=== PATIENT | male | born 1950 | race Caucasian/White ===

== ENCOUNTER 2017-04-17 19:37 | Emergency (ER) | payer MEDICARE ==
[2017-04-17 19:53] VITALS: RESP 18
[2017-04-17] MEDS ORDERED: HYDROmorphone 1 MG/ML 1 ML SYRINGE IVP STA (19:56)
[2017-04-17] MEDS ORDERED: IBUPROFEN 600 MG STARTER PACK 4 TAB BTL PO STA (19:56)
--- NOTE | 2017-04-17 19:56 | ED ---
Fever HPI - General Stated Complaint: Fall Time Seen by Provider: 04/17/17 19:41 - History of Present Illness Initial Comments: Chief complaint and history of present illness this is a 67-year-old male brought emergency room by embolus. The patient was at home he was on a ladder he fell approximately 6 feet onto his left side area. Complains discomfort to the left lower lateral rib cage and his left hip pelvic region. Denies any loss of consciousness. Patient had his cervical collar removed because it was irritating him palpation in the neck was negative for pain patient demonstrated there was able to flex and extend without discomfort. The patient also was found to have a temperature of 100 with a productive cough. - Related Data Home Medications Medication Instructions Recorded Confirmed Unknown Gout Medication 1 tab PO DAILY PRN 04/17/17 04/17/17 Previous Rx's Medication Instructions Recorded Hydrocodone/Acetaminophen [[place] 1 each PO Q6HR PRN #10 tab 04/17/17 5-325] Allergies Allergy/AdvReac Type Severity Reaction Status Date / Time No Known Allergies Allergy Verified 04/17/17 19:50 Review of Systems ROS Statement: Those systems with pertinent positive or pertinent negative responses have been documented in the HPI. Review of systems no visual acuity changes no headache or neck pain. Denies collarbone pain or shoulder pain. He has discomfort to his left lower lateral rib cage. Also productive cough. Temperature today is 100. No abdominal pain. He has discomfort to the left groin area. He keeps his left leg flexed at the hip. No neuro deficits. All systems are reviewed. Past medical problems denies any. 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 Family history mother had cancer of unknown type. Patient does smoke does drink denies any ALLERGIES. ROS Other: All systems not noted in ROS Statement are negative. Past Medical History Past Medical History: Skin Disorder Additional Past Medical History / Comment(s): Gout, cellulitis left leg-on rx and clearing up, anemia, History of Any Multi-Drug Resistant Organisms: None Reported Past Surgical History: No Surgical Hx Reported Additional Past Surgical History / Comment(s): surgery on rt leg and foot after injury age 3 Past Anesthesia/Blood Transfusion Reactions: No Reported Reaction Past Psychological History: No Psychological Hx Reported Smoking Status: Current every day smoker Past Alcohol Use History: Daily Additional Past Alcohol Use History / Comment(s): has smoked for approx 50 yrs- 2 PPD about per Past Drug Use History: None Reported - Past Family History Mother Family Medical History: Cancer Brother(s) Family Medical History: Cancer General Exam - General Exam Comments Initial Comments: General: The patient is awake and alert, arrived via EMS after falling approximately 6 feet. No loss of consciousness. He is not on blood thinners. The patient complains of pain to his left lower lateral rib cage and left hip area. Temp warm 1.2 pulse 75 respiratory rate 18 pulse ox 95% room air blood pressure 136/ 64. Eye: Pupils are equal, round and reactive to light, extra-ocular movements are intact ; there is normal conjunctiva bilaterally. No signs of icterus. Ears, nose, mouth and throat: There are moist mucous membranes and no oral lesions. Poor dentition Neck: The neck is supple, there is no tenderness. Cardiovascular: There is a regular rate and rhythm. No murmur, rub or gallop is appreciated. Respiratory: Patient has a fever productive cough starting today. Patient's heavy smoker. Rales appreciated.. Left lateral lower chest wall pain with movement palpation and breathing. Gastrointestinal: Soft, non-distended, non-tender abdomen without masses or organomegaly noted. There is no rebound or guarding present. No CVA tenderness. Bowel sounds are unremarkable. Back: There is no tenderness to palpation in the midline. There is no obvious deformity. No rashes noted. Musculoskeletal: Normal ROM, no tenderness, There is no pedal edema. There is no calf tenderness or swelling. Sensation intact. Pulses equal bilaterally 2+. Partial dictation right foot Neurological: CN II-XII intact, There are no obvious motor or sensory deficits. Coordination appears grossly intact. Speech is normal. No focal or lateralizing findings Skin: Skin is warm and dry and no rashes or lesions are noted. Course Vital Signs 04/17/17 04/17/17 04/17/17 19:39 20:53 21:17 Temperature 101.2 F H 99.2 F Pulse Rate 75 62 58 L Respiratory 18 18 18 Rate Blood Pressure 136/64 128/60 148/72 O2 Sat by Pulse 95 97 93 L Oximetry 04/17/17 22:56 Temperature 97.9 F Pulse Rate 52 L Respiratory 18 Rate Blood Pressure 105/67 O2 Sat by Pulse 99 Oximetry Medical Decision Making - Medical Decision Making Medical decision making; X-rays of cervical spine were done and reviewed radiologist his findings are negative for fracture or malalignment. Prominent multilevel cervical spondylosis changes appreciated. Impression; no acute process. As read by Dr. Master Irvin X-ray of the left hip was done and reviewed by radiologist his findings are bones and joints and soft tissues are unremarkable. Impression no acute process. As read by Dr. Master Irvin X-ray of the pelvis was done and reviewed by radiologist his impression is bones and joints and soft tissues appear negative for acute injury. Impression no acute process. As read by Dr. Master Irvin X-ray of the chest and left rib series were done and reviewed by radiologist his findings are the study is negative for fracture or pneumothorax or pleural effusion. No incidental findings. Impression no acute process. As read by Dr. Master Irvin CT the brain was done and reviewed by radiologist his findings are there is no acute intracranial hemorrhage, mass effect, or midline shift identified. The ventricles and sulci are within normal limits in size. The globes are intact and the visualized sinuses are clear. Impression no acute process. As read by Dr. Master Irvin Patient became mildly diaphoretic after IV Dilaudid. He states she's had a before he had no reaction to the morphine initially. He was given Zofran. Patient states he is feeling better. He is able to rotate his hip but with discomfort. The patient received 1 L of fluid so far, he'll receive another half liter. The patient's labs show white count 7.2 hemoglobin 7.5 hematocrit 23 and platelets 255. Potassium 4.3. BUN 14 creatinine 0.8 GFR greater than 60. Glucose 103. The patient was surprised to hear his hemoglobin was low denies any source of bleeding. Hemoccult will be sent. I discussed with the patient has hemoglobin of 7.5. Family reports they've been to an oncologist for some problems with hemochromatosis. He'll follow-up. I did a rectal exam prostate felt normal. There was no stool in the vault to check for stool guaiac. Patient denies seeing any dark or black or red stool per rectum. - Lab Data Result diagrams: 04/17/17 22:14 04/17/17 22:14 Lab Results 04/17/17 04/17/17 Range/Units 22:14 22:14 WBC 7.2 (3.8-10.6) k/uL RBC 1.91 L (4.30-5.90) m/uL Hgb 7.5 L (13.0-17.5) gm/dL Hct 23.0 L (39.0-53.0) % MCV 120.1 H (80.0-100.0) fL MCH 39.0 H (25.0-35.0) pg MCHC 32.5 (31.0-37.0) g/dL RDW 20.8 H (11.5-15.5) % Plt Count 255 (150-450) k/uL Neutrophils % 77 % Lymphocytes % 15 % Monocytes % 4 % Eosinophils % 2 % Basophils % 0 % Neutrophils # 5.6 (1.3-7.7) k/uL Lymphocytes # 1.1 (1.0-4.8) k/uL Monocytes # 0.3 (0-1.0) k/uL Eosinophils # 0.1 (0-0.7) k/uL Basophils # 0.0 (0-0.2) k/uL Manual Slide Review Performed Hypochromasia Slight Anisocytosis Moderate Macrocytosis Marked Target Cells Present Tear Drop Cells Present Ovalocytes Present Fragmented RBCs Present Sodium 137 (137-145) mmol/L Potassium 4.3 (3.5-5.1) mmol/L Chloride 105 (98-107) mmol/L Carbon Dioxide 23 (22-30) mmol/L Anion Gap 9 mmol/L BUN 14 (9-20) mg/dL Creatinine 0.80 (0.66-1.25) mg/dL Est GFR (MDRD) Af Amer >60 (>60 ml/min/1.73 sqM) Est GFR (MDRD) Non-Af >60 (>60 ml/min/1.73 sqM) Glucose 103 H (74-99) mg/dL Calcium 7.9 L (8.4-10.2) mg/dL Total Bilirubin 1.1 (0.2-1.3) mg/dL AST 26 (17-59) U/L ALT 33 (21-72) U/L Alkaline Phosphatase 54 (38-126) U/L Total Protein 6.2 L (6.3-8.2) g/dL Albumin 3.3 L (3.5-5.0) g/dL Disposition Clinical Impression: Fall Disposition: HOME SELF-CARE Condition: Stable Instructions: Fall Prevention for Older Adults (ED), Rib Contusion (ED), Contusion in Adults (ED), Hip Contusion (ED) Additional Instructions: Take Tylenol and/or [place] for pain. May need repeat x-rays if pain persists for a week to 10 days. Follow-up with your oncologist near family doctor concerning here blood picture. Prescriptions: Hydrocodone/Acetaminophen [[place] 5-325] 1 each PO Q6HR PRN #10 tab PRN Reason: Pain Referrals: George Bustillos DO [Primary Care Provider] - 1-2 days Time of Disposition: 23:23
[2017-04-17] MEDS ORDERED: ONDANSETRON 4 MG/2 ML VIAL IVP STA (21:12)
--- NOTE | 2017-04-17 21:15 | XR ---
EXAMINATION TYPE: XR pelvis AP view DATE OF EXAM: 04/17/2017 COMPARISON: NONE HISTORY: Pain after injury TECHNIQUE: One view FINDINGS: Bones and joints and soft tissues appear negative for acute injury. IMPRESSION: No acute process.
--- NOTE | 2017-04-17 21:17 | XR ---
EXAMINATION TYPE: XR Hip Complete LT DATE OF EXAM: 04/17/2017 COMPARISON: NONE HISTORY: Pain after injury TECHNIQUE: 2 views FINDINGS: Bones and joints and soft tissues are unremarkable. IMPRESSION: No acute process.
--- NOTE | 2017-04-17 21:19 | XR ---
EXAMINATION TYPE: XR ribs LT w pa chest xray DATE OF EXAM: 04/17/2017 COMPARISON: NONE HISTORY: Pain after injury TECHNIQUE: 6 views FINDINGS: The study is negative for fracture or pneumothorax or pleural effusion. No incidental findi ngs. IMPRESSION: No acute process.
--- NOTE | 2017-04-17 21:20 | XR ---
EXAMINATION TYPE: XR cervical spine comp DATE OF EXAM: 04/17/2017 COMPARISON: NONE HISTORY: Pain after injury TECHNIQUE: 5 views FINDINGS: Negative for fracture or malalignment. Prominent multilevel cervical spondylosis changes ap preciated IMPRESSION: No acute process.
--- NOTE | 2017-04-17 21:45 | CT ---
EXAMINATION TYPE: CT brain wo con DATE OF EXAM: 04/17/2017 COMPARISON: NONE HISTORY: Fall injury today. CT DLP: 1010.6 mGycm Automated exposure control for dose reduction was used. FINDINGS: There is no acute intracranial hemorrhage, mass effect, or midline shift identified. The ventricles and sulci are within normal limits in size. The globes are intact and the visualized sinuses are sven ar. IMPRESSION: NO ACUTE PROCESS.
[2017-04-17] MEDS ORDERED: SODIUM CHLORIDE 0.9% 500 ML IV ONE (21:55)
[2017-04-17 22:30] LABS: Anisocytosis Moderate; Basophils % (A) 0 %; CH 38.3; CHCM 32.1; Eosinophils # (A) 0.1 k/uL (0-0.7); Eosinophils % (A) 2 %; HDW 2.93; HGB 7.5 gm/dL (13.0-17.5); Hypochromasia Slight; Luc % (Auto) 1; Lymphocytes # (A) 1.1 k/uL (1.0-4.8); Lymphocytes % (A) 15 %; MCHC 32.5 g/dL (31.0-37.0); MCV 120.1 fL (80.0-100.0); Macrocytosis Marked; Mean Platelet Volume 8.6; Monocytes # (A) 0.3 k/uL (0-1.0); Monocytes % (A) 4 %; Neutrophils # (A) 5.6 k/uL (1.3-7.7); Neutrophils % (A) 77 %; RBC 1.91 m/uL (4.30-5.90); RDW 20.8 % (11.5-15.5); WBC 7.2 k/uL (3.8-10.6)
[2017-04-17 22:35] LABS: ALT 33 U/L (21-72); AST 26 U/L (17-59); Alkaline Phosphatase 54 U/L (38-126); Anion Gap 9 mmol/L; Blood Urea Nitrogen 14 mg/dL (9-20); Calcium 7.9 mg/dL (8.4-10.2); Carbon Dioxide 23 mmol/L (22-30); Chloride 105 mmol/L (98-107); Glucose 103 mg/dL (74-99); Non-African American GFR(MDRD) >60 (>60 ml/min/1.73 sqM); Potassium 4.3 mmol/L (3.5-5.1); Sodium 137 mmol/L (137-145); Total Bilirubin 1.1 mg/dL (0.2-1.3); Total Protein 6.2 g/dL (6.3-8.2)
[2017-04-17 22:58] LABS: Manual Review Performed
[2017-04-17 22:59] LABS: Ovalocytes Present; Target Cells Present; Tear Drop Cells Present
[2017-04-17 23:01] VITALS: BP 105/67; PULSE 52; TEMP 97.9
[2017-04-17 23:16] LABS: Appearance,Urine Clear (Clear); Bilirubin,Urine Negative (Negative); Glucose,Urine (UA) Negative (Negative); Ketones,Urine 1+ (Negative); Leukocyte Esterase,Urine Negative (Negative); Nitrite,Urine Negative (Negative); Protein,Urine Negative (Negative); UA Billing (MACRO vs. MICRO) CHEM; Urobilinogen,Urine <2.0 mg/dL (<2.0)
== END 2017-04-17 23:46 | disposition home or self-care (01) ==
LOC: EC 19:37
DX: M25.552 Pain in left hip (principal); M47.812 Spondylosis without myelopathy or radiculopathy, cervical region; R09.89 Other specified symptoms and signs involving the circulatory and respiratory systems; R07.81 Pleurodynia; R50.9 Fever, unspecified; R05 Cough; R61 Generalized hyperhidrosis; F17.200 Nicotine dependence, unspecified, uncomplicated; W11.XXXA Fall on and from ladder, initial encounter; Y92.009 Unspecified place in unspecified non-institutional (private) residence as the place of occurrence of the external cause
CPT/HCPCS: 96361 ×3; 96374 ×2; 96375 ×2; 99285 ×2; 36415; 80053; 85025; 81003; 87086; 71101; 72050; 72170; 73502; 70450; J2405; J1170; 96372; 99284

== ENCOUNTER → 2019-12-11 | Outpatient (CLI) | payer MEDICARE, BC ==
--- NOTE | 2019-12-11 09:21 | CT ---
EXAMINATION TYPE: CT brain wo/w con DATE OF EXAM: 12/11/2019 COMPARISON: CT brain dated 04/17/2017 HISTORY: Dizziness and pounding in eyes. Vertigo. CT DLP: 2128.6 mGycm Automated Exposure Control for Dose Reduction was Utilized. TECHNIQUE: CT scan of the head is performed with IV contrast.,CT scan of the head is performed withou t and with without and with IV Contrast, patient injected with 100 mL of Isovue 300. FINDINGS: Noncontrast images show no acute intracranial hemorrhage or midline shift. The ventricles and sulci are symmetrically prominent compatible with age-related volume loss. Incidentally noted pa rtially empty sella turcica. The globes are symmetric. Extraocular muscles are also symmetric. No eng orgement of the superior ophthalmic veins. Lenses are in place. Postcontrast images show no suspiciou s enhancing intraparenchymal mass. Scant mucosal thickening of the right maxillary sinus is seen. Rem aining paranasal sinuses and mastoid air cells are well aerated. Osseous demineralization seen. IMPRESSION: 1. No abnormal intracranial enhancement seen. Age-related cerebral atrophy is present. No evidence of severe sinusitis or mastoiditis in this patient with vertigo. Scant mucosal thickening of the right maxillary sinus is seen. 2. Partially empty sella turcica, but is commonly seen with age. However MRI could evaluate for other evidence of increased intracranial pressure. Correlate with ophthalmologic exam. MRI could also pro vide increased sensitivity for underlying white matter change.
== END | disposition home or self-care (01) ==
LOC: RADCTMAIN 07:18
PROVIDERS: ATTEND Family Medicine
DX: G31.1 Senile degeneration of brain, not elsewhere classified (principal); G93.2 Benign intracranial hypertension; R90.89 Other abnormal findings on diagnostic imaging of central nervous system; R42 Dizziness and giddiness
CPT/HCPCS: 82565; 84520; 70470; 36415; Q9967

== ENCOUNTER 2020-03-12 19:17 | Inpatient (IN) | payer MEDICARE, BC ==
[2020-03-12] MEDS ORDERED: ACETAMINOPHEN TAB 500 MG TAB PO STA (19:34)
--- NOTE | 2020-03-12 19:55 | ED ---
General Adult HPI - General Chief complaint: Weakness Stated complaint: weakness Time Seen by Provider: 03/12/20 19:22 Source: patient, EMS, RN notes reviewed, old records reviewed Mode of arrival: EMS Limitations: no limitations - History of Present Illness Initial comments: 70-year-old male presenting for evaluation of fever, generalized weakness. Rizwan garcia received a transfusion this morning at approximately 9 AM. He was noted to have a fever this afternoon. Brought to the emergency department for evaluation. Patient is currently receiving chemotherapy for cancer, uncertain what type of cancer this patient has periods most recent chemo was approximately 2 weeks ago. He denies pain complaints. Denies vomiting or diarrhea. Denies rash. He states he is short of breath this is been ongoing for some time. Denies significant cough. He is a current smoker. - Related Data Home Medications Medication Instructions Recorded Confirmed No Known Home Medications 12/11/19 03/12/20 Allergies Allergy/AdvReac Type Severity Reaction Status Date / Time No Known Allergies Allergy Verified 03/12/20 20:51 Review of Systems ROS Statement: Those systems with pertinent positive or pertinent negative responses have been documented in the HPI. ROS Other: All systems not noted in ROS Statement are negative. Past Medical History Past Medical History: Cancer, Skin Disorder Additional Past Medical History / Comment(s): Gout, cellulitis left leg-on rx and clearing up, anemia, History of Any Multi-Drug Resistant Organisms: None Reported Past Surgical History: No Surgical Hx Reported Additional Past Surgical History / Comment(s): surgery on rt leg and foot after injury age 3 Past Anesthesia/Blood Transfusion Reactions: No Reported Reaction Past Psychological History: No Psychological Hx Reported Smoking Status: Current every day smoker Past Alcohol Use History: Daily Past Drug Use History: None Reported - Past Family History Mother Family Medical History: Cancer Brother(s) Family Medical History: Cancer Father Additional Family Medical History / Comment(s): Father at age 93 from old age. General Exam Limitations: no limitations General appearance: alert, cachectic Head exam: Present: atraumatic, normocephalic Eye exam: Present: normal appearance, PERRL ENT exam: Present: mucous membranes dry Neck exam: Present: normal inspection. Absent: tenderness, meningismus Respiratory exam: Present: respiratory distress, decreased breath sounds Cardiovascular Exam: Present: regular rate, normal rhythm GI/Abdominal exam: Present: soft. Absent: distended, tenderness Extremities exam: Present: normal inspection, normal capillary refill. Absent: pedal edema Neurological exam: Present: alert, oriented X3, CN II-XII intact. Absent: motor sensory deficit Psychiatric exam: Present: normal affect, normal mood Skin exam: Present: warm, dry, intact. Absent: cyanosis, diaphoretic Course Vital Signs 03/12/20 03/12/20 19:18 19:45 Temperature 102.6 F H Pulse Rate 65 Respiratory 18 20 Rate Blood Pressure 135/68 O2 Sat by Pulse 100 Oximetry EKG Findings - EKG Comments: EKG Findings:: EKG: Normal sinus rhythm, rate of 66, FL interval 204 over QRS duration 92, QTC 419, no ST segment elevation Medical Decision Making - Medical Decision Making 70-year-old male presenting for evaluation of fever, cough, generalized weakness. Workup reveals pancytopenia and profound neutropenia. Total white blood cell count is 900, hemoglobin 7.3, platelets are 16. He has a normal lactic acid. Urinalysis showing 10 RBCs, chest x-ray concerning for infiltrate given the cough and dyspnea he will be treated for both neutropenic fever as well as pneumonia. He is given cefepime, vancomycin, and azithromycin in the emergency department. He will be admitted with both oncology and infectious di [facility] [place] consult. Case is discussed with Dr. Calloway who will admit. - Lab Data Result diagrams: 03/12/20 19:40 03/12/20 19:40 Lab Results 03/12/20 03/12/20 03/12/20 Range/Units 19:40 19:40 19:40 WBC 0.9 L* (3.8-10.6) k/uL RBC 2.05 L (4.30-5.90) m/uL Hgb 7.3 L (13.0-17.5) gm/dL Hct 21.0 L (39.0-53.0) % MCV 102.4 H (80.0-100.0) fL MCH 35.5 H (25.0-35.0) pg MCHC 34.7 (31.0-37.0) g/dL RDW 25.5 H (11.5-15.5) % Plt Count 16 L* (150-450) k/uL Neutrophils # ENGRAVER SIGNATURE Differential Comment P Manual Slide Review Performed Hypochromasia (manual) Present Anisocytosis Marked Macrocytosis Marked A Target Cells Present Stomatocytes Present Sodium 132 L (137-145) mmol/L Potassium 4.1 (3.5-5.1) mmol/L Chloride 99 (98-107) mmol/L Carbon Dioxide 26 (22-30) mmol/L Anion Gap 7 mmol/L BUN 18 (9-20) mg/dL Creatinine 0.83 (0.66-1.25) mg/dL Est GFR (CKD-EPI)AfAm >90 (>60 ml/min/1.73 sqM) Est GFR (CKD-EPI)NonAf 88 (>60 ml/min/1.73 sqM) Glucose 100 H (74-99) mg/dL Plasma Lactic Acid Jan 1.1 (0.7-2.0) mmol/L Calcium 8.0 L (8.4-10.2) mg/dL Total Bilirubin 1.1 (0.2-1.3) mg/dL AST 52 (17-59) U/L ALT 46 (4-49) U/L Alkaline Phosphatase 76 (38-126) U/L Total Protein 7.5 (6.3-8.2) g/dL Albumin 3.3 L (3.5-5.0) g/dL Urine Color Urine Appearance (Clear) Urine pH (5.0-8.0) Ur Specific [place] (1.001-1.035) Urine Protein (Negative) Urine Glucose (UA) (Negative) Urine Ketones (Negative) Urine Blood (Negative) Urine Nitrite (Negative) Urine Bilirubin (Negative) Urine Urobilinogen (<2.0) mg/dL Ur Leukocyte Esterase (Negative) Urine RBC (0-5) /hpf Urine WBC (0-5) /hpf Urine Mucus (None) /hpf 03/12/20 Range/Units 20:10 WBC (3.8-10.6) k/uL RBC (4.30-5.90) m/uL Hgb (13.0-17.5) gm/dL Hct (39.0-53.0) % MCV (80.0-100.0) fL MCH (25.0-35.0) pg MCHC (31.0-37.0) g/dL RDW (11.5-15.5) % Plt Count (150-450) k/uL Neutrophils # Differential Comment Manual Slide Review Hypochromasia (manual) Anisocytosis Macrocytosis Target Cells Stomatocytes Sodium (137-145) mmol/L Potassium (3.5-5.1) mmol/L Chloride (98-107) mmol/L Carbon Dioxide (22-30) mmol/L Anion Gap mmol/L BUN (9-20) mg/dL Creatinine (0.66-1.25) mg/dL Est GFR (CKD-EPI)AfAm (>60 ml/min/1.73 sqM) Est GFR (CKD-EPI)NonAf (>60 ml/min/1.73 sqM) Glucose (74-99) mg/dL Plasma Lactic Acid Jan (0.7-2.0) mmol/L Calcium (8.4-10.2) mg/dL Total Bilirubin (0.2-1.3) mg/dL AST (17-59) U/L ALT (4-49) U/L Alkaline Phosphatase (38-126) U/L Total Protein (6.3-8.2) g/dL Albumin (3.5-5.0) g/dL Urine Color Yellow Urine Appearance Clear (Clear) Urine pH 5.5 (5.0-8.0) Ur Specific [place] 1.017 (1.001-1.035) Urine Protein Trace H (Negative) Urine Glucose (UA) Negative (Negative) Urine Ketones Negative (Negative) Urine Blood Moderate H (Negative) Urine Nitrite Negative (Negative) Urine Bilirubin Negative (Negative) Urine Urobilinogen 2.0 (<2.0) mg/dL Ur Leukocyte Esterase Negative (Negative) Urine RBC 10 H (0-5) /hpf Urine WBC 1 (0-5) /hpf Urine Mucus Rare H (None) /hpf Critical Care Time Critical Care Time: Yes Total Critical Care Time: 35 Disposition Clinical Impression: Pneumonia, Neutropenic fever Disposition: ADMITTED IP TO THIS [facility] Condition: Stable Is patient prescribed a controlled substance at d/c from ED?: No Referrals: None,Stated [REFERRING] - 1-2 days Decision to Admit Reason: Admit from EC Decision Date: 03/12/20 Decision Time: 21:11
[2020-03-12 20:04] LABS: Anisocytosis Marked; HGB 7.3 gm/dL (13.0-17.5); MCH 35.5 pg (25.0-35.0); MCHC 34.7 g/dL (31.0-37.0); MCV 102.4 fL (80.0-100.0); Macrocytosis Marked; Mean Platelet Volume 8.9; RBC 2.05 m/uL (4.30-5.90)
[2020-03-12 20:07] LABS: ALT 46 U/L (4-49); AST 52 U/L (17-59); African American GFR (CKD) >90 (>60 ml/min/1.73 sqM); Albumin 3.3 g/dL (3.5-5.0); Alkaline Phosphatase 76 U/L (38-126); Anion Gap 7 mmol/L; Blood Urea Nitrogen 18 mg/dL (9-20); Carbon Dioxide 26 mmol/L (22-30); Chloride 99 mmol/L (98-107); Glucose 100 mg/dL (74-99); Non-African American GFR(CKD) 88 (>60 ml/min/1.73 sqM); Potassium 4.1 mmol/L (3.5-5.1); Sodium 132 mmol/L (137-145); Total Bilirubin 1.1 mg/dL (0.2-1.3); Total Protein 7.5 g/dL (6.3-8.2)
[2020-03-12 20:14] LABS: RDW 25.5 % (11.5-15.5)
--- NOTE | 2020-03-12 20:18 | XR ---
EXAMINATION TYPE: XR chest 2V DATE OF EXAM: 03/12/2020 COMPARISON: 04/17/2017 HISTORY: 70-year-old male with fever, shortness of breath, weakness TECHNIQUE: PA and lateral views FINDINGS: Heart upper limits of normal in size. Some pleural-based calcifications are suggested particularly ov erlying the hemidiaphragms. Vague patches of hazy densities may relate to additional pleural calcific ations. Hyperinflation with flattening of the hemidiaphragms. No definite consolidation or pleural ef fusion. IMPRESSION: COPD. Pleural calcifications suggesting prior asbestosis exposure. Vague patches of hazy density coul d represent subtle groundglass infiltrate such as relating to interstitial pneumonitis or atypical pn eumonias. Clinically correlate.
[2020-03-12 20:23] LABS: Appearance,Urine Clear (Clear); Bilirubin,Urine Negative (Negative); Blood,Urine Moderate (Negative); Color,Urine Yellow; Glucose,Urine (UA) Negative (Negative); Ketones,Urine Negative (Negative); Leukocyte Esterase,Urine Negative (Negative); Mucus,Urine Rare /hpf; Nitrite,Urine Negative (Negative); PH, Urine 5.5 (5.0-8.0); Protein,Urine Trace (Negative); RBC,Urine 10 /hpf (0-5); Specific Gravity,Urine 1.017 (1.001-1.035); WBC,Urine 1 /hpf (0-5)
[2020-03-12 20:41] LABS: WBC 0.9 k/uL (3.8-10.6)
[2020-03-12] MEDS ORDERED: VANCOMYCIN IV PER PHARMACY 1 EACH MISC MISCELLANE PRN (20:44)
[2020-03-12] MEDS ORDERED: CEFEPIME 2 GM in SODIUM CHLORIDE 0.9% 100 ML IVPB STA (20:44)
[2020-03-12] MEDS ORDERED: AZITHROMYCIN 500 MG in SODIUM CHLORIDE 0.9% 250 ML IVPB STA (20:45)
[2020-03-12 20:48] LABS: Hypochromasia (M) Present; Platelet Count 16 k/uL (150-450); Stomatocytes Present; Target Cells Present
[2020-03-12] MEDS ORDERED: VANCOMYCIN 1,250 MG in SODIUM CHLORIDE 0.9% 250 ML IVPB STA (20:48)
[2020-03-12] MEDS ORDERED: NALOXONE 0.4 MG/ML 1 ML VIAL IV PRN (21:08)
[2020-03-12] MEDS: SODIUM CHLORIDE 0.9% 1,000 ML IV SCH (21:37)
[2020-03-13] MEDS: CEFEPIME 2 GM in SODIUM CHLORIDE 0.9% 100 ML IVPB SCH ×3 (04:25→20:48)
[2020-03-13] MEDS: ACETAMINOPHEN TAB 325 MG TAB PO PRN ×2 (09:21→18:04)
[2020-03-13] MEDS: VANCOMYCIN 1,000 MG in SODIUM CHLORIDE 0.9% 250 ML IVPB SCH ×2 (09:22→21:38)
[2020-03-13] MEDS: SODIUM CHLORIDE 0.9% 1,000 ML IV SCH ×2 (11:51→21:39)
--- NOTE | 2020-03-13 11:53 | P.HPIM ---
History of Present Illness H&P Date: 03/13/20 Chief Complaint: Fever This is a 70-year-old patient of Dr. Bustillos with a past medical history of anemia, gout, tobacco use and dependence, daily alcohol use. And cancer. Patient is unsure of the type of cancer that he has. He has been receiving chemotherapy and blood transfusions. He is under care with Dr. Flores. Patient presented yesterday for evaluation of fever and generalized weakness. Patient a transfusion yesterday morning at approximately 9 AM. He was noted to have a fever during the afternoon. Patient states that his most recent chemotherapy was approximately 2 weeks ago. He denies any pain or at this time. Denies any vomiting or diarrhea. Patient states that he has been short of breath recently with any activity. Denies any cough. Patient is a current smoker. At this time patient is resting in bed without any acute distress. He is still unsure of the type of cancer that he has stating that his white blood cells are destroyed his red blood cells. Patient underwent a blood transfusion yesterday and was feeling fine and developed a fever during the afternoon. Blood pressure 116/52 tabs are 99.9, respirations 18, pulse 62, pulse ox a 99% on 2 L via nasal cannula. RBC 2.05, hemoglobin 7.3, platelets 16, potassium 4.1, BUN 18, creat inine 0.83 Review of Systems Review Of Systems: Constitutional: No fever, no chills, no night sweats. No weight change. No weakness, fatigue or lethargy. No daytime sleepiness. EENT: No headache. No blurred vision or double vision, no loss of vision. No loss of Hearing, no ringing in the ears, no dizziness. No nasal drainage or congestion. No epistaxis. No sore throat. Lungs: reports shortness of breath with activity, cough, no sputum production. No wheezing. Cardiovascular: No chest pain, no lower extremity edema. No palpitations. No paroxysmal nocturnal dyspnea. No orthopnea. No lightheadedness or dizziness. No syncopal episodes. Abdominal: no abdominal discomfort. No nausea, vomiting. no diarrhea. No constipation. No bloody or tarry stools. no loss of appetite. Genitourinary: No dysuria, increased frequency, urgency. No urinary retention. Musculoskeletal: No myalgias. No muscle weakness, no gait dysfunction, no frequent falls. No back pain. No neck pain. Integumentary: No wounds, no lesions. No rash or pruritus. No unusual bruis ing. No change in hair or nails. Neurologic: No aphasia. No facial droop. No change in mentation. No head injury. No headache. No paralysis. No paresthesia. Psychiatric: No depression. No anxiety. No mood swings. Endocrine: No abnormal blood sugars. No weight change. No excessive sweating or thirst. Past Medical History Past Medical History: Cancer, Skin Disorder Additional Past Medical History / Comment(s): Gout, cellulitis to left leg? (patient states he is itchy, some scabs and scarring noted), chronic anemia, bone marrow cancer History of Any Multi-Drug Resistant Organisms: None Reported Past Surgical History: No Surgical Hx Reported Additional Past Surgical History / Comment(s): surgery on rt leg and foot after injury age 3 Past Anesthesia/Blood Transfusion Reactions: No Reported Reaction Past Psychological History: No Psychological Hx Reported Smoking Status: Current every day smoker Past Alcohol Use History: Daily Additional Past Alcohol Use History / Comment(s): Patient is a smoker 2 packs per day for 50 years. Patient drinks 4-6 beers per day for many years and cut down to 2 beers per day for the past 2 months. Patient lives at home with his . Past Drug Use History: None Reported - Past Family History Mother Family Medical History: Cancer Brother(s) Family Medical History: Cancer Father Additional Family Medical History / Comment(s): Father at age 93 from old age. Medications and Allergies Home Medications Medication Instructions Recorded Confirmed Type No Known Home Medications 12/11/19 03/12/20 History Allergies Allergy/AdvReac Type Severity Reaction Status Date / Time No Known Allergies Allergy Verified 03/12/20 20:51 Physical Exam Vitals: Vital Signs Temp Pulse Pulse Resp BP BP BP 03/13/20 07:00 99.9 F H 62 18 116/52 03/13/20 01:00 98.2 F 50 L 20 104/41 03/12/20 23:05 98.4 F 50 L 20 97/40 03/12/20 21:30 100.1 F H 53 L 16 97/52 03/12/20 19:45 20 03/12/20 19:18 102.6 F H 65 18 135/68 Pulse Ox 03/13/20 07:00 99 03/13/20 01:00 100 03/12/20 23:05 100 03/12/20 21:30 100 03/12/20 19:45 03/12/20 19:18 100 Intake and Output 03/12/20 03/13/20 03/13/20 22:59 06:59 14:59 Intake Total 600 Balance 600 Intake: Intake, IV Titration 600 Amount Sodium Chloride 0.9% 1, 600 000 ml @ 75 mls/hr IV . [id number] [facility] Rx#:[id number] Other: Voiding Method Toilet Urinal # Voids 1 # Bowel Movements 1 Weight 60.328 kg General Appearance: 70-year-old male Alert, cooperative, no distress, appears stated age. Neck HEENT: Supple, no lymphadenopathy, no thyroid enlargement, no carotid bruits. Lungs: Clear to auscultation without crackles or wheezes no rhonchi, no deformity. Chest Wall: Chest wall normal expansion with deep inspiration no tenderness and no deformity was found on exam, no costochondral pain or discomfort. Heart: Regular rate and rhythm, S1, S2 normal, no murmur, rub or gallop. Back: Symmetric, no curvature, ROM normal, no CVA tenderness. Abdomen: Soft, non-tender, no rebound or rigidity, no hepatosplenomegaly. Extremities: Extremities normal, atraumatic, no cyanosis or edema. Pulses: 2+ and symmetric. Skin: Warm to touch Skin color, texture, tugor normal, no rashes or lesions. Neurologic: Alert oriented x3 cranial nerves II through XII intact, no motor deficit, no abnormal balance or gait Results CBC & Chem 7: 03/12/20 19:40 03/12/20 19:40 Labs: Abnormal Lab Results - Last 24 Hours (Table) 03/12/20 03/12/20 03/12/20 Range/Units 19:40 19:40 20:10 WBC 0.9 L* (3.8-10.6) k/uL RBC 2.05 L (4.30-5.90) m/uL Hgb 7.3 L (13.0-17.5) gm/dL Hct 21.0 L (39.0-53.0) % MCV 102.4 H (80.0-100.0) fL MCH 35.5 H (25.0-35.0) pg RDW 25.5 H (11.5-15.5) % Plt Count 16 L* (150-450) k/uL Macrocytosis Marked A Sodium 132 L (137-145) mmol/L Glucose 100 H (74-99) mg/dL Calcium 8.0 L (8.4-10.2) mg/dL Albumin 3.3 L (3.5-5.0) g/dL Urine Protein Trace H (Negative) Urine Blood Moderate H (Negative) Urine RBC 10 H (0-5) /hpf Urine Mucus Rare H (None) /hpf Thrombosis Risk Factor Assmnt - Choose All That Apply Any of the Below Risk Factors Present?: No Each Risk Factor Represents 2 Points: Age 61-74 years Other congenital or acquired thrombophilia - If yes, enter type in comment: No Thrombosis Risk Factor Assessment Total Risk Factor Score: 2 Thrombosis Risk Factor Assessment Level: Low Risk Assessment and Plan Plan: 1. Neutropenic fever. Vancomycin 1 g every 12 hours, cefepime 2 g every 8 hours Tylenol as needed for fever control, consult oncology, may Neupogen, awaiting recommendations from oncology, consult infectious disease, awaiting blood cultures, awaiting covid 19 testing 2. Pancytopenia. See above 3. Chronic anemia. See above 4. Tobacco use and dependence 5. Alcohol abuse, stable 6. GI prophylaxis. Pantoprazole 40 mg IV daily 7. DVT prophylaxis. Ambulation 8. Covid test pending Admit for a minimal of 2 nights day Impression and plan of care have been directed as dictated by the signing physician. Kaylah Calhoun nurse practitioner acting as scribe for signing physician.
--- NOTE | 2020-03-13 15:38 | P.CONS ---
History of Present Illness - Reason for Consult Consult date: 03/13/20 pancytopenia Requesting physician: Juanjose Calloway - Chief Complaint fever - History of Present Illness Mr. Walls is a very pleasant 70 yo male with multiple comorbidities including MDS with ringed sideroblasts, following more recently with Dr. Flores and recently started on chemotherapy with dacogen, who is here for neutropenic fever. Work up suggestive of pneumonia. He is on antibiotics and with severe neutropenia, pancytopenia due to chemotherapy. Patient's cancer history is as follows. He was initially seen for progressive anemia, and persistently high MCV. Labs from 03/06 revealed a Hgb of 13.3, with MCV 111.4. CRP was mildly elevated at 1.37.On 05/31/16, Hgb was 8.6, with MCV 116.5. Ferritin was 1053, but saturation was normal at 27%. TIBC was low at 246. CRP was higher at 3.02. Total globulin was elevated at 4.1. Other aspects of his CBC and CMP were normal. He denied any prior h/o blood problems, or transfusions, or any ongoing chronic inflammatory condition. Additional labs were ordered, which were negative, other than a mild elevation of light chains, with normal ratio. Repeat iron studies again showed no evidence of hemochromatosis. He had a bone marrow on 08/30/16. Prelim report, per my discussion with Pathology indicated erythroid hyperplasia, with some megaloblastoid changes, and increased ring sideroblasts. Flow indicated an aberrant population of blasts ( 1%). This is most indicative of MDS. He denied any f/c/n/v/LAD/joint swelling/obvious inflammation. His ROS is otherwise as per HPI and negative out of 10. 01/20/20: the patient was referred back here as a new consult. At the time of his initial evaluation, on discussion of the pathology, he had indicated that he did not want any treatment especially chemotherapy. As hemoglobin was still in a safe range, it was recommended that the patient be followed with observation at the time. However he canceled his scheduled appointment in 10/10 did not follow- up in the office subsequently. According to physician notes available the patient remained quite noncompliant and erratic in follow-up with his PCP. He had presented in 12/11 with complains of progressive fatigue, shortness of breath on exertion, and dizziness over the past several weeks. He was found to have a hemoglobin of 6.7 with MCV 99, platelets 193 and WBC 4.5 with ANC 1.2 and ALC 2.1.GFR was essentially normal, along with other liver enzymes. Uric acid was elevated at 8.2. C-reactive protein was 9.5. His iron saturation was 50% with ferritin 930. the patient was admitted to [facility] on 12/11/19 and received blood transfusion. Hemoglobin improvement to the 8 range any was s ubsequently discharged. He also had a flow cytometry done by his PCP around this time which was negative other than some neutropenia. the patient had a bone marrow aspiration biopsy repeated on 01/26/20. This revealed similar changes with erythroid hyperplasia, and ring sideroblasts indicative of MDS. There was no evidence of transformation to acute leukemia. telemedicine 02/04/20: The patient had repeat bone marrow aspiration biopsy with results as noted above. He denied any fevers/chills/nausea/vomiting. He continues to complain of easy fatigability, and shortness of breath on exertion which is stable since his visit he denies any obvious bleeding. No history of any lymph node enla rgement, or new bone pain. Appetite is normal. Review of systems otherwise as per HPI and negative out of 10. 02/11/20-patient and his are here today for Dacogen education. Pt is extremely anxious about doing treatment. He has no acute physical complaints. 02/22-02/10: C1 of Dacogen Review of Systems All systems: negative Constitutional: Reports as per HPI Past Medical History Past Medical History: Cancer, Skin Disorder Additional Past Medical History / Comment(s): Gout, cellulitis to left leg? (patient states he is itchy, some scabs and scarring noted), chronic anemia, bone marrow cancer History of Any Multi-Drug Resistant Organisms: None Reported Past Surgical History: No Surgical Hx Reported Additional Past Surgical History / Comment(s): surgery on rt leg and foot after injury age 3 Past Anesthesia/Blood Transfusion Reactions: No Reported Reaction Past Psychological History: No Psychological Hx Reported Smoking Status: Current every day smoker Past Alcohol Use History: Daily Additional Past Alcohol Use History / Comment(s): Patient is a smoker 2 packs per day for 50 years. Patient drinks 4-6 beers per day for many years and cut down to 2 beers per day for the past 2 months. Patient lives at home with his . Past Drug Use History: None Reported - Past Family History Mother Family Medical History: Cancer Brother(s) Family Medical History: Cancer Father Additional Family Medical History / Comment(s): Father at age 93 from old age. Medications and Allergies Home Medications Medication Instructions Recorded Confirmed Type No Known Home Medications 12/11/19 03/12/20 History Allergies Allergy/AdvReac Type Severity Reaction Status Date / Time No Known Allergies Allergy Verified 03/12/20 20:51 Physical Exam Vitals: Vital Signs Temp Pulse Pulse Resp BP BP BP 03/13/20 11:54 98.3 F 03/13/20 07:00 99.9 F H 62 18 116/52 03/13/20 01:00 98.2 F 50 L 20 104/41 03/12/20 23:05 98.4 F 50 L 20 97/40 03/12/20 21:30 100.1 F H 53 L 16 97/52 03/12/20 19:45 20 03/12/20 19:18 102.6 F H 65 18 135/68 Pulse Ox 03/13/20 11:54 03/13/20 07:00 99 03/13/20 01:00 100 03/12/20 23:05 100 03/12/20 21:30 100 03/12/20 19:45 03/12/20 19:18 100 Intake and Output 03/12/20 03/13/20 03/13/20 22:59 06:59 14:59 Intake Total 600 Balance 600 Intake: Intake, IV Titration 600 Amount Sodium Chloride 0.9% 1, 600 000 ml @ 75 mls/hr IV . [id number] [facility] Rx#:[id number] Other: Voiding Method Toilet Urinal # Voids 1 # Bowel Movements 1 Weight 60.328 kg 60.328 kg Constitutional: No acute distress. HEENT: Conjunctival pallor. Mucosa moist. Neck: Neck supple. Lungs:No respiratory distress. Heart: Normal rate. Abdomen: Soft, nontender, nondistended. MSK: 4/4 strength in all 4 extremities. Neuro: Alert and oriented x 3. Skin: No jaundice. Psych: Appropriate affect. Results CBC & Chem 7: 03/12/20 19:40 03/12/20 19:40 Labs: Abnormal Lab Results - Last 24 Hours (Table) 03/12/20 03/12/20 03/12/20 Range/Units 19:40 19:40 20:10 WBC 0.9 L* (3.8-10.6) k/uL RBC 2.05 L (4.30-5.90) m/uL Hgb 7.3 L (13.0-17.5) gm/dL Hct 21.0 L (39.0-53.0) % MCV 102.4 H (80.0-100.0) fL MCH 35.5 H (25.0-35.0) pg RDW 25.5 H (11.5-15.5) % Plt Count 16 L* (150-450) k/uL Macrocytosis Marked A Sodium 132 L (137-145) mmol/L Glucose 100 H (74-99) mg/dL Calcium 8.0 L (8.4-10.2) mg/dL Albumin 3.3 L (3.5-5.0) g/dL Urine Protein Trace H (Negative) Urine Blood Moderate H (Negative) Urine RBC 10 H (0-5) /hpf Urine Mucus Rare H (None) /hpf Chest x-ray: report reviewed Assessment and Plan Assessment: 1. Pancytopenia due to chemotherapy and underlying MDS 2. Febrile neutropenia 3. Pneumonia 4. MDS with ringed sideroblasts Plan: Mr. Walls is a very pleasant 70 yo male with multiple comorbidities as listed in PMH including MDS with ringed sideroblasts, who was recently started on hypomethylating agent by Dr. Flores with dacogen, here for febrile neutropenia. Work up suggestive of pneumonia based on hazy infiltrates on CXR. 1- Antibiotics as per primary team 2- G-CSF for neutropenia 3- Supportive transfusion for Hgb <7 and plt <15 4- Hold Dacogen until pt follows up in clinic upon discharge. Discussed with pt and he is agreeable to the plan. All of his questions were answered.
[2020-03-13] MEDS: FILGRASTIM-SNDZ 300 MCG/0.5 ML SYRINGE SQ SCH (17:55)
--- NOTE | 2020-03-14 01:28 | P.CONS ---
History of Present Illness - Reason for Consult Consult date: 03/13/20 Neutropenic fever Requesting physician: Juanjose Calloawy - Chief Complaint Fever 1 day - History of Present Illness Patient is a 70-year-old male with a past medical history significant for myelodysplastic syndrome for the patient is currently undergoing chemotherapy in the hospital has been about 2 weeks ago patient did receive blood transfusion the day of presentation hospital in the afternoon patient noticed to have a fever with some chills the patient has been complaining of feeling weak and no energy but denies having any headache or URI symptoms no chest pain or shortness did have mild cough not bringing up any sputum no nausea no vomiting no bone pain no diarrhea no urinary symptoms. The symptoms the patient has been evaluated by the ER physician on arrival. The patient did have a fever of 102F patient was noticed to be neutropenic with a white count of 0.9, the patient did have a negative UA chest x-ray was some hazy infiltrate, covid 19 Negative testing has been negative she has been started on cefepime and vancomycin admitted to the hospital infectious disease was consulted for further management of antibiotic therapy Review of Systems Positive point has been mentioned in the HPI rest of the systems are negative Past Medical History Past Medical History: Cancer, Skin Disorder Additional Past Medical History / Comment(s): Gout, cellulitis to left leg? (patient states he is itchy, some scabs and scarring noted), chronic anemia, bone marrow cancer History of Any Multi-Drug Resistant Organisms: None Reported Past Surgical History: No Surgical Hx Reported Additional Past Surgical History / Comment(s): surgery on rt leg and foot after injury age 3 Past Anesthesia/Blood Transfusion Reactions: No Reported Reaction Past Psychological History: No Psychological Hx Reported Smoking Status: Current every day smoker Past Alcohol Use History: Daily Additional Past Alcohol Use History / Comment(s): Patient is a smoker 2 packs per day for 50 years. Patient drinks 4-6 beers per day for many years and cut down to 2 beers per day for the past 2 months. Patient lives at home with his . Past Drug Use History: None Reported - Past Family History Mother Family Medical History: Cancer Brother(s) Family Medical History: Cancer Father Additional Family Medical History / Comment(s): Father at age 93 from old age. Medications and Allergies Home Medications Medication Instructions Recorded Confirmed Type No Known Home Medications 12/11/19 03/12/20 History Allergies Allergy/AdvReac Type Severity Reaction Status Date / Time No Known Allergies Allergy Verified 03/12/20 20:51 Physical Exam Vitals: Vital Signs Temp Pulse Pulse Resp BP BP BP 03/13/20 11:54 98.3 F 03/13/20 07:00 99.9 F H 62 18 116/52 03/13/20 01:00 98.2 F 50 L 20 104/41 03/12/20 23:05 98.4 F 50 L 20 97/40 03/12/20 21:30 100.1 F H 53 L 16 97/52 03/12/20 19:45 20 03/12/20 19:18 102.6 F H 65 18 135/68 Pulse Ox 03/13/20 11:54 03/13/20 07:00 99 03/13/20 01:00 100 03/12/20 23:05 100 03/12/20 21:30 100 03/12/20 19:45 03/12/20 19:18 100 Intake and Output 03/12/20 03/13/20 03/13/20 22:59 06:59 14:59 Intake Total 600 Balance 600 Intake: Intake, IV Titration 600 Amount Sodium Chloride 0.9% 1, 600 000 ml @ 75 mls/hr IV . [id number] [facility] Rx#:[id number] Other: Voiding Method Toilet Urinal # Voids 1 # Bowel Movements 1 Weight 60.328 kg 60.328 kg GENERAL DESCRIPTION: An elderly male lying in bed, no distress. No tachypnea or accessory muscle of respiration use. HEENT: Shows Pallor , no scleral icterus. Oral mucous membrane is dry. No pharyngeal erythema or thrush NECK: Trachea central, no thyromegaly. LUNGS: Unlabored breathing. Decreased this on the base. No wheeze or crackle. HEART: S1, S2, regular rate and rhythm. No loud murmur ABDOMEN: Soft, no tenderness , guarding or rigidity, no organomegaly EXTREMITIES: No edema of feet. SKIN: No rash, no masses palpable. NEUROLOGICAL: The patient is awake, alert, oriented x3, mood and affect normal. Results CBC & Chem 7: 03/12/20 19:40 03/12/20 19:40 Labs: Abnormal Lab Results - Last 24 Hours (Table) 03/12/20 03/12/20 03/12/20 Range/Units 19:40 19:40 20:10 WBC 0.9 L* (3.8-10.6) k/uL RBC 2.05 L (4.30-5.90) m/uL Hgb 7.3 L (13.0-17.5) gm/dL Hct 21.0 L (39.0-53.0) % MCV 102.4 H (80.0-100.0) fL MCH 35.5 H (25.0-35.0) pg RDW 25.5 H (11.5-15.5) % Plt Count 16 L* (150-450) k/uL Macrocytosis Marked A Sodium 132 L (137-145) mmol/L Glucose 100 H (74-99) mg/dL Calcium 8.0 L (8.4-10.2) mg/dL Albumin 3.3 L (3.5-5.0) g/dL Urine Protein Trace H (Negative) Urine Blood Moderate H (Negative) Urine RBC 10 H (0-5) /hpf Urine Mucus Rare H (None) /hpf Assessment and Plan Assessment: 1-patient with febrile neutropenia in this patient who has received chemotherapy for underlying myelodysplastic syndrome presented to hospital with fever and weakness minimal cough in this patient who did have a some hazy infiltrate on his chest x-ray with concern for possible pneumonia with a likely source of this infection is currently no other obvious focus of infection urine has been negative abdominal soft on clinical Examination and no evidence of any cellulitis (1) Neutropenic fever Current Visit: Yes Status: Acute Code(s): D70.9 - NEUTROPENIA, UNSPECIFIED; R50.81 - FEVER PRESENTING WITH CONDITIONS CLASSIFIED ELSEWHERE SNOMED Code(s): 698192798 (2) Pneumonia Current Visit: Yes Status: Acute Code(s): J18.9 - PNEUMONIA, UNSPECIFIED ORGANISM SNOMED Code(s): 794846259 Plan: 1-we will try to obtain sputum for Gram stain and culture 2-check CRP and pro-calcitonin level 3-cefepime 2 g every 8 hours We will follow on clinical condition and cultures to further adjust medication if needed Thank you for this consultation will follow this patient with you
[2020-03-14] MEDS: CEFEPIME 2 GM in SODIUM CHLORIDE 0.9% 100 ML IVPB SCH ×3 (04:50→20:12)
[2020-03-14] MEDS: ACETAMINOPHEN TAB 325 MG TAB PO PRN ×2 (05:13→15:41)
[2020-03-14 07:42] LABS: Anisocytosis Marked; Hypochromasia Moderate; MCH 33.7 pg (25.0-35.0); MCHC 31.9 g/dL (31.0-37.0); MCV 105.6 fL (80.0-100.0); Macrocytosis Marked; Mean Platelet Volume 9.2; RBC 1.89 m/uL (4.30-5.90)
[2020-03-14 07:48] LABS: HGB 6.4 gm/dL (13.0-17.5)
[2020-03-14 07:49] LABS: RDW 25.4 % (11.5-15.5)
[2020-03-14 07:51] LABS: Platelet Count 14 k/uL (150-450); WBC 0.8 k/uL (3.8-10.6)
[2020-03-14 08:08] LABS: ALT 41 U/L (4-49); AST 45 U/L (17-59); African American GFR (CKD) >90 (>60 ml/min/1.73 sqM); Albumin 2.8 g/dL (3.5-5.0); Alkaline Phosphatase 61 U/L (38-126); Anion Gap 5 mmol/L; Blood Urea Nitrogen 14 mg/dL (9-20); C Reactive Protein 83.8 mg/L (<10.0); Calcium 7.6 mg/dL (8.4-10.2); Carbon Dioxide 23 mmol/L (22-30); Chloride 106 mmol/L (98-107); Glucose 102 mg/dL (74-99); Non-African American GFR(CKD) >90 (>60 ml/min/1.73 sqM); Sodium 134 mmol/L (137-145); Total Protein 6.8 g/dL (6.3-8.2)
[2020-03-14] MEDS: PANTOPRAZOLE 40 MG/10 ML VIAL IVP SCH (09:30)
[2020-03-14] MEDS: VANCOMYCIN 1,000 MG in SODIUM CHLORIDE 0.9% 250 ML IVPB SCH ×2 (09:30→21:30)
[2020-03-14 09:48] LABS: Poikilocytosis (M) Present; Target Cells Present
--- NOTE | 2020-03-14 11:39 | P.PN ---
Subjective Progress Note Date: 03/14/20 This is a 70-year-old patient of Dr. Bustillos with a past medical history of anemia, gout, tobacco use and dependence, daily alcohol use. And cancer. Patient is unsure of the type of cancer that he has. He has been receiving chemotherapy and blood transfusions. He is under care with Dr. Flores. Patient presented yesterday for evaluation of fever and generalized weakness. Patient a transfusion yesterday morning at approximately 9 AM. He was noted to have a fever during the afternoon. Patient states that his most recent chemotherapy was approximately 2 weeks ago. He denies any pain or at this time. Denies any vomiting or diarrhea. Patient states that he has been short of breath recently with any activity. Denies any cough. Patient is a current smoker. At this time patient is resting in bed without any acute distress. He is still unsure of the type of cancer that he has stating that his white blood cells are destroyed his red blood cells. Patient underwent a blood transfusion yesterday and was feeling fine and developed a fever during the afternoon. Blood pressure 116/52 tabs are 99.9, respirations 18, pulse 62, pulse ox a 99% on 2 L via nasal cannula. RBC 2.05, hemoglobin 7.3, platelets 16, potassium 4.1, BUN 18, creatinine 0.83 03/14: Patient is resting in bed at this time without any acute distress. Patient is found to have myelodysplastic syndrome, continues to be febrile with weakness and minimal cough. Lab results showed to be beefy 0.8, hemoglobin 6.4, platelets 14, sodium 134, potassium 4.0, BUN 14, creatinine 0.76. Urine did not show any signs of infection. Higgins virus PCR was not detected. Pulse rate 54, respirations 18, blood pressure 114/54, O2 saturation 100% on 2 L Review Of Systems: Constitutional: Reports fever, no chills, no night sweats. No weight change. Reports weakness and fatigue no lethargy. No daytime sleepiness. EENT: No headache. No blurred vision or double vision, no loss of vision. No loss of Hearing, no ringing in the ears, no dizziness. No nasal drainage or congestion. No epistaxis. No sore throat. Lungs: reports shortness of breath with activity, cough, no sputum production. No wheezing. Cardiovascular: No chest pain, no lower extremity edema. No palpitations. No paroxysmal nocturnal dyspnea. No orthopnea. No lightheadedness or dizziness. No syncopal episodes. Abdominal: no abdominal discomfort. No nausea, vomiting. no diarrhea. No constipation. No bloody or tarry stools. no loss of appetite. Genitourinary: No dysuria, increased frequency, urgency. No urinary retention. Musculoskeletal: No myalgias. No muscle weakness, no gait dysfunction, no frequent falls. No back pain. No neck pain. Integumentary: No wounds, no lesions. No rash or pruritus. No unusual bruising. No change in hair or nails. Neurologic: No aphasia. No facial droop. No change in mentation. No head injury. No headache. No paralysis. No paresthesia. Psychiatric: No depression. No anxiety. No mood swings. Endocrine: No abnormal blood sugars. No weight change. No excessive sweating or thirst. Objective - Vital Signs Vital signs: Vital Signs Temp 98.5 F 03/14/20 07:00 Pulse 79 03/14/20 07:00 Resp 18 03/14/20 07:00 BP 96/54 03/14/20 07:00 Pulse Ox 98 03/14/20 07:00 Intake & Output 03/13/20 03/14/20 03/14/20 18:59 06:59 18:59 Intake Total 600 Output Total 275 150 Balance -275 450 Weight 60.328 kg Intake: Intake, IV Titration 600 Amount Sodium Chloride 0.9% 1, 600 000 ml @ 75 mls/hr IV . [id number] [facility] Rx#:[id number] Output: Urine 275 150 Other: Voiding Method Toilet Urinal # Voids 1 # Bowel Movements 1 - Exam General Appearance: 70-year-old male Alert, cooperative, no distress, appears stated age. Neck HEENT: Supple, no lymphadenopathy, no thyroid enlargement, no carotid bruits. Lungs: Clear to auscultation without crackles or wheezes no rhonchi, no deformity. Chest Wall: Chest wall normal expansion with deep inspiration no tenderness and no deformity was found on exam, no costochondral pain or discomfort. Heart: Regular rate and rhythm, S1, S2 normal, no murmur, rub or gallop. Back: Symmetric, no curvature, ROM normal, no CVA tenderness. Abdomen: Soft, non-tender, no rebound or rigidity, no hepatosplenomegaly. Extremities: Extremities normal, atraumatic, no cyanosis or edema. Pulses: 2+ and symmetric. Skin: Warm to touch Skin color, texture, tugor normal, no rashes or lesions. Neurologic: Alert oriented x3 cranial nerves II through XII intact, no motor deficit, no abnormal balance or gait - Labs CBC & Chem 7: 03/14/20 06:32 03/14/20 06:32 Labs: Abnormal Lab Results - Last 24 Hours (Table) 03/14/20 03/14/20 03/14/20 Range/Units 06:32 06:32 08:59 WBC 0.8 L* (3.8-10.6) k/uL RBC 1.89 L (4.30-5.90) m/uL Hgb 6.4 L* (13.0-17.5) gm/dL Hct 20.0 L (39.0-53.0) % MCV 105.6 H (80.0-100.0) fL RDW 25.4 H (11.5-15.5) % Plt Count 14 L* (150-450) k/uL Macrocytosis Marked A Sodium 134 L (137-145) mmol/L Glucose 102 H (74-99) mg/dL Calcium 7.6 L (8.4-10.2) mg/dL C-Reactive Protein 83.8 H (<10.0) mg/L Albumin 2.8 L (3.5-5.0) g/dL Crossmatch See Detail Microbiology - Last 24 Hours (Table) 03/12/20 20:49 Blood Culture - Preliminary Blood No Growth after 24 hours Assessment and Plan Plan: 1. Neutropenic fever. Vancomycin 1 g every 12 hours, cefepime 2 g every 8 hours Tylenol as needed for fever control, consult oncology, G-CSF for neutropenia, oncology consult appreciated, infectious disease consult appreciated awaiting blood cultures, transfuse 1 unit of packed red blood cells for hemoglobin 6.4 2. Pancytopenia. See above 3. Chronic anemia. See above 4. MDS with ringed sideroblasts see above 5. Tobacco use and dependence 6. Alcohol abuse, stable 7. GI prophylaxis. Pantoprazole 40 mg IV daily 8. DVT prophylaxis. Ambulation 9. Covid test negative Admit for a minimal of 2 nights day Impression and plan of care have been directed as dictated by the signing physician. Kaylah Calhoun nurse practitioner acting as scribe for signing physician.
[2020-03-14] MEDS: SODIUM CHLORIDE 0.9% 1,000 ML IV SCH (14:47)
[2020-03-14] MEDS ORDERED: ACETAMINOPHEN TAB 325 MG TAB PO STA (16:31)
[2020-03-14] MEDS: FILGRASTIM-SNDZ 300 MCG/0.5 ML SYRINGE SQ SCH (19:21)
[2020-03-14] MEDS ORDERED: VANCOMYCIN TROUGH DUE 1 EACH MISC MISCELLANE ONE (21:00)
[2020-03-14] MEDS ORDERED: ZOLPIDEM 5 MG TAB PO PRN (23:16)
[2020-03-15] MEDS: CEFEPIME 2 GM in SODIUM CHLORIDE 0.9% 100 ML IVPB SCH ×3 (05:42→20:26)
[2020-03-15] MEDS: SODIUM CHLORIDE 0.9% 1,000 ML IV SCH ×2 (05:42→19:55)
--- NOTE | 2020-03-15 06:25 | PN ---
PROGRESS NOTE DATE OF SERVICE: 03/14/2020 REASON FOR FOLLOWUP: Febrile neutropenia. INTERVAL HISTORY: Patient did spike another fever of 102 degrees Fahrenheit this afternoon. The patient is afebrile afterwards. The patient complaining of feeling weak and tired. .No chest pain or shortness of breath. Minimal cough. No nausea, vomiting. No abdominal pain or diarrhea. PHYSICAL EXAMINATION: Blood pressure 108/48 with a pulse of 60, temperature 98.4, T-max 102. He is 95% on room air. General description is an elderly male lying in bed in no distress. RESPIRATORY SYSTEM: Unlabored breathing, decreased breath sounds in the base, no wheeze. HEART: S1, S2. Regular rate and rhythm. ABDOMEN: Soft, no tenderness. LABS: Hemoglobin 6.4 with white count 0.8, creatinine 0.76. CRP is elevated. Procalcitonin was ordered, not done. Vancomycin trough is 15.5. Blood culture has been negative so far. DIAGNOSTIC IMPRESSION AND PLAN: Patient with febrile neutropenia with concern for pneumonia. Patient is still spiking a fever despite being on broad-spectrum antibiotic with the x-ray was mostly interstitial, but we will add Levaquin to the antibiotic regimen. Obtain urine for Legionella antigen. Will adjust on the basis clinical response and culture. Continue with supportive care. MMODL / IJN: [id number] /
[2020-03-15] MEDS: VANCOMYCIN 1,000 MG in SODIUM CHLORIDE 0.9% 250 ML IVPB SCH ×2 (09:09→21:55)
[2020-03-15] MEDS: PANTOPRAZOLE 40 MG/10 ML VIAL IVP SCH (09:09)
[2020-03-15 10:45] LABS: Anisocytosis Marked; HCT 25.9 % (39.0-53.0); Hypochromasia Marked; MCH 32.4 pg (25.0-35.0); MCHC 30.8 g/dL (31.0-37.0); MCV 105.3 fL (80.0-100.0); Macrocytosis Marked; Mean Platelet Volume 13.8; Poikilocytosis Slight; RBC 2.46 m/uL (4.30-5.90); RDW 24.7 % (11.5-15.5)
[2020-03-15 10:55] LABS: ALT 37 U/L (4-49); AST 50 U/L (17-59); African American GFR (CKD) >90 (>60 ml/min/1.73 sqM); Albumin 3.1 g/dL (3.5-5.0); Alkaline Phosphatase 47 U/L (38-126); Anion Gap 7 mmol/L; Blood Urea Nitrogen 14 mg/dL (9-20); Calcium 7.8 mg/dL (8.4-10.2); Carbon Dioxide 25 mmol/L (22-30); Chloride 105 mmol/L (98-107); Glucose 102 mg/dL (74-99); Non-African American GFR(CKD) >90 (>60 ml/min/1.73 sqM); Sodium 137 mmol/L (137-145); Total Bilirubin 1.1 mg/dL (0.2-1.3); Total Protein 7.3 g/dL (6.3-8.2)
[2020-03-15 10:57] LABS: WBC 0.8 k/uL (3.8-10.6)
[2020-03-15 11:00] LABS: Platelet Count 31 k/uL (150-450)
[2020-03-15 11:04] LABS: Potassium 4.3 mmol/L (3.5-5.1)
[2020-03-15 11:47] LABS: Large Platelets Present
[2020-03-15 11:48] LABS: Target Cells Present
--- NOTE | 2020-03-15 14:20 | P.PN ---
Subjective Progress Note Date: 03/15/20 This is a 70-year-old patient of Dr. Bustillos with a past medical history of anemia, gout, tobacco use and dependence, daily alcohol use. And cancer. Patient is unsure of the type of cancer that he has. He has been receiving chemotherapy and blood transfusions. He is under care with Dr. Flores. Patient presented yesterday for evaluation of fever and generalized weakness. Patient a transfusion yesterday morning at approximately 9 AM. He was noted to have a fever during the afternoon. Patient states that his most recent chemotherapy was approximately 2 weeks ago. He denies any pain or at this time. Denies any vomiting or diarrhea. Patient states that he has been short of breath recently with any activity. Denies any cough. Patient is a current smoker. At this time patient is resting in bed without any acute distress. He is still unsure of the type of cancer that he has stating that his white blood cells are destroyed his red blood cells. Patient underwent a blood transfusion yesterday and was feeling fine and developed a fever during the afternoon. Blood pressure 116/52 tabs are 99.9, respirations 18, pulse 62, pulse ox a 99% on 2 L via nasal cannula. RBC 2.05, hemoglobin 7.3, platelets 16, potassium 4.1, BUN 18, creatinine 0.83 03/14: Patient is resting in bed at this time without any acute distress. Patient is found to have myelodysplastic syndrome, continues to be febrile with weakness and minimal cough. Lab results showed to be beefy 0.8, hemoglobin 6.4, platelets 14, sodium 134, potassium 4.0, BUN 14, creatinine 0.76. Urine did not show any signs of infection. Higgins virus PCR was not detected. Pulse rate 54, respirations 18, blood pressure 114/54, O2 saturation 100% on 2 L 03/15: Patient is status post 1 unit of packed RBCs with repeat hemoglobin of 8 .0, WBC 0.8, platelet count 31. Electrolytes and renal function normal. Patient has been started on Zarxio. Patient is also been seen and followed by oncology. Patient has been seen by Dr. Garcia and currently on IV antibiotics in form of cefepime and vancomycin, Legionella antigen is pending. Blood cultures no growth at 48 hours. Has had 2 bowel movements today, one loose and one formed. He is afebrile, heart rate 86, blood pressure 127/68, pulse ox 94% on room air. Discharge plan will be to return home. Review Of Systems: Constitutional: Reports fever, no chills, no night sweats. No weight change. Reports weakness and fatigue no lethargy. No daytime sleepiness. EENT: No headache. No blurred vision or double vision, no loss of vision. No loss of Hearing, no ringing in the ears, no dizziness. No nasal drainage or congestion. No epistaxis. No sore throat. Lungs: reports shortness of breath with activity, cough, no sputum production. No wheezing. Cardiovascular: No chest pain, no lower extremity edema. No palpitations. No paroxysmal nocturnal dyspnea. No orthopnea. No lightheadedness or dizziness. No syncopal episodes. Abdominal: no abdominal discomfort. No nausea, vomiting. no diarrhea. No constipation. No bloody or tarry stools. no loss of appetite. Genitourinary: No dysuria, increased frequency, urgency. No urinary retention. Musculoskeletal: No myalgias. No muscle weakness, no gait dysfunction, no frequent falls. No back pain. No neck pain. Integumentary: No wounds, no lesions. No rash or pruritus. No unusual bruisi ng. No change in hair or nails. Neurologic: No aphasia. No facial droop. No change in mentation. No head injury. No headache. No paralysis. No paresthesia. Psychiatric: No depression. No anxiety. No mood swings. Endocrine: No abnormal blood sugars. No weight change. No excessive sweating or thirst. Physical examination General Appearance: 70-year-old male Alert, cooperative, no distress, appears stated age. Neck HEENT: Supple, no lymphadenopathy, no thyroid enlargement, no carotid bruits. Lungs: Clear to auscultation without crackles or wheezes no rhonchi, no deformity. Chest Wall: Chest wall normal expansion with deep inspiration no tenderness and no deformity was found on exam, no costochondral pain or discomfort. Heart: Regular rate and rhythm, S1, S2 normal, no murmur, rub or gallop. Back: Symmetric, no curvature, ROM normal, no CVA tenderness. Abdomen: Soft, non-tender, no rebound or rigidity, no hepatosplenomegaly. Extremities: Extremities normal, atraumatic, no cyanosis or edema. Pulses: 2+ and symmetric. Skin: Warm to touch Skin color, texture, tugor normal, no rashes or lesions. Neurologic: Alert oriented x3 cranial nerves II through XII intact, no motor deficit, no abnormal balance or gait Assessment and plan 1. Neutropenic fever. Continue cefepime and vancomycin. ID and oncology consult appreciated. 2. Pancytopenia. See above 3. Chronic anemia. See above. Status post transfusion of 1 unit of packed RBCs, stable. Continue Zarxio. 4. MDS with ringed sideroblasts see above 5. Tobacco use and dependence 6. Alcohol abuse, stable 7. GI prophylaxis. Pantoprazole 40 mg IV daily 8. DVT prophylaxis. Ambulation 9. Coated infection present Discharge plan: Home without home care Impression and plan of care have been directed as dictated by the signing physician. Dannielle Villegas nurse practitioner acting as scribe for signing physician. Objective - Vital Signs Vital signs: Vital Signs Temp 98.5 F 03/15/20 07:00 Pulse 86 03/15/20 07:00 Resp 18 03/15/20 07:00 BP 127/68 03/15/20 07:00 Pulse Ox 94 L 03/15/20 07:00 Intake & Output 03/14/20 03/15/20 03/15/20 18:59 06:59 18:59 Intake Total 0 1160 Output Total 250 Balance 0 910 Intake: Intake, IV Titration 850 Amount Sodium Chloride 0.9% 1, 600 000 ml @ 75 mls/hr IV . [id number] [facility] Rx#:[id number] Vancomycin 1,000 mg In 250 Sodium Chloride 0.9% 250 ml @ 125 mls/hr IVPB Q12H [facility] Rx#:[id number] Blood Product 0 310 Rc Irr As1 Unit 0 310 [id number] Output: Urine 250 Other: Voiding Method Toilet Urinal # Voids 2 # Bowel Movements 1 - Labs CBC & Chem 7: 03/15/20 09:31 03/15/20 09:31 Labs: Abnormal Lab Results - Last 24 Hours (Table) 03/14/20 03/14/20 Range/Units 06:32 08:59 WBC 0.8 L* (3.8-10.6) k/uL Crossmatch See Detail Microbiology - Last 24 Hours (Table) 03/12/20 20:49 Blood Culture - Preliminary Blood No Growth after 48 hours
--- NOTE | 2020-03-15 18:41 | PN ---
PROGRESS NOTE DATE OF SERVICE: 03/15/2020 REASON FOR FOLLOWUP: Pneumonia with febrile neutropenia. INTERVAL HISTORY: The patient is currently afebrile. The patient is breathing comfortably. The patient denies having any chest pain or shortness of breath. He did have some cough. No nausea or vomiting. No abdominal pain or diarrhea. PHYSICAL EXAMINATION: Blood pressure is 115/63 with a pulse of 67, temperature 98.2. He is 97% on room air. General description is an elderly male lying in bed in no distress. RESPIRATORY SYSTEM: Unlabored breathing with decreased breath sounds at the base. No wheeze. HEART: S1, S2. Regular rate and rhythm. ABDOMEN: Soft. No tenderness. LABS: Hemoglobin 8, white count 0.8, BUN of 14, creatinine 0.74. DIAGNOSTIC IMPRESSION AND PLAN: Patient with febrile neutropenia with concern for pneumonia likely source. The patient is currently covered with cefepime and vancomycin. Overall resolution of his fever. White count is still low. Will try to obtain a sputum sample to narrow down his antibiotics. Continue supportive care. MMODL / IJN: [id number] /
[2020-03-15] MEDS: FILGRASTIM-SNDZ 300 MCG/0.5 ML SYRINGE SQ SCH (20:11)
--- NOTE | 2020-03-15 20:46 | P.PN ---
Subjective Progress Note Date: 03/15/20 Principal diagnosis: MDS, Pancytopenia, Febrile Neutropenia Patient seen and examined this am. No acute distress. No acute complaints he is fatigued. Objective - Vital Signs Vital signs: Vital Signs Temp 99.5 F 03/15/20 19:25 Pulse 78 03/15/20 19:25 Resp 18 03/15/20 19:25 BP 138/75 03/15/20 19:25 Pulse Ox 95 03/15/20 19:25 Intake & Output 03/15/20 03/15/20 03/16/20 06:59 18:59 06:59 Intake Total 1160 Output Total 250 325 Balance 910 -325 Intake: Intake, IV Titration 850 Amount Sodium Chloride 0.9% 1, 600 000 ml @ 75 mls/hr IV . [id number] [facility] Rx#:[id number] Vancomycin 1,000 mg In 250 Sodium Chloride 0.9% 250 ml @ 125 mls/hr IVPB Q12H [facility] Rx#:[id number] Blood Product 310 Rc Irr As1 Unit 310 [id number] Output: Urine 250 325 Other: Voiding Method Toilet Urinal Urinal # Bowel Movements 1 - Exam Constitutional: No acute distress. HEENT: Conjunctival pallor. Mucosa dry, no thrush Neck: Neck supple. Lungs:No respiratory distress. Heart: Normal rate. Abdomen: Soft, nontender, nondistended. MSK: 4/4 strength in all 4 extremities. Neuro: Alert and oriented x 3. chronically ill appearance Skin: No jaundice. Psych: Appropriate affect. - Labs CBC & Chem 7: 03/15/20 09:31 03/15/20 09:31 Labs: Abnormal Lab Results - Last 24 Hours (Table) 03/14/20 03/15/20 03/15/20 Range/Units 06:32 09:31 09:31 WBC 0.8 L* (3.8-10.6) k/uL RBC 2.46 L (4.30-5.90) m/uL Hgb 8.0 L D (13.0-17.5) gm/dL Hct 25.9 L (39.0-53.0) % MCV 105.3 H (80.0-100.0) fL MCHC 30.8 L (31.0-37.0) g/dL RDW 24.7 H (11.5-15.5) % Plt Count 31 L D (150-450) k/uL Macrocytosis Marked A Glucose 102 H (74-99) mg/dL Calcium 7.8 L (8.4-10.2) mg/dL Albumin 3.1 L (3.5-5.0) g/dL Procalcitonin 0.17 H (0.02-0.09) ng/mL Microbiology - Last 24 Hours (Table) 03/12/20 20:49 Blood Culture - Preliminary Blood No Growth after 48 hours Assessment and Plan Plan: Assessment and Plan 1. Pancytopenia due to chemotherapy and underlying MDS: - Monitor CBC Daily and Supportive irradiated transfusions PRN Hemoglobin less than 7, Platelets less than 15 - Continue on G-CSF for neutropenia 2. Febrile neutropenia: - Improving T-Max 24 hours 100.4 - [place] Cultures pending - Blood Cultures negative at 24 hours - Antibiotics per ID 3. Pneumonia: - Work up suggestive of pneumonia based on hazy infiltrates on CXR. 4. MDS with ringed sideroblasts - Dacogen on hold until recovery of current febrile illness Plan: - Monitor Daily CBC, CMP - CHeck Coags in am - Monitor for worsening signs of infection - Monitor for bleeding. Thank you for allowing us to participate in the care of this patient will follow along with you
[2020-03-16] MEDS: CEFEPIME 2 GM in SODIUM CHLORIDE 0.9% 100 ML IVPB SCH ×3 (04:21→21:11)
[2020-03-16] MEDS: SODIUM CHLORIDE 0.9% 1,000 ML IV SCH ×2 (04:22→19:20)
[2020-03-16 08:19] LABS: Anisocytosis Marked; HCT 25.6 % (39.0-53.0); Hypochromasia Moderate; MCH 32.6 pg (25.0-35.0); MCHC 31.2 g/dL (31.0-37.0); MCV 104.7 fL (80.0-100.0); Macrocytosis Marked; Mean Platelet Volume 13.8; RBC 2.45 m/uL (4.30-5.90); RDW 24.5 % (11.5-15.5)
[2020-03-16] MEDS: PANTOPRAZOLE 40 MG TABLET PO SCH (08:20)
[2020-03-16 08:25] LABS: INR 1.1 (<1.2); Partial Thromboplastin Time 28.2 sec (22.0-30.0); Platelet Count 45 k/uL (150-450); Prothrombin Time 11.4 sec (9.0-12.0); WBC 0.7 k/uL (3.8-10.6)
[2020-03-16 08:48] LABS: ALT 39 U/L (4-49); AST 49 U/L (17-59); African American GFR (CKD) >90 (>60 ml/min/1.73 sqM); Albumin 2.9 g/dL (3.5-5.0); Alkaline Phosphatase 59 U/L (38-126); Anion Gap 4 mmol/L; Blood Urea Nitrogen 13 mg/dL (9-20); Calcium 7.9 mg/dL (8.4-10.2); Carbon Dioxide 27 mmol/L (22-30); Chloride 104 mmol/L (98-107); Glucose 97 mg/dL (74-99); LDH 601 U/L (313-618); Magnesium 1.7 mg/dL (1.6-2.3); Non-African American GFR(CKD) >90 (>60 ml/min/1.73 sqM); Phosphorus 2.4 mg/dL (2.5-4.5); Potassium 3.9 mmol/L (3.5-5.1); Sodium 135 mmol/L (137-145); Total Bilirubin 1.1 mg/dL (0.2-1.3); Total Protein 7.1 g/dL (6.3-8.2); Uric Acid 5.1 mg/dL (3.5-8.5)
[2020-03-16 09:05] LABS: Target Cells Present
[2020-03-16 09:17] LABS: Large Platelets Present
[2020-03-16] MEDS: VANCOMYCIN 1,000 MG in SODIUM CHLORIDE 0.9% 250 ML IVPB SCH ×2 (10:19→21:57)
[2020-03-16 12:32] VITALS: BMI 17.7
--- NOTE | 2020-03-16 13:56 | P.PN ---
Subjective Progress Note Date: 03/16/20 This is a 70-year-old patient of Dr. Bustillos with a past medical history of anemia, gout, tobacco use and dependence, daily alcohol use. And cancer. Patient is unsure of the type of cancer that he has. He has been receiving chemotherapy and blood transfusions. He is under care with Dr. Flores. Patient presented yesterday for evaluation of fever and generalized weakness. Patient a transfusion yesterday morning at approximately 9 AM. He was noted to have a fever during the afternoon. Patient states that his most recent chemotherapy was approximately 2 weeks ago. He denies any pain or at this time. Denies any vomiting or diarrhea. Patient states that he has been short of breath recently with any activity. Denies any cough. Patient is a current smoker. At this time patient is resting in bed without any acute distress. He is still unsure of the type of cancer that he has stating that his white blood cells are destroyed his red blood cells. Patient underwent a blood transfusion yesterday and was feeling fine and developed a fever during the afternoon. Blood pressure 116/52 tabs are 99.9, respirations 18, pulse 62, pulse ox a 99% on 2 L via nasal cannula. RBC 2.05, hemoglobin 7.3, platelets 16, potassium 4.1, BUN 18, creatinine 0.83 03/14: Patient is resting in bed at this time without any acute distress. Patient is found to have myelodysplastic syndrome, continues to be febrile with weakness and minimal cough. Lab results showed to be beefy 0.8, hemoglobin 6.4, platelets 14, sodium 134, potassium 4.0, BUN 14, creatinine 0.76. Urine did not show any signs of infection. Higgins virus PCR was not detected. Pulse rate 54, respirations 18, blood pressure 114/54, O2 saturation 100% on 2 L 03/15: Patient is status post 1 unit of packed RBCs with repeat hemoglobin of 8 .0, WBC 0.8, platelet count 31. Electrolytes and renal function normal. Patient has been started on Zarxio. Patient is also been seen and followed by oncology. Patient has been seen by Dr. Garcia and currently on IV antibiotics in form of cefepime and vancomycin, Legionella antigen is pending. Blood cultures no growth at 48 hours. Has had 2 bowel movements today, one loose and one formed. He is afebrile, heart rate 86, blood pressure 127/68, pulse ox 94% on room air. Discharge plan will be to return home. 03/16: Repeat blood work reveals WBC 0.7, hemoglobin 8, platelet count 45. The uric acid 5.1, calcium 7.9, phosphorus 2.4. Liver function tests are normal. Patient is continued on cefepime and vancomycin per Dr. Aggarwal. Sputum cultures on collected. Blood culture no growth at 72 hours. He has been afebrile, temperature max 99.5, heart rate 69, blood pressure 127/65, pulse ox 95% on room air. Review Of Systems: Constitutional: Denies fever, no chills, no night sweats. No weight change. Reports weakness and fatigue no lethargy. No daytime sleepiness. EENT: No headache. No blurred vision or double vision, no loss of vision. No loss of Hearing, no ringing in the ears, no dizziness. No nasal drainage or congestion. No epistaxis. No sore throat. Lungs: reports shortness of breath with activity, cough, no sputum production. No wheezing. Cardiovascular: No chest pain, no lower extremity edema. No palpitations. No paroxysmal nocturnal dyspnea. No orthopnea. No lightheadedness or dizziness. No syncopal episodes. Abdominal: no abdominal discomfort. No nausea, vomiting. no diarrhea. No constipation. No bloody or tarry stools. no loss of appetite. Genitourinary: No dysuria, increased frequency, urgency. No urinary retention. Musculoskeletal: No myalgias. No muscle weakness, no gait dysfunction, no frequent falls. No back pain. No neck pain. Integumentary: No wounds, no lesions. No rash or pruritus. No unusual bruising . No change in hair or nails. Neurologic: No aphasia. No facial droop. No change in mentation. No head injury. No headache. No paralysis. No paresthesia. Psychiatric: No depression. No anxiety. No mood swings. Endocrine: No abnormal blood sugars. No weight change. No excessive sweating or thirst. Physical examination General Appearance: 70-year-old male Alert, cooperative, no distress, appears stated age. Resting comfortably in bed. Neck HEENT: Supple, no lymphadenopathy, no thyroid enlargement, no carotid bruits. Lungs: Clear to auscultation without crackles or wheezes no rhonchi, no deformity. Chest Wall: Chest wall normal expansion with deep inspiration no tenderness and no deformity was found on exam, no costochondral pain or discomfort. Heart: Regular rate and rhythm, S1, S2 normal, no murmur, rub or gallop. Back: Symmetric, no curvature, ROM normal, no CVA tenderness. Abdomen: Soft, non-tender, no rebound or rigidity, no hepatosplenomegaly. Extremities: Extremities normal, atraumatic, no cyanosis or edema. Pulses: 2+ and symmetric. Skin: Warm to touch Skin color, texture, tugor normal, no rashes or lesions. Neurologic: Alert oriented x3 cranial nerves II through XII intact, no motor deficit, no abnormal balance or gait Assessment and plan 1. Neutropenic fever. Continue cefepime and vancomycin. ID and oncology consult appreciated. Blood culture showing no growth. Sputum culture has not been obtained. 2. Pancytopenia. Continue Zarxio. 3. Chronic anemia. See above. Status post transfusion of 1 unit of packed RBCs, stable. Continue Zarxio. 4. MDS with ringed sideroblasts see above 5. Tobacco use and dependence 6. Alcohol abuse, stable 7. GI prophylaxis. Pantoprazole 40 mg IV daily 8. DVT prophylaxis. Ambulation 9. COVID-19 infection not present Discharge plan: Home without home care Impression and plan of care have been directed as dictated by the signing physician. Dannielle Villegas nurse practitioner acting as scribe for signing physician. Objective - Vital Signs Vital signs: Vital Signs Temp 99.2 F 03/16/20 07:00 Pulse 69 03/16/20 07:00 Resp 18 03/16/20 07:00 BP 127/65 03/16/20 07:00 Pulse Ox 95 03/16/20 07:00 Intake & Output 03/15/20 03/16/20 03/16/20 18:59 06:59 18:59 Intake Total 200 Output Total 325 Balance -325 200 Intake: Oral 200 Output: Urine 325 Other: Voiding Method Urinal Urinal # Voids 4 - Labs CBC & Chem 7: 03/16/20 07:26 03/16/20 07:26 Labs: Abnormal Lab Results - Last 24 Hours (Table) 03/14/20 03/15/20 03/15/20 Range/Units 06:32 09:31 09:31 WBC 0.8 L* (3.8-10.6) k/uL RBC 2.46 L (4.30-5.90) m/uL Hgb 8.0 L D (13.0-17.5) gm/dL Hct 25.9 L (39.0-53.0) % MCV 105.3 H (80.0-100.0) fL MCHC 30.8 L (31.0-37.0) g/dL RDW 24.7 H (11.5-15.5) % Plt Count 31 L D (150-450) k/uL Macrocytosis Marked A Glucose 102 H (74-99) mg/dL Calcium 7.8 L (8.4-10.2) mg/dL Albumin 3.1 L (3.5-5.0) g/dL Procalcitonin 0.17 H (0.02-0.09) ng/mL Microbiology - Last 24 Hours (Table) 03/12/20 20:49 Blood Culture - Preliminary Blood No Growth after 72 hours
[2020-03-16] MEDS: FILGRASTIM-SNDZ 300 MCG/0.5 ML SYRINGE SQ SCH (17:01)
--- NOTE | 2020-03-16 17:16 | P.PN ---
Subjective Progress Note Date: 03/16/20 Principal diagnosis: MDS, Pancytopenia, Febrile Neutropenia Patient remains severely neutropenic, although afebrile Prophylaxic antibipotics on board, platelets and hemoglobin safe range. Objective - Vital Signs Vital signs: Vital Signs Temp 98.7 F 03/16/20 15:00 Pulse 74 03/16/20 15:00 Resp 17 03/16/20 15:00 BP 128/71 03/16/20 15:00 Pulse Ox 94 L 03/16/20 15:00 Intake & Output 03/15/20 03/16/20 03/16/20 18:59 06:59 18:59 Intake Total 200 Output Total 325 Balance -325 200 Weight 61.144 kg Intake: Oral 200 Output: Urine 325 Other: Voiding Method Urinal Urinal # Voids 4 2 - Exam Constitutional: No acute distress. HEENT: Conjunctival pallor. Mucosa dry, no thrush Neck: Neck supple. Lungs:No respiratory distress. Heart: Normal rate. Abdomen: Soft, nontender, nondistended. MSK: 4/4 strength in all 4 extremities. Neuro: Alert and oriented x 3. chronically ill appearance Skin: No jaundice. Psych: Appropriate affect. - Labs CBC & Chem 7: 03/16/20 07:26 03/16/20 07:26 Labs: Abnormal Lab Results - Last 24 Hours (Table) 03/16/20 03/16/20 Range/Units 07:26 07:26 WBC 0.7 L* (3.8-10.6) k/uL RBC 2.45 L (4.30-5.90) m/uL Hgb 8.0 L (13.0-17.5) gm/dL Hct 25.6 L (39.0-53.0) % MCV 104.7 H (80.0-100.0) fL RDW 24.5 H (11.5-15.5) % Plt Count 45 L (150-450) k/uL Macrocytosis Marked A Sodium 135 L (137-145) mmol/L Calcium 7.9 L (8.4-10.2) mg/dL Phosphorus 2.4 L (2.5-4.5) mg/dL Albumin 2.9 L (3.5-5.0) g/dL Microbiology - Last 24 Hours (Table) 03/12/20 20:49 Blood Culture - Preliminary Blood No Growth after 72 hours Assessment and Plan Plan: Assessment and Plan 1. Pancytopenia due to chemotherapy and underlying MDS: - Monitor CBC Daily and Supportive irradiated transfusions PRN Hemoglobin less than 7, Platelets less than 15 - Continue on G-CSF for neutropenia - WBC no improvement - Anemia and thrombocytopenia: Stable 2. Febrile neutropenia: - Improving T-Max 24 hours 99.4 - Grove Cultures pending - Blood Cultures negative at 48 hours - Antibiotics per ID 3. Pneumonia: - Work up suggestive of pneumonia based on hazy infiltrates on CXR. 4. MDS with ringed sideroblasts - Dacogen on hold until recovery of current febrile illness Plan: - Monitor Daily CBC, CMP - Monitor for worsening signs of infection - Monitor for bleeding. Physician attest: I have completed the full history and physical and agree with above dictation, dictated as a scribe
[2020-03-16] MEDS: ACETAMINOPHEN TAB 325 MG TAB PO PRN (19:20)
--- NOTE | 2020-03-16 23:58 | PN ---
PROGRESS NOTE DATE OF SERVICE: 03/16/2020 REASON FOR FOLLOWUP: Febrile neutropenia. INTERVAL HISTORY: Patient did have a fever this afternoon 100.5. This afternoon the patient was overall feeling better. He was breathing comfortably. No chest pain. No shortness of breath. Occasional cough. No sputum. No nausea, vomiting. No abdominal pain or diarrhea. PHYSICAL EXAMINATION: Blood pressure 118/66, pulse of 60, temperature 100.5. He is 94% on room air. General description is an elderly male up in the chair in no distress. RESPIRATORY SYSTEM: Unlabored breathing, decreased breath sounds at bases. No wheeze. HEART: S1, S2. Regular rate and rhythm. ABDOMEN: Soft, no tenderness. LABS: Hemoglobin 8, white count 0.7, creatinine 0.66. Blood culture has been negative. Sputum not collected. DIAGNOSTIC IMPRESSION AND PLAN: Patient with febrile neutropenia concerning for possible pneumonia in this patient currently on cefepime and vancomycin. We will try to obtain a sputum to narrow down his antibiotics and continue supportive care. MMODL / IJN: [id number] /
[2020-03-17] MEDS: CEFEPIME 2 GM in SODIUM CHLORIDE 0.9% 100 ML IVPB SCH ×3 (04:36→20:55)
[2020-03-17] MEDS: SODIUM CHLORIDE 0.9% 1,000 ML IV SCH (07:02)
[2020-03-17] MEDS: ACETAMINOPHEN TAB 325 MG TAB PO PRN ×2 (07:02→19:03)
[2020-03-17] MEDS: PANTOPRAZOLE 40 MG TABLET PO SCH (07:02)
[2020-03-17] MEDS ORDERED: VANCOMYCIN TROUGH DUE 1 EACH MISC MISCELLANE ONE (09:00)
[2020-03-17] MEDS: VANCOMYCIN 1,000 MG in SODIUM CHLORIDE 0.9% 250 ML IVPB SCH ×2 (09:27→22:51)
[2020-03-17 10:08] LABS: Anisocytosis Moderate; Hypochromasia Slight; MCH 32.4 pg (25.0-35.0); MCHC 31.2 g/dL (31.0-37.0); MCV 103.9 fL (80.0-100.0); Macrocytosis Marked; Mean Platelet Volume 12.6; RBC 2.11 m/uL (4.30-5.90)
[2020-03-17 10:33] LABS: WBC 0.4 k/uL (3.8-10.6)
[2020-03-17 10:35] LABS: Platelet Count 60 k/uL (150-450)
[2020-03-17 10:38] LABS: HGB 6.9 gm/dL (13.0-17.5)
--- NOTE | 2020-03-17 12:30 | P.PN ---
Subjective Progress Note Date: 03/17/20 This is a 70-year-old patient of Dr. Bustillos with a past medical history of anemia, gout, tobacco use and dependence, daily alcohol use. And cancer. Patient is unsure of the type of cancer that he has. He has been receiving chemotherapy and blood transfusions. He is under care with Dr. Flores. Patient presented yesterday for evaluation of fever and generalized weakness. Patient a transfusion yesterday morning at approximately 9 AM. He was noted to have a fever during the afternoon. Patient states that his most recent chemotherapy was approximately 2 weeks ago. He denies any pain or at this time. Denies any vomiting or diarrhea. Patient states that he has been short of breath recently with any activity. Denies any cough. Patient is a current smoker. At this time patient is resting in bed without any acute distress. He is still unsure of the type of cancer that he has stating that his white blood cells are destroyed his red blood cells. Patient underwent a blood transfusion yesterday and was feeling fine and developed a fever during the afternoon. Blood pressure 116/52 tabs are 99.9, respirations 18, pulse 62, pulse ox a 99% on 2 L via nasal cannula. RBC 2.05, hemoglobin 7.3, platelets 16, potassium 4.1, BUN 18, creatinine 0.83 03/14: Patient is resting in bed at this time without any acute distress. Patient is found to have myelodysplastic syndrome, continues to be febrile with weakness and minimal cough. Lab results showed to be beefy 0.8, hemoglobin 6.4, platelets 14, sodium 134, potassium 4.0, BUN 14, creatinine 0.76. Urine did not show any signs of infection. Higgins virus PCR was not detected. Pulse rate 54, respirations 18, blood pressure 114/54, O2 saturation 100% on 2 L 03/15: Patient is status post 1 unit of packed RBCs with repeat hemoglobin of 8 .0, WBC 0.8, platelet count 31. Electrolytes and renal function normal. Patient has been started on Zarxio. Patient is also been seen and followed by oncology. Patient has been seen by Dr. Garcia and currently on IV antibiotics in form of cefepime and vancomycin, Legionella antigen is pending. Blood cultures no growth at 48 hours. Has had 2 bowel movements today, one loose and one formed. He is afebrile, heart rate 86, blood pressure 127/68, pulse ox 94% on room air. Discharge plan will be to return home. 03/16: Repeat blood work reveals WBC 0.7, hemoglobin 8, platelet count 45. The uric acid 5.1, calcium 7.9, phosphorus 2.4. Liver function tests are normal. Patient is continued on cefepime and vancomycin per Dr. Aggarwal. Sputum cultures on collected. Blood culture no growth at 72 hours. He has been afebrile, temperature max 99.5, heart rate 69, blood pressure 127/65, pulse ox 95% on room air. 03/17: Counts remained low with WBC 0.4, hemoglobin 6.9, platelet count 60. One unit of packed RBCs to be transfused today. Fever last evening of 100.4. Heart rate is 77, blood pressure 135/55, pulse ox 94% on room air. Patient is followed closely by oncology. Patient remains on cefepime and vancomycin and followed by infectious disease. Review Of Systems: Constitutional: Denies fever, no chills, no night sweats. No weight change. Reports weakness and fatigue no lethargy. No daytime sleepiness. EENT: No headache. No blurred vision or double vision, no loss of vision. No dizziness. No nasal drainage or congestion. No epistaxis. No sore throat. Lungs: reports shortness of breath with activity, cough, no sputum production. No wheezing. Cardiovascular: No chest pain, no lower extremity edema. No palpitations. No paroxysmal nocturnal dyspnea. No orthopnea. No lightheadedness or dizziness. No syncopal episodes. Abdominal: no abdominal discomfort. No nausea, vomiting. no diarrhea. No constipation. No bloody or tarry stools. no loss of appetite. Genitourinary: No dysuria, increased frequency, urgency. No urinary retention. Musculoskeletal: No myalgias. No muscle weakness, no gait dysfunction, no frequent falls. No back pain. No neck pain. Integumentary: No wounds, no lesions. No rash or pruritus. No unusual bruising . No change in hair or nails. Neurologic: No aphasia. No facial droop. No change in mentation. No head injury. No headache. No paralysis. No paresthesia. Psychiatric: No depression. No anxiety. No mood swings. Endocrine: No abnormal blood sugars. No weight change. No excessive sweating or thirst. Physical examination General Appearance: 70-year-old male Alert, cooperative, no distress, appears stated age. Resting comfortably in bed. Neck HEENT: Supple, no lymphadenopathy, no thyroid enlargement, no carotid bruits. Lungs: Clear to auscultation without crackles or wheezes no rhonchi, no deformity. Chest Wall: Chest wall normal expansion with deep inspiration no tenderness and no deformity was found on exam, no costochondral pain. Heart: Regular rate and rhythm, S1, S2 normal, no murmur, rub or gallop. Back: Symmetric, no curvature, ROM normal, no CVA tenderness. Abdomen: Soft, non-tender, no rebound or rigidity, no hepatosplenomegaly. Extremities: Extremities normal, atraumatic, no cyanosis or edema. Pulses: 2+ and symmetric. Skin: Warm to touch Skin color, texture, tugor normal, no rashes or lesions. Neurologic: Alert oriented x3 cranial nerves II through XII intact, no motor deficit, no abnormal balance or gait Assessment and plan 1. Neutropenic fever. Continue cefepime and vancomycin. ID and oncology consult appreciated. Blood culture showing no growth. Sputum culture has not been obtained. 2. Pancytopenia. Continue Zarxio. 3. Chronic anemia. See above. Status post transfusion of 1 unit of packed RBCs, second unit to be transfused today. Continue Zarxio. 4. MDS with ringed sideroblasts see above 5. Tobacco use and dependence 6. Alcohol abuse, stable 7. GI prophylaxis. Pantoprazole 40 mg IV daily 8. DVT prophylaxis. Ambulation 9. COVID-19 infection not present Discharge plan: Home without home care Impression and plan of care have been directed as dictated by the signing physician. Dannielle iVllegas nurse practitioner acting as scribe for signing physician. Objective - Vital Signs Vital signs: Vital Signs Temp 100.4 F H 03/17/20 07:00 Pulse 77 03/17/20 07:00 Resp 18 03/17/20 07:00 BP 135/55 03/17/20 07:00 Pulse Ox 94 L 03/17/20 07:00 Intake & Output 03/16/20 03/17/20 03/17/20 18:59 06:59 18:59 Intake Total 100 Output Total 1100 Balance -1000 Weight 61.144 kg Intake: Oral 100 Output: Urine 1100 Other: Voiding Method Urinal # Voids 2 2 # Bowel Movements 1 - Labs CBC & Chem 7: 03/17/20 09:32 03/16/20 07:26 Labs: Abnormal Lab Results - Last 24 Hours (Table) 03/16/20 03/16/20 Range/Units 07:26 07:26 WBC 0.7 L* (3.8-10.6) k/uL RBC 2.45 L (4.30-5.90) m/uL Hgb 8.0 L (13.0-17.5) gm/dL Hct 25.6 L (39.0-53.0) % MCV 104.7 H (80.0-100.0) fL RDW 24.5 H (11.5-15.5) % Plt Count 45 L (150-450) k/uL Macrocytosis Marked A Sodium 135 L (137-145) mmol/L Calcium 7.9 L (8.4-10.2) mg/dL Phosphorus 2.4 L (2.5-4.5) mg/dL Albumin 2.9 L (3.5-5.0) g/dL Microbiology - Last 24 Hours (Table) 03/12/20 20:49 Blood Culture - Preliminary Blood No Growth after 96 hours
--- NOTE | 2020-03-17 13:32 | P.PN ---
Subjective Progress Note Date: 03/17/20 Principal diagnosis: MDS, Pancytopenia, Febrile Neutropenia Long discussion with patient and today. He is not responding to dacogen, growth factor. Overall disease outcome not favorable and overall prognosis poor. We discussed options for quality of life. Will continue prn transfusions and antibiotics as long as able to and the benefit outweighs risks. Although to discharge home on Palliative care services tomorrow is resonable with overall goal set at quality and no hospital admissions. Will change to DNR. Patient and questions answered and understandings stated. Objective - Vital Signs Vital signs: Vital Signs Temp 100.4 F H 03/17/20 07:00 Pulse 77 03/17/20 07:00 Resp 18 03/17/20 07:00 BP 135/55 03/17/20 07:00 Pulse Ox 94 L 03/17/20 07:00 Intake & Output 03/16/20 03/17/20 03/17/20 18:59 06:59 18:59 Intake Total 100 100 Output Total 1100 Balance -1000 100 Weight 61.144 kg Intake: Oral 100 100 Output: Urine 1100 Other: Voiding Method Urinal # Voids 2 2 # Bowel Movements 1 - Exam Constitutional: No acute distress. HEENT: Conjunctival pallor. Mucosa dry, no thrush Neck: Neck supple. Lungs:No respiratory distress. Heart: Normal rate. Abdomen: Soft, nontender, nondistended. MSK: 4/4 strength in all 4 extremities. Neuro: Alert and oriented x 3. chronically ill appearance Skin: No jaundice. Psych: Appropriate affect. - Labs CBC & Chem 7: 03/17/20 09:32 03/16/20 07:26 Labs: Abnormal Lab Results - Last 24 Hours (Table) 03/17/20 03/17/20 Range/Units 09:32 10:49 WBC 0.4 L* (3.8-10.6) k/uL RBC 2.11 L (4.30-5.90) m/uL Hgb 6.9 L* (13.0-17.5) gm/dL Hct 22.0 L (39.0-53.0) % MCV 103.9 H (80.0-100.0) fL RDW 24.0 H (11.5-15.5) % Plt Count 60 L (150-450) k/uL Macrocytosis Marked A Crossmatch See Detail Microbiology - Last 24 Hours (Table) 03/12/20 20:49 Blood Culture - Preliminary Blood No Growth after 96 hours Assessment and Plan Plan: Assessment and Plan 1. Pancytopenia due to chemotherapy and underlying MDS: - Monitor CBC Daily and Supportive irradiated transfusions PRN Hemoglobin less than 7, Platelets less than 15 - Continue on G-CSF for neutropenia, although no improvement since hospitalization - WBC no improvement - Anemia and thrombocytopenia: Hemoglobin 6.9 - Transfuse PRBC today 2. Febrile neutropenia: - Improving T-Max 24 hours 100.4 - [place] Cultures pending - Blood Cultures negative - Antibiotics per ID - With his overall disease he will likely continue to pulido with fevers and be increased risks for infections. He is not a candidate for aggressive therapy and/or stem cell transplant and it is resonable to allow patient to go home on oalliative services, with prophylaxis anti-viral, anti-fungal, abx. PT/OT while able. - Long discussion with patient and today. 3. Pneumonia: - Work up suggestive of pneumonia based on hazy infiltrates on CXR. 4. MDS with ringed sideroblasts - Dacogen on hold until recovery of current febrile illness Plan: - Transfuse PRBC today - Home with palliative care, continue abx/transfusions for now - Eventual transfer to hospice care. Physician attest: I have completed the full history and physical and agree with above dictation, dictated as a scribe
[2020-03-17] MEDS: FILGRASTIM-SNDZ 300 MCG/0.5 ML SYRINGE SQ SCH (17:03)
[2020-03-17] MEDS ORDERED: LEVOFLOXACIN 750MG-D5W PMX 750 MG in DEXTROSE/WATER 1 150ML.BAG IVPB STA (23:37)
[2020-03-18] MEDS: SODIUM CHLORIDE 0.9% 1,000 ML IV SCH ×2 (00:27→10:41)
--- NOTE | 2020-03-18 04:08 | PN ---
PROGRESS NOTE DATE OF SERVICE: 03/17/2020 REASON FOR FOLLOWUP: Febrile neutropenia. INTERVAL HISTORY: The patient did spike another fever this evening of 102 degrees Fahrenheit. When seen earlier this afternoon, the patient was afebrile, was feeling better. Breathing comfortably. No chest pain. Occasional cough. No abdominal pain or diarrhea. PHYSICAL EXAMINATION: Blood pressure 137/55 with a pulse of 74, T-max 102. He is 95% on room air. General description is an elderly male up in the chair in no distress. RESPIRATORY SYSTEM: Unlabored breathing, decreased breath sounds at the bases. No wheeze. HEART: S1, S2. Regular rate and rhythm. ABDOMEN: Soft, no tenderness. LABS: White count is low at 0.4. Vancomycin trough 16.7. Creatinine 0.66. Blood culture has been negative. DIAGNOSTIC IMPRESSION AND PLAN: Patient with febrile neutropenia in this patient with initial concern for possible pneumonia. The patient is still running a persistent fever. Cultures will be repeated. We will also obtain a CT abdomen and pelvis to rule out any abdominal source. Continue with cefepime and vancomycin and Levaquin and monitor clinical course closely. MMODL / IJN: [id number] /
[2020-03-18] MEDS: CEFEPIME 2 GM in SODIUM CHLORIDE 0.9% 100 ML IVPB SCH ×2 (05:55→12:43)
[2020-03-18 07:10] VITALS: BP 129/62; PULSE 72; RESP 18; TEMP 100.2
[2020-03-18] MEDS: PANTOPRAZOLE 40 MG TABLET PO SCH (07:48)
[2020-03-18] MEDS: IOPAMIDOL CONTRAST (ORAL USE) VIAL PO PRN ×2 (08:27→09:33)
[2020-03-18] MEDS: VANCOMYCIN 1,000 MG in SODIUM CHLORIDE 0.9% 250 ML IVPB SCH (09:33)
[2020-03-18 09:35] LABS: Anisocytosis Marked; HCT 24.2 % (39.0-53.0); HGB 7.7 gm/dL (13.0-17.5); Hypochromasia Slight; MCH 32.3 pg (25.0-35.0); MCHC 31.8 g/dL (31.0-37.0); MCV 101.7 fL (80.0-100.0); Macrocytosis Marked; Mean Platelet Volume 10.9; Poikilocytosis Slight; RBC 2.38 m/uL (4.30-5.90); RDW 24.4 % (11.5-15.5)
[2020-03-18 09:42] LABS: WBC 0.5 k/uL (3.8-10.6)
[2020-03-18 09:43] LABS: Platelet Count 88 k/uL (150-450)
[2020-03-18 10:02] LABS: African American GFR (CKD) >90 (>60 ml/min/1.73 sqM); Non-African American GFR(CKD) >90 (>60 ml/min/1.73 sqM)
[2020-03-18 10:18] LABS: C Reactive Protein 160.3 mg/L (<10.0)
--- NOTE | 2020-03-18 10:32 | CT ---
EXAMINATION TYPE: CT abdomen pelvis w con DATE OF EXAM: 03/18/2020 COMPARISON: Chest x-ray 6 days ago HISTORY: Neutropic fever, pneumonia, pain. CT DLP: 586.8 mGycm, Automated Exposure Control for Dose Reduction was Utilized. CONTRAST: CT scan of the abdomen and pelvis is performed with oral and with IV Contrast, patient injected with 100 mL of Isovue 300. FINDINGS: LUNG BASES: Partial visualization of known calcified pleural plaques at the diaphragm level suggestin g prior asbestos exposure. Mild emphysematous change in the lung bases with mild linear scarring and/ or atelectasis. LIVER/GB: No significant abnormality is appreciated. PANCREAS: No significant abnormality is seen. SPLEEN: Wedge-shaped area of hypodensity in the spleen coronal image 65 for reference measures 3.2 x 0.8 cm coronal image 65. ADRENALS: Nonspecific posterior limb right adrenal mass measuring 1.5 x 0.8 cm axial image 13. KIDNEYS: Simple appearing 1.2 cm thin-walled cyst posteriorly right kidney upper pole level coronal i mage 66. Symmetric cortical medullary uptake and excretion without hydronephrosis seen bilaterally. M ild wall thickening in poorly distended bladder, correlate clinically to exclude acute cystitis. BOWEL: Oral contrast was not significantly reached colonic level making evaluation of distal bowel sl ightly suboptimal. Small bowel loops are slightly prominent in the right abdomen measuring nearly up to 3.0 cm in size. No definitive greater than 3.0 cm dilatation. Contrast extends to the cecum. Mild- to-moderate wall thickening in the colon there are level of the splenic flexure extending into left c olon sigmoid colon and rectum. Proximal to splenic flexure there is mild/moderate fecal prominence. M oderate wall thickening gastroduodenal junction. PROSTATE/SEMINAL VESICLES: No gross abnormality seen. LYMPH NODES: There are abnormal retroperitoneal lymph nodes, for reference and 1.5 x 1.4 cm aortocava l lymph node axial image 33 below level of renal veins. There is abnormal 1.6 x 1.5 cm aortocaval lym ph node at level of draining left renal vein 20. There are enlarged bilateral groin lymph nodes left more numerous and larger than right but there appears to be retention of fatty hilum seen best on coronal images. Borderline pelvic iliac chain ly mph nodes on the right side are identified. OSSEOUS STRUCTURES: Moderate to severe disc space narrowing with vacuum disc phenomenon lumbosacral j unction. Facet arthropathy lower lumbar levels. Mild to moderate disc space narrowing L1-L2 level. OTHER: Moderate calcified plaque in the ectatic abdominal aorta. 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 No significant plaque or stenosis celiac artery or SMA Trace presacral ascites. Trace free fluid left paracolic gutter IMPRESSION: 1. Wedge-shaped area of hypodensity in spleen as detailed above. Differential would include laceratio n of recent trauma but suspect vascular compromise. Additional [id number] wall thickening of th e colon past the splenic flexure suggests colitis possibly of infectious inflammatory or ischemic reyes ology. Correlate clinically. There are abnormal intra-abdominal retroperitoneal lymph nodes could ref lect products of infectious process, neoplasm however needs to be considered. Trace left abdominal an d pelvic ascites. Perhaps partially obstructive bowel gas pattern. No complete obstruction. No well-f ormed drainable fluid collection or abscess.
--- NOTE | 2020-03-18 12:30 | P.DS ---
Providers Date of admission: 03/12/20 21:10 Expected date of discharge: 03/18/20 Attending physician: Juanjose Calloway Consults: 03/12/20 21:09 Consult Physician Routine Consulting Provider: Lee Flores Consult Reason/Comments: Neutropenic fever Do you want consulting provider notified?: Yes Consult Physician Routine Consulting Provider: Honey Garcia Consult Reason/Comments: Neutropenic fever Do you want consulting provider notified?: Yes Primary care physician: [facility] Course: This is a 70-year-old patient of Dr. Bustillos with a past medical history of anemia, gout, tobacco use and dependence, daily alcohol use. And cancer. Patient is unsure of the type of cancer that he has. He has been receiving chemotherapy and blood transfusions. He is under care with Dr. Flores. Patient presented yesterday for evaluation of fever and generalized weakness. Patient a transfusion yesterday morning at approximately 9 AM. He was noted to have a fever during the afternoon. Patient states that his most recent chemotherapy was approximately 2 weeks ago. He denies any pain or at this time. Denies any vomiting or diarrhea. Patient states that he has been short of breath recently with any activity. Denies any cough. Patient is a current smoker. At this time patient is resting in bed without any acute distress. He is still unsure of the type of cancer that he has stating that his white blood cells are destroyed his red blood cells. Patient underwent a blood transfusion yesterday and was feeling fine and developed a fever during the afternoon. Blood pressure 116/52 tabs are 99.9, respirations 18, pulse 62, pulse ox a 99% on 2 L via nasal cannula. RBC 2.05, hemoglobin 7.3, platelets 16, potassium 4.1, BUN 18, creatinine 0.83 03/14: Patient is resting in bed at this time without any acute distress. Patient is found to have myelodysplastic syndrome, continues to be febrile with weakness and minimal cough. Lab results showed to be beefy 0.8, hemoglobin 6.4, platelets 14, sodium 134, potassium 4.0, BUN 14, creatinine 0.76. Urine did not show any signs of infection. Higgins virus PCR was not detected. Pulse rate 54, respirations 18, blood pressure 114/54, O2 saturation 100% on 2 L 03/15: Patient is status post 1 unit of packed RBCs with repeat hemoglobin of 8.0, WBC 0.8, platelet count 31. Electrolytes and renal function normal. P atient has been started on Zarxio. Patient is also been seen and followed by oncology. Patient has been seen by Dr. Garcia and currently on IV antibiotics in form of cefepime and vancomycin, Legionella antigen is pending. Blood cultures no growth at 48 hours. Has had 2 bowel movements today, one loose and one formed. He is afebrile, heart rate 86, blood pressure 127/68, pulse ox 94% on room air. Discharge plan will be to return home. 03/16: Repeat blood work reveals WBC 0.7, hemoglobin 8, platelet count 45. The uric acid 5.1, calcium 7.9, phosphorus 2.4. Liver function tests are normal. Patient is continued on cefepime and vancomycin per Dr. Aggarwal. Sputum cultures on collected. Blood culture no growth at 72 hours. He has been afebrile, temperature max 99.5, heart rate 69, blood pressure 127/65, pulse ox 95% on room air. 03/17: Counts remained low with WBC 0.4, hemoglobin 6.9, platelet count 60. One unit of packed RBCs to be transfused today. Fever last evening of 100.4. Heart rate is 77, blood pressure 135/55, pulse ox 94% on room air. Patient is followed closely by oncology. Patient remains on cefepime and vancomycin and followed by infectious disease. 03/18: Patient's lab work is not improving. White count is 0.5, hemoglobin 7.7, platelet count 88. Creatinine 0.68. Patient did receive 1 unit of packed RBCs yesterday for total of 2 units on this admission. Temperature max 102.7. Noted that oncology recommended palliative care for discharge home as patient has a poor prognosis and is not responding to current treatment. Patient does not recall this conversation but he states that his was crying. Information was reviewed with the patient today in detail and currently the plan is to go home with palliative care and he wants to meet with hospice care with his family at home. Skin the abdomen revealed wedge-shaped hypodensity in the spleen. Differential include laceration of recent trauma but suspect vascular compromise. Additional mild to moderate wall thickening of the colon to splenic flexure suggest colitis possibly of infectious inflammatory or ischemic etiology. Abnormal intra-abdominal retroperitoneal lymph nodes could reflect products of infectious process, neoplasm needs to be considered. Trace left abdominal and pelvic ascites. Perhaps partially obstructive bowel gas pattern. No complete obstruction. The patient will be discharged home today with planned open to hospice. Assessment and plan 1. Neutropenic fever. 2. Pancytopenia. 3. Chronic anemia of chronic disease s/p transfusion of 2 units PRBC. 4. MDS with ringed sideroblasts see above 5. Tobacco use and dependence 6. Alcohol abuse, stable 7. COVID-19 infection not present Discharge plan: Home without home care/hospice Impression and plan of care have been directed as dictated by the signing physician. Dannielle Villegas nurse practitioner acting as scribe for signing physician. Patient Condition at Discharge: Good Plan - Discharge Summary Discharge Rx Participant: No New Discharge Prescriptions: New Acyclovir 400 mg PO TID #90 tablet Fluconazole [Diflucan] 100 mg PO DAILY #30 tab Acetaminophen Tab [Tylenol] 650 mg PO Q6HR PRN tab PRN Reason: Mild Pain Or Fever > 100.5 Discharge Medication List Acyclovir 400 mg PO TID #90 tablet 03/17/20 [Rx] Fluconazole [Diflucan] 100 mg PO DAILY #30 tab 03/17/20 [Rx] Acetaminophen Tab [Tylenol] 650 mg PO Q6HR PRN tab 03/18/20 [Rx] Follow up Appointment(s)/Referral(s): [facility], [NON-STAFF] - Juanjose Calloway MD [Medical Doctor] - As Needed Discharge Disposition: HOME WITH HOME HEALTH SERVICES
--- NOTE | 2020-03-18 13:03 | P.PN ---
Subjective Progress Note Date: 03/18/20 Principal diagnosis: MDS, Pancytopenia, Febrile Neutropenia Febrile again this am at 100.2 Objective - Vital Signs Vital signs: Vital Signs Temp 100.2 F H 03/18/20 07:00 Pulse 72 03/18/20 07:00 Resp 18 03/18/20 07:00 BP 129/62 03/18/20 07:00 Pulse Ox 94 L 03/18/20 07:00 Intake & Output 03/17/20 03/18/20 03/18/20 18:59 06:59 18:59 Intake Total 510 850 Output Total 300 Balance 510 -300 850 Intake: IV 850 Sodium Chloride 0.9% 1, 600 000 ml @ 75 mls/hr IV . [id number] DONNA Rx#:[id number] Vancomycin 1,000 mg In 250 Sodium Chloride 0.9% 250 ml @ 125 mls/hr IVPB Q12H DONNA Rx#:[id number] Oral 200 Blood Product 310 Rc Irr As1 Unit 310 [id number] Output: Urine 300 Other: # Voids 3 - Exam Constitutional: No acute distress. HEENT: Conjunctival pallor. Mucosa dry, no thrush Neck: Neck supple. Lungs:No respiratory distress. Heart: Normal rate. Abdomen: Soft, nontender, nondistended. MSK: 4/4 strength in all 4 extremities. Neuro: Alert and oriented x 3. chronically ill appearance Skin: No jaundice. Psych: Appropriate affect. - Labs CBC & Chem 7: 03/18/20 08:12 03/18/20 08:12 Labs: Abnormal Lab Results - Last 24 Hours (Table) 03/17/20 03/18/20 03/18/20 Range/Units 10:49 08:12 08:12 WBC 0.5 L* (3.8-10.6) k/uL RBC 2.38 L (4.30-5.90) m/uL Hgb 7.7 L (13.0-17.5) gm/dL Hct 24.2 L (39.0-53.0) % MCV 101.7 H (80.0-100.0) fL RDW 24.4 H (11.5-15.5) % Plt Count 88 L (150-450) k/uL Macrocytosis Marked A C-Reactive Protein 160.3 H (<10.0) mg/L Crossmatch See Detail Microbiology - Last 24 Hours (Table) 03/12/20 20:49 Blood Culture - Preliminary Blood No Growth after 120 hours Assessment and Plan Plan: Assessment and Plan 1. Pancytopenia due to chemotherapy and underlying MDS: - Monitor CBC Daily and Supportive irradiated transfusions PRN Hemoglobin less than 7, Platelets less than 15 - Continue on G-CSF for neutropenia, although no improvement since hospitalization - WBC no improvement - Anemia and thrombocytopenia: Hemoglobin 6.9 - Transfuse PRBC today 2. Febrile neutropenia: - Improving T-Max 24 hours 100.2 - Grove Cultures pending - Blood Cultures negative - Antibiotics per ID - With his overall disease he will likely continue to pulido with fevers and be increased risks for infections. He is not a candidate for aggressive therapy and/or stem cell transplant and it is resonable to allow patient to go home on oalliative services, with prophylaxis anti-viral, anti-fungal, abx. PT/OT while able. - Long discussion with patient and today. 3. Pneumonia: - Work up suggestive of pneumonia based on hazy infiltrates on CXR. 4. MDS with ringed sideroblasts - Dacogen on hold until recovery of current febrile illness Plan: - Discussed options again with patient and and both agree they would like to go home and treat there through palliative care. - Home with palliative care, continue abx/transfusions for now (Acyclovir, diflucan, levaquin) - Eventual transfer to hospice care. - CBC one week with Dr. Flores and supportive transfusion if needed
[2020-03-18] MEDS ORDERED: metroNIDAZOLE 500 MG TAB PO SCH (16:00)
--- NOTE | 2020-03-18 17:34 | PN ---
PROGRESS NOTE DATE OF SERVICE: 03/18/2020 REASON FOR FOLLOWUP: Febrile neutropenia, possible abdominal source. INTERVAL HISTORY: The patient's overall fever pattern seems to have improved, with a fever of 100.2 this morning. The patient is breathing comfortably. He denies having any chest pain or shortness of breath. He did have some cough but no sputum. Some vague lower abdominal pain. No vomiting or diarrhea. PHYSICAL EXAMINATION: Blood pressure 129/62 with a pulse of 72, temperature 100.2. He is 94% on room air. General description is an elderly male up in the chair in no distress. RESPIRATORY SYSTEM: Unlabored breathing. Clear to auscultation anteriorly. HEART: S1, S2. Regular rate and rhythm. ABDOMEN: Soft. No tenderness. LABS: Hemoglobin 7.7, white count 0.5. CT of abdomen and pelvis was completed, with evidence of colitis, question or infection versus inflammatory, and splenic trauma with suspected vascular compromise. DIAGNOSTIC IMPRESSION AND PLAN: Patient with a fever which was more likely due to abdominal origin with concern for a splenic hematoma or compromise versus colitis, on cefepime. Will add Flagyl, though plan for possible hospice per primary. If that is the case, antibiotic can be safely discontinued. MMODL / IJN: [id number] /
--- NOTE | 2020-03-21 06:03 | CDI ---
Documentation Clarification Form Date: 03/21/20 From: Syeda Trivedi Phone: If you have a question about this query, please contact Elen Hobbs, School Laboratory Technician at [phone] between 8am and 5pm. Admit Date: 03/12/20 Discharge Date: 03/18/20 Patient Name: RUPINDER PARTIDA Visit Number: [id number] ATTENTION: The Clinical Documentation Specialists (CDI) and [facility] Coding Staff appreciate your assistance in clarifying documentation. Please respond to the clarification below the line at the bottom and electronically sign. The CDI & [facility] Coding staff will review the response and follow-up if needed. Please note: Queries are made part of the Legal Health Record. If you have any questions, please contact the author of this message via ITS. Dear Dr. Juanjose Calloway, Cachectic has been documented in ED Note. History/Risk Factors: MDS w sideroblasts, antineoplastic chemo induced pancytopenia, pneumonia, smoker, alcohol abuse. Labs: Total protein: 7.5, 6.8, 7.3, 7.1; Albumin: 3.3, 2.8, 3.1, 2.9 Current BMI: 17.8 Insufficient energy intake:yes, poor appetite, refusing meals, Treatment: Ensure TID, high calorie/protein foods In your professional opinion, can you please clarify if these findings signify one of the following conditions? Mild Protein-Calorie Malnutrition xx Moderate Protein-Calorie Malnutrition Severe Protein-Calorie Malnutrition Malnutrition, unspecified Other condition, please specify Unable to determine MTDD
== END 2020-03-18 16:43 | disposition home health service (06) | DRG 808 ==
LOC: EC 19:17 → 4SSUR 21:10
PROVIDERS: ADMIT Internal Medicine Geriatric Medicine; ATTEND Internal Medicine Geriatric Medicine
PROC: 30233N1 Transfusion of Nonautologous Red Blood Cells into Peripheral Vein, Percutaneous Approach (ICD-10-PCS; principal; 2020-03-14)
DX: D61.810 Antineoplastic chemotherapy induced pancytopenia (principal); J18.9 Pneumonia, unspecified organism; R64 Cachexia; E44.0 Moderate protein-calorie malnutrition; Z68.1 Body mass index [BMI] 19.9 or less, adult; D63.8 Anemia in other chronic diseases classified elsewhere; D46.1 Refractory anemia with ring sideroblasts; R50.81 Fever presenting with conditions classified elsewhere; T45.1X5A Adverse effect of antineoplastic and immunosuppressive drugs, initial encounter; Z66 Do not resuscitate; Z51.5 Encounter for palliative care; Z20.828 Contact with and (suspected) exposure to other viral communicable diseases; F10.10 Alcohol abuse, uncomplicated; F17.210 Nicotine dependence, cigarettes, uncomplicated; Z91.19 Patient's noncompliance with other medical treatment and regimen; Z87.39 Personal history of other diseases of the musculoskeletal system and connective tissue; Z98.890 Other specified postprocedural states; Z80.9 Family history of malignant neoplasm, unspecified
CPT/HCPCS: 36415; 36430; 71046; 74177; 80053; 80202; 81001; 82565; 83605; 83615; 83735; 84100; 84145; 84550; 85025; 85027; 85610; 85730; 86140; 86850; 86880; 86900; 86901; 86920; 87040; 87449; 93005; 96365; 96367; 96368; 99291

== ENCOUNTER 2020-03-20 16:13 | Inpatient (IN) | payer MEDICARE, BC ==
--- NOTE | 2020-03-20 16:50 | ED ---
General Adult HPI - General Chief complaint: Fever Stated complaint: Fever Time Seen by Provider: 03/20/20 16:32 Source: patient, family, RN notes reviewed Mode of arrival: ambulatory Limitations: no limitations - History of Present Illness Initial comments: Patient is a pleasant 70-year-old male presenting to the emergency Department with complaints of fever. Patient was just discharged from the hospital with neutropenic fever and pneumonia. Patient also had low red cells and year transfusion. Patient had temperature at home today of 103.9. Patient did receive Tylenol less than 1 hour ago. Patient complains of feeling achy and chilled. Patient also has mild shortness of breath. Patient does see Dr. Flores and was recently on chemotherapy however this has been discontinued secondary to not being successful. Patient has myelodysplastic syndrome - Related Data Previous Rx's Medication Instructions Recorded Acyclovir 400 mg PO TID #90 tablet 03/17/20 Fluconazole [Diflucan] 100 mg PO DAILY #30 tab 03/17/20 Acetaminophen Tab [Tylenol] 650 mg PO Q6HR PRN tab 03/18/20 Levofloxacin [Levaquin] 500 mg PO DAILY 3 Days #14 tab 03/18/20 Allergies Allergy/AdvReac Type Severity Reaction Status Date / Time No Known Allergies Allergy Verified 03/20/20 16:35 Review of Systems ROS Statement: Those systems with pertinent positive or pertinent negative responses have been documented in the HPI. ROS Other: All systems not noted in ROS Statement are negative. Constitutional: Reports: fever, chills Eyes: Denies: eye pain ENT: Denies: ear pain Respiratory: Reports: dyspnea. Denies: cough Cardiovascular: Denies: chest pain Endocrine: Reports: fatigue Gastrointestinal: Denies: abdominal pain Genitourinary: Denies: dysuria Musculoskeletal: Denies: back pain Skin: Denies: rash Neurological: Denies: weakness Past Medical History Past Medical History: Cancer, Skin Disorder Additional Past Medical History / Comment(s): Gout, cellulitis to left leg? (patient states he is itchy, some scabs and scarring noted), chronic anemia, bone marrow cancer History of Any Multi-Drug Resistant Organisms: None Reported Past Surgical History: No Surgical Hx Reported Additional Past Surgical History / Comment(s): surgery on rt leg and foot after injury age 3 Past Anesthesia/Blood Transfusion Reactions: No Reported Reaction Past Psychological History: No Psychological Hx Reported Smoking Status: Current every day smoker Past Alcohol Use History: Daily Past Drug Use History: None Reported - Past Family History Mother Family Medical History: Cancer Brother(s) Family Medical History: Cancer Father Additional Family Medical History / Comment(s): Father at age 93 from old age. General Exam Limitations: no limitations General appearance: alert, in no apparent distress Head exam: Present: normocephalic Eye exam: Present: normal appearance, PERRL ENT exam: Present: normal oropharynx Neck exam: Present: normal inspection Respiratory exam: Present: normal lung sounds bilaterally Cardiovascular Exam: Present: regular rate, normal rhythm GI/Abdominal exam: Present: soft. Absent: tenderness Extremities exam: Present: normal inspection Neurological exam: Present: alert Psychiatric exam: Present: normal affect, normal mood Skin exam: Present: normal color Course Vital Signs 03/20/20 03/20/20 16:33 18:04 Temperature 101.2 F H 99.7 F H Pulse Rate 81 70 Respiratory 16 18 Rate Blood Pressure 126/69 107/64 O2 Sat by Pulse 98 95 Oximetry Medical Decision Making - Medical Decision Making Patient reevaluated and resting comfortably sitting up in bed. Patient and family updated on results and plan. Case was discussed in detail with Dr. Connors, who will admit covering for Dr. Magana. She does recommend cefepime and vancomycin and consult Dr. Hansen. Case was also discussed with Dr. Flores who also requests Neupogen 480 daily. - Lab Data Result diagrams: 03/20/20 17:00 03/20/20 16:55 Lab Results 03/20/20 03/20/20 03/20/20 Range/Units 16:55 16:55 16:55 WBC (3.8-10.6) k/uL RBC (4.30-5.90) m/uL Hgb (13.0-17.5) gm/dL Hct (39.0-53.0) % MCV (80.0-100.0) fL MCH (25.0-35.0) pg MCHC (31.0-37.0) g/dL RDW (11.5-15.5) % Plt Count (150-450) k/uL Differential Comment Manual Slide Review Hypochromasia Poikilocytosis (manual Anisocytosis Macrocytosis Target Cells PT 12.2 H (9.0-12.0) sec INR 1.2 H (<1.2) APTT 28.7 (22.0-30.0) sec Sodium 132 L (137-145) mmol/L Potassium 3.8 (3.5-5.1) mmol/L Chloride 100 (98-107) mmol/L Carbon Dioxide 25 (22-30) mmol/L Anion Gap 7 mmol/L BUN 17 (9-20) mg/dL Creatinine 0.82 (0.66-1.25) mg/dL Est GFR (CKD-EPI)AfAm >90 (>60 ml/min/1.73 sqM) Est GFR (CKD-EPI)NonAf 88 (>60 ml/min/1.73 sqM) Glucose 105 H (74-99) mg/dL Plasma Lactic Acid Jan 1.1 (0.7-2.0) mmol/L Calcium 8.1 L (8.4-10.2) mg/dL Total Bilirubin 0.9 (0.2-1.3) mg/dL AST 62 H (17-59) U/L ALT 47 (4-49) U/L Alkaline Phosphatase 69 (38-126) U/L Total Protein 7.7 (6.3-8.2) g/dL Albumin 3.2 L (3.5-5.0) g/dL 03/20/20 Range/Units 17:00 WBC 0.6 L* (3.8-10.6) k/uL RBC 2.32 L (4.30-5.90) m/uL Hgb 7.0 L (13.0-17.5) gm/dL Hct 22.6 L (39.0-53.0) % MCV 97.4 (80.0-100.0) fL MCH 30.0 (25.0-35.0) pg MCHC 30.8 L (31.0-37.0) g/dL RDW 23.1 H (11.5-15.5) % Plt Count 217 D (150-450) k/uL Differential Comment Manual Slide Review Performed Hypochromasia Slight Poikilocytosis (manual Present Anisocytosis Moderate Macrocytosis Moderate Target Cells Present PT (9.0-12.0) sec INR (<1.2) APTT (22.0-30.0) sec Sodium (137-145) mmol/L Potassium (3.5-5.1) mmol/L Chloride (98-107) mmol/L Carbon Dioxide (22-30) mmol/L Anion Gap mmol/L BUN (9-20) mg/dL Creatinine (0.66-1.25) mg/dL Est GFR (CKD-EPI)AfAm (>60 ml/min/1.73 sqM) Est GFR (CKD-EPI)NonAf (>60 ml/min/1.73 sqM) Glucose (74-99) mg/dL Plasma Lactic Acid Jan (0.7-2.0) mmol/L Calcium (8.4-10.2) mg/dL Total Bilirubin (0.2-1.3) mg/dL AST (17-59) U/L ALT (4-49) U/L Alkaline Phosphatase (38-126) U/L Total Protein (6.3-8.2) g/dL Albumin (3.5-5.0) g/dL - Radiology Data Radiology results: image reviewed (Chest x-ray shows subtle infiltrate right lobe.) Disposition Clinical Impression: Neutropenic fever, Pneumonia Disposition: ADMITTED IP TO THIS HOSP Is patient prescribed a controlled substance at d/c from ED?: No Referrals: George Bustillos DO [Primary Care Provider] - 1-2 days Decision Time: 18:18
[2020-03-20] MEDS: SODIUM CHLORIDE 0.9% 1,000 ML IV SCH (16:52)
[2020-03-20 17:13] LABS: Anisocytosis Moderate; HCT 22.6 % (39.0-53.0); Hypochromasia Slight; MCHC 30.8 g/dL (31.0-37.0); MCV 97.4 fL (80.0-100.0); Macrocytosis Moderate; Mean Platelet Volume 10.5; RBC 2.32 m/uL (4.30-5.90); RDW 23.1 % (11.5-15.5)
[2020-03-20 17:18] LABS: WBC 0.6 k/uL (3.8-10.6)
[2020-03-20 17:21] LABS: Platelet Count 217 k/uL (150-450)
[2020-03-20 17:29] LABS: ALT 47 U/L (4-49); AST 62 U/L (17-59); African American GFR (CKD) >90 (>60 ml/min/1.73 sqM); Albumin 3.2 g/dL (3.5-5.0); Alkaline Phosphatase 69 U/L (38-126); Anion Gap 7 mmol/L; Blood Urea Nitrogen 17 mg/dL (9-20); Calcium 8.1 mg/dL (8.4-10.2); Carbon Dioxide 25 mmol/L (22-30); Chloride 100 mmol/L (98-107); Glucose 105 mg/dL (74-99); Non-African American GFR(CKD) 88 (>60 ml/min/1.73 sqM); Potassium 3.8 mmol/L (3.5-5.1); Sodium 132 mmol/L (137-145); Total Bilirubin 0.9 mg/dL (0.2-1.3); Total Protein 7.7 g/dL (6.3-8.2)
[2020-03-20 17:30] LABS: INR 1.2 (<1.2); Partial Thromboplastin Time 28.7 sec (22.0-30.0); Prothrombin Time 12.2 sec (9.0-12.0)
--- NOTE | 2020-03-20 17:30 | XR ---
EXAMINATION TYPE: XR chest 2V DATE OF EXAM: 03/20/2020 COMPARISON: 03/12/2020 HISTORY: Fever TECHNIQUE: FINDINGS: Heart and mediastinum are normal. There is poorly marginated 1.7 cm infiltrate in the right upper lobe. The other lung peralta are clear. There is pulmonary hyperinflation and flattening of the diaphragm. Bony thorax is intact. IMPRESSION: Poorly marginated right upper lobe infiltrate. Shallow oblique views recommended to confi rm or exclude a pulmonary nodule. COPD unchanged.
[2020-03-20 17:31] LABS: Poikilocytosis (M) Present; Target Cells Present
[2020-03-20 18:19] LABS: Appearance,Urine Cloudy (Clear); Bilirubin,Urine Negative (Negative); Blood,Urine Moderate (Negative); Color,Urine Yellow; Glucose,Urine (UA) Negative (Negative); Granular Casts,Urine 3 /lpf (0); Hyaline Casts,Urine 1 /lpf (0-2); Ketones,Urine Negative (Negative); Leukocyte Esterase,Urine Negative (Negative); Mucus,Urine Rare /hpf; Nitrite,Urine Negative (Negative); Protein,Urine 3+ (Negative); RBC,Urine 2 /hpf (0-5); Squamous Epithelial Cell,Urine <1 /hpf (0-4); WBC,Urine 2 /hpf (0-5)
[2020-03-20] MEDS ORDERED: VANCOMYCIN IV PER PHARMACY 1 EACH MISC MISCELLANE PRN (18:20)
[2020-03-20] MEDS ORDERED: NALOXONE 0.4 MG/ML 1 ML VIAL IV PRN (18:21)
[2020-03-20] MEDS: FILGRASTIM-SNDZ 480 MCG/0.8 ML SYRINGE SQ SCH (18:52)
[2020-03-20] MEDS ORDERED: VANCOMYCIN 1,000 MG in SODIUM CHLORIDE 0.9% 250 ML IVPB ONE (19:00)
[2020-03-20] MEDS: CEFEPIME 1 GM in SODIUM CHLORIDE 0.9% 50 ML IVPB SCH (21:34)
[2020-03-21] MEDS: SODIUM CHLORIDE 0.9% 1,000 ML IV SCH ×2 (00:58→14:14)
[2020-03-21] MEDS: VANCOMYCIN 1,000 MG in SODIUM CHLORIDE 0.9% 250 ML IVPB SCH ×2 (06:15→17:51)
[2020-03-21] MEDS: ACETAMINOPHEN TAB 325 MG TAB PO PRN ×4 (07:48→20:37)
[2020-03-21] MEDS: FILGRASTIM-SNDZ 480 MCG/0.8 ML SYRINGE SQ SCH (07:48)
[2020-03-21] MEDS: CEFEPIME 1 GM in SODIUM CHLORIDE 0.9% 50 ML IVPB SCH (08:38)
[2020-03-21 09:06] LABS: African American GFR (CKD) >90 (>60 ml/min/1.73 sqM); Anion Gap 10 mmol/L; Blood Urea Nitrogen 16 mg/dL (9-20); Carbon Dioxide 23 mmol/L (22-30); Chloride 103 mmol/L (98-107); Glucose 93 mg/dL (74-99); Non-African American GFR(CKD) 88 (>60 ml/min/1.73 sqM); Potassium 4.6 mmol/L (3.5-5.1); Sodium 136 mmol/L (137-145)
[2020-03-21 09:38] LABS: Anisocytosis Moderate; HCT 25.3 % (39.0-53.0); HGB 8.1 gm/dL (13.0-17.5); Hypochromasia Marked; MCH 32.3 pg (25.0-35.0); MCHC 31.9 g/dL (31.0-37.0); MCV 101.3 fL (80.0-100.0); Macrocytosis Marked; Mean Platelet Volume 10.5; Platelet Count 253 k/uL (150-450); RDW 23.2 % (11.5-15.5)
[2020-03-21 09:43] LABS: WBC 1.1 k/uL (3.8-10.6)
[2020-03-21 09:58] VITALS: BMI 18.0
[2020-03-21 11:34] LABS: Neutrophils % (M) 14 %
[2020-03-21 11:35] LABS: Band Neutrophils % 3 %; Large Platelets Present; Lymphocytes # (M) 0.76 k/uL (1.0-4.8); Monocytes # (M) 0.06 k/uL (0-1.0); Nucleated Red Blood Cells 0 /100 WBC (0-0); Target Cells Present; Total Cells Counted 100
--- NOTE | 2020-03-21 11:40 | P.CONS ---
History of Present Illness - Reason for Consult Consult date: 03/21/20 Febrile neutropenia with pneumonia. Pancytopenia/MDS - History of Present Illness Mr. Walls is a 70 yo WM with multiple comorbidities including MDS with ringed sideroblasts, well known to myself and recently started on chemotherapy with dacogen, who is admitted for recurrent neutropenic fever. The patient had been admitted with similar complaints on 03/12/20 with slow improvement with aggressive IV antibiotics. At that time to was felt to have a pneumonia. He was discharged home on oral antibiotics, but developed recurrent fevers with chills and sweats on the day of admission. This was not controlled with anti- pyretic and cooling measures leading him to come back to the hospital. Work up suggestive of pneumonia. He has severe neutropenia, pancytopenia due to chemotherapy and MDS. Patient's cancer history is as follows: He was initially seen for progressive anemia, and persistently high MCV. Labs from 03/06 revealed a Hgb of 13.3, with MCV 111.4. CRP was mildly elevated at 1.37.On 05/31/16, Hgb was 8.6, with MCV 116.5. Ferritin was 1053, but saturation was normal at 27%. TIBC was low at 246. CRP was higher at 3.02. Total globulin was elevated at 4.1. Other aspects of his CBC and CMP were normal. He denied any prior h/o blood problems, or transfusions, or any ongoing chronic inflammatory condition. Additional labs were ordered, which were negative, other than a mild elevation of light chains, with normal ratio. Repeat iron studies again showed no evidence of hemochromatosis. He had a bone marrow on 08/30/16. Prelim report, per my discussion with Pathology indicated erythroid hyperplasia, with some megaloblastoid changes, and increased ring sideroblasts. Flow indicated an aberrant population of blasts ( 1%). This is most indicative of MDS. 01/20/20: the patient was referred back here as a new consult. At the time of his initial evaluation in 09/08, on discussion of the pathology, he had indicated that he did not want any treatment especially chemotherapy. As hemoglobin was still in a safe range, it was recommended that the patient be followed with observation at the time. However he canceled his scheduled appointment in 10/10 did not follow-up in the office subsequently. According to physician notes available the patient remained quite noncompliant and erratic in follow-up with his PCP. He had presented in 12/11 with complains of progressive fatigue, shortness of breath on exertion, and dizziness over the past several weeks. He was found to have a hemoglobin of 6.7 with MCV 99, platelets 193 and WBC 4.5 with ANC 1.2 and ALC 2.1.GFR was essentially normal, along with other liver enzymes. Uric acid was elevated at 8.2. C-reactive protein was 9.5. His iron saturation was 50% with ferritin 930. the patient was admitted to [facility] on 12/11/19 and received blood transfusion. Hemoglobin improvement to the 8 range any was subsequently discharged. He also had a flow cytometry done by his PCP around this time which was negative other than some neutropenia. the patient had a bone marrow aspiration biopsy repeated on 01/26/20. This revealed similar changes with erythroid hyperplasia, and ring sideroblasts indicative of MDS. There was no evidence of transformation to acute leukemia. telemedicine 02/04/20: The patient had repeat bone marrow aspiration biopsy with results as noted above. He denied any fevers/chills/nausea/vomiting. He continues to complain of easy fatigability, and shortness of breath on exertion which is stable since his visit he denies any obvious bleeding. No history of any lymph node enlargement, or new bone pain. Appetite is normal. Review of systems otherwise as per HPI and negative out of 10. After discussion of pathology and options, he opted for active treatment. 02/22-02/27/20: C1 of Dacogen. At the time of his recent discharge, the patient and his family had decided against doing additional chemotherapy. Palliative care/hospice was therefore assisted to them but the patient refused the same as he felt that he was not ready for that yet. Review of Systems Constitutional: Reports chills, Reports fatigue, Reports fever, Reports poor larisa etite, Reports weakness Eyes: denies blurred vision, denies pain Ears: deny: decreased hearing, ear discharge, earache, tinnitus Ears, nose, mouth and throat: Denies headache, Denies sore throat Cardiovascular: Reports decreased exercise tolerance Respiratory: Denies cough Gastrointestinal: Reports diarrhea Genitourinary: Reports as per HPI Musculoskeletal: Reports muscle weakness Integumentary: Denies pruritus, Denies rash Neurological: Reports weakness Psychiatric: Denies anxiety, Denies depression Endocrine: Reports fatigue Hematologic/Lymphatic: Reports as per HPI Past Medical History Past Medical History: Cancer, Skin Disorder Additional Past Medical History / Comment(s): Gout, cellulitis to left leg? (patient states he is itchy, some scabs and scarring noted), chronic anemia, bone marrow cancer History of Any Multi-Drug Resistant Organisms: None Reported Past Surgical History: No Surgical Hx Reported Additional Past Surgical History / Comment(s): surgery on rt leg and foot after injury age 3 Past Anesthesia/Blood Transfusion Reactions: No Reported Reaction Past Psychological History: No Psychological Hx Reported Smoking Status: Current every day smoker Past Alcohol Use History: Daily Additional Past Alcohol Use History / Comment(s): Patient states he smokes 1/2 ppd. Patient drinks 4-6 beers per day for many years and cut down to 1-2 beers per day for the past 2 months. Patient lives at home with his . Past Drug Use History: None Reported - Past Family History Mother Family Medical History: Cancer Brother(s) Family Medical History: Cancer Father Additional Family Medical History / Comment(s): Father at age 93 from old age. Medications and Allergies Home Medications Medication Instructions Recorded Confirmed Type Acyclovir 400 mg PO TID #90 tablet 03/17/20 03/20/20 Rx Fluconazole [Diflucan] 100 mg PO DAILY #30 tab 03/17/20 03/20/20 Rx Acetaminophen Tab [Tylenol] 650 mg PO Q6HR PRN tab 03/18/20 03/20/20 Rx Levofloxacin [Levaquin] 500 mg PO DAILY 3 Days #14 tab 03/18/20 03/20/20 Rx Multivitamins, Thera [Multivitamin 1 tab PO DAILY 03/20/20 03/20/20 History (formulary)] Allergies Allergy/AdvReac Type Severity Reaction Status Date / Time No Known Allergies Allergy Verified 03/20/20 19:12 Physical Exam Vitals: Vital Signs Temp Pulse Pulse Resp BP BP Pulse Ox 03/20/20 22:40 101 F H 03/20/20 20:42 98.8 F 75 18 137/72 96 03/20/20 19:27 99.2 F 72 18 110/63 97 03/20/20 18:04 99.7 F H 70 18 107/64 95 03/20/20 16:33 101.2 F H 81 16 126/69 98 Intake and Output 03/20/20 03/20/20 03/21/20 14:59 22:59 06:59 Other: Weight 60.328 kg - Constitutional General appearance: no acute distress - EENT Eyes: EOMI, PERRLA ENT: hearing grossly normal, normal oropharynx - Neck Neck: no lymphadenopathy Thyroid: bilateral: normal size - Respiratory Respiratory: bilateral: CTA - Cardiovascular Rhythm: regular Heart sounds: normal: S1, S2 - Gastrointestinal General gastrointestinal: normal bowel sounds, soft - Integumentary Integumentary: normal - Neurologic Neurologic: CNII-XII intact - Musculoskeletal Musculoskeletal: generalized weakness, strength equal bilaterally - Psychiatric Psychiatric: A&O x's 3, appropriate affect Results CBC & Chem 7: 03/21/20 07:24 03/21/20 07:24 Labs: Abnormal Lab Results - Last 24 Hours (Table) 03/20/20 03/20/20 03/20/20 Range/Units 16:55 16:55 17:00 WBC 0.6 L* (3.8-10.6) k/uL RBC 2.32 L (4.30-5.90) m/uL Hgb 7.0 L (13.0-17.5) gm/dL Hct 22.6 L (39.0-53.0) % MCHC 30.8 L (31.0-37.0) g/dL RDW 23.1 H (11.5-15.5) % PT 12.2 H (9.0-12.0) sec INR 1.2 H (<1.2) Sodium 132 L (137-145) mmol/L Glucose 105 H (74-99) mg/dL Calcium 8.1 L (8.4-10.2) mg/dL AST 62 H (17-59) U/L Albumin 3.2 L (3.5-5.0) g/dL Urine Protein (Negative) Urine Blood (Negative) Urine Mucus (None) /hpf 03/20/20 Range/Units 17:00 WBC (3.8-10.6) k/uL RBC (4.30-5.90) m/uL Hgb (13.0-17.5) gm/dL Hct (39.0-53.0) % MCHC (31.0-37.0) g/dL RDW (11.5-15.5) % PT (9.0-12.0) sec INR (<1.2) Sodium (137-145) mmol/L Glucose (74-99) mg/dL Calcium (8.4-10.2) mg/dL AST (17-59) U/L Albumin (3.5-5.0) g/dL Urine Protein 3+ H (Negative) Urine Blood Moderate H (Negative) Urine Mucus Rare H (None) /hpf Chest x-ray: report reviewed Assessment and Plan (1) Neutropenic fever Narrative/Plan: The patient has had recurrence of the same, after recent discharge for similar complaints. He remains neutropenic due to his underlying MDS. Case discussed in detail with the emergency room physician. The patient has been started back on broad-spectrum IV antibiotics. Cultures have been ordered. As his bone marrow did not show any excess blasts previously, it was felt that it would be reasonable to start him on white cell growth factors. - Source is not definitely known though pneumonia is presumed given subtle finding on chest x-ray. He has no other localizing signs at this time. - Continue treatment as above Current Visit: Yes Status: Acute Code(s): D70.9 - NEUTROPENIA, UNSPECIFIED; R50.81 - FEVER PRESENTING WITH CONDITIONS CLASSIFIED ELSEWHERE SNOMED Code(s): 590321133 (2) Pneumonia Narrative/Plan: [place] to be possible source, given somewhat subtle findings on x-ray. Treatment plan as above Current Visit: Yes Status: Acute Code(s): J18.9 - PNEUMONIA, UNSPECIFIED ORGANISM SNOMED Code(s): 174943211 (3) Bicytopenia Narrative/Plan: Due to underlying myelodysplastic syndrome. Diagnostic and therapeutic circumstances as noted in the HPI. At the time of his previous admission the patient had been reluctant to pursue active treatment. Palliative care/hospice had been suggested but apparently he had refused the same as he felt he was not ready for that yet. - I discussed options available to him in detail. He was advised that he has underlying significant cytopenias due to his disease. If untreated the cytopenias are expected to progress, with recurrent complications such as seen during this admission. It appears that he and his were considering supportive measures such as transfusions or growth factors. He was advised that the chances of any significant benefit for a reasonable duration would be extremely low with this approach, and this would continue to carry persistent risks of recurrent hospitalizations due to complications such as infections severe anemia etc. - The other option would be to continue active treatment. We have previously discussed that his treatment regimen has about a 50-60% chance of clinical benefit. However it may take up to 3-4 cycles (12-16 weeks) before response occurs. Even with the patient was going to respond, it is possible that would continue treatment, he could be at risk of complications such as noted during this admission before response occurs. We had discussed this previously in detail, and this was reiterated. Previously the patient had decided to go ahead with active treatment. Given the risk of similar complications with supportive care, and the patient's reluctance for hospice, at this time it would seem that continuing with active treatment may be the more reasonable option. At this time the patient appears somewhat undecided. We will meet with them to meet with him and his tomorrow morning to reiterate the same - The patient is on growth factors to improve his WBC. Continue to monitor counts and transfuse as needed to keep hemoglobin greater than 7 . Current Visit: Yes Status: Acute Code(s): D75.89 - OTHER SPECIFIED DISEASES OF BLOOD AND BLOOD-FORMING ORGANS SNOMED Code(s): 92020469
[2020-03-21] MEDS ORDERED: IOPAMIDOL CONTRAST (ORAL USE) VIAL PO PRN (16:17)
--- NOTE | 2020-03-21 16:24 | P.HPIM ---
History of Present Illness H&P Date: 03/21/20 Chief Complaint: Fever, epigastric pain, cough This is a 70-year-old patient of Dr. Bustillos with a past medical history of anemia, gout, tobacco use and dependence, daily alcohol use. And cancer. Patient is unsure of the type of cancer that he has. He has been receiving chemotherapy and blood transfusions. He is under care with Dr. Flores. Patient presented yesterday for evaluation of fever and generalized weakness. Patient a transfusion yesterday morning at approximately 9 AM. He was noted to have a fever during the afternoon. Patient states that his most recent chemotherapy was approximately 2 weeks ago. He denies any pain or at this time. Denies any vomiting or diarrhea. Patient states that he has been short of breath recently with any activity. Denies any cough. Patient is a current smoker. Patient was discharged March 18, and comes in again to the emergency room with the same problem, fever, failure of a cycle of year, and Levaquin, for which the regimen was complied on by family. Patient was hesitant on going to hospice, and is not feeling ready to be in a hospice program yet. Patient was admitted from March 14 until March 18, seen by oncology ID, discharge med at that time a cycle of year Levaquin, along with other maintenance meds, he received to admission 1 unit of packed red blood cell, as well as colony simulating factor, at that time he received Vanco supper, there was some suspicion of either a wedge like abnormality in the spleen, during his last CAT scan. Fever persists at home, and started 24 hours after discharge. Patient is coughing, has diarrhea, 4 times watery, no blood, patient denies any aspiration events, patient continues to smoke, patient started on cefepime, and vancomycin, Flagyl was added started secondary diarrhea. Cultures were obtained ID consult oncology consult, patient has COPD exacerbation as well, as well as an orthopedic fever, and a new right upper lobe infiltrate, malignancy cannot be r uled out, CT chest to be done, with IV contrast. Urinalysis negative. Review of Systems Constitutional: Reports anorexia, Reports chronic pain, Reports fatigue, Reports fever, Reports night sweats, Reports poor appetite Ears, nose, mouth and throat: Reports as per HPI, Denies ant. neck pain, Denies bleeding gums, Denies dental pain, Denies dysphagia, Denies epistaxis, Denies headache, Denies hoarseness, Denies mouth pain, Denies nasal congestion, Denies nasal discharge, Denies neck fullness/pressure, Denies neck lump, Denies nose pain, Denies odynophagia, Denies post-nasal drip, Denies sinus pain, Denies sinus pressure, Denies swelling in mouth, Denies swelling in throat, Denies sore throat, Denies vertigo, Denies voice changes Cardiovascular: Reports as per HPI, Reports dyspnea on exertion Respiratory: Reports as per HPI, Reports dyspnea, Reports wheezing, Denies congestion, Denies cough, Denies cough with sputum, Denies excessive sputum, Denies hemoptysis, Denies home oxygen, Denies pain, Denies pain on inspiration, Denies pleurisy, Denies respiratory infections, Denies sleep apnea, Denies snoring Gastrointestinal: Reports as per HPI, Reports diarrhea, Reports heartburn, Reports indigestion, Denies abdominal pain, Denies belching, Denies bloating, Denies BRBPR, Denies change in bowel habits, Denies coffee ground emesis, Denies constipation, Denies dyspepsia, Denies early satiety, Denies excessive gas, Denies hematemesis, Denies hematochezia, Denies jaundice, Denies lactose intolerance, Denies loss of appetite, Denies melena, Denies nausea, Denies vomiting Genitourinary: Reports as per HPI Musculoskeletal: Reports as per HPI, Reports muscle weakness, Denies arm numbness/tingling, Denies atrophy, Denies fractures, Denies frequent falls, Denies gait dysfunction, Denies hot joints, Denies leg numbness/tingling, Denies limitation of motion, Denies loss of height, Denies low back pain, Denies morning stiffness, Denies muscle cramps, Denies myalgias, Denies neck pain, Denies neck stiffness, Denies prior amputations, Denies redness of joints, Denies shooting arm pain, Denies shooting leg pain Integumentary: Reports as per HPI, Denies acne, Denies boils, Denies brittle nails, Denies change in hair/nails, Denies color changes, Denies darkening of skin, Denies depigmentation, Denies dryness, Denies foot/leg ulcers, Denies growths, Denies hirsutism, Denies lesions, Denies onychomycosis, Denies pruritus, Denies rash, Denies sores, Denies striae, Denies unusual bruising, Denies wounds Neurological: Reports as per HPI, Denies aphasia, Denies ataxia, Denies balance difficulties, Denies burning pain, Denies change in mentation, Denies change in smell/taste, Denies change in speech, Denies confusion, Denies convulsions, Christo es double vision, Denies gait dysfunction, Denies head injury, Denies headaches, Denies hearing difficulties, Denies lack of coordination, Denies loss of vision, Denies memory loss, Denies migraines, Denies motor disturbance, Denies numbness, Denies paralysis, Denies paresthesias, Denies seizures, Denies sensory deficit, Denies spasticity, Denies syncope, Denies tic, Denies tingling, Denies transient paralysis, Denies tremors, Denies vertigo, Denies weakness, Denies visual changes Psychiatric: Reports as per HPI, Denies anhedonia, Denies anxiety, Denies anxiety attacks, Denies change in appetite, Denies change in libido, Denies change in sleep habits, Denies confusion, Denies depression, Denies difficulty concentrating, Denies disorientation, Denies hallucinations, Denies hopelessness, Denies hypersomnia, Denies insomnia, Denies irritability, Denies memory loss, Denies mood swings, Denies paranoia, Denies sadness/tearfulness, Denies sleep disturbances, Denies suicidal ideation Endocrine: Reports as per HPI, Denies cold intolerance, Denies deepening of the voice, Denies excessive sweating, Denies excessive thirst, Denies fatigue, Den ies flushing, Denies heat intolerance, Denies high blood sugars, Denies increase in ring/shoe/hat size, Denies low blood sugars, Denies nocturia, Denies palpitations, Denies polydipsia, Denies polyphagia, Denies polyuria, Denies proptosis, Denies recent glucocorticoid use, Denies thyroid mass, Denies weight change Hematologic/Lymphatic: Reports as per HPI Allergic/Immunologic: Reports as per HPI, Reports wheezing, Denies allergic rhinitis, Denies anaphylaxis, Denies angioedema, Denies gluten intolerance, Denies persistent infections, Denies seasonal allergies, Denies urticaria Past Medical History Past Medical History: Cancer, Skin Disorder Additional Past Medical History / Comment(s): Gout, cellulitis to left leg? (patient states he is itchy, some scabs and scarring noted), chronic anemia, bone marrow cancer History of Any Multi-Drug Resistant Organisms: None Reported Past Surgical History: No Surgical Hx Reported Additional Past Surgical History / Comment(s): surgery on rt leg and foot after injury age 3 Past Anesthesia/Blood Transfusion Reactions: No Reported Reaction Past Psychological History: No Psychological Hx Reported Smoking Status: Current every day smoker Past Alcohol Use History: Daily Additional Past Alcohol Use History / Comment(s): Patient states he smokes 1/2 ppd. Patient drinks 4-6 beers per day for many years and cut down to 1-2 beers per day for the past 2 months. Patient lives at home with his . Past Drug Use History: None Reported - Past Family History Mother Family Medical History: Cancer Brother(s) Family Medical History: Cancer Father Additional Family Medical History / Comment(s): Father at age 93 from old age. Medications and Allergies Home Medications Medication Instructions Recorded Confirmed Type Acyclovir 400 mg PO TID #90 tablet 03/17/20 03/20/20 Rx Fluconazole [Diflucan] 100 mg PO DAILY #30 tab 03/17/20 03/20/20 Rx Acetaminophen Tab [Tylenol] 650 mg PO Q6HR PRN tab 03/18/20 03/20/20 Rx Levofloxacin [Levaquin] 500 mg PO DAILY 3 Days #14 tab 03/18/20 03/20/20 Rx Multivitamins, Thera [Multivitamin 1 tab PO DAILY 03/20/20 03/20/20 History (formulary)] Allergies Allergy/AdvReac Type Severity Reaction Status Date / Time No Known Allergies Allergy Verified 03/20/20 19:12 Physical Exam Vitals: Vital Signs Temp Pulse Pulse Resp BP BP Pulse Ox 03/21/20 09:47 99 F 03/21/20 08:44 103 F H 03/21/20 07:48 102.3 F H 98 19 142/69 93 L 03/21/20 06:16 100.5 F H 03/21/20 04:35 101 F H 03/21/20 02:55 102.1 F H 84 105/57 94 L 03/20/20 22:40 101 F H 03/20/20 20:42 98.8 F 75 18 137/72 96 03/20/20 19:27 99.2 F 72 18 110/63 97 03/20/20 18:04 99.7 F H 70 18 107/64 95 03/20/20 16:33 101.2 F H 81 16 126/69 98 Intake and Output 03/20/20 03/21/20 03/21/20 22:59 06:59 14:59 Intake Total 240 900 Balance 240 900 Intake: IV 900 Cefepime 1 gm In Sodium 50 Chloride 0.9% 50 ml @ 100 mls/hr IVPB Q12HR PENDING SALE TO [facility] Rx #:[id number] Sodium Chloride 0.9% 1, 600 000 ml @ 75 mls/hr IV . [id number] PENDING SALE TO [facility] Rx#:[id number] Vancomycin 1,000 mg In 250 Sodium Chloride 0.9% 250 ml @ 125 mls/hr IVPB Q12H PENDING SALE TO [facility] Rx#:[id number] Oral 240 Other: # Voids 2 Weight 60.328 kg 60.328 kg - Constitutional General appearance: cooperative, no acute distress, thin - EENT Eyes: anicteric sclerae, EOMI, PERRLA, dentition normal, normal appearance ENT: NA/AT, normal oropharynx - Neck Neck: normal ROM - Respiratory Respiratory: bilateral: wheezing, negative: CTA, diminished, dullness - Cardiovascular Rhythm: regular Heart sounds: normal: S1 Abnormal Heart Sounds: no systolic murmur, no diastolic murmur, no rub, no S3 Gallop, no S4 Gallop, no click, no other - Gastrointestinal General gastrointestinal: normal bowel sounds, soft - Integumentary Integumentary: decreased turgor, normal - Neurologic Neurologic: CNII-XII intact - Musculoskeletal Musculoskeletal: gait normal, strength equal bilaterally - Psychiatric Psychiatric: A&O x's 3, appropriate affect, intact judgment & insight Results CBC & Chem 7: 03/21/20 07:24 03/21/20 07:24 Labs: Abnormal Lab Results - Last 24 Hours (Table) 03/20/20 03/20/20 03/20/20 Range/Units 16:55 16:55 17:00 WBC 0.6 L* (3.8-10.6) k/uL RBC 2.32 L (4.30-5.90) m/uL Hgb 7.0 L (13.0-17.5) gm/dL Hct 22.6 L (39.0-53.0) % MCV (80.0-100.0) fL MCHC 30.8 L (31.0-37.0) g/dL RDW 23.1 H (11.5-15.5) % Neutrophils # (Manual) (1.3-7.7) k/uL Lymphocytes # (Manual) (1.0-4.8) k/uL Macrocytosis PT 12.2 H (9.0-12.0) sec INR 1.2 H (<1.2) Sodium 132 L (137-145) mmol/L Glucose 105 H (74-99) mg/dL Calcium 8.1 L (8.4-10.2) mg/dL AST 62 H (17-59) U/L Albumin 3.2 L (3.5-5.0) g/dL Urine Protein (Negative) Urine Blood (Negative) Urine Mucus (None) /hpf 03/20/20 03/21/20 03/21/20 Range/Units 17:00 07:24 07:24 WBC 1.1 L* (3.8-10.6) k/uL RBC 2.50 L (4.30-5.90) m/uL Hgb 8.1 L (13.0-17.5) gm/dL Hct 25.3 L (39.0-53.0) % MCV 101.3 H (80.0-100.0) fL MCHC (31.0-37.0) g/dL RDW 23.2 H (11.5-15.5) % Neutrophils # (Manual) 0.10 L* (1.3-7.7) k/uL Lymphocytes # (Manual) 0.76 L (1.0-4.8) k/uL Macrocytosis Marked A PT (9.0-12.0) sec INR (<1.2) Sodium 136 L (137-145) mmol/L Glucose (74-99) mg/dL Calcium 8.0 L (8.4-10.2) mg/dL AST (17-59) U/L Albumin (3.5-5.0) g/dL Urine Protein 3+ H (Negative) Urine Blood Moderate H (Negative) Urine Mucus Rare H (None) /hpf Laboratory Results WBC 1.1 k/uL (3.8-10.6) L* 03/21/20 07:24 RBC 2.50 m/uL (4.30-5.90) L 03/21/20 07:24 Hgb 8.1 gm/dL (13.0-17.5) L 03/21/20 07:24 Hct 25.3 % (39.0-53.0) L 03/21/20 07:24 MCV 101.3 fL (80.0-100.0) H 03/21/20 07:24 MCH 32.3 pg (25.0-35.0) 03/21/20 07:24 MCHC 31.9 g/dL (31.0-37.0) 03/21/20 07:24 RDW 23.2 % (11.5-15.5) H 03/21/20 07:24 Plt Count 253 k/uL (150-450) 03/21/20 07:24 Neutrophils % (Manual) 14 % 03/21/20 07:24 Band Neutrophils % 3 % 03/21/20 07:24 Lymphocytes % (Manual) 69 % 03/21/20 07:24 Monocytes % (Manual) 5 % 03/21/20 07:24 Eosinophils % (Manual) 9 % 03/21/20 07:24 Neutrophils # (Manual) 0.10 k/uL (1.3-7.7) L* 03/21/20 07:24 Lymphocytes # (Manual) 0.76 k/uL (1.0-4.8) L 03/21/20 07:24 Monocytes # (Manual) 0.06 k/uL (0-1.0) 03/21/20 07:24 Eosinophils # (Manual) 0.10 k/uL (0-0.7) 03/21/20 07:24 Nucleated RBCs 0 /100 WBC (0-0) 03/21/20 07:24 Differential Comment 03/20/20 17:00 Manual Slide Review Performed 03/21/20 07:24 Large Platelets Present 03/21/20 07:24 Hypochromasia Marked 03/21/20 07:24 Poikilocytosis (manual Present 03/20/20 17:00 Anisocytosis Moderate 03/21/20 07:24 Macrocytosis Marked A 03/21/20 07:24 Target Cells Present 03/21/20 07:24 PT 12.2 sec (9.0-12.0) H 03/20/20 16:55 INR 1.2 (<1.2) H 03/20/20 16:55 APTT 28.7 sec (22.0-30.0) 03/20/20 16:55 Sodium 136 mmol/L (137-145) L 03/21/20 07:24 Potassium 4.6 mmol/L (3.5-5.1) 03/21/20 07:24 Chloride 103 mmol/L (98-107) 03/21/20 07:24 Carbon Dioxide 23 mmol/L (22-30) 03/21/20 07:24 Anion Gap 10 mmol/L 03/21/20 07:24 BUN 16 mg/dL (9-20) 03/21/20 07:24 Creatinine 0.82 mg/dL (0.66-1.25) 03/21/20 07:24 Est GFR (CKD-EPI)AfAm >90 (>60 ml/min/1.73 sqM) 03/21/20 07:24 Est GFR (CKD-EPI)NonAf 88 (>60 ml/min/1.73 sqM) 03/21/20 07:24 Glucose 93 mg/dL (74-99) 03/21/20 07:24 Plasma Lactic Acid Jan 1.1 mmol/L (0.7-2.0) 03/20/20 16:55 Calcium 8.0 mg/dL (8.4-10.2) L 03/21/20 07:24 Total Bilirubin 0.9 mg/dL (0.2-1.3) 03/20/20 16:55 AST 62 U/L (17-59) H 03/20/20 16:55 ALT 47 U/L (4-49) 03/20/20 16:55 Alkaline Phosphatase 69 U/L (38-126) 03/20/20 16:55 Total Protein 7.7 g/dL (6.3-8.2) 03/20/20 16:55 Albumin 3.2 g/dL (3.5-5.0) L 03/20/20 16:55 Urine Color Yellow 03/20/20 17:00 Urine Appearance Cloudy (Clear) 03/20/20 17:00 Urine pH 6.0 (5.0-8.0) 03/20/20 17:00 Ur Specific [place] 1.030 (1.001-1.035) 03/20/20 17:00 Urine Protein 3+ (Negative) H 03/20/20 17:00 Urine Glucose (UA) Negative (Negative) 03/20/20 17:00 Urine Ketones Negative (Negative) 03/20/20 17:00 Urine Blood Moderate (Negative) H 03/20/20 17:00 Urine Nitrite Negative (Negative) 03/20/20 17:00 Urine Bilirubin Negative (Negative) 03/20/20 17:00 Urine Urobilinogen 2.0 mg/dL (<2.0) 03/20/20 17:00 Ur Leukocyte Esterase Negative (Negative) 03/20/20 17:00 Urine RBC 2 /hpf (0-5) 03/20/20 17:00 Urine WBC 2 /hpf (0-5) 03/20/20 17:00 Ur Squamous Epith Cells <1 /hpf (0-4) 03/20/20 17:00 Hyaline Casts 1 /lpf (0-2) 03/20/20 17:00 Granular Casts 3 /lpf (0) 03/20/20 17:00 Urine Mucus Rare /hpf (None) H 03/20/20 17:00 Thrombosis Risk Factor Assmnt - DVT/VTE Prophylaxis DVT/VTE Prophylaxis: Pharmacologic Prophylaxis ordered - Choose All That Apply Any of the Below Risk Factors Present?: No Each Factor Represents 1 point: Abnormal pulmonary function (COPD) Other Risk Factors: Yes Each Risk Factor Represents 2 Points: Age 61-74 years, Malignancy Other congenital or acquired thrombophilia - If yes, enter type in comment: No Thrombosis Risk Factor Assessment Total Risk Factor Score: 5 Thrombosis Risk Factor Assessment Level: High Risk Assessment and Plan Plan: Assessment and plan 1. Neutropenic fever with recurrent admission, sepsis wit ailure of Levaquin prior to admission. Continue cefepime and vancomycin. ID and oncology consult Blood culture repeated , has diarrhea, check for C. diff colitis , Previous imaging studies 03/18 during last admission, shows 1.2 cm kidney cyst, not abscess, wedge-shaped hypodensity in spleen, related to either infectious and inflammatory against ischemic etiology, neoplasm needs to be considered, trace left pelvic ascites moderate wall thickening gastroduodenal junction, check stools for H pylori as patient has persistent epigastric pain, cxr right infiltrate vs nodule IV Flagyl admitted for diarrhea, O&P obtained, as well as stool cultures 2. Poorly marginated right upper lobe infiltrate, 1.7 cm, CT of the chest, to evaluate for pulmonary nodule against pneumonia, IV antibiotics, 3. Persistent epigastric pain check for H. pylori, possible abnormal thickening in the gastroduodenal junction, not an abscess, on PPI offered, 4. COPD exacerbation currently smoker nebulized treatments, albuterol Pulmicort, low-dose steroids 40 mg every 6 hours short bursts, patient was advised to quit smoking still, and recent pro-calcitonin still elevated, IV antibiotics initiated, pancultures sputum cultures if available, 5 Chronic anemia. See above. Status post transfusion of 1 unit of packed RBCs, stable. Continue Zarxio. 6 MDS with ringed sideroblasts see above 7 Tobacco use and dependence 8 Alcohol abuse, stable 9 Diarrhea, with ongoing antibiotic for sepsis, Flagyl added to regimen of cefepime James, C. diff toxin consult with ID 10 GI prophylaxis. Pantoprazole 40 mg IV daily Severe Malnutrition, with protein calorie malnutrition, insulin light, 3 times a day with meals 8. DVT prophylaxis. Ambulation 9. COVID-19 infection not present Discharge plan: Home without home care
[2020-03-21] MEDS: metroNIDAZOLE-NS PMX 500 MG in SALINE 1 100ML.BAG IVPB SCH (16:42)
[2020-03-21] MEDS: PANTOPRAZOLE 40 MG/10 ML VIAL IVP SCH (16:43)
[2020-03-21] MEDS: methylPREDNISolone SOD SUCCI 125 MG/2 ML VIAL IV SCH (16:43)
--- NOTE | 2020-03-21 18:20 | CT ---
EXAMINATION TYPE: CT chest abdomen w con DATE OF EXAM: 03/21/2020 COMPARISON: CT abdomen 03/18/2020 HISTORY: LUNG MASS, SPLEEN ABNORMALITY CT DLP: 544.9 mGycm Automated exposure control for dose reduction was used. CONTRAST: Performed with IV Contrast, patient injected with 100 mL of Isovue 300. There is oral contrast. Images were obtained from the thoracic inlet to the iliac crest with IV contrast. There is 2 cm stellate mass in the right upper lobe. There is a 2.5 x 1.5 cm noncalcified mass adjace nt to the pleura in the posterior segment right upper lobe. There is 1 cm noncalcified nodules some p leural right lower lobe right paraspinal region. There is bilateral calcified pleural plaque. This is seen at the diaphragm and along the posterior chest wall. Also at the right cardiac border. There is no pericardial effusion. There are no hilar masses. There is no mediastinal adenopathy. 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 The re is no dissection. Liver pancreas gallbladder appear normal. Bile ducts are not dilated. There is 4 x 2 cm area of hypod ensity in the posterior cortex of the spleen. There is no adrenal mass. Kidneys show satisfactory con trast opacification. There is 1.5 cm right renal cortical cyst. There is some fat stranding around th e left kidney. There is no hydronephrosis. There are a few enlarged retroperitoneal lymph nodes aroun d the abdominal aorta. These measure up to 1.7 cm. Abdominal aorta is atheromatous. I see no sign of a bowel obstruction. There is no ascites. There is no sign of free air. The thoracic and lumbar vertebra show normal alignment. There is mild 20% anterior wedging of T3 vert ebra that is probably old. There are multilevel spondylotic changes. I see no focal bone destruction. Sternum is intact. Visualized bony pelvis is intact. The ribs appear intact. IMPRESSION: Multiple pulmonary densities are nonspecific. Tumor is possible.. Bilateral moderate calcified pleura l plaque. There are enlarged abdominal retroperitoneal lymph nodes unchanged compared to recent exam. Hypodensity in the posterior cortex of the spleen suggestive of infarct unchanged. Left side perinephric fat stranding of uncertain significance unchanged.
[2020-03-21] MEDS: ACYCLOVIR 200 MG CAP PO SCH (20:37)
[2020-03-21] MEDS: SYMBICORT 80-4.5 MCG INHALER INHALATION SCH (21:20)
--- NOTE | 2020-03-21 23:00 | P.CONS ---
History of Present Illness - Reason for Consult Consult date: 03/21/20 Febrile neutropenia Requesting physician: Kendra Connors - Chief Complaint Fever x 1 day - History of Present Illness Patient is a 70-year-old male with a past medical history significant for myelodysplastic syndrome in this patient currently on chemotherapy he was recently admitted to this facility with febrile neutropenia and he did have extensive workup as well as aggressive IV antibiotic therapy in the abdominal pelvis was suspicious for possible splenic infarct colitis of the splenic flexure and the patient was on cefepime and Flagyl with overall resolution of his fever however the patient was discharged home on 03/18/2020 with plan for hospice oriented care and the patient was sent home on no antibiotics, patient has been brought back to the hospital within 48 hour discharge with concern for recurrent fever with rigors and chills and the patient said he was unable to get her fever and with the antipyretics, patient denies having any headache or URI symptoms, denies any chest pain or shortness with minimal cough no nausea no vomiting or significant abdominal pain or any diarrhea, patient has been running a fever of 103F, he did have a leukopenia and neutropenia, UA has been negative, patient did have a CT of the chest abdomen and pelvis which did shows multiple pulmonary nodules in addition splenic infarct and some perinephric straining patient is currently on cefepime and vancomycin infection disease was consulted for further management of antibiotic therapy Review of Systems Positive point has been mentioned in the HPI rest of the systems are negative Past Medical History Past Medical History: Cancer, Skin Disorder Additional Past Medical History / Comment(s): Gout, cellulitis to left leg? (patient states he is itchy, some scabs and scarring noted), chronic anemia, bone marrow cancer History of Any Multi-Drug Resistant Organisms: None Reported Past Surgical History: No Surgical Hx Reported Additional Past Surgical History / Comment(s): surgery on rt leg and foot after injury age 3 Past Anesthesia/Blood Transfusion Reactions: No Reported Reaction Past Psychological History: No Psychological Hx Reported Smoking Status: Current every day smoker Past Alcohol Use History: Daily Additional Past Alcohol Use History / Comment(s): Patient states he smokes 1/2 ppd. Patient drinks 4-6 beers per day for many years and cut down to 1-2 beers per day for the past 2 months. Patient lives at home with his . Past Drug Use History: None Reported - Past Family History Mother Family Medical History: Cancer Brother(s) Family Medical History: Cancer Father Additional Family Medical History / Comment(s): Father at age 93 from old age. Medications and Allergies Home Medications Medication Instructions Recorded Confirmed Type Acyclovir 400 mg PO TID #90 tablet 03/17/20 03/20/20 Rx Fluconazole [Diflucan] 100 mg PO DAILY #30 tab 03/17/20 03/20/20 Rx Acetaminophen Tab [Tylenol] 650 mg PO Q6HR PRN tab 03/18/20 03/20/20 Rx Levofloxacin [Levaquin] 500 mg PO DAILY 3 Days #14 tab 03/18/20 03/20/20 Rx Multivitamins, Thera [Multivitamin 1 tab PO DAILY 03/20/20 03/20/20 History (formulary)] Allergies Allergy/AdvReac Type Severity Reaction Status Date / Time No Known Allergies Allergy Verified 03/20/20 19:12 Physical Exam Vitals: Vital Signs Temp Pulse Resp BP Pulse Ox 03/21/20 20:09 98.8 F 69 18 97/55 95 03/21/20 16:01 101.6 F H 03/21/20 14:10 103.2 F H 93 16 137/62 92 L 03/21/20 09:47 99 F 03/21/20 08:44 103 F H 03/21/20 07:48 102.3 F H 98 19 142/69 93 L 03/21/20 06:16 100.5 F H 03/21/20 04:35 101 F H 03/21/20 02:55 102.1 F H 84 105/57 94 L 03/20/20 22:40 101 F H 03/20/20 20:42 98.8 F 75 18 137/72 96 Intake and Output 03/21/20 03/21/20 03/21/20 06:59 14:59 22:59 Intake Total 900 Balance 900 Intake: IV 900 Cefepime 1 gm In Sodium 50 Chloride 0.9% 50 ml @ 100 mls/hr IVPB Q12HR [facility] Rx #:[id number] Sodium Chloride 0.9% 1, 600 000 ml @ 75 mls/hr IV . [id number] [facility] Rx#:[id number] Vancomycin 1,000 mg In 250 Sodium Chloride 0.9% 250 ml @ 125 mls/hr IVPB Q12H [facility] Rx#:[id number] Other: Weight 60.328 kg GENERAL DESCRIPTION: An elderly male up in bed, no distress. No tachypnea or accessory muscle of respiration use. HEENT: Shows Pallor , no scleral icterus. Oral mucous membrane is dry. No pharyngeal erythema or thrush NECK: Trachea central, no thyromegaly. LUNGS: Unlabored breathing. Clear to auscultation anteriorly. No wheeze or crackle. HEART: S1, S2, regular rate and rhythm. No loud murmur ABDOMEN: Soft, no tenderness , guarding or rigidity, no organomegaly EXTREMITIES: No edema of feet. SKIN: No rash, no masses palpable. NEUROLOGICAL: The patient is awake, alert, oriented x3, mood and affect normal. Results CBC & Chem 7: 03/21/20 07:24 03/21/20 07:24 Labs: Abnormal Lab Results - Last 24 Hours (Table) 03/21/20 03/21/20 Range/Units 07:24 07:24 WBC 1.1 L* (3.8-10.6) k/uL RBC 2.50 L (4.30-5.90) m/uL Hgb 8.1 L (13.0-17.5) gm/dL Hct 25.3 L (39.0-53.0) % MCV 101.3 H (80.0-100.0) fL RDW 23.2 H (11.5-15.5) % Neutrophils # (Manual) 0.10 L* (1.3-7.7) k/uL Lymphocytes # (Manual) 0.76 L (1.0-4.8) k/uL Macrocytosis Marked A Sodium 136 L (137-145) mmol/L Calcium 8.0 L (8.4-10.2) mg/dL Microbiology - Last 24 Hours (Table) 03/20/20 16:55 Blood Culture - Preliminary Blood No Growth after 24 hours Assessment and Plan Assessment: 1- patient with febrile neutropenia in this patient who did have history of myelodysplastic syndrome and has been on chemo with a recent admission to the hospital with similar symptoms CT of abdominal pelvis has been suggestive of splenic infarct that may be contributing to some of his fever with increasing lymphadenopathy in the abdominal area now with evidence of multiple pulmonary nodules underlying infectious status is to be rule out, however we have discussed further with the oncology and medical team on aggressive they wanted patient to be treated as there was talk of hospice 2 days ago (1) Neutropenic fever Current Visit: Yes Status: Acute Code(s): D70.9 - NEUTROPENIA, UNSPECIFIED; R50.81 - FEVER PRESENTING WITH CONDITIONS CLASSIFIED ELSEWHERE SNOMED Code(s): 094647209 (2) Pneumonia Current Visit: Yes Status: Acute Code(s): J18.9 - PNEUMONIA, UNSPECIFIED ORGANISM SNOMED Code(s): 839414083 Plan: 1-blood cultures will be repeated 2- we will increase the dose of cefepime 2 g every 8 hours and add Flagyl 500 every 8 hours 3- we will review the CT with the radiologist tomorrow 4-IV fluid We will follow on clinical condition and cultures to further adjust medication if needed Thank you for this consultation will follow this patient with you Time with Patient: Greater than 30
[2020-03-22] MEDS ORDERED: CEFEPIME 2 GM in SODIUM CHLORIDE 0.9% 50 ML IVPB SCH ×2
[2020-03-22] MEDS: CEFEPIME 2 GM in SODIUM CHLORIDE 0.9% 100 ML IVPB SCH ×3 (00:11→16:56)
[2020-03-22] MEDS: methylPREDNISolone SOD SUCCI 125 MG/2 ML VIAL IV SCH ×4 (00:11→16:57)
[2020-03-22] MEDS: metroNIDAZOLE-NS PMX 500 MG in SALINE 1 100ML.BAG IVPB SCH ×3 (01:01→16:57)
[2020-03-22] MEDS: SODIUM CHLORIDE 0.9% 1,000 ML IV SCH ×2 (04:41→16:57)
[2020-03-22] MEDS ORDERED: VANCOMYCIN TROUGH DUE 1 EACH MISC MISCELLANE ONE (06:00)
[2020-03-22] MEDS: FLUCONAZOLE 100 MG TAB PO SCH (07:54)
[2020-03-22] MEDS: FILGRASTIM-SNDZ 480 MCG/0.8 ML SYRINGE SQ SCH (07:54)
[2020-03-22] MEDS: ACYCLOVIR 200 MG CAP PO SCH ×3 (07:54→20:45)
[2020-03-22] MEDS: PANTOPRAZOLE 40 MG/10 ML VIAL IVP SCH (07:54)
[2020-03-22] MEDS: SYMBICORT 80-4.5 MCG INHALER INHALATION SCH ×2 (08:01→21:06)
[2020-03-22] MEDS: VANCOMYCIN 1,000 MG in SODIUM CHLORIDE 0.9% 250 ML IVPB SCH ×2 (08:30→20:45)
[2020-03-22 08:49] LABS: Anisocytosis Moderate; HCT 29.5 % (39.0-53.0); HGB 8.7 gm/dL (13.0-17.5); Hypochromasia Marked; MCH 30.5 pg (25.0-35.0); MCHC 29.6 g/dL (31.0-37.0); Macrocytosis Marked; Mean Platelet Volume 10.3; Platelet Count 290 k/uL (150-450); RBC 2.87 m/uL (4.30-5.90)
[2020-03-22 08:52] LABS: ALT 44 U/L (4-49); AST 67 U/L (17-59); African American GFR (CKD) >90 (>60 ml/min/1.73 sqM); Albumin 2.6 g/dL (3.5-5.0); Alkaline Phosphatase 61 U/L (38-126); Anion Gap 8 mmol/L; Blood Urea Nitrogen 19 mg/dL (9-20); Calcium 7.4 mg/dL (8.4-10.2); Carbon Dioxide 25 mmol/L (22-30); Chloride 106 mmol/L (98-107); Glucose 186 mg/dL (74-99); Non-African American GFR(CKD) >90 (>60 ml/min/1.73 sqM); Potassium 4.6 mmol/L (3.5-5.1); Sodium 139 mmol/L (137-145); Total Bilirubin 0.7 mg/dL (0.2-1.3)
[2020-03-22 08:53] LABS: WBC 0.9 k/uL (3.8-10.6)
[2020-03-22 09:17] LABS: Large Platelets Present; Target Cells Present
[2020-03-22 09:18] LABS: Poikilocytosis (M) Present
--- NOTE | 2020-03-22 10:55 | P.PN ---
Subjective Progress Note Date: 03/22/20 Principal diagnosis: neutropenic fever, MDS In f/u today pt is feeling ok, no recent fever, nausea, new cough, purulent sputum, abd pain, diarrhea or pain. His is at bedside for family meeting Objective - Vital Signs Vital signs: Vital Signs Temp 97.7 F 03/22/20 07:00 Pulse 67 03/22/20 07:00 Resp 16 03/22/20 07:00 BP 91/50 03/22/20 07:00 Pulse Ox 93 L 03/22/20 07:00 Intake & Output 03/21/20 03/22/20 03/22/20 18:59 06:59 18:59 Intake Total 900 200 Balance 900 200 Weight 60.328 kg Intake: IV 900 Cefepime 1 gm In Sodium 50 Chloride 0.9% 50 ml @ 100 mls/hr IVPB Q12HR [facility] Rx #:[id number] Sodium Chloride 0.9% 1, 600 000 ml @ 75 mls/hr IV . [id number] [facility] Rx#:[id number] Vancomycin 1,000 mg In 250 Sodium Chloride 0.9% 250 ml @ 125 mls/hr IVPB Q12H [facility] Rx#:[id number] Oral 200 Other: # Voids 1 - Constitutional General appearance: Present: cooperative, no acute distress, thin - EENT Eyes: Present: anicteric sclerae, EOMI ENT: Present: hearing grossly normal - Respiratory Details: resp even and unlabored - Cardiovascular Details: skin warm and dry to touch - Neurologic Neurologic: Present: CNII-XII intact - Musculoskeletal Musculoskeletal: Present: strength equal bilaterally - Psychiatric Psychiatric: Present: A&O x's 3 - Labs CBC & Chem 7: 03/22/20 07:21 03/22/20 07:21 Labs: Abnormal Lab Results - Last 24 Hours (Table) 03/21/20 03/22/20 03/22/20 Range/Units 07:24 07:21 07:21 WBC 0.9 L* (3.8-10.6) k/uL RBC 2.87 L (4.30-5.90) m/uL Hgb 8.7 L (13.0-17.5) gm/dL Hct 29.5 L (39.0-53.0) % MCV 103.0 H (80.0-100.0) fL MCHC 29.6 L (31.0-37.0) g/dL RDW 23.0 H (11.5-15.5) % Neutrophils # (Manual) 0.10 L* (1.3-7.7) k/uL Lymphocytes # (Manual) 0.76 L (1.0-4.8) k/uL Macrocytosis Marked A Glucose 186 H (74-99) mg/dL Calcium 7.4 L (8.4-10.2) mg/dL AST 67 H (17-59) U/L Albumin 2.6 L (3.5-5.0) g/dL Microbiology - Last 24 Hours (Table) 03/20/20 16:55 Blood Culture - Preliminary Blood No Growth after 24 hours Assessment and Plan (1) MDS (myelodysplastic syndrome), high grade Narrative/Plan: Pt recently diagnosed. He has had 1 cycle of treatment with anticipated drop in counts. Dr. Flores reviewed with pt and diagnosis, treatment options-including palliative care or hospice. He reviewed the anticipated clinical course, both with and without MDS treatment- need for transfusions, possible hospitalizations and increased risk for infection. It was not recommended that the pt opt for transfusions/GCSF adm as the sole course of action for the disease. This method of treating is typically short lived, especially when there is frequent dependence on transfusions (antibody formation, iron overload). Pt has not responded to GCSF previously. Treat the underlying disease with transfusion/GCSF support is the most appropriate course of action as it has the best possibility for disease control, improving QOL and reducing the need for transfusion. All of 's questions were answered to her satisfaction. We will f/u to see what they have decided. If going to pursue further treatment, will reschedule chemo Cont supportive care and current treatments Current Visit: Yes Status: Acute Priority: High Code(s): D46.Z - OTHER MYELODYSPLASTIC SYNDROMES SNOMED Code(s): 000590166 (2) Bicytopenia Narrative/Plan: Cont GCSF for now Transfuse irradiated blood products. Transfuse for Hgb<7 and plt count <10K unless symptomatic Current Visit: Yes Status: Chronic Priority: High Code(s): D75.89 - OTHER SPECIFIED DISEASES OF BLOOD AND BLOOD-FORMING ORGANS SNOMED Code(s): 05165353 (3) Neutropenic fever Narrative/Plan: Pancultures pending, ID consulted, empiric antibiotics Current Visit: Yes Status: Acute Priority: High Code(s): D70.9 - NEUTROPENIA, UNSPECIFIED; R50.81 - FEVER PRESENTING WITH CONDITIONS CLASSIFIED ELSEWHERE SNOMED Code(s): 566499298 Plan: Attests: I have seen and examined patient, performed H&P, developed impression and plan of care. Discussed with dictator, agree with documentation. Documented as a scribe. Time with Patient: Greater than 30 (counseling and coordinating care)
--- NOTE | 2020-03-22 12:03 | P.PN ---
Subjective This is a 70-year-old patient of Dr. Bustillos with a past medical history of anemia, gout, tobacco use and dependence, daily alcohol use. And cancer. Patient is unsure of the type of cancer that he has. He has been receiving chemotherapy and blood transfusions. He is under care with Dr. Flores. Patient presented yesterday for evaluation of fever and generalized weakness. Patient a transfusion yesterday morning at approximately 9 AM. He was noted to have a fever during the afternoon. Patient states that his most recent chemotherapy was approximately 2 weeks ago. He denies any pain or at this time. Denies any vomiting or diarrhea. Patient states that he has been short of breath recently with any activity. Denies any cough. Patient is a current smoker. Patient was discharged March 18, and comes in again to the emergency room with the same problem, fever, failure of a cycle of year, and Levaquin, for which the regimen was complied on by family. Patient was hesitant on going to hospice, and is not feeling ready to be in a hospice program yet. Patient was admitted from March 14 until March 18, seen by oncology ID, discharge med at that time a cycle of year Levaquin, along with other maintenance meds, he received to admission 1 unit of packed red blood cell, as well as colony simulating factor, at that time he received Vanco supper, there was some suspicion of either a wedge like abnormality in the spleen, during his last CAT scan. Fever persists at home, and started 24 hours after discharge. Patient is coughing, has diarrhea, 4 times watery, no blood, patient denies any aspiration events, patient continues to smoke, patient started on cefepime, and vancomycin, Flagyl was added started secondary diarrhea. Cultures were obtained ID consult oncology consult, patient has COPD exacerbation as well, as well as an o rthopedic fever, and a new right upper lobe infiltrate, malignancy cannot be ruled out, CT chest to be done, with IV contrast. Urinalysis negative. 03/22: Patient was evaluated on morning rounds. Denies any complaints. He is currently afebrile 97.7, blood pressure is 91/50, heart rate 67. WBC 0.9, Hgb 8.7, Hct 29.5, neutrophils 0.10, blood cultures show no growth to date. He continues on Acyclovir, Cefepine, Vancomycin, and Metronidazole. Infectious disease is on consult. He continues on Zarxio, discussion with patient if WBC does not improve by Sunday, may need transfer to [facility] in [place]. Oncology note reviewed, discussion with patient and regarding Hospice and different treatment options. Will follow up with their decision. Objective - Vital Signs Vital signs: Vital Signs Temp 97.7 F 03/22/20 07:00 Pulse 67 03/22/20 07:00 Resp 16 03/22/20 07:00 BP 91/50 03/22/20 07:00 Pulse Ox 93 L 03/22/20 07:00 Intake & Output 03/21/20 03/22/20 03/22/20 18:59 06:59 18:59 Intake Total 900 200 Balance 900 200 Weight 60.328 kg Intake: IV 900 Cefepime 1 gm In Sodium 50 Chloride 0.9% 50 ml @ 100 mls/hr IVPB Q12HR [facility] Rx #:[id number] Sodium Chloride 0.9% 1, 600 000 ml @ 75 mls/hr IV . [id number] [facility] Rx#:[id number] Vancomycin 1,000 mg In 250 Sodium Chloride 0.9% 250 ml @ 125 mls/hr IVPB Q12H [facility] Rx#:[id number] Oral 200 Other: # Voids 1 - Exam - Constitutional General appearance: cooperative, no acute distress, thin. - EENT Eyes: anicteric sclerae, EOMI, PERRLA, dentition normal, normal appearance ENT: NA/AT, normal oropharynx - Neck Neck: normal ROM - Respiratory Respiratory: bilateral: wheezing, negative: CTA, diminished, dullness - Cardiovascular Rhythm: regular Heart sounds: normal: S1 Abnormal Heart Sounds: no systolic murmur, no diastolic murmur, no rub, no S3 Gallop, no S4 Gallop, no click, no other - Gastrointestinal General gastrointestinal: normal bowel sounds, soft - Integumentary Integumentary: decreased turgor, normal - Neurologic Neurologic: CNII-XII intact - Musculoskeletal Musculoskeletal: gait normal, strength equal bilaterally - Psychiatric Psychiatric: A&O x's 3, appropriate affect, intact judgment & insight - Labs CBC & Chem 7: 03/24/20 07:10 03/24/20 07:10 Labs: Abnormal Lab Results - Last 24 Hours (Table) 03/22/20 03/22/20 Range/Units 07:21 07:21 WBC 0.9 L* (3.8-10.6) k/uL RBC 2.87 L (4.30-5.90) m/uL Hgb 8.7 L (13.0-17.5) gm/dL Hct 29.5 L (39.0-53.0) % MCV 103.0 H (80.0-100.0) fL MCHC 29.6 L (31.0-37.0) g/dL RDW 23.0 H (11.5-15.5) % Macrocytosis Marked A Glucose 186 H (74-99) mg/dL Calcium 7.4 L (8.4-10.2) mg/dL AST 67 H (17-59) U/L Albumin 2.6 L (3.5-5.0) g/dL Microbiology - Last 24 Hours (Table) 03/22/20 08:08 Sputum Culture - Preliminary Sputum 03/20/20 16:55 Blood Culture - Preliminary Blood No Growth after 24 hours Assessment and Plan Plan: 1. Neutropenic fever with recurrent admission, sepsis with failure of Levaquin prior to admission. Continue cefepime and vancomycin. ID and oncology on consult. Blood culture repeated, has diarrhea, check for C. diff colitis, previous imaging studies 03/18 during last admission, shows 1.2 cm kidney cyst, not abscess, wedge-shaped hypodensity in spleen, related to either infectious and inflammatory against ischemic etiology, neoplasm needs to be considered, trace left pelvic ascites moderate wall thickening gastroduodenal junction, check stools for H pylori as patient has persistent epigastric pain, cxr right infiltrate vs nodule IV Flagyl admitted for diarrhea, O&P obtained, as well as stool cultures 2. Poorly marginated right upper lobe infiltrate, 1.7 cm, CT of the chest, to evaluate for pulmonary nodule against pneumonia, IV antibiotics 3. Persistent epigastric pain check for H. pylori, possible abnormal thickening in the gastroduodenal junction, not an abscess, on PPI offered 4. COPD exacerbation currently smoker nebulized treatments, albuterol Pulmicort, low-dose steroids 40 mg every 6 hours short bursts, patient was advised to quit smoking still, and recent pro-calcitonin still elevated, IV antibiotics initiated, cultures sputum cultures if available 5 Chronic anemia. See above. Status post transfusion of 1 unit of packed RBCs, stable. Continue Zarxio 6 MDS with ringed sideroblasts see above 7 Tobacco use and dependence 8 Alcohol abuse, stable 9 Diarrhea, with ongoing antibiotic for sepsis, Flagyl added to regimen of cefepime Mary Beth Ramirez. diff toxin consult with ID 10 GI prophylaxis. Pantoprazole 40 mg IV daily 11. Severe Malnutrition, with protein calorie malnutrition, insulin light, 3 times a day with meals 12. DVT prophylaxis. Ambulation 13. COVID-19 infection not present Discharge plan: Home without home care The above impression and plan of care have been discussed and directed by signing physician. Ashley Cotton nurse practitioner acting as scribe for signing physician.
--- NOTE | 2020-03-22 19:33 | PN ---
PROGRESS NOTE DATE OF SERVICE: 03/22/2020 REASON FOR FOLLOWUP: Febrile neutropenia, possible abdominal source. INTERVAL HISTORY: The patient's overall fever pattern has improved. No fever has been recorded since last evening. The patient is feeling better and denies having any chest pain or shortness of breath. Occasional cough. No nausea, no vomiting. No abdominal pain or diarrhea. PHYSICAL EXAMINATION: Blood pressure 97/55 with a pulse of 79, temperature 98.8. He is 95% on room air. General description is an elderly male lying in bed in no distress. RESPIRATORY SYSTEM: Unlabored breathing. Clear to auscultation anteriorly. HEART: S1, S2. Regular rate and rhythm. ABDOMEN: Soft. No tenderness. LABS: Hemoglobin 8.7, white count 0.9, and creatinine 0.73. and sputum cultures are currently pending. DIAGNOSTIC IMPRESSION AND PLAN: Patient with febrile neutropenia with concern for possible abdominal source, though there was some bilateral pulmonary infiltrate. Sputum cultures have been ordered and those will be followed. Continue with cefepime, Flagyl and vancomycin, adjusting antibiotics further on the basis of culture report. Continue with supportive care. MMODL / IJN: [id number] /
[2020-03-23] MEDS: methylPREDNISolone SOD SUCCI 125 MG/2 ML VIAL IV SCH ×4 (00:44→17:01)
[2020-03-23] MEDS: CEFEPIME 2 GM in SODIUM CHLORIDE 0.9% 100 ML IVPB SCH ×4 (00:44→23:31)
[2020-03-23] MEDS: metroNIDAZOLE-NS PMX 500 MG in SALINE 1 100ML.BAG IVPB SCH ×3 (01:23→16:35)
[2020-03-23] MEDS: SODIUM CHLORIDE 0.9% 1,000 ML IV SCH ×2 (05:11→19:01)
[2020-03-23] MEDS: VANCOMYCIN 1,000 MG in SODIUM CHLORIDE 0.9% 250 ML IVPB SCH ×2 (06:20→19:01)
[2020-03-23] MEDS: PANTOPRAZOLE 40 MG TABLET PO SCH (07:44)
[2020-03-23] MEDS: FLUCONAZOLE 100 MG TAB PO SCH (07:44)
[2020-03-23] MEDS: ACYCLOVIR 200 MG CAP PO SCH ×3 (07:44→22:24)
[2020-03-23] MEDS: FILGRASTIM-SNDZ 480 MCG/0.8 ML SYRINGE SQ SCH (07:45)
[2020-03-23] MEDS: SYMBICORT 80-4.5 MCG INHALER INHALATION SCH ×2 (09:47→20:09)
[2020-03-23 12:17] LABS: ALT 62 U/L (4-49); AST 79 U/L (17-59); African American GFR (CKD) >90 (>60 ml/min/1.73 sqM); Albumin 2.9 g/dL (3.5-5.0); Alkaline Phosphatase 51 U/L (38-126); Anion Gap 8 mmol/L; Blood Urea Nitrogen 24 mg/dL (9-20); Calcium 7.6 mg/dL (8.4-10.2); Carbon Dioxide 22 mmol/L (22-30); Chloride 108 mmol/L (98-107); Glucose 181 mg/dL (74-99); Non-African American GFR(CKD) >90 (>60 ml/min/1.73 sqM); Sodium 138 mmol/L (137-145); Total Bilirubin 0.7 mg/dL (0.2-1.3); Total Protein 7.5 g/dL (6.3-8.2)
[2020-03-23 12:26] LABS: Anisocytosis Moderate; Basophils % (A) 1 %; Eosinophils % (A) 1 %; HCT 23.8 % (39.0-53.0); HGB 7.4 gm/dL (13.0-17.5); Hypochromasia Marked; Lymphocytes # (A) 0.6 k/uL (1.0-4.8); Lymphocytes % (A) 51 %; MCH 31.8 pg (25.0-35.0); MCHC 31.1 g/dL (31.0-37.0); MCV 102.3 fL (80.0-100.0); Macrocytosis Marked; Mean Platelet Volume 11.4; Monocytes % (A) 2 %; Neutrophils % (A) 38 %; Platelet Count 313 k/uL (150-450); RBC 2.33 m/uL (4.30-5.90); RDW 23.1 % (11.5-15.5)
[2020-03-23 12:34] LABS: Potassium 4.5 mmol/L (3.5-5.1)
[2020-03-23 12:35] LABS: Neutrophils # (A) 0.4 k/uL (1.3-7.7); WBC 1.1 k/uL (3.8-10.6)
--- NOTE | 2020-03-23 12:45 | P.PN ---
Subjective This is a 70-year-old patient of Dr. Bustillos with a past medical history of anemia, gout, tobacco use and dependence, daily alcohol use. And cancer. Patient is unsure of the type of cancer that he has. He has been receiving chemotherapy and blood transfusions. He is under care with Dr. Flores. Patient presented yesterday for evaluation of fever and generalized weakness. Patient a transfusion yesterday morning at approximately 9 AM. He was noted to have a fever during the afternoon. Patient states that his most recent chemotherapy was approximately 2 weeks ago. He denies any pain or at this time. Denies any vomiting or diarrhea. Patient states that he has been short of breath recently with any activity. Denies any cough. Patient is a current smoker. Patient was discharged March 18, and comes in again to the emergency room with the same problem, fever, failure of a cycle of year, and Levaquin, for which the regimen was complied on by family. Patient was hesitant on going to hospice, and is not feeling ready to be in a hospice program yet. Patient was admitted from March 14 until March 18, seen by oncology ID, discharge med at that time a cycle of year Levaquin, along with other maintenance meds, he received to admission 1 unit of packed red blood cell, as well as colony simulating factor, at that time he received Vanco supper, there was some suspicion of either a wedge like abnormality in the spleen, during his last CAT scan. Fever persists at home, and started 24 hours after discharge. Patient is coughing, has diarrhea, 4 times watery, no blood, patient denies any aspiration events, patient continues to smoke, patient started on cefepime, and vancomycin, Flagyl was added started secondary diarrhea. Cultures were obtained ID consult oncology consult, patient has COPD exacerbation as well, as well as an o rthopedic fever, and a new right upper lobe infiltrate, malignancy cannot be ruled out, CT chest to be done, with IV contrast. Urinalysis negative. 03/22: Patient was evaluated on morning rounds. Denies any complaints. He is currently afebrile 97.7, blood pressure is 91/50, heart rate 67. WBC 0.9, Hgb 8.7, Hct 29.5, neutrophils 0.10, blood cultures show no growth to date. He continues on Acyclovir, Cefepine, Vancomycin, and Metronidazole. Infectious disease is on consult. He continues on Zarxio, discussion with patient if WBC does not improve by Sunday, may need transfer to [facility] in [place]. Oncology note reviewed, discussion with patient and regarding Hospice and different treatment options. Will follow up with their decision. 03/23: Patient was examined this morning, noted to be sitting up at the bedside. Denies any new complaints. Repeat white count this morning was 1.1, neutrophils 0.4, hemoglobin 7.4, hematocrit 23.8. Patient remains on the cefepime, Flagyl, and vancomycin. Awaiting further culture report, blood cultures show no growth to date, sputum cultures pending, infectious disease is on consult. Vital signs remain stable blood pressure 102/59, heart rate 65, temperature 97.7, 98% on room air. Patient remains neutropenic despite treatment. If labs do not improve by tomorrow may need transfer to [facility] in [place] for further treatment. Objective - Vital Signs Vital signs: Vital Signs Temp 97.7 F 03/23/20 07:00 Pulse 65 03/23/20 07:00 Resp 20 03/23/20 07:00 BP 102/59 03/23/20 07:00 Pulse Ox 98 03/23/20 07:00 Intake & Output 03/22/20 03/23/20 03/23/20 18:59 06:59 18:59 Intake Total 400 200 Balance 400 200 Intake: Oral 400 200 Other: # Voids 2 1 - Exam - Constitutional General appearance: cooperative, no acute distress, thin. - EENT Eyes: anicteric sclerae, EOMI, PERRLA, dentition normal, normal appearance ENT: NA/AT, normal oropharynx - Neck Neck: normal ROM - Respiratory Respiratory: bilateral: wheezing, negative: CTA, diminished, dullness - Cardiovascular Rhythm: regular Heart sounds: normal: S1 Abnormal Heart Sounds: no systolic murmur, no diastolic murmur, no rub, no S3 Gallop, no S4 Gallop, no click, no other - Gastrointestinal General gastrointestinal: normal bowel sounds, soft - Integumentary Integumentary: decreased turgor, normal - Neurologic Neurologic: CNII-XII intact - Musculoskeletal Musculoskeletal: gait normal, strength equal bilaterally - Psychiatric Psychiatric: A&O x's 3, appropriate affect, intact judgment & insight - Labs CBC & Chem 7: 03/24/20 07:10 03/24/20 07:10 Labs: Abnormal Lab Results - Last 24 Hours (Table) 03/23/20 03/23/20 Range/Units 11:21 11:21 WBC 1.1 L* (3.8-10.6) k/uL RBC 2.33 L (4.30-5.90) m/uL Hgb 7.4 L (13.0-17.5) gm/dL Hct 23.8 L (39.0-53.0) % MCV 102.3 H (80.0-100.0) fL RDW 23.1 H (11.5-15.5) % Neutrophils # 0.4 L* (1.3-7.7) k/uL Lymphocytes # 0.6 L (1.0-4.8) k/uL Macrocytosis Marked A Chloride 108 H (98-107) mmol/L BUN 24 H (9-20) mg/dL Creatinine 0.65 L (0.66-1.25) mg/dL Glucose 181 H (74-99) mg/dL Calcium 7.6 L (8.4-10.2) mg/dL AST 79 H (17-59) U/L ALT 62 H (4-49) U/L Albumin 2.9 L (3.5-5.0) g/dL Microbiology - Last 24 Hours (Table) 03/20/20 16:55 Blood Culture - Preliminary Blood No Growth after 48 hours 03/22/20 08:08 Gram Stain - Preliminary Sputum Sputum Culture - Preliminary Assessment and Plan Plan: 1. Neutropenic fever with recurrent admission, sepsis with failure of Levaquin prior to admission. Continue cefepime and vancomycin. ID and oncology on consult. Blood culture repeated, has diarrhea, check for C. diff colitis, previous imaging studies 03/18 during last admission, shows 1.2 cm kidney cyst, not abscess, wedge-shaped hypodensity in spleen, related to either infectious and inflammatory against ischemic etiology, neoplasm needs to be considered, trace left pelvic ascites moderate wall thickening gastroduodenal junction, check stools for H pylori as patient has persistent epigastric pain, cxr right infiltrate vs nodule IV Flagyl admitted for diarrhea, O&P obtained, as well as stool cultures, still cultures have not been obtained yet 2. Poorly marginated right upper lobe infiltrate, 1.7 cm, CT of the chest, to evaluate for pulmonary nodule against pneumonia, IV antibiotics 3. Persistent epigastric pain check for H. pylori, possible abnormal thickening in the gastroduodenal junction, not an abscess, on PPI offered 4. COPD exacerbation currently smoker nebulized treatments, albuterol Pulmicort, low-dose steroids 40 mg every 6 hours short bursts, patient was advised to quit smoking still, and recent pro-calcitonin still elevated, IV antibiotics initiated, cultures sputum cultures if available 5 Chronic anemia. See above. Status post transfusion of 1 unit of packed RBCs, stable. Continue Zarxio 6 MDS with ringed sideroblasts see above 7 Tobacco use and dependence 8 Alcohol abuse, stable 9 Diarrhea, with ongoing antibiotic for sepsis, Flagyl added to regimen of cefepime [place] C. diff toxin consult with ID 10 GI prophylaxis. Pantoprazole 40 mg IV daily 11. Severe Malnutrition, with protein calorie malnutrition, insulin light, 3 times a day with meals 12. DVT prophylaxis. Ambulation 13. COVID-19 infection not present Discharge plan: Home without home care The above impression and plan of care have been discussed and directed by signing physician. Ashley Cotton nurse practitioner acting as scribe for signing physician.
--- NOTE | 2020-03-23 16:25 | PN ---
PROGRESS NOTE DATE OF SERVICE: 03/23/2020 REASON FOR FOLLOWUP: Febrile neutropenia with possible abdominal source. INTERVAL HISTORY: The patient is currently afebrile. The patient is breathing comfortably. The patient denies having any chest pain or shortness of breath. Occasional cough. No abdominal pain. No nausea, vomiting or diarrhea. PHYSICAL EXAMINATION: Blood pressure 102/59 with a pulse of 65, temperature 97.7. He is 98% on room air. General description is an elderly male up in the bed in no distress. RESPIRATORY SYSTEM: Unlabored breathing with decreased breath sounds at the base. No wheeze. HEART: S1, S2. Regular rate and rhythm. ABDOMEN: Soft. No tenderness. LABS: Hemoglobin 7.4, white count 1.1. Creatinine 0.65. Blood culture negative. Sputum is currently pending. DIAGNOSTIC IMPRESSION AND PLAN: Patient with febrile neutropenia; concern for possible abdominal source. The patient is currently on cefepime and Flagyl; to continue, with overall resolution of his fever. Will wait for the blood and sputum cultures to finalize and monitor his clinical course closely. Continue with supportive care. MMODL / IJN: [id number] /
--- NOTE | 2020-03-23 18:10 | P.PN ---
Subjective Progress Note Date: 03/23/20 Principal diagnosis: neutropenic fever, MDS In f/u today pt is feeling ok, no recent fever, nausea, new cough, purulent sputum, abd pain, diarrhea. Objective - Vital Signs Vital signs: Vital Signs Temp 98.1 F 03/23/20 15:00 Pulse 78 03/23/20 15:00 Resp 16 03/23/20 15:00 BP 115/64 03/23/20 15:00 Pulse Ox 98 03/23/20 15:00 Intake & Output 03/22/20 03/23/20 03/23/20 18:59 06:59 18:59 Intake Total 400 400 Balance 400 400 Intake: Oral 400 400 Other: # Voids 2 1 2 - Constitutional General appearance: Present: cooperative, no acute distress, thin - EENT Eyes: Present: anicteric sclerae, EOMI ENT: Present: hearing grossly normal - Respiratory Respiratory: bilateral: CTA, diminished - Cardiovascular Heart sounds: normal: S1, S2 - Peripheral edema leg Peripheral Edema: bilateral: None - Gastrointestinal General gastrointestinal: Present: normal bowel sounds, soft - Musculoskeletal Musculoskeletal: Present: strength equal bilaterally - Psychiatric Psychiatric: Present: A&O x's 3, appropriate affect, intact judgment & insight - Labs CBC & Chem 7: 03/23/20 11:21 03/23/20 11:21 Labs: Abnormal Lab Results - Last 24 Hours (Table) 03/23/20 03/23/20 Range/Units 11:21 11:21 WBC 1.1 L* (3.8-10.6) k/uL RBC 2.33 L (4.30-5.90) m/uL Hgb 7.4 L (13.0-17.5) gm/dL Hct 23.8 L (39.0-53.0) % MCV 102.3 H (80.0-100.0) fL RDW 23.1 H (11.5-15.5) % Neutrophils # 0.4 L* (1.3-7.7) k/uL Lymphocytes # 0.6 L (1.0-4.8) k/uL Macrocytosis Marked A Chloride 108 H (98-107) mmol/L BUN 24 H (9-20) mg/dL Creatinine 0.65 L (0.66-1.25) mg/dL Glucose 181 H (74-99) mg/dL Calcium 7.6 L (8.4-10.2) mg/dL AST 79 H (17-59) U/L ALT 62 H (4-49) U/L Albumin 2.9 L (3.5-5.0) g/dL Microbiology - Last 24 Hours (Table) 03/20/20 16:55 Blood Culture - Preliminary Blood No Growth after 48 hours 03/22/20 08:08 Gram Stain - Preliminary Sputum Sputum Culture - Preliminary Assessment and Plan (1) MDS (myelodysplastic syndrome), high grade Narrative/Plan: Pt recently diagnosed. He has had 1 cycle of treatment with anticipated drop in counts. 03/22/20-Dr. Flores reviewed with pt and diagnosis, treatment options-including palliative care or hospice. He reviewed the anticipated clinical course, both with and without MDS treatment- need for transfusions, possible hospitalizations and increased risk for infection. It was not recommended that the pt opt for transfusions/GCSF adm as the sole course of action for the disease. This method of treating is typically short lived, especially when there is frequent dependence on transfusions (antibody formation, iron overload). Pt has not responded to GCSF previously. Treat the underlying disease with transfusion/GCSF support is the most appropriate course of action as it has the best possibility for disease control, improving QOL and reducing the need for transfusion. All of 's questions were answered to her satisfaction. In f/u today-pt remembers the conversation but not the decision he and his came to. I told him if he wants to cont treatment to call the office several da ys before so that the drug can be ordered and the RNs will sched him an appt. He verbalized understanding. I will call his today or tomorrow to let her know. Current Visit: Yes Status: Acute Priority: High Code(s): D46.Z - OTHER MYELODYSPLASTIC SYNDROMES SNOMED Code(s): 938049841 (2) Bicytopenia Narrative/Plan: Cont GCSF for now. Transfuse irradiated blood products. Transfuse for Hgb<7 and plt count <10K unless symptomatic, no transfusions needed today Current Visit: Yes Status: Chronic Priority: High Code(s): D75.89 - OTHER SPECIFIED DISEASES OF BLOOD AND BLOOD-FORMING ORGANS SNOMED Code(s): 82887477 (3) Neutropenic fever Narrative/Plan: Pancultures negative, ID consulted and has seen pt, antibiotics given. Fever pattern abated. Pt is going to be persistently neutropenic 2/2 MDS. Current Visit: Yes Status: Acute Priority: High Code(s): D70.9 - NEUTROPENIA, UNSPECIFIED; R50.81 - FEVER PRESENTING WITH CONDITIONS CLASSIFIED ELSEWHERE SNOMED Code(s): 083286903
[2020-03-24] MEDS: metroNIDAZOLE-NS PMX 500 MG in SALINE 1 100ML.BAG IVPB SCH ×4 (00:07→23:42)
[2020-03-24] MEDS: methylPREDNISolone SOD SUCCI 125 MG/2 ML VIAL IV SCH ×5 (00:08→23:42)
[2020-03-24] MEDS: CEFEPIME 2 GM in SODIUM CHLORIDE 0.9% 100 ML IVPB SCH ×3 (07:11→23:01)
[2020-03-24 08:04] LABS: Anisocytosis Moderate; HCT 23.5 % (39.0-53.0); HGB 7.3 gm/dL (13.0-17.5); Hypochromasia Marked; MCH 31.8 pg (25.0-35.0); MCV 102.9 fL (80.0-100.0); Macrocytosis Marked; Mean Platelet Volume 10.8; Platelet Count 302 k/uL (150-450); RBC 2.29 m/uL (4.30-5.90); RDW 23.1 % (11.5-15.5); WBC 1.6 k/uL (3.8-10.6)
[2020-03-24 08:06] LABS: African American GFR (CKD) >90 (>60 ml/min/1.73 sqM); Non-African American GFR(CKD) >90 (>60 ml/min/1.73 sqM)
[2020-03-24] MEDS: ACYCLOVIR 200 MG CAP PO SCH ×3 (08:18→23:01)
[2020-03-24] MEDS: PANTOPRAZOLE 40 MG TABLET PO SCH (08:19)
[2020-03-24] MEDS: FLUCONAZOLE 100 MG TAB PO SCH (08:19)
[2020-03-24] MEDS: FILGRASTIM-SNDZ 480 MCG/0.8 ML SYRINGE SQ SCH (08:25)
[2020-03-24] MEDS: SYMBICORT 80-4.5 MCG INHALER INHALATION SCH ×2 (08:30→19:28)
[2020-03-24] MEDS ORDERED: VANCOMYCIN 1,000 MG in SODIUM CHLORIDE 0.9% 250 ML IVPB SCH (09:00)
[2020-03-24] MEDS: SODIUM CHLORIDE 0.9% 1,000 ML IV SCH ×2 (09:10→23:01)
[2020-03-24 09:51] LABS: Band Neutrophils % 3 %; Lymphocytes # (M) 0.43 k/uL (1.0-4.8); Monocytes # (M) 0.03 k/uL (0-1.0); Myelocytes # (M) 0.02 k/uL (0); Myelocytes % 1 %; Neutrophils % (M) 67 %; Nucleated Red Blood Cells 0 /100 WBC (0-0); Total Cells Counted 100; Toxic Granulation Present; Toxic Vacuolation Present
[2020-03-24 09:52] LABS: Target Cells Present
[2020-03-24 09:53] LABS: Poikilocytosis (M) Present
[2020-03-24 09:58] LABS: Large Platelets Present
--- NOTE | 2020-03-24 12:17 | P.PN ---
Subjective This is a 70-year-old patient of Dr. Bustillos with a past medical history of anemia, gout, tobacco use and dependence, daily alcohol use. And cancer. Patient is unsure of the type of cancer that he has. He has been receiving chemotherapy and blood transfusions. He is under care with Dr. Flores. Patient presented yesterday for evaluation of fever and generalized weakness. Patient a transfusion yesterday morning at approximately 9 AM. He was noted to have a fever during the afternoon. Patient states that his most recent chemotherapy was approximately 2 weeks ago. He denies any pain or at this time. Denies any vomiting or diarrhea. Patient states that he has been short of breath recently with any activity. Denies any cough. Patient is a current smoker. Patient was discharged March 18, and comes in again to the emergency room with the same problem, fever, failure of a cycle of year, and Levaquin, for which the regimen was complied on by family. Patient was hesitant on going to hospice, and is not feeling ready to be in a hospice program yet. Patient was admitted from March 14 until March 18, seen by oncology ID, discharge med at that time a cycle of year Levaquin, along with other maintenance meds, he received to admission 1 unit of packed red blood cell, as well as colony simulating factor, at that time he received Vanco supper, there was some suspicion of either a wedge like abnormality in the spleen, during his last CAT scan. Fever persists at home, and started 24 hours after discharge. Patient is coughing, has diarrhea, 4 times watery, no blood, patient denies any aspiration events, patient continues to smoke, patient started on cefepime, and vancomycin, Flagyl was added started secondary diarrhea. Cultures were obtained ID consult oncology consult, patient has COPD exacerbation as well, as well as an o rthopedic fever, and a new right upper lobe infiltrate, malignancy cannot be ruled out, CT chest to be done, with IV contrast. Urinalysis negative. 03/22: Patient was evaluated on morning rounds. Denies any complaints. He is currently afebrile 97.7, blood pressure is 91/50, heart rate 67. WBC 0.9, Hgb 8.7, Hct 29.5, neutrophils 0.10, blood cultures show no growth to date. He continues on Acyclovir, Cefepine, Vancomycin, and Metronidazole. Infectious disease is on consult. He continues on Zarxio, discussion with patient if WBC does not improve by Sunday, may need transfer to [facility] in [place]. Oncology note reviewed, discussion with patient and regarding Hospice and different treatment options. Will follow up with their decision. 03/23: Patient was examined this morning, noted to be sitting up at the bedside. Denies any new complaints. Repeat white count this morning was 1.1, neutrophils 0.4, hemoglobin 7.4, hematocrit 23.8. Patient remains on the cefepime, Flagyl, and vancomycin. Awaiting further culture report, blood cultures show no growth to date, sputum cultures pending, infectious disease is on consult. Vital signs remain stable blood pressure 102/59, heart rate 65, temperature 97.7, 98% on room air. Patient remains neutropenic despite treatment. If labs do not improve by tomorrow may need transfer to [facility] in [place] for further treatment. 03/24: Patient noted to be sitting up at his bedside, resting comfortable. He denies any new complaints. He remains afebrile 97.5, heart rate 66, pressure 139/78, 97% on room air. White count and neutrophils did improve, WBC 1.6 neutrophils 1.10, hemoglobin remained stable at 7.3 hematocrit 23.5. Blood cultures still show no growth today he continues on a Acyclovir, cefepime, vancomycin, and metronidazole. He continues on Zarxio. Oncology note reviewed no plans to transfer patient, plans on continuing current treatment. Objective - Vital Signs Vital signs: Vital Signs Temp 97.5 F L 03/24/20 07:17 Pulse 66 03/24/20 07:17 Resp 16 03/24/20 07:17 BP 139/78 03/24/20 07:17 Pulse Ox 97 03/24/20 07:17 Intake & Output 03/23/20 03/24/20 03/24/20 18:59 06:59 18:59 Intake Total 400 1450 Balance 400 1450 Intake: IV 1450 Sodium Chloride 0.9% 1, 1200 000 ml @ 75 mls/hr IV . [id number] DONNA Rx#:[id number] Vancomycin 1,000 mg In 250 Sodium Chloride 0.9% 250 ml @ 125 mls/hr IVPB Q12H DONNA Rx#:[id number] Oral 400 Other: Voiding Method Toilet Toilet # Voids 2 1 # Bowel Movements 1 - Exam - Constitutional General appearance: cooperative, no acute distress, thin. - EENT Eyes: anicteric sclerae, EOMI, PERRLA, dentition normal, normal appearance ENT: NA/AT, normal oropharynx - Neck Neck: normal ROM - Respiratory Respiratory: bilateral: wheezing, negative: CTA, diminished, dullness - Cardiovascular Rhythm: regular Heart sounds: normal: S1 Abnormal Heart Sounds: no systolic murmur, no diastolic murmur, no rub, no S3 Gallop, no S4 Gallop, no click, no other - Gastrointestinal General gastrointestinal: normal bowel sounds, soft - Integumentary Integumentary: decreased turgor, normal - Neurologic Neurologic: CNII-XII intact - Musculoskeletal Musculoskeletal: gait normal, strength equal bilaterally - Psychiatric Psychiatric: A&O x's 3, appropriate affect, intact judgment & insight - Labs CBC & Chem 7: 03/24/20 07:10 03/24/20 07:10 Labs: Abnormal Lab Results - Last 24 Hours (Table) 03/23/20 03/23/20 03/24/20 Range/Units 11:21 11:21 07:10 WBC 1.1 L* 1.6 L (3.8-10.6) k/uL RBC 2.33 L 2.29 L (4.30-5.90) m/uL Hgb 7.4 L 7.3 L (13.0-17.5) gm/dL Hct 23.8 L 23.5 L (39.0-53.0) % MCV 102.3 H 102.9 H (80.0-100.0) fL RDW 23.1 H 23.1 H (11.5-15.5) % Neutrophils # 0.4 L* (1.3-7.7) k/uL Neutrophils # (Manual) 1.10 L (1.3-7.7) k/uL Lymphocytes # 0.6 L (1.0-4.8) k/uL Lymphocytes # (Manual) 0.43 L (1.0-4.8) k/uL Myelocytes # (Manual) 0.02 H (0) k/uL Macrocytosis Marked A Marked A Chloride 108 H (98-107) mmol/L BUN 24 H (9-20) mg/dL Creatinine 0.65 L (0.66-1.25) mg/dL Glucose 181 H (74-99) mg/dL Calcium 7.6 L (8.4-10.2) mg/dL AST 79 H (17-59) U/L ALT 62 H (4-49) U/L Albumin 2.9 L (3.5-5.0) g/dL Microbiology - Last 24 Hours (Table) 03/20/20 16:55 Blood Culture - Preliminary Blood No Growth after 72 hours Assessment and Plan Plan: 1. Neutropenic fever with recurrent admission, sepsis with failure of Levaquin prior to admission. Continue cefepime and vancomycin. ID and oncology on consult. Blood culture repeated, has diarrhea, check for C. diff colitis, previous imaging studies 03/18 during last admission, shows 1.2 cm kidney cyst, not abscess, wedge-shaped hypodensity in spleen, related to either infectious and inflammatory against ischemic etiology, neoplasm needs to be considered, trace left pelvic ascites moderate wall thickening gastroduodenal junction, check stools for H pylori as patient has persistent epigastric pain, cxr right infiltrate vs nodule IV Flagyl admitted for diarrhea, O&P obtained, as well as stool cultures, not collected yet 2. Poorly marginated right upper lobe infiltrate, 1.7 cm, CT of the chest, to evaluate for pulmonary nodule against pneumonia, IV antibiotics 3. Persistent epigastric pain check for H. pylori, possible abnormal thickening in the gastroduodenal junction, not an abscess, on PPI 4. COPD exacerbation currently smoker nebulized treatments, albuterol Pulmic ort, low-dose steroids 40 mg every 6 hours short bursts, patient was advised to quit smoking still, and recent pro-calcitonin still elevated, IV antibiotics initiated, cultures sputum cultures in process 5 Chronic anemia. See above. Status post transfusion of 1 unit of packed RBCs, stable. Continue Zarxio 6 MDS with ringed sideroblasts see above 7 Tobacco use and dependence 8 Alcohol abuse, stable 9 Diarrhea, with ongoing antibiotic for sepsis, Flagyl added to regimen of cefepime Vanco, C. diff toxin consult with ID 10 GI prophylaxis. Pantoprazole 40 mg IV daily Severe Malnutrition, with protein calorie malnutrition, insulin light, 3 times a day with meals 8. DVT prophylaxis. Ambulation 9. COVID-19 infection not present Discharge plan: Home without home care The above impression and plan of care have been discussed and directed by signing physician. Ashley Cotton nurse practitioner acting as scribe for signing physician.
--- NOTE | 2020-03-24 12:33 | P.PN ---
Subjective Progress Note Date: 03/24/20 Principal diagnosis: neutropenic fever, MDS In f/u today pt is feeling ok, he is c/o of his hoarse voice and mucus that feels "stick", no chest pain, he is having some epigastric pain too, no nausea, vomiting, diarrhea Objective - Vital Signs Vital signs: Vital Signs Temp 97.5 F L 03/24/20 07:17 Pulse 66 03/24/20 07:17 Resp 16 03/24/20 07:17 BP 139/78 03/24/20 07:17 Pulse Ox 97 03/24/20 07:17 Intake & Output 03/23/20 03/24/20 03/24/20 18:59 06:59 18:59 Intake Total 400 1450 Balance 400 1450 Intake: IV 1450 Sodium Chloride 0.9% 1, 1200 000 ml @ 75 mls/hr IV . [id number] DONNA Rx#:[id number] Vancomycin 1,000 mg In 250 Sodium Chloride 0.9% 250 ml @ 125 mls/hr IVPB Q12H DONNA Rx#:[id number] Oral 400 Other: Voiding Method Toilet Toilet # Voids 2 1 # Bowel Movements 1 - Constitutional General appearance: Present: cooperative, no acute distress, thin - EENT Eyes: Present: anicteric sclerae, EOMI ENT: Present: hearing grossly normal - Respiratory Respiratory: bilateral: diminished - Gastrointestinal General gastrointestinal: Present: soft, tenderness Localized gastrointestinal: tender: epigastric periumbilical - Neurologic Neurologic: Present: CNII-XII intact - Musculoskeletal Musculoskeletal: Present: strength equal bilaterally - Psychiatric Psychiatric: Present: A&O x's 3, appropriate affect - Labs CBC & Chem 7: 03/24/20 07:10 03/24/20 07:10 Labs: Abnormal Lab Results - Last 24 Hours (Table) 03/23/20 03/23/20 03/24/20 Range/Units 11:21 11:21 07:10 WBC 1.1 L* 1.6 L (3.8-10.6) k/uL RBC 2.33 L 2.29 L (4.30-5.90) m/uL Hgb 7.4 L 7.3 L (13.0-17.5) gm/dL Hct 23.8 L 23.5 L (39.0-53.0) % MCV 102.3 H 102.9 H (80.0-100.0) fL RDW 23.1 H 23.1 H (11.5-15.5) % Neutrophils # 0.4 L* (1.3-7.7) k/uL Neutrophils # (Manual) 1.10 L (1.3-7.7) k/uL Lymphocytes # 0.6 L (1.0-4.8) k/uL Lymphocytes # (Manual) 0.43 L (1.0-4.8) k/uL Myelocytes # (Manual) 0.02 H (0) k/uL Macrocytosis Marked A Marked A Chloride 108 H (98-107) mmol/L BUN 24 H (9-20) mg/dL Creatinine 0.65 L (0.66-1.25) mg/dL Glucose 181 H (74-99) mg/dL Calcium 7.6 L (8.4-10.2) mg/dL AST 79 H (17-59) U/L ALT 62 H (4-49) U/L Albumin 2.9 L (3.5-5.0) g/dL Microbiology - Last 24 Hours (Table) 03/20/20 16:55 Blood Culture - Preliminary Blood No Growth after 72 hours Assessment and Plan (1) MDS (myelodysplastic syndrome), high grade Narrative/Plan: Pt recently diagnosed. He has had 1 cycle of treatment with anticipated drop in counts. 03/22/20-Dr. Flores reviewed with pt and diagnosis, treatment options-including palliative care or hospice. He reviewed the anticipated clinical course, both with and without MDS treatment- need for transfusions, possible hospitalizations and increased risk for infection. It was not recommended that the pt opt for transfusions/GCSF adm as the sole course of action for the disease. This method of treating is typically short lived, especially when there is frequent dependence on transfusions (antibody formation, iron overload). Pt has not responded to GCSF previously. Treat the underlying disease with transfusion/GCSF support is the most appropriate course of action as it has the best possibility for disease control, improving QOL and reducing the need for transfusion. All of 's questions were answered to her satisfaction. In f/u today pt stating that he was told if he has chemo he will be in a few days. I explained that he tolerated 1st cycle overall ok. His greatest risk is from infection. We revisited the discussion as described above. I called and spoke to pt and clarified. Recommended treatment options are either treat for at least 2 more cycles to see if the treatment can provide some improvement in his counts to decrease his infection risk and transfusion needs. Knowing that with treatment that he needs to f/u as directed and he will likely require transfusions. Option 2 is to have hospice treat symptoms. I told his that we need to know what they want to do. She will tell RN today what pt wants Spoke with RN who is going to speak with ID for their abx recs, will let me know what pt wants in regards to treatment so I can plan and she will inform Attending of pt decisions so they can plan discharge. Current Visit: Yes Status: Acute Priority: High Code(s): D46.Z - OTHER MYELODYSPLASTIC SYNDROMES SNOMED Code(s): 675580914 (2) Bicytopenia Narrative/Plan: Cont GCSF for now. Transfuse irradiated blood products. Transfuse for Hgb<7 and plt count <10K unless symptomatic, no transfusions ne eded today Current Visit: Yes Status: Chronic Priority: High Code(s): D75.89 - OTHER SPECIFIED DISEASES OF BLOOD AND BLOOD-FORMING ORGANS SNOMED Code(s): 19302930 (3) Neutropenic fever Narrative/Plan: Pancultures, pending completion (yesterday cultures were negative to date). D/W ID briefly. Plan is to treat pt then possibly keep on some prophylactic abx. Await ID recs. Fever pattern abated. Pt is going to be persistently neutropenic 2/2 MDS. Cont on zarxio while inpt. WBC 1.6 today Current Visit: Yes Status: Acute Priority: High Code(s): D70.9 - NEUTROPENIA, UNSPECIFIED; R50.81 - FEVER PRESENTING WITH CONDITIONS CLASSIFIED ELSEWHERE SNOMED Code(s): 212039076
--- NOTE | 2020-03-24 23:15 | PN ---
PROGRESS NOTE DATE OF SERVICE: 03/24/2020 REASON FOR FOLLOWUP: Febrile neutropenia, possible abdominal source, and a question of pneumonia. INTERVAL HISTORY: The patient is currently afebrile. The patient is breathing more comfortably. The patient denies having any chest pain or shortness of breath. Occasional cough. No abdominal pain or diarrhea. PHYSICAL EXAMINATION: Blood pressure 122/67 with a pulse of 58, temperature 97.9. He is 93% on room air. General description is an elderly male up in the chair in no distress. RESPIRATORY SYSTEM: Unlabored breathing. Clear to auscultation anteriorly. HEART: S1, S2. Regular rate and rhythm. ABDOMEN: Soft. No tenderness. LABS: Hemoglobin 6.3, white count 1.6, creatinine 0.69. Sputum cultures currently pending. Stool culture pending. DIAGNOSTIC IMPRESSION AND PLAN: Patient admitted to hospital with febrile neutropenia with pulmonary as well as gastrointestinal symptoms. Cultures are currently pending. Patient is covered with cefepime and Flagyl; to continue. Will discontinue the vancomycin. Waiting for the sputum to finalize to determine discharge antibiotics. Continue with supportive care. MMODL / IJN: [id number] /
[2020-03-25] MEDS: methylPREDNISolone SOD SUCCI 125 MG/2 ML VIAL IV SCH ×3 (06:21→17:31)
[2020-03-25] MEDS: CEFEPIME 2 GM in SODIUM CHLORIDE 0.9% 100 ML IVPB SCH ×2 (07:02→14:53)
[2020-03-25] MEDS: SYMBICORT 80-4.5 MCG INHALER INHALATION SCH ×2 (07:53→19:56)
[2020-03-25] MEDS: FLUCONAZOLE 100 MG TAB PO SCH (07:54)
[2020-03-25] MEDS: ACYCLOVIR 200 MG CAP PO SCH ×3 (07:54→20:43)
[2020-03-25] MEDS: FILGRASTIM-SNDZ 480 MCG/0.8 ML SYRINGE SQ SCH (07:55)
[2020-03-25] MEDS: PANTOPRAZOLE 40 MG TABLET PO SCH (07:55)
[2020-03-25] MEDS: metroNIDAZOLE-NS PMX 500 MG in SALINE 1 100ML.BAG IVPB SCH ×2 (07:55→16:11)
[2020-03-25] MEDS ORDERED: VANCOMYCIN TROUGH DUE 1 EACH MISC MISCELLANE ONE (08:00)
[2020-03-25 08:29] LABS: Anisocytosis Moderate; HCT 26.5 % (39.0-53.0); HGB 7.9 gm/dL (13.0-17.5); Hypochromasia Marked; MCH 30.4 pg (25.0-35.0); MCHC 29.6 g/dL (31.0-37.0); MCV 102.7 fL (80.0-100.0); Macrocytosis Marked; Mean Platelet Volume 10.8; Platelet Count 287 k/uL (150-450); RBC 2.58 m/uL (4.30-5.90); RDW 23.2 % (11.5-15.5); WBC 2.7 k/uL (3.8-10.6)
[2020-03-25] MEDS: IOPAMIDOL CONTRAST (ORAL USE) VIAL PO PRN ×2 (08:37→09:43)
[2020-03-25 08:41] LABS: ALT 90 U/L (4-49); AST 61 U/L (17-59); African American GFR (CKD) >90 (>60 ml/min/1.73 sqM); Albumin 2.9 g/dL (3.5-5.0); Alkaline Phosphatase 81 U/L (38-126); Anion Gap 7 mmol/L; Blood Urea Nitrogen 31 mg/dL (9-20); Calcium 8.2 mg/dL (8.4-10.2); Carbon Dioxide 21 mmol/L (22-30); Chloride 113 mmol/L (98-107); Glucose 164 mg/dL (74-99); Non-African American GFR(CKD) >90 (>60 ml/min/1.73 sqM); Sodium 141 mmol/L (137-145); Total Bilirubin 0.7 mg/dL (0.2-1.3); Total Protein 7.4 g/dL (6.3-8.2)
[2020-03-25 09:06] LABS: Nucleated Red Blood Cells 0 /100 WBC (0-0)
[2020-03-25 09:09] LABS: Band Neutrophils % 5 %; Lymphocytes # (M) 0.38 k/uL (1.0-4.8); Metamyelocytes # (M) 0.05 k/uL (0); Metamyelocytes % 2 %; Monocytes # (M) 0.38 k/uL (0-1.0); Myelocytes # (M) 0.03 k/uL (0); Myelocytes % 1 %; Neutrophils % (M) 64 %; Total Cells Counted 100
[2020-03-25 09:10] LABS: Poikilocytosis (M) Present; Target Cells Present; Toxic Granulation Present
--- NOTE | 2020-03-25 10:42 | CT ---
EXAMINATION TYPE: CT abdomen pelvis w con DATE OF EXAM: 03/25/2020 COMPARISON: 03/21/2020 HISTORY: Generalized pain CT DLP: 680.6 mGycm CONTRAST: CT scan of the abdomen and pelvis is performed with Oral Contrast and with IV Contrast, patient injec chrystal with 100 mL of Isovue 300. FINDINGS: LUNG BASES-: Diaphragmatic calcifications noted. Small right-sided pleural effusion. Interstitial inf iltrates right middle lobe and left lower lobe. Recent CT described pulmonary masses. LIVER/GB: Small amount of ascites about the liver edge and pelvis. No calcified gallstones. No spac e occupying hepatic lesion. Biliary tree is of normal caliber. PANCREAS: No inflammation. No distinct mass. SPLEEN: No splenic enlargement. Hypoattenuating focus of the spleen unchanged from prior study. ADRENALS: No nodule. No thickening. KIDNEYS/BLADDER: No hydronephrosis. No nephrolithiasis. No distinct renal mass. Urinary bladder g rossly unremarkable. BOWEL: Mass density versus adherent debris within the cecum. Correlate clinically and consider direct visualization if felt to be indicated. Normal bowel caliber. No inflammation. GENITAL ORGANS: No gross abnormality. LYMPH NODES: No greater than 1cm abdominal or pelvic lymph nodes are appreciated. AORTA: No significant abnormality. OSSEOUS STRUCTURES: No significant abnormality is seen. OTHER: No significant additional abnormality is seen. IMPRESSION: 1. New left small right-sided pleural effusion. Interstitial infiltrates at the lung bases and right middle lobe as noted. Correlate clinically. 2. Mass versus adherent debris within the cecum. See above. 3. Small amount of ascites.
--- NOTE | 2020-03-25 10:53 | P.GSCN ---
<Fátima Rascon - Last Filed: 03/25/20 13:41> History of Present Illness Consult date: 03/25/20 Reason for Consult: abdominal pain Requesting physician: Juanjose Calloway History of present illness: CHIEF COMPLAINT: Abdominal pain HISTORY OF PRESENT ILLNESS: This is a 70-year-old male with history of myel odysplastic syndrome who was recently undergoing chemotherapy but has since stopped. He presented to the ER due to fevers. Patient was recently hospitalized for fevers and possible colitis. General surgery was consulted for abdominal pain. Patient examined this morning at the bedside. He reports pain near the epigastric region. Denies nausea or vomiting. Reports decreased oral intake due to lack of appetite. Apparently patient has been having diarrhea, but he reports a soft bowel movement today. Cdiff is negative. Stool culture pending. PAST MEDICAL HISTORY: See list. PAST SURGICAL HISTORY: See list. SOCIAL HISTORY: No illicit drug use. REVIEW OF SYSTEMS: CONSTITUTIONAL: Reports fever HEENT: Denies blurred vision, vision changes, or eye pain. Denies hemoptysis CARDIOVASCULAR: Denies chest pain or pressure. RESPIRATORY: No shortness of breath. GASTROINTESTINAL: Refer to HPI for pertinent findings HEMATOLOGIC: Denies bleeding disorders. GENITOURINARY: Denies any blood in urine. SKIN: Denies pruitis. Denies rash. PHYSICAL EXAM: VITAL SIGNS: Reviewed. GENERAL: Well-developed in no acute distress. HEENT: No sclera icterus. Extraocular movements grossly intact. Moist buccal mucosa. Head is atraumatic, normocephalic. ABDOMEN: Soft. Tenderness with palpation near epigastric region. NEUROLOGIC: Alert and oriented. Cranial nerves II through XII grossly intact. LABORATORY DATA: WBC 2.7. Hemoglobin 7.9. Platelet count 287. IMAGING: Chest/abdomen CT: Multiple pulmonary densities are nonspecific. Tumor is possible. Enlarged abdominal retroperitoneal lymph nodes unchanged compared to recent exam. Hypodensity in the posterior cortex of the spleen suggestive of infarct unchanged. Left-sided perinephric fat stranding of uncertain significance unchanged. ASSESSMENT: 1. Abdominal pain 2. Myelodysplastic syndrome PLAN: -Diet as tolerated -Monitor labs -CT abdomen and pelvis ordered. Await results -Patient will be evaluated by Dr. James. Further recommendations pending. Nurse practitioner note has been reviewed by physician. Signing provider agrees with the documented findings, assessment, and plan of care. Past Medical History Past Medical History: Cancer, Skin Disorder Additional Past Medical History / Comment(s): Gout, cellulitis to left leg? (patient states he is itchy, some scabs and scarring noted), chronic anemia, bone marrow cancer History of Any Multi-Drug Resistant Organisms: None Reported Past Surgical History: No Surgical Hx Reported Additional Past Surgical History / Comment(s): surgery on rt leg and foot after injury age 3 Past Anesthesia/Blood Transfusion Reactions: No Reported Reaction Past Psychological History: No Psychological Hx Reported Smoking Status: Current every day smoker Past Alcohol Use History: Daily Additional Past Alcohol Use History / Comment(s): Patient states he smokes 1/2 ppd. Patient drinks 4-6 beers per day for many years and cut down to 1-2 beers per day for the past 2 months. Patient lives at home with his . Past Drug Use History: None Reported - Past Family History Mother Family Medical History: Cancer Brother(s) Family Medical History: Cancer Father Additional Family Medical History / Comment(s): Father at age 93 from old age. Medications and Allergies Home Medications Medication Instructions Recorded Confirmed Type Acyclovir 400 mg PO TID #90 tablet 03/17/20 03/20/20 Rx Fluconazole [Diflucan] 100 mg PO DAILY #30 tab 03/17/20 03/20/20 Rx Acetaminophen Tab [Tylenol] 650 mg PO Q6HR PRN tab 03/18/20 03/20/20 Rx Levofloxacin [Levaquin] 500 mg PO DAILY 3 Days #14 tab 03/18/20 03/20/20 Rx Multivitamins, Thera [Multivitamin 1 tab PO DAILY 03/20/20 03/20/20 History (formulary)] Allergies Allergy/AdvReac Type Severity Reaction Status Date / Time No Known Allergies Allergy Verified 03/20/20 19:12 Surgical - Exam Vital Signs Temp Pulse Resp BP Pulse Ox 101.2 F H 81 16 126/69 98 03/20/20 16:33 03/20/20 16:33 03/20/20 16:33 03/20/20 16:33 03/20/20 16:33 Results - Labs 03/25/20 07:56 03/25/20 07:56 Abnormal Lab Results - Last 24 Hours (Table) 03/25/20 03/25/20 Range/Units 07:56 07:56 WBC 2.7 L (3.8-10.6) k/uL RBC 2.58 L (4.30-5.90) m/uL Hgb 7.9 L (13.0-17.5) gm/dL Hct 26.5 L (39.0-53.0) % MCV 102.7 H (80.0-100.0) fL MCHC 29.6 L (31.0-37.0) g/dL RDW 23.2 H (11.5-15.5) % Lymphocytes # (Manual) 0.38 L (1.0-4.8) k/uL Metamyelocytes # (Man) 0.05 H (0) k/uL Myelocytes # (Manual) 0.03 H (0) k/uL Macrocytosis Marked A Chloride 113 H (98-107) mmol/L Carbon Dioxide 21 L (22-30) mmol/L BUN 31 H (9-20) mg/dL Glucose 164 H (74-99) mg/dL Calcium 8.2 L (8.4-10.2) mg/dL AST 61 H (17-59) U/L ALT 90 H (4-49) U/L Albumin 2.9 L (3.5-5.0) g/dL Microbiology - Last 24 Hours (Table) 03/20/20 16:55 Blood Culture - Preliminary Blood No Growth after 96 hours 03/24/20 06:00 Stool Culture - Preliminary Stool Diabetes panel 03/25/20 Range/Units 07:56 Sodium 141 (137-145) mmol/L Potassium 4.0 (3.5-5.1) mmol/L Chloride 113 H (98-107) mmol/L Carbon Dioxide 21 L (22-30) mmol/L BUN 31 H (9-20) mg/dL Creatinine 0.76 (0.66-1.25) mg/dL Glucose 164 H (74-99) mg/dL Calcium 8.2 L (8.4-10.2) mg/dL AST 61 H (17-59) U/L ALT 90 H (4-49) U/L Alkaline Phosphatase 81 (38-126) U/L Total Protein 7.4 (6.3-8.2) g/dL Albumin 2.9 L (3.5-5.0) g/dL Calcium panel 03/25/20 Range/Units 07:56 Calcium 8.2 L (8.4-10.2) mg/dL Albumin 2.9 L (3.5-5.0) g/dL Pituitary panel 03/25/20 Range/Units 07:56 Sodium 141 (137-145) mmol/L Potassium 4.0 (3.5-5.1) mmol/L Chloride 113 H (98-107) mmol/L Carbon Dioxide 21 L (22-30) mmol/L BUN 31 H (9-20) mg/dL Creatinine 0.76 (0.66-1.25) mg/dL Glucose 164 H (74-99) mg/dL Calcium 8.2 L (8.4-10.2) mg/dL Adrenal panel 03/25/20 Range/Units 07:56 Sodium 141 (137-145) mmol/L Potassium 4.0 (3.5-5.1) mmol/L Chloride 113 H (98-107) mmol/L Carbon Dioxide 21 L (22-30) mmol/L BUN 31 H (9-20) mg/dL Creatinine 0.76 (0.66-1.25) mg/dL Glucose 164 H (74-99) mg/dL Calcium 8.2 L (8.4-10.2) mg/dL Total Bilirubin 0.7 (0.2-1.3) mg/dL AST 61 H (17-59) U/L ALT 90 H (4-49) U/L Alkaline Phosphatase 81 (38-126) U/L Total Protein 7.4 (6.3-8.2) g/dL Albumin 2.9 L (3.5-5.0) g/dL <Kj James - Last Filed: 03/26/20 14:54> History of Present Illness Consult date: 03/26/20 Surgical - Exam Osteopathic Statement: *. No significant issues noted on an osteopathic structural exam other than those noted in the History and Physical/Consult. Vital Signs Temp Pulse Resp BP Pulse Ox 101.2 F H 81 16 126/69 98 03/20/20 16:33 03/20/20 16:33 03/20/20 16:33 03/20/20 16:33 03/20/20 16:33 - General cachectic, chronically ill - Respiratory On NC - Abdomen S/ND/mild TTP midepigastric Results - Labs 03/26/20 09:30 03/26/20 09:30 Abnormal Lab Results - Last 24 Hours (Table) 03/26/20 03/26/20 Range/Units 09:30 09:30 RBC 2.53 L (4.30-5.90) m/uL Hgb 8.0 L (13.0-17.5) gm/dL Hct 26.4 L (39.0-53.0) % MCV 104.3 H (80.0-100.0) fL MCHC 30.2 L (31.0-37.0) g/dL RDW 23.1 H (11.5-15.5) % Lymphocytes # (Manual) 0.34 L (1.0-4.8) k/uL Metamyelocytes # (Man) 0.20 H (0) k/uL Macrocytosis Marked A Chloride 113 H (98-107) mmol/L BUN 32 H (9-20) mg/dL Glucose 184 H (74-99) mg/dL Calcium 8.3 L (8.4-10.2) mg/dL ALT 83 H (4-49) U/L Albumin 3.0 L (3.5-5.0) g/dL Microbiology - Last 24 Hours (Table) 03/24/20 06:00 Stool Culture - Preliminary Stool 03/20/20 16:55 Blood Culture - Preliminary Blood No Growth after 120 hours 03/22/20 08:08 Gram Stain - Final Sputum Sputum Culture - Final Meagan glabrata Meagan albicans Diabetes panel 03/26/20 Range/Units 09:30 Sodium 142 (137-145) mmol/L Potassium 4.9 (3.5-5.1) mmol/L Chloride 113 H (98-107) mmol/L Carbon Dioxide 22 (22-30) mmol/L BUN 32 H (9-20) mg/dL Creatinine 0.70 (0.66-1.25) mg/dL Glucose 184 H (74-99) mg/dL Calcium 8.3 L (8.4-10.2) mg/dL AST 50 (17-59) U/L ALT 83 H (4-49) U/L Alkaline Phosphatase 81 (38-126) U/L Total Protein 7.8 (6.3-8.2) g/dL Albumin 3.0 L (3.5-5.0) g/dL Calcium panel 03/26/20 Range/Units 09:30 Calcium 8.3 L (8.4-10.2) mg/dL Albumin 3.0 L (3.5-5.0) g/dL Pituitary panel 03/26/20 Range/Units 09:30 Sodium 142 (137-145) mmol/L Potassium 4.9 (3.5-5.1) mmol/L Chloride 113 H (98-107) mmol/L Carbon Dioxide 22 (22-30) mmol/L BUN 32 H (9-20) mg/dL Creatinine 0.70 (0.66-1.25) mg/dL Glucose 184 H (74-99) mg/dL Calcium 8.3 L (8.4-10.2) mg/dL Adrenal panel 03/26/20 Range/Units 09:30 Sodium 142 (137-145) mmol/L Potassium 4.9 (3.5-5.1) mmol/L Chloride 113 H (98-107) mmol/L Carbon Dioxide 22 (22-30) mmol/L BUN 32 H (9-20) mg/dL Creatinine 0.70 (0.66-1.25) mg/dL Glucose 184 H (74-99) mg/dL Calcium 8.3 L (8.4-10.2) mg/dL Total Bilirubin 0.9 (0.2-1.3) mg/dL AST 50 (17-59) U/L ALT 83 H (4-49) U/L Alkaline Phosphatase 81 (38-126) U/L Total Protein 7.8 (6.3-8.2) g/dL Albumin 3.0 L (3.5-5.0) g/dL Assessment and Plan Assessment: Abdominal pain Pleural effusion Leukopenia Plan: I agree with above, CT does not show significant colitis. Tyflitis less likely given no LLQ pain no signs of peritonitis and no significant inflammation on CT. Patient does have pleural effusion and he is SOB. Continue medical management no surgical intervention is planned at this time. Patient should follow up for colonoscopy as an outpatient given the question of cecal mass vs debris and he states he has never had a colonoscopy
[2020-03-25] MEDS: ALPRAZolam 0.25 MG TAB PO PRN (12:06)
--- NOTE | 2020-03-25 12:10 | P.PN ---
Subjective This is a 70-year-old patient of Dr. Bustillos with a past medical history of anemia, gout, tobacco use and dependence, daily alcohol use. And cancer. Patient is unsure of the type of cancer that he has. He has been receiving chemotherapy and blood transfusions. He is under care with Dr. Flores. Patient presented yesterday for evaluation of fever and generalized weakness. Patient a transfusion yesterday morning at approximately 9 AM. He was noted to have a fever during the afternoon. Patient states that his most recent chemotherapy was approximately 2 weeks ago. He denies any pain or at this time. Denies any vomiting or diarrhea. Patient states that he has been short of breath recently with any activity. Denies any cough. Patient is a current smoker. Patient was discharged March 18, and comes in again to the emergency room with the same problem, fever, failure of a cycle of year, and Levaquin, for which the regimen was complied on by family. Patient was hesitant on going to hospice, and is not feeling ready to be in a hospice program yet. Patient was admitted from March 14 until March 18, seen by oncology ID, discharge med at that time a cycle of year Levaquin, along with other maintenance meds, he received to admission 1 unit of packed red blood cell, as well as colony simulating factor, at that time he received Vanco supper, there was some suspicion of either a wedge like abnormality in the spleen, during his last CAT scan. Fever persists at home, and started 24 hours after discharge. Patient is coughing, has diarrhea, 4 times watery, no blood, patient denies any aspiration events, patient continues to smoke, patient started on cefepime, and vancomycin, Flagyl was added started secondary diarrhea. Cultures were obtained ID consult oncology consult, patient has COPD exacerbation as well, as well as an o rthopedic fever, and a new right upper lobe infiltrate, malignancy cannot be ruled out, CT chest to be done, with IV contrast. Urinalysis negative. 03/22: Patient was evaluated on morning rounds. Denies any complaints. He is currently afebrile 97.7, blood pressure is 91/50, heart rate 67. WBC 0.9, Hgb 8.7, Hct 29.5, neutrophils 0.10, blood cultures show no growth to date. He continues on Acyclovir, Cefepine, Vancomycin, and Metronidazole. Infectious disease is on consult. He continues on Zarxio, discussion with patient if WBC does not improve by Sunday, may need transfer to [facility] in [place]. Oncology note reviewed, discussion with patient and regarding Hospice and different treatment options. Will follow up with their decision. 03/23: Patient was examined this morning, noted to be sitting up at the bedside. Denies any new complaints. Repeat white count this morning was 1.1, neutrophils 0.4, hemoglobin 7.4, hematocrit 23.8. Patient remains on the cefepime, Flagyl, and vancomycin. Awaiting further culture report, blood cultures show no growth to date, sputum cultures pending, infectious disease is on consult. Vital signs remain stable blood pressure 102/59, heart rate 65, temperature 97.7, 98% on room air. Patient remains neutropenic despite treatment. If labs do not improve by tomorrow may need transfer to [facility] in [place] for further treatment. 03/24: Patient noted to be sitting up at his bedside, resting comfortable. He denies any new complaints. He remains afebrile 97.5, heart rate 66, pressure 139/78, 97% on room air. White count and neutrophils did improve, WBC 1.6 neutrophils 1.10, hemoglobin remained stable at 7.3 hematocrit 23.5. Blood cultures still show no growth today he continues on a Acyclovir, cefepime, vancomycin, and metronidazole. He continues on Zarxio. Oncology note reviewed no plans to transfer patient, plans on continuing current treatment. 7/: Patient sitting up at the side of the bed, has complaints of upper abdominal pain that started this morning. On exam he is tender with palpitation, he denies any constipation or vomiting. States last bowel movement was this morning. CT of the abdomen ordered as well as consult to surgery to rule out abscess. Labs are slowly improving, WBC 2.7, Hgb 7.9, Hct 26.5, Neutrophils are 1.8. He remains on cefepime and Flagyl and acyclovir for prophylaxis, vancomycin was discontinued per infectious disease. He continues on GCSF, oncology noted reviewed, options to end treatment or treat for another 2 cycles to see if the treatment improves his counts to decrease infection risk and transfusion needs. Family and patient has not made a decision yet. Vitals are stable 138/77, 78, 14, 97%, he remains afbrile 97.8. Objective - Vital Signs Vital signs: Vital Signs Temp 97.8 F 03/25/20 06:52 Pulse 78 03/25/20 06:52 Resp 14 03/25/20 06:52 BP 138/77 03/25/20 06:52 Pulse Ox 97 03/25/20 06:52 Intake & Output 03/24/20 03/25/20 03/25/20 18:59 06:59 18:59 Intake Total 1080 800 Balance 1080 800 Weight 60.328 kg Intake: Intake, IV Titration 800 Amount Cefepime 2 gm In Sodium 100 Chloride 0.9% 100 ml @ 200 mls/hr IVPB Q8HR [facility] Rx#:[id number] Sodium Chloride 0.9% 1, 600 000 ml @ 75 mls/hr IV . [id number] [facility] Rx#:[id number] metroNIDAZOLE-NS PMX 500 100 mg In Saline 1 100ml.bag @ 100 mls/hr IVPB Q8HR [facility] Rx#:[id number] Oral 1080 Other: Voiding Method Toilet Toilet # Voids 2 1 1 # Bowel Movements 1 - Exam - Constitutional General appearance: cooperative, no acute distress, thin. - EENT Eyes: anicteric sclerae, EOMI, PERRLA, dentition normal, normal appearance ENT: NA/AT, normal oropharynx - Neck Neck: normal ROM - Respiratory Respiratory: bilateral: wheezing, negative: CTA, diminished, dullness - Cardiovascular Rhythm: regular Heart sounds: normal: S1 Abnormal Heart Sounds: no systolic murmur, no diastolic murmur, no rub, no S3 Gallop, no S4 Gallop, no click, no other - Gastrointestinal General gastrointestinal: normal bowel sounds, soft, tender with palpitation - Integumentary Integumentary: decreased turgor, normal - Neurologic Neurologic: CNII-XII intact - Musculoskeletal Musculoskeletal: gait normal, strength equal bilaterally - Psychiatric Psychiatric: A&O x's 3, appropriate affect, intact judgment & insight - Labs CBC & Chem 7: 03/25/20 07:56 03/25/20 07:56 Labs: Abnormal Lab Results - Last 24 Hours (Table) 03/25/20 03/25/20 Range/Units 07:56 07:56 WBC 2.7 L (3.8-10.6) k/uL RBC 2.58 L (4.30-5.90) m/uL Hgb 7.9 L (13.0-17.5) gm/dL Hct 26.5 L (39.0-53.0) % MCV 102.7 H (80.0-100.0) fL MCHC 29.6 L (31.0-37.0) g/dL RDW 23.2 H (11.5-15.5) % Lymphocytes # (Manual) 0.38 L (1.0-4.8) k/uL Metamyelocytes # (Man) 0.05 H (0) k/uL Myelocytes # (Manual) 0.03 H (0) k/uL Macrocytosis Marked A Chloride 113 H (98-107) mmol/L Carbon Dioxide 21 L (22-30) mmol/L BUN 31 H (9-20) mg/dL Glucose 164 H (74-99) mg/dL Calcium 8.2 L (8.4-10.2) mg/dL AST 61 H (17-59) U/L ALT 90 H (4-49) U/L Albumin 2.9 L (3.5-5.0) g/dL Microbiology - Last 24 Hours (Table) 03/20/20 16:55 Blood Culture - Preliminary Blood No Growth after 96 hours 03/24/20 06:00 Stool Culture - Preliminary Stool Assessment and Plan Plan: 1. Neutropenic fever with recurrent admission, sepsis with failure of Levaquin prior to admission. Continue cefepime and vancomycin. ID and oncology on consult. Blood culture repeated, has diarrhea, check for C. diff colitis, previous imaging studies 03/18 during last admission, shows 1.2 cm kidney cyst, not abscess, wedge-shaped hypodensity in spleen, related to either infectious and inflammatory against ischemic etiology, neoplasm needs to be considered, t race left pelvic ascites moderate wall thickening gastroduodenal junction, check stools for H pylori as patient has persistent epigastric pain, cxr right infiltrate vs nodule IV Flagyl admitted for diarrhea, O&P obtained, as well as stool cultures, still cultures have not been obtained yet, vancomycin discontinued. 2. Poorly marginated right upper lobe infiltrate, 1.7 cm, CT of the chest, to evaluate for pulmonary nodule against pneumonia, IV antibiotics 3. Persistent epigastric pain check for H. pylori, possible abnormal thickening in the gastroduodenal junction, not an abscess, on PPI offered 4. COPD exacerbation currently smoker nebulized treatments, albuterol Pulmicort, low-dose steroids 40 mg every 6 hours short bursts, patient was advised to quit smoking still, and recent pro-calcitonin still elevated, IV antibiotics initiated, cultures sputum cultures if available 5 Chronic anemia. See above. Status post transfusion of 1 unit of packed RBCs, stable. Continue Zarxio 6 MDS with ringed sideroblasts see above 7 Tobacco use and dependence 8 Alcohol abuse, stable 9 Diarrhea, with ongoing antibiotic for sepsis, Flagyl added to regimen of cefepime [place] C. diff toxin consult with ID 10 GI prophylaxis. Pantoprazole 40 mg IV daily 11. Severe Malnutrition, with protein calorie malnutrition, insulin light, 3 times a day with meals 12. DVT prophylaxis. Ambulation 13. COVID-19 infection not present 14. abdominal pain: CT ordered to rule out abscess, surgery on consult Discharge plan: Home without home care The above impression and plan of care have been discussed and directed by signing physician. Ashley Cotton nurse practitioner acting as scribe for signing physician.
[2020-03-25] MEDS: SODIUM CHLORIDE 0.9% 1,000 ML IV SCH (12:12)
--- NOTE | 2020-03-25 14:49 | P.PN ---
Subjective Progress Note Date: 03/25/20 Principal diagnosis: neutropenic fever, MDS In f/u today pt is feeling ok, he is sitting up at bedside, denies fever, nausea, appetite is stable, SOB on exertion is stable, no progressive cough, abd pain is persistent, he had a soft stool today, denied black or bloody stool, no swelling in the legs Objective - Vital Signs Vital signs: Vital Signs Temp 97.8 F 03/25/20 06:52 Pulse 78 03/25/20 06:52 Resp 14 03/25/20 06:52 BP 138/77 03/25/20 06:52 Pulse Ox 97 03/25/20 06:52 Intake & Output 03/24/20 03/25/20 03/25/20 18:59 06:59 18:59 Intake Total 8215 784 1739 Balance 1821 056 6210 Weight 60.328 kg Intake: Intake, IV Titration 800 Amount Cefepime 2 gm In Sodium 100 Chloride 0.9% 100 ml @ 200 mls/hr IVPB Q8HR [facility] Rx#:[id number] Sodium Chloride 0.9% 1, 600 000 ml @ 75 mls/hr IV . [id number] [facility] Rx#:[id number] metroNIDAZOLE-NS PMX 500 100 mg In Saline 1 100ml.bag @ 100 mls/hr IVPB Q8HR [facility] Rx#:[id number] Oral 1080 1000 Other: Voiding Method Toilet Toilet # Voids 2 1 1 # Bowel Movements 1 - Constitutional General appearance: Present: cooperative, no acute distress, thin - EENT Eyes: Present: anicteric sclerae, EOMI ENT: Present: hearing grossly normal - Respiratory Respiratory: bilateral: diminished - Cardiovascular Heart sounds: normal: S1, S2 - Gastrointestinal Gastrointestinal Comment(s): no rebound General gastrointestinal: Present: tenderness Localized gastrointestinal: tender: epigastric periumbilical - Neurologic Neurologic: Present: CNII-XII intact - Musculoskeletal Musculoskeletal: Present: strength equal bilaterally - Psychiatric Psychiatric: Present: A&O x's 3, appropriate affect, intact judgment & insight - Labs CBC & Chem 7: 03/25/20 07:56 03/25/20 07:56 Labs: Abnormal Lab Results - Last 24 Hours (Table) 03/25/20 03/25/20 Range/Units 07:56 07:56 WBC 2.7 L (3.8-10.6) k/uL RBC 2.58 L (4.30-5.90) m/uL Hgb 7.9 L (13.0-17.5) gm/dL Hct 26.5 L (39.0-53.0) % MCV 102.7 H (80.0-100.0) fL MCHC 29.6 L (31.0-37.0) g/dL RDW 23.2 H (11.5-15.5) % Lymphocytes # (Manual) 0.38 L (1.0-4.8) k/uL Metamyelocytes # (Man) 0.05 H (0) k/uL Myelocytes # (Manual) 0.03 H (0) k/uL Macrocytosis Marked A Chloride 113 H (98-107) mmol/L Carbon Dioxide 21 L (22-30) mmol/L BUN 31 H (9-20) mg/dL Glucose 164 H (74-99) mg/dL Calcium 8.2 L (8.4-10.2) mg/dL AST 61 H (17-59) U/L ALT 90 H (4-49) U/L Albumin 2.9 L (3.5-5.0) g/dL Microbiology - Last 24 Hours (Table) 03/22/20 08:08 Gram Stain - Final Sputum Sputum Culture - Final Meagan glabrata Meagan albicans 03/20/20 16:55 Blood Culture - Preliminary Blood No Growth after 96 hours 03/24/20 06:00 Stool Culture - Preliminary Stool - Imaging and Cardiology CT scan - abdomen: report reviewed CT scan - pelvis: report reviewed Assessment and Plan (1) MDS (myelodysplastic syndrome), high grade Narrative/Plan: Pt recently diagnosed. He has had 1 cycle of treatment with anticipated drop in counts. He is on GCSF and he has had a slight response, where he has not previously. CBC with diff in AM. Plan is to add GCSF to treatment regimen Current Visit: Yes Status: Acute Priority: High Code(s): D46.Z - OTHER MYELODYSPLASTIC SYNDROMES SNOMED Code(s): 009689635 (2) Bicytopenia Narrative/Plan: Cont GCSF for now. Transfuse irradiated blood products. Transfuse for Hgb<7 and plt count <10K unless symptomatic, no transfusions needed today Current Visit: Yes Status: Chronic Priority: High Code(s): D75.89 - OTHER SPECIFIED DISEASES OF BLOOD AND BLOOD-FORMING ORGANS SNOMED Code(s): 49052823 (3) Neutropenic fever Narrative/Plan: Pancultures, pending completion and ID recs. Plan is to treat pt then possibly keep on some prophylactic abx. Fever pattern abated. Pt is going to be persistently neutropenic 2/2 MDS and then due to treatment. Cont on zarxio while inpt. Plan to add GCSF to treatment regimen. WBC 2.7 today Current Visit: Yes Status: Acute Priority: High Code(s): D70.9 - NEUTROPENIA, UNSPECIFIED; R50.81 - FEVER PRESENTING WITH CONDITIONS CLASSIFIED ELSEWHERE SNOMED Code(s): 771620733 Plan: CT AP for abd pain. Abnormality at cecum, Surgery consulted. Case Discussed with IM and Nursing
[2020-03-26] MEDS: methylPREDNISolone SOD SUCCI 125 MG/2 ML VIAL IV SCH ×5 (00:46→23:53)
[2020-03-26] MEDS: CEFEPIME 2 GM in SODIUM CHLORIDE 0.9% 100 ML IVPB SCH ×4 (00:46→23:18)
[2020-03-26] MEDS: ALPRAZolam 0.25 MG TAB PO PRN ×2 (00:50→13:53)
[2020-03-26] MEDS: SODIUM CHLORIDE 0.9% 1,000 ML IV SCH ×2 (00:59→14:58)
[2020-03-26] MEDS: metroNIDAZOLE-NS PMX 500 MG in SALINE 1 100ML.BAG IVPB SCH ×4 (01:38→23:53)
--- NOTE | 2020-03-26 06:36 | PN ---
PROGRESS NOTE DATE OF SERVICE: 03/25/2020 REASON FOR FOLLOW UP: Febrile neutropenia. INTERVAL HISTORY: Patient is currently afebrile, has been breathing comfortably. Denies having any chest pain. He did have some cough, no sputum. No nausea, vomiting or abdominal pain. Did have some diarrhea. PHYSICAL EXAMINATION: Blood pressure 141/86, pulse of 76, temperature is 98.5. He is 99% on 2 L. General description is an elderly male up in the chair in no distress. Respiratory system: Unlabored breathing. Extremities: No edema of the feet. LABS: Hemoglobin 7.1, white count 2.7, BUN of 31, creatinine 0.76. DIAGNOSTIC IMPRESSION AND PLAN: Patient with febrile neutropenia and concern for possible abdominal source and ( ) though sputum has been Meagan which is more likely colonizer. The patient's fever responded to cefepime and Flagyl, to continue finishing therapy with oral antibiotics and continue supportive care. MMODL / IJN: [id number] /
[2020-03-26] MEDS: FLUCONAZOLE 100 MG TAB PO SCH (07:54)
[2020-03-26] MEDS: ACYCLOVIR 200 MG CAP PO SCH ×3 (07:54→21:56)
[2020-03-26] MEDS: FILGRASTIM-SNDZ 480 MCG/0.8 ML SYRINGE SQ SCH (07:54)
[2020-03-26] MEDS: PANTOPRAZOLE 40 MG TABLET PO SCH (07:55)
[2020-03-26] MEDS: SYMBICORT 80-4.5 MCG INHALER INHALATION SCH ×2 (09:25→19:26)
[2020-03-26 10:26] LABS: ALT 83 U/L (4-49); AST 50 U/L (17-59); African American GFR (CKD) >90 (>60 ml/min/1.73 sqM); Alkaline Phosphatase 81 U/L (38-126); Anion Gap 7 mmol/L; Blood Urea Nitrogen 32 mg/dL (9-20); Calcium 8.3 mg/dL (8.4-10.2); Carbon Dioxide 22 mmol/L (22-30); Chloride 113 mmol/L (98-107); Glucose 184 mg/dL (74-99); Non-African American GFR(CKD) >90 (>60 ml/min/1.73 sqM); Sodium 142 mmol/L (137-145); Total Bilirubin 0.9 mg/dL (0.2-1.3); Total Protein 7.8 g/dL (6.3-8.2)
[2020-03-26 10:48] LABS: Anisocytosis Moderate; HCT 26.4 % (39.0-53.0); Hypochromasia Marked; MCH 31.5 pg (25.0-35.0); MCHC 30.2 g/dL (31.0-37.0); MCV 104.3 fL (80.0-100.0); Macrocytosis Marked; Mean Platelet Volume 13.3; Platelet Count 229 k/uL (150-450); RBC 2.53 m/uL (4.30-5.90); RDW 23.1 % (11.5-15.5); WBC 6.8 k/uL (3.8-10.6)
[2020-03-26 11:06] LABS: Potassium 4.9 mmol/L (3.5-5.1)
--- NOTE | 2020-03-26 11:18 | P.PN ---
Subjective This is a 70-year-old patient of Dr. Bustillos with a past medical history of anemia, gout, tobacco use and dependence, daily alcohol use. And cancer. Patient is unsure of the type of cancer that he has. He has been receiving chemotherapy and blood transfusions. He is under care with Dr. Flores. Patient presented yesterday for evaluation of fever and generalized weakness. Patient a transfusion yesterday morning at approximately 9 AM. He was noted to have a fever during the afternoon. Patient states that his most recent chemotherapy was approximately 2 weeks ago. He denies any pain or at this time. Denies any vomiting or diarrhea. Patient states that he has been short of breath recently with any activity. Denies any cough. Patient is a current smoker. Patient was discharged March 18, and comes in again to the emergency room with the same problem, fever, failure of a cycle of year, and Levaquin, for which the regimen was complied on by family. Patient was hesitant on going to hospice, and is not feeling ready to be in a hospice program yet. Patient was admitted from March 14 until March 18, seen by oncology ID, discharge med at that time a cycle of year Levaquin, along with other maintenance meds, he received to admission 1 unit of packed red blood cell, as well as colony simulating factor, at that time he received Vanco supper, there was some suspicion of either a wedge like abnormality in the spleen, during his last CAT scan. Fever persists at home, and started 24 hours after discharge. Patient is coughing, has diarrhea, 4 times watery, no blood, patient denies any aspiration events, patient continues to smoke, patient started on cefepime, and vancomycin, Flagyl was added started secondary diarrhea. Cultures were obtained ID consult oncology consult, patient has COPD exacerbation as well, as well as an o rthopedic fever, and a new right upper lobe infiltrate, malignancy cannot be ruled out, CT chest to be done, with IV contrast. Urinalysis negative. 03/22: Patient was evaluated on morning rounds. Denies any complaints. He is currently afebrile 97.7, blood pressure is 91/50, heart rate 67. WBC 0.9, Hgb 8.7, Hct 29.5, neutrophils 0.10, blood cultures show no growth to date. He continues on Acyclovir, Cefepine, Vancomycin, and Metronidazole. Infectious disease is on consult. He continues on Zarxio, discussion with patient if WBC does not improve by Sunday, may need transfer to [facility] in [place]. Oncology note reviewed, discussion with patient and regarding Hospice and different treatment options. Will follow up with their decision. 03/23: Patient was examined this morning, noted to be sitting up at the bedside. Denies any new complaints. Repeat white count this morning was 1.1, neutrophils 0.4, hemoglobin 7.4, hematocrit 23.8. Patient remains on the cefepime, Flagyl, and vancomycin. Awaiting further culture report, blood cultures show no growth to date, sputum cultures pending, infectious disease is on consult. Vital signs remain stable blood pressure 102/59, heart rate 65, temperature 97.7, 98% on room air. Patient remains neutropenic despite treatment. If labs do not improve by tomorrow may need transfer to [facility] in [place] for further treatment. 03/24: Patient noted to be sitting up at his bedside, resting comfortable. He denies any new complaints. He remains afebrile 97.5, heart rate 66, pressure 139/78, 97% on room air. White count and neutrophils did improve, WBC 1.6 neutrophils 1.10, hemoglobin remained stable at 7.3 hematocrit 23.5. Blood cultures still show no growth today he continues on a Acyclovir, cefepime, vancomycin, and metronidazole. He continues on Zarxio. Oncology note reviewed no plans to transfer patient, plans on continuing current treatment. 03/25: Patient sitting up at the side of the bed, has complaints of upper abdominal pain that started this morning. On exam he is tender with palpitation, he denies any constipation or vomiting. States last bowel movement was this morning. CT of the abdomen ordered as well as consult to surgery to rule out abscess. Labs are slowly improving, WBC 2.7, Hgb 7.9, Hct 26.5, Neutrophils are 1.8. He remains on cefepime and Flagyl and acyclovir for prophylaxis, vancomycin was discontinued per infectious disease. He continues on GCSF, oncology noted reviewed, options to end treatment or treat for another 2 cycles to see if the treatment improves his counts to decrease infection risk and transfusion needs. Family and patient has not made a decision yet. Vitals are stable 138/77, 78, 14, 97%, he remains afbrile 97.8. 03/26: Patient evaluated sitting up at the bedside. He still has complaints of upper abdominal pain continues to be tender with palpitation, denies any constipation or vomiting. Surgery on consult for abnormality at the cecum. Patient continues on cefepime and Flagyl, sputum cultures were positive for Meagan, infectious disease recommends are to finish therapy with oral antibiotics and to continue supportive care. White count continues to trend up WBC 6.8, hemoglobin 8, hematocrit 26.4, neutrophils 1.8. Per oncology's notes will continue on Zarxio while inpatient and add GCSF to treatment regimen. He remains afebrile 97.7, heart rate is 75, respiratory rate of 18, blood pressure 140/80, 95% on room air. Objective - Vital Signs Vital signs: Vital Signs Temp 97.7 F 03/26/20 07:00 Pulse 75 03/26/20 07:00 Resp 18 03/26/20 07:00 BP 148/80 03/26/20 07:00 Pulse Ox 95 03/26/20 07:00 Intake & Output 03/25/20 03/26/20 03/26/20 18:59 06:59 18:59 Intake Total 1540 862.5 Balance 1540 862.5 Intake: IV 862.5 Sodium Chloride 0.9% 1, 862.5 000 ml @ 75 mls/hr IV . [id number] [facility] Rx#:[id number] Oral 1540 Other: Voiding Method Toilet # Voids 2 1 - Exam - Constitutional General appearance: cooperative, no acute distress, thin. - EENT Eyes: anicteric sclerae, EOMI, PERRLA, dentition normal, normal appearance ENT: NA/AT, normal oropharynx - Neck Neck: normal ROM - Respiratory Respiratory: bilateral: wheezing, negative: CTA, diminished, dullness - Cardiovascular Rhythm: regular Heart sounds: normal: S1 Abnormal Heart Sounds: no systolic murmur, no diastolic murmur, no rub, no S3 Gallop, no S4 Gallop, no click, no other - Gastrointestinal General gastrointestinal: normal bowel sounds, soft, tender with palpitation - Integumentary Integumentary: decreased turgor, normal - Neurologic Neurologic: CNII-XII intact - Musculoskeletal Musculoskeletal: gait normal, strength equal bilaterally - Psychiatric Psychiatric: A&O x's 3, appropriate affect, intact judgment & insight - Labs CBC & Chem 7: 03/26/20 09:30 03/26/20 09:30 Labs: Abnormal Lab Results - Last 24 Hours (Table) 03/26/20 03/26/20 Range/Units 09:30 09:30 RBC 2.53 L (4.30-5.90) m/uL Hgb 8.0 L (13.0-17.5) gm/dL Hct 26.4 L (39.0-53.0) % MCV 104.3 H (80.0-100.0) fL MCHC 30.2 L (31.0-37.0) g/dL RDW 23.1 H (11.5-15.5) % Macrocytosis Marked A Chloride 113 H (98-107) mmol/L BUN 32 H (9-20) mg/dL Glucose 184 H (74-99) mg/dL Calcium 8.3 L (8.4-10.2) mg/dL ALT 83 H (4-49) U/L Albumin 3.0 L (3.5-5.0) g/dL Microbiology - Last 24 Hours (Table) 03/20/20 16:55 Blood Culture - Preliminary Blood No Growth after 120 hours 03/22/20 08:08 Gram Stain - Final Sputum Sputum Culture - Final Meagan glabrata Meagan albicans Assessment and Plan Plan: 1. Neutropenic fever with recurrent admission, sepsis with failure of Levaquin prior to admission. Continue cefepime and vancomycin. ID and oncology on consult. Blood culture repeated, has diarrhea, check for C. diff colitis, previous imaging studies 03/18 during last admission, shows 1.2 cm kidney cyst, not abscess, wedge-shaped hypodensity in spleen, related to either infectious and inflammatory against ischemic etiology, neoplasm needs to be considered, trace left pelvic ascites moderate wall thickening gastroduodenal junction, check stools for H pylori as patient has persistent epigastric pain, cxr right infiltrate vs nodule IV Flagyl admitted for diarrhea, O&P obtained, as well as stool cultures, stool cultures have been collected. 2. Poorly marginated right upper lobe infiltrate, 1.7 cm, CT of the chest, to evaluate for pulmonary nodule against pneumonia, IV antibiotics 3. Persistent epigastric pain check for H. pylori, possible abnormal thickening in the gastroduodenal junction, not an abscess, on PPI offered 4. COPD exacerbation currently smoker nebulized treatments, albuterol Pulmicort, low-dose steroids 40 mg every 6 hours short bursts, patient was advised to quit smoking still, and recent pro-calcitonin still elevated, IV antibiotics initiated, sputum cultures show Meagan 5 Chronic anemia. See above. Status post transfusion of 1 unit of packed RBCs, stable. Continue Zarxio 6 MDS with ringed sideroblasts see above 7 Tobacco use and dependence 8 Alcohol abuse, stable 9 Diarrhea, with ongoing antibiotic for sepsis, Flagyl added to regimen of cefepime, C. diff toxin consult with ID 10 GI prophylaxis. Pantoprazole 40 mg IV daily 11. Severe Malnutrition, with protein calorie malnutrition, insulin light, 3 times a day with meals 12. DVT prophylaxis. Ambulation 13. COVID-19 infection not present 14. abdominal pain: CT ordered to rule out abscess, surgery on consult Discharge plan: Home without home care The above impression and plan of care have been discussed and directed by sign ing physician. Ashley Cotton nurse practitioner acting as scribe for signing physician.
[2020-03-26 11:30] LABS: Band Neutrophils % 2 %; Lymphocytes # (M) 0.34 k/uL (1.0-4.8); Metamyelocytes % 3 %; Neutrophils % (M) 88 %; Nucleated Red Blood Cells 0 /100 WBC (0-0); Total Cells Counted 200
[2020-03-26 11:31] LABS: Target Cells Present; Toxic Vacuolation Present
[2020-03-26 11:32] LABS: Polychromasia Present; RBC Fragments Present
[2020-03-26] MEDS: ACETAMINOPHEN TAB 325 MG TAB PO PRN (13:53)
[2020-03-26] MEDS: IPRATROPIUM-ALBUTEROL 3 ML NEB INHALATION PRN ×2 (15:07→19:26)
--- NOTE | 2020-03-26 16:28 | P.PN ---
Subjective Progress Note Date: 03/26/20 The patient has not had recurrent fevers. He had been complaining of abdominal pain, as well as subjective shortness of breath. He is now on oxygen. On evaluation he states that the abdominal pain is in the right upper quadrant/ right epigastrium Objective - Vital Signs Vital signs: Vital Signs Temp 97.7 F 03/26/20 07:00 Pulse 84 03/26/20 15:18 Resp 18 03/26/20 07:00 BP 148/80 03/26/20 07:00 Pulse Ox 98 03/26/20 15:07 Intake & Output 03/25/20 03/26/20 03/26/20 18:59 06:59 18:59 Intake Total 1540 862.5 100 Balance 1540 862.5 100 Intake: IV 862.5 Sodium Chloride 0.9% 1, 862.5 000 ml @ 75 mls/hr IV . [id number] DONNA Rx#:[id number] Oral 1540 100 Other: Voiding Method Toilet # Voids 2 1 - Constitutional General appearance: Present: mild distress - EENT Eyes: Present: EOMI ENT: Present: hearing grossly normal, normal oropharynx - Respiratory Respiratory: right: diminished (Lower one third ) - Cardiovascular Rhythm: regular Heart sounds: normal: S1, S2 - Gastrointestinal General gastrointestinal: Present: soft Localized gastrointestinal: tender: RUQ, guarding: RUQ - Integumentary Integumentary: Present: normal - Neurologic Neurologic: Present: CNII-XII intact - Musculoskeletal Musculoskeletal: Present: generalized weakness, strength equal bilaterally - Psychiatric Psychiatric: Present: A&O x's 3, appropriate affect - Labs CBC & Chem 7: 03/26/20 09:30 03/26/20 09:30 Labs: Abnormal Lab Results - Last 24 Hours (Table) 03/26/20 03/26/20 Range/Units 09:30 09:30 RBC 2.53 L (4.30-5.90) m/uL Hgb 8.0 L (13.0-17.5) gm/dL Hct 26.4 L (39.0-53.0) % MCV 104.3 H (80.0-100.0) fL MCHC 30.2 L (31.0-37.0) g/dL RDW 23.1 H (11.5-15.5) % Lymphocytes # (Manual) 0.34 L (1.0-4.8) k/uL Metamyelocytes # (Man) 0.20 H (0) k/uL Macrocytosis Marked A Chloride 113 H (98-107) mmol/L BUN 32 H (9-20) mg/dL Glucose 184 H (74-99) mg/dL Calcium 8.3 L (8.4-10.2) mg/dL ALT 83 H (4-49) U/L Albumin 3.0 L (3.5-5.0) g/dL Microbiology - Last 24 Hours (Table) 03/24/20 06:00 Stool Culture - Preliminary Stool 03/20/20 16:55 Blood Culture - Preliminary Blood No Growth after 120 hours Assessment and Plan (1) Abdominal pain Narrative/Plan: This was new onset since yesterday. CT of the abdomen and pelvis reviewed. The patient is noted to have an opacity in the cecum which could represent a mass or debris. However he has no symptoms in the area of the cecum. His symptoms are located in the right upper quadrant. The patient has tenderness and guarding in that area. His computed tomography scan shows development of a right-sided pleural effusion. Therefore at this time it is possible that his symptoms are due to increased inflammatory reaction in the r ight lower lung (which is according due to improvement in his WBC) causing pleuritis and pleural effusion. His discussed with surgery and ID. Patient is continuing on antibiotics per ID. They will assess the patient to check for need for thoracentesis. On exam apparently appears to diminished in at least the lower one third of the right lung field Surgery was also evaluated the patient. If they feel that he does not have an acute abdomen, and that his symptoms could be due to to the right lower lung findings, then the patient can potentially have a colonoscopy down the line to evaluate the cecum. Current Visit: Yes Status: Acute Code(s): R10.9 - UNSPECIFIED ABDOMINAL PAIN SNOMED Code(s): 29688856 (2) Neutropenic fever Narrative/Plan: Both fever and neutropenia have resolved. WBC is actually 6.8 today with normal differential. Continue G-CSF for 1 more day, and then stop assuming WBC continues to show satisfactory treated Current Visit: Yes Status: Acute Priority: High Code(s): D70.9 - NEUTROPENIA, UNSPECIFIED; R50.81 - FEVER PRESENTING WITH CONDITIONS CLASSIFIED ELSEWHERE SNOMED Code(s): 122850369 (3) Pneumonia Narrative/Plan: On antibiotics per ID. New findings on computed tomography scan in the chest, as well as physical exam is noted. Await ID input Current Visit: Yes Status: Acute Code(s): J18.9 - PNEUMONIA, UNSPECIFIED ORGANISM SNOMED Code(s): 643074155 (4) Bicytopenia Narrative/Plan: Platelets remain normal. Hemoglobin is stable in the 8 range. W BC has now normalized to 6.8. Plan for G-CSF as above Current Visit: Yes Status: Chronic Priority: High Code(s): D75.89 - OTHER SPECIFIED DISEASES OF BLOOD AND BLOOD-FORMING ORGANS SNOMED Code(s): 41939063 (5) MDS (myelodysplastic syndrome), high grade Narrative/Plan: The patient is status post 1 cycle only. I again discussed his plans regarding further treatment. The patient's persistent leukopenia and infection are most likely due to his underlying disease as he was leukopenic even before starting treatment. He has been off his chemotherapy for over than 3 weeks. In addition with growth factors he now seems to be responding with normalization of WBC, which was not noted on his previous admission. This is hopeful for evidence of efficacy of his regimen. In addition, the patient was advised again, that this regimen may take 3-4 cycles to show benefit. Given his baseline health status, the patient may also be a candidate for evaluation for bone marrow transplant down the line . Therefore from my standpoint it would actually be quite reasonable for him to choose to continue the treatment , assuming current situation is resolved in a satisfactory manner, and he so desires. At this time he does seem to be inclined to continue treatment post discharge. Current Visit: Yes Status: Acute Priority: High Code(s): D46.Z - OTHER MY ELODYSPLASTIC SYNDROMES SNOMED Code(s): 696695213
[2020-03-26] MEDS ORDERED: MAG HYDROX/AL HYDROX/SIMETH 30 ML CUP PO PRN (16:37)
--- NOTE | 2020-03-26 17:54 | XR ---
Chest x-ray special views. History pleural effusion. Comparison 03/20/2020. FINDINGS: 9 views were obtained including left and right side down decubitus views and oblique views and latera l view. There is demonstration of mild bilateral pleural effusions. This appears larger on the right side. Th ere is mild pulmonary interstitial edema. There is no pneumothorax. Trachea is midline. Heart size is normal. The bony thorax is intact. The oblique used show no evidence of any right upper lobe mass. T he bony thorax appears intact. IMPRESSION: There is new pulmonary interstitial edema compared to recent exam. There are small bilateral pleural effusions increased compared to recent exam. No evidence of a right upper lobe mass.
--- NOTE | 2020-03-26 23:03 | PN ---
PROGRESS NOTE DATE OF SERVICE: 03/26/2020 REASON FOR FOLLOWUP: Febrile neutropenia. INTERVAL HISTORY: Patient is currently afebrile. The patient is breathing comfortably. Has been complaining of mostly pain in the epigastric and right upper quadrant area. Has had some shortness of breath. No chest pain. Minimal cough but no sputum. No vomiting and no diarrhea. PHYSICAL EXAMINATION: Blood pressure 142/82 with a pulse of 100, temperature 97.6. He is 92% on room air. General description is an elderly male up in the bed in no distress. Respiratory system: Unlabored breathing, clear to auscultation anteriorly. Heart S1, S2. Regular rate and rhythm. ABDOMEN: Soft, mildly tender in the epigastric area. No guarding. No rigidity. LABS: Hemoglobin 8, white count 6.8. BUN of 32, creatinine 0.70. Sputum is Meagan. Chest x-ray repeat shows new pulmonary interstitial edema compared to recent exam. Small bilateral pleural effusion. DIAGNOSTIC IMPRESSION AND PLAN: Patient with febrile neutropenia. Concern for possible abdominal source. The patient clinically responded to cefepime and Flagyl with overall resolution of his fever. Chest x-ray showing pulmonary interstitial edema and small effusion. May benefit from gentle diuresis. As far as his epigastric pain mostly gastric in origin. We will add Maalox. He is already on Protonix. Plan of care was discussed with the admitting physician. MMODL / IJN: [id number] /
[2020-03-27] MEDS: methylPREDNISolone SOD SUCCI 125 MG/2 ML VIAL IV SCH (05:56)
[2020-03-27] MEDS: metroNIDAZOLE-NS PMX 500 MG in SALINE 1 100ML.BAG IVPB SCH ×3 (08:30→23:48)
[2020-03-27] MEDS: FUROSEMIDE 10 MG/ML 4 ML VIAL IV SCH (08:31)
[2020-03-27] MEDS: PANTOPRAZOLE 40 MG TABLET PO SCH (08:31)
[2020-03-27] MEDS: FLUCONAZOLE 100 MG TAB PO SCH (08:31)
[2020-03-27] MEDS: ACYCLOVIR 200 MG CAP PO SCH ×3 (08:31→21:40)
[2020-03-27] MEDS: predniSONE 20 MG TAB PO SCH (08:31)
[2020-03-27] MEDS: FILGRASTIM-SNDZ 480 MCG/0.8 ML SYRINGE SQ SCH (08:34)
[2020-03-27] MEDS: SYMBICORT 80-4.5 MCG INHALER INHALATION SCH ×2 (08:42→20:35)
[2020-03-27] MEDS: IPRATROPIUM-ALBUTEROL 3 ML NEB INHALATION PRN ×2 (08:42→20:35)
[2020-03-27 09:11] LABS: Anisocytosis Moderate; HCT 25.2 % (39.0-53.0); HGB 7.6 gm/dL (13.0-17.5); Hypochromasia Marked; MCH 31.1 pg (25.0-35.0); MCHC 30.1 g/dL (31.0-37.0); MCV 103.6 fL (80.0-100.0); Macrocytosis Marked; Mean Platelet Volume 12.6; Platelet Count 235 k/uL (150-450); RBC 2.43 m/uL (4.30-5.90); RDW 23.6 % (11.5-15.5); WBC 13.5 k/uL (3.8-10.6)
--- NOTE | 2020-03-27 09:14 | P.PN ---
Subjective Progress Note Date: 03/27/20 This is a 70-year-old patient of Dr. Bustillos with a past medical history of anemia, gout, tobacco use and dependence, daily alcohol use. And cancer. Patient is unsure of the type of cancer that he has. He has been receiving chemotherapy and blood transfusions. He is under care with Dr. Flores. Patient presented yesterday for evaluation of fever and generalized weakness. Patient a transfusion yesterday morning at approximately 9 AM. He was noted to have a fever during the afternoon. Patient states that his most recent chemotherapy was approximately 2 weeks ago. He denies any pain or at this time. Denies any vomiting or diarrhea. Patient states that he has been short of breath recently with any activity. Denies any cough. Patient is a current smoker. Patient was discharged March 18, and comes in again to the emergency room with the same problem, fever, failure of a cycle of year, and Levaquin, for which the regimen was complied on by family. Patient was hesitant on going to hospice, and is not feeling ready to be in a hospice program yet. Patient was admitted from March 14 until March 18, seen by oncology ID, discharge med at that time a cycle of year Levaquin, along with other maintenance meds, he received to admission 1 unit of packed red blood cell, as well as colony simu lating factor, at that time he received Vanco supper, there was some suspicion of either a wedge like abnormality in the spleen, during his last CAT scan. Fever persists at home, and started 24 hours after discharge. Patient is coughing, has diarrhea, 4 times watery, no blood, patient denies any aspiration events, patient continues to smoke, patient started on cefepime, and vancomycin, Flagyl was added started secondary diarrhea. Cultures were obtained ID consult oncology consult, patient has COPD exacerbation as well, as well as an orthopedic fever, and a new right upper lobe infiltrate, malignancy cannot be ruled out, CT chest to be done, with IV contrast. Urinalysis negative. 03/22: Patient was evaluated on morning rounds. Denies any complaints. He is currently afebrile 97.7, blood pressure is 91/50, heart rate 67. WBC 0.9, Hgb 8.7, Hct 29.5, neutrophils 0.10, blood cultures show no growth to date. He continues on Acyclovir, Cefepine, Vancomycin, and Metronidazole. Infectious di carmen is on consult. He continues on Zarxio, discussion with patient if WBC does not improve by Sunday, may need transfer to [facility] in [place]. Oncology note reviewed, discussion with patient and regarding Hospice and different treatment options. Will follow up with their decision. 03/23: Patient was examined this morning, noted to be sitting up at the bedside. Denies any new complaints. Repeat white count this morning was 1.1, neutrophils 0.4, hemoglobin 7.4, hematocrit 23.8. Patient remains on the cefepime, Flagyl, and vancomycin. Awaiting further culture report, blood cultures show no growth to date, sputum cultures pending, infectious disease is on consult. Vital signs remain stable blood pressure 102/59, heart rate 65, temperature 97.7, 98% on room air. Patient remains neutropenic despite treatment. If labs do not improve by tomorrow may need transfer to [facility] in [place] for further treatment. 03/24: Patient noted to be sitting up at his bedside, resting comfortable. He denies any new complaints. He remains afebrile 97.5, heart rate 66, pressure 139/78, 97% on room air. White count and neutrophils did improve, WBC 1.6 neutrophils 1.10, hemoglobin remained stable at 7.3 hematocrit 23.5. Blood cultures still show no growth today he continues on a Acyclovir, cefepime, vancomycin, and metronidazole. He continues on Zarxio. Oncology note reviewed no plans to transfer patient, plans on continuing current treatment. 03/25: Patient sitting up at the side of the bed, has complaints of upper abdominal pain that started this morning. On exam he is tender with palpitation, he denies any constipation or vomiting. States last bowel movement was this morning. CT of the abdomen ordered as well as consult to surgery to rule out abscess. Labs are slowly improving, WBC 2.7, Hgb 7.9, Hct 26.5, Neutrophils are 1.8. He remains on cefepime and Flagyl and acyclovir for prophylaxis, vancomycin was discontinued per infectious disease. He continues on GCSF, oncology noted reviewed, options to end treatment or treat for another 2 cycles to see if the treatment improves his counts to decrease infection risk and transfusion needs. Family and patient has not made a decision yet. Vitals are stable 138/77, 78, 14, 97%, he remains afbrile 97.8. 03/26: Patient evaluated sitting up at the bedside. He still has complaints of upper abdominal pain continues to be tender with palpitation, denies any constipation or vomiting. Surgery on consult for abnormality at the cecum. Patient continues on cefepime and Flagyl, sputum cultures were positive for Meagan, infectious disease recommends are to finish therapy with oral antibiotics and to continue supportive care. White count continues to trend up WBC 6.8, hemoglobin 8, hematocrit 26.4, neutrophils 1.8. Per oncology's notes will continue on Zarxio while inpatient and add GCSF to treatment regimen. He remains afebrile 97.7, heart rate is 75, respiratory rate of 18, blood pressure 140/80, 95% on room air. 03/27 patient examined sitting in the bed. Complains of mid abdominal pain and worsening shortness of breath. Patient did have a small bowel movement today but denies any diarrhea. Chest x-ray suggestive of worsening interstitial edema and bilateral pleural effusions worse on the right compared to left. Vitals are stable with a temperature 97.5 blood pressure 133/77 and saturating 97% on 2 L. Patient's labs from today is pending. Lasix 40 IV daily initiated. Continue Protonix. Continue antibiotics cefepime and Flagyl. Patient is growing Meagan on the sputum cultures but appears to be colonizer. We will discuss antibiotic of choice on discharge for the patient. Abdominal x-ray ordered continue DuoNeb as needed for shortness of breath. If no improvement in abdominal pain, gastroenterology will be consulted ROS Constitutional: Denies chills, Denies fever, endorses lethargy, Eyes: denies decreased vision, denies diplopia, denies discharge, denies pain Ears: deny: decreased hearing Ears, nose, mouth and throat: Denies dental pain, Denies headache, Denies nasal discharge, Denies nose pain Cardiovascular: Denies chest pain, Denies decreased exercise tolerance, Denies edema, Denies high blood pressure, Denies irregular heart beat, Denies palpitations, Denies paroxysmal nocturnal dyspnea, Denies rapid heart beat, Denies shortness of breath Respiratory: Denies congestion, Denies cough, Denies cough with sputum, endorses dyspnea, Denies home oxygen, Denies wheezing Gastrointestinal: Endorses right upper and mid quadrant abdominal pain, Denies change in bowel habits, Denies coffee ground emesis, Denies early satiety, Denies excessive gas, Denies heartburn, Denies hematemesis, Denies hematochezia, Denies loss of appetite, Denies nausea, Denies vomiting and diarrhea resolved Genitourinary: Denies dysuria, Denies flank pain, Denies kidney stones, Denies menorrhagia, Denies urgency, Denies urinary frequency Musculoskeletal: Denies gait dysfunction, Denies limitation of motion, Denies morning stiffness, Denies muscle cramps Integumentary: Denies rash, Denies wounds, Denies brittle nails, Denies change in hair/nails, Denies darkening of skin Neurological: Denies balance difficulties, Denies change in speech, Denies double vision, Denies gait dysfunction, Denies loss of vision, Denies motor dist urbance, Denies numbness, Denies paralysis, Denies paresthesias, Denies seizures Psychiatric: Denies anxiety, Denies depression Endocrine: Denies excessive sweating, Denies excessive thirst, Denies high blood sugars, Denies palpitations Hematologic/Lymphatic: Denies easy bruising, Denies lymphadenopathy Objective - Vital Signs Vital signs: Vital Signs Temp 97.5 F L 03/27/20 07:00 Pulse 88 03/27/20 07:00 Resp 20 03/27/20 07:00 BP 133/77 03/27/20 07:00 Pulse Ox 97 03/27/20 07:00 Intake & Output 03/26/20 03/27/20 03/27/20 18:59 06:59 18:59 Intake Total 640 880 Balance 640 880 Intake: IV 680 Sodium Chloride 0.9% 1, 680 000 ml @ 75 mls/hr IV . [id number] DONNA Rx#:[id number] Intake, IV Titration 200 Amount Cefepime 2 gm In Sodium 100 Chloride 0.9% 100 ml @ 200 mls/hr IVPB Q8HR DONNA Rx#:[id number] metroNIDAZOLE-NS PMX 500 100 mg In Saline 1 100ml.bag @ 100 mls/hr IVPB Q8HR DONNA Rx#:[id number] Oral 640 Other: Voiding Method Toilet # Voids 3 1 # Bowel Movements 1 1 - Exam - Exam - Constitutional General appearance: cooperative, no acute distress, thin. - EENT Eyes: anicteric sclerae, EOMI, PERRLA, dentition normal, normal appearance ENT: NA/AT, normal oropharynx - Neck Neck: normal ROM - Respiratory Respiratory: bilateral: wheezing, negative: CTA, diminished, dullness - Cardiovascular Rhythm: regular Heart sounds: normal: S1 Abnormal Heart Sounds: no systolic murmur, no diastolic murmur, no rub, no S3 Gallop, no S4 Gallop, no click, no other - Gastrointestinal General gastrointestinal: normal bowel sounds, soft, tender with palpitation right upper quadrant and epigastric - Integumentary Integumentary: decreased turgor, normal - Neurologic Neurologic: CNII-XII intact - Musculoskeletal Musculoskeletal: gait normal, strength equal bilaterally - Psychiatric Psychiatric: A&O x's 3, appropriate affect, intact judgment & insight - Labs CBC & Chem 7: 03/26/20 09:30 03/26/20 09:30 Labs: Abnormal Lab Results - Last 24 Hours (Table) 03/26/20 03/26/20 Range/Units 09:30 09:30 RBC 2.53 L (4.30-5.90) m/uL Hgb 8.0 L (13.0-17.5) gm/dL Hct 26.4 L (39.0-53.0) % MCV 104.3 H (80.0-100.0) fL MCHC 30.2 L (31.0-37.0) g/dL RDW 23.1 H (11.5-15.5) % Lymphocytes # (Manual) 0.34 L (1.0-4.8) k/uL Metamyelocytes # (Man) 0.20 H (0) k/uL Macrocytosis Marked A Chloride 113 H (98-107) mmol/L BUN 32 H (9-20) mg/dL Glucose 184 H (74-99) mg/dL Calcium 8.3 L (8.4-10.2) mg/dL ALT 83 H (4-49) U/L Albumin 3.0 L (3.5-5.0) g/dL Microbiology - Last 24 Hours (Table) 03/20/20 16:55 Blood Culture - Final Blood No Growth after 144 hours 03/24/20 06:00 Stool Culture - Preliminary Stool Assessment and Plan Plan: 1. Neutropenic fever with recurrent admission, sepsis with failure of Levaquin prior to admission IK abdominal source. Continue cefepime and Flagyl ID and oncology on consult. Blood culture blood culture negative C. diff negative, previous imaging studies 03/18 during last admission, shows 1.2 cm kidney cyst, not abscess, wedge-shaped hypodensity in spleen, related to either infectious and inflammatory against ischemic etiology, cecal mass versus Zhang Ks colonoscopy recommended as outpatient by surgery, trace left pelvic ascites moderate wall thickening gastroduodenal junction, H. pylori pending as patient has persistent epigastric pain, cxr right infiltrate vs nodule IV Flagyl admitted for diarrhea, O&P obtained, as well as stool cultures, stool cultures have been collected and are currently pending. 2. Poorly marginated right upper lobe infiltrate, 1.7 cm, CT of the chest, to evaluate for pulmonary nodule against pneumonia, IV antibiotics 3. Persistent epigastric pain check for H. pylori, possible abnormal thickening in the gastroduodenal junction, not an abscess, on PPI offered 4. COPD exacerbation currently smoker nebulized treatments, albuterol Pulmicort, IV Solu-Medrol switched to prednisone, patient was advised to quit smoking still, continue, IV antibiotics sputum cultures show Meagan 5 Chronic anemia. See above. Status post transfusion of 1 unit of packed RBCs, stable. Continue Zarxio 6 MDS with ringed sideroblasts see above 7 Tobacco use and dependence 8 Alcohol abuse, stable 9 Diarrhea, with ongoing antibiotic for sepsis, Flagyl added to regimen of cefepime, C. diff toxin negative 10 GI prophylaxis. Pantoprazole 40 mg IV daily 11. Severe Malnutrition, with protein calorie malnutrition, insulin light, 3 times a day with meals 12. DVT prophylaxis. Ambulation 13. COVID-19 infection not present 14. abdominal pain: No concern for abdominal abscess. Colonoscopy recommended as outpatient Discharge plan: Home without home care
--- NOTE | 2020-03-27 10:05 | XR ---
EXAMINATION TYPE: XR abdomen 1V DATE OF EXAM: 03/27/2020 COMPARISON: Chest x-ray 03/26/2020 INDICATION: Abdomen pain TECHNIQUE: Single view abdomen frontal upright view FINDINGS: There is a normal bowel gas pattern. No free air is evident. No suspicious air-fluid levels are prese nt. No mass effect is evident. Psoas margins are normal. No organomegaly is present. Note is made of a developing small right pleural effusion. Mild bibasilar infiltrates are present gre ater on the right. IMPRESSION: 1. Unremarkable Abdomen. 2. Small right pleural effusion. 3. Bibasilar infiltrates greater on the right. Correlate for atelectasis and pneumonia.
[2020-03-27] MEDS: CEFEPIME 2 GM in SODIUM CHLORIDE 0.9% 100 ML IVPB SCH ×3 (10:41→23:01)
[2020-03-27 11:00] LABS: Lymphocytes # (M) 0.95 k/uL (1.0-4.8); Monocytes # (M) 0.41 k/uL (0-1.0); Neutrophils # (M) 12.15 k/uL (1.3-7.7); Neutrophils % (M) 90 %; Nucleated Red Blood Cells 0 /100 WBC (0-0); Total Cells Counted 100
[2020-03-27 11:01] LABS: Target Cells Present
--- NOTE | 2020-03-27 13:06 | P.PN ---
Subjective Progress Note Date: 03/27/20 Patient is still complaining of RUQ and mid epigastric pain. He has been afebrile. He is having BM. No NV Objective - Vital Signs Vital signs: Vital Signs Temp 97.5 F L 03/27/20 07:00 Pulse 74 03/27/20 09:29 Resp 20 03/27/20 07:00 BP 133/77 03/27/20 07:00 Pulse Ox 97 03/27/20 07:00 Intake & Output 03/26/20 03/27/20 03/27/20 18:59 06:59 18:59 Intake Total 640 880 Balance 640 880 Intake: IV 680 Sodium Chloride 0.9% 1, 680 000 ml @ 75 mls/hr IV . [id number] DONNA Rx#:[id number] Intake, IV Titration 200 Amount Cefepime 2 gm In Sodium 100 Chloride 0.9% 100 ml @ 200 mls/hr IVPB Q8HR DONNA Rx#:[id number] metroNIDAZOLE-NS PMX 500 100 mg In Saline 1 100ml.bag @ 100 mls/hr IVPB Q8HR DONNA Rx#:[id number] Oral 640 Other: Voiding Method Toilet # Voids 3 1 # Bowel Movements 1 1 - Constitutional General appearance: Present: mild distress - Respiratory Details: Somewhat SOB on NC - Gastrointestinal Gastrointestinal Comment(s): S/ND/ TTP in RUQ and mid epigastric. No RRG - Psychiatric Psychiatric: Present: A&O x's 3 - Labs CBC & Chem 7: 03/27/20 08:12 03/26/20 09:30 Labs: Abnormal Lab Results - Last 24 Hours (Table) 03/27/20 Range/Units 08:12 WBC 13.5 H (3.8-10.6) k/uL RBC 2.43 L (4.30-5.90) m/uL Hgb 7.6 L (13.0-17.5) gm/dL Hct 25.2 L (39.0-53.0) % MCV 103.6 H (80.0-100.0) fL MCHC 30.1 L (31.0-37.0) g/dL RDW 23.6 H (11.5-15.5) % Neutrophils # (Manual) 12.15 H (1.3-7.7) k/uL Lymphocytes # (Manual) 0.95 L (1.0-4.8) k/uL Macrocytosis Marked A Microbiology - Last 24 Hours (Table) 03/20/20 16:55 Blood Culture - Final Blood No Growth after 144 hours 03/24/20 06:00 Stool Culture - Preliminary Stool Assessment and Plan Assessment: Abdominal pain Pleural effusion Leukopenia MDS Plan: Patient has had persistant RUQ and mid epigastric pain. I recommend US and HIDA scan to rule out cholecystitis. If the patient does have cholecystitis I would recommend IR consult for cholesytostomy tube placement. Given his multiple medical co-morbidities and COPD exacerbation along with MDS and severe protein malnutrition patient is a very poor surgical candidate and would be high risk for morbidity and mortality. I do agree with PPI and emperic treatment for gastritis/PUD. This is likely unrelated to the questionable mass seen in patients cecum which could relate to stool burden. Patients pain is located in the upper abdomen. I do think the patient would benefit from endoscopy both upper and lower however this would be recommended in the outpatient setting when patient is a better medical candidate and his chronic conditions are better controlled however further recs will follow imaging and this could be reconsidered if imaging of gallbladder is negative for acute pathology
--- NOTE | 2020-03-27 13:53 | US ---
EXAMINATION TYPE: US abdomen limited DATE OF EXAM: 03/27/2020 COMPARISON: CLINICAL HISTORY: RUQ pain. RUQ pain EXAM MEASUREMENTS: Liver Length: 18.7 cm Gallbladder Wall: 0.2 cm CBD: 0.2 cm Right Kidney: 10.0 x 3.9 x 4.2 cm Suboptimal images due to patient heavy breathing Pancreas: Tail obscured by overlying bowel gas. Main pancreatic duct = 0.2 mm Liver: Appears coarse and enlarged in size. Hypoechoic lesion seen adjacent to GB = 0.9 cm Gallbladder: wnl Evidence for sonographic Howe's sign: neg CBD: wnl Right Kidney: Upper pole cystic appearing lesion - 1.3 x 1.1 x 0.9 cm Right pleural effusion seen IMPRESSION: 1. No acute ultrasound abnormality. There is limitation due to patient's ability to cooperate with th e examination.
[2020-03-27] MEDS ORDERED: BENZONATATE 100 MG CAP PO PRN (14:25)
--- NOTE | 2020-03-27 15:40 | PN ---
PROGRESS NOTE DATE OF SERVICE: March 27, 2020 CHIEF COMPLAINT: Abdominal pain. Blayne is seen today as a followup. He continues to have right upper quadrant and epigastric pain. The pain is persistent. He feels nauseated and has had some diarrhea. No fever or chills. No melena, hematochezia, hematuria hemoptysis. His current medication reviewed in his electronic medical record. On physical examination, he is alert, oriented x3. He does not appear to be in distress at this point in time. His vital signs are: Temperature 97.5, afebrile, pulse 72 and regular, respiration 20, blood pressure 133/77, pulse ox is 97 percent on 2 L nasal cannula. HEENT is normocephalic, atraumatic. No obvious icterus. NECK: Supple. CHEST equal expansion bilaterally. LUNGS revealed rhonchi expiration on both peralta. ABDOMEN is an ill-defined lesion in the epigastric area and the right upper extremities, right upper quadrant. He has tenderness in that area as well. No ascites. No obvious organomegaly. EXTREMITIES revealed no edema. SKIN: Few bruises. No ecchymosis or petechiae. LABORATORY DATA: WBC of 13.5, hemoglobin 7.6, hematocrit 25.2, platelet 235. Sodium 142, potassium 4.9, chloride 113, and BUN 32, creatinine 0.7. AST is 58, ALT is 90, alkaline phosphatase is 91. IMPRESSION AND PLAN: 1. Abdominal pain. I did review his CAT scan finding and also I did discuss his care with Dr. James who felt that it could be related to cholecystitis. However, it is reasonable to consider a GI workup to include EGD and colonoscopy if his overall conditions permit. 2. Neutropenic fever. This has resolved and his neutrophils count recovered. In fact, he has leukocytosis today and we can discontinue granulocyte colony- stimulating factor. 3. Myelodysplastic syndrome. The patient has received 1 cycle of hypomethylating agent so far. 4. Continue current supportive care. 5. The above was discussed with the patient's family at bedside and answered all of their questions. Thank you end dictation. MMODL / IJN: [id number] /
[2020-03-27] MEDS ORDERED: FUROSEMIDE 10 MG/ML 4 ML VIAL IV STA (16:29)
--- NOTE | 2020-03-27 18:58 | NM ---
EXAMINATION TYPE: NM hepatobiliary wo EF DATE OF EXAM: 03/27/2020 COMPARISON: NONE HISTORY: TECHNIQUE: After the intravenous administration of 5 mCi Tc 99m Mebrofenin hepatobiliary scintigraphy is performed. Immediate images post injection. FINDINGS: There is prompt uptake of the tracer by the liver that has normal size and contour. There is tracer i n the gallbladder at 15 minutes and in the small bowel at 25 minutes. There is no focal liver defect. Tracer is mostly cleared from the liver at 60 minutes. IMPRESSION: Normal exam. No evidence of cystic duct or common bile duct obstruction.
--- NOTE | 2020-03-27 19:09 | XR ---
EXAMINATION TYPE: XR chest 2V DATE OF EXAM: 03/27/2020 COMPARISON: 03/26/2020 HISTORY: Short of breath TECHNIQUE: FINDINGS: There is some pulmonary interstitial edema. There is slight blunting of the costophrenic an gles. There are no hilar masses. Heart is top normal in size. IMPRESSION: Pulmonary interstitial edema and small pleural effusions unchanged and consistent with co ngestive heart failure. There is probably COPD.
--- NOTE | 2020-03-27 20:36 | PN ---
PROGRESS NOTE DATE OF SERVICE: 03/27/2020 REASON FOR FOLLOWUP: Febrile neutropenia. INTERVAL HISTORY: Patient is currently afebrile. The patient is breathing comfortably. Has been complaining of pain in the abdominal area. No chest pain, shortness of breath or cough. No vomiting or diarrhea. EXAMINATION: Blood pressure 137/77 with a pulse of 72, temperature 97.5. He is 97% on 2 L nasal cannula. General description is an elderly male up in the bed in no distress. Respiratory system: Unlabored breathing, decreased breath sounds, no wheeze. Heart S1, S2. Regular rate and rhythm. Abdomen is soft, mildly tender in the upper quadrant area. No guarding, no rigidity. LABS: Hemoglobin 7.1, white count of 13.5, creatinine 0.70. DIAGNOSTIC IMPRESSION AND PLAN: Patient with febrile neutropenia with concern for possible cholecystitis. HIDA scan has been ordered. Patient is covered with cefepime and Flagyl to continue. Solu-Medrol and ( ) has been discontinued. Monitor clinical course closely. MMODL / IJN: [id number] /
[2020-03-28] MEDS: CEFEPIME 2 GM in SODIUM CHLORIDE 0.9% 100 ML IVPB SCH ×3 (07:40→23:13)
[2020-03-28] MEDS: metroNIDAZOLE-NS PMX 500 MG in SALINE 1 100ML.BAG IVPB SCH ×2 (08:17→17:02)
[2020-03-28] MEDS: PANTOPRAZOLE 40 MG TABLET PO SCH ×2 (08:18→17:04)
[2020-03-28] MEDS: ACYCLOVIR 200 MG CAP PO SCH ×3 (08:18→22:20)
[2020-03-28] MEDS: predniSONE 20 MG TAB PO SCH (08:18)
[2020-03-28] MEDS: FUROSEMIDE 10 MG/ML 4 ML VIAL IV SCH ×3 (08:18→22:20)
[2020-03-28] MEDS: FLUCONAZOLE 100 MG TAB PO SCH (08:18)
[2020-03-28] MEDS: SYMBICORT 80-4.5 MCG INHALER INHALATION SCH ×2 (09:00→19:59)
[2020-03-28] MEDS: IPRATROPIUM-ALBUTEROL 3 ML NEB INHALATION PRN ×3 (09:01→16:07)
[2020-03-28 09:15] LABS: ALT 62 U/L (4-49); AST 32 U/L (17-59); African American GFR (CKD) >90 (>60 ml/min/1.73 sqM); Albumin 2.7 g/dL (3.5-5.0); Alkaline Phosphatase 81 U/L (38-126); Anion Gap 6 mmol/L; Blood Urea Nitrogen 30 mg/dL (9-20); Calcium 8.2 mg/dL (8.4-10.2); Carbon Dioxide 30 mmol/L (22-30); Chloride 107 mmol/L (98-107); Glucose 127 mg/dL (74-99); Non-African American GFR(CKD) >90 (>60 ml/min/1.73 sqM); Sodium 143 mmol/L (137-145); Total Bilirubin 0.8 mg/dL (0.2-1.3); Total Protein 6.6 g/dL (6.3-8.2)
[2020-03-28 09:30] LABS: Anisocytosis Moderate; HCT 21.4 % (39.0-53.0); Hypochromasia Marked; MCH 31.4 pg (25.0-35.0); MCHC 31.8 g/dL (31.0-37.0); Macrocytosis Moderate; Mean Platelet Volume 12.3; Platelet Count 188 k/uL (150-450); RBC 2.16 m/uL (4.30-5.90); RDW 23.6 % (11.5-15.5); WBC 18.1 k/uL (3.8-10.6)
[2020-03-28 09:32] LABS: HGB 6.8 gm/dL (13.0-17.5)
--- NOTE | 2020-03-28 09:56 | P.PN ---
Subjective Progress Note Date: 03/28/20 This is a 70-year-old patient of Dr. Bustillos with a past medical history of anemia, gout, tobacco use and dependence, daily alcohol use. And cancer. Patient is unsure of the type of cancer that he has. He has been receiving chemotherapy and blood transfusions. He is under care with Dr. Flores. Patient presented yesterday for evaluation of fever and generalized weakness. Patient a transfusion yesterday morning at approximately 9 AM. He was noted to have a fever during the afternoon. Patient states that his most recent chemotherapy was approximately 2 weeks ago. He denies any pain or at this time. Denies any vomiting or diarrhea. Patient states that he has been short of breath recently with any activity. Denies any cough. Patient is a current smoker. Patient was discharged March 18, and comes in again to the emergency room with the same problem, fever, failure of a cycle of year, and Levaquin, for which the regimen was complied on by family. Patient was hesitant on going to hospice, and is not feeling ready to be in a hospice program yet. Patient was admitted from March 14 until March 18, seen by oncology ID, discharge med at that time a cycle of year Levaquin, along with other maintenance meds, he received to admission 1 unit of packed red blood cell, as well as colony simu lating factor, at that time he received Vanco supper, there was some suspicion of either a wedge like abnormality in the spleen, during his last CAT scan. Fever persists at home, and started 24 hours after discharge. Patient is coughing, has diarrhea, 4 times watery, no blood, patient denies any aspiration events, patient continues to smoke, patient started on cefepime, and vancomycin, Flagyl was added started secondary diarrhea. Cultures were obtained ID consult oncology consult, patient has COPD exacerbation as well, as well as an orthopedic fever, and a new right upper lobe infiltrate, malignancy cannot be ruled out, CT chest to be done, with IV contrast. Urinalysis negative. 03/22: Patient was evaluated on morning rounds. Denies any complaints. He is currently afebrile 97.7, blood pressure is 91/50, heart rate 67. WBC 0.9, Hgb 8.7, Hct 29.5, neutrophils 0.10, blood cultures show no growth to date. He continues on Acyclovir, Cefepine, Vancomycin, and Metronidazole. Infectious di carmen is on consult. He continues on Zarxio, discussion with patient if WBC does not improve by Sunday, may need transfer to [facility] in [place]. Oncology note reviewed, discussion with patient and regarding Hospice and different treatment options. Will follow up with their decision. 03/23: Patient was examined this morning, noted to be sitting up at the bedside. Denies any new complaints. Repeat white count this morning was 1.1, neutrophils 0.4, hemoglobin 7.4, hematocrit 23.8. Patient remains on the cefepime, Flagyl, and vancomycin. Awaiting further culture report, blood cultures show no growth to date, sputum cultures pending, infectious disease is on consult. Vital signs remain stable blood pressure 102/59, heart rate 65, temperature 97.7, 98% on room air. Patient remains neutropenic despite treatment. If labs do not improve by tomorrow may need transfer to [facility] in [place] for further treatment. 03/24: Patient noted to be sitting up at his bedside, resting comfortable. He denies any new complaints. He remains afebrile 97.5, heart rate 66, pressure 139/78, 97% on room air. White count and neutrophils did improve, WBC 1.6 neutrophils 1.10, hemoglobin remained stable at 7.3 hematocrit 23.5. Blood cultures still show no growth today he continues on a Acyclovir, cefepime, vancomycin, and metronidazole. He continues on Zarxio. Oncology note reviewed no plans to transfer patient, plans on continuing current treatment. 03/25: Patient sitting up at the side of the bed, has complaints of upper abdominal pain that started this morning. On exam he is tender with palpitation, he denies any constipation or vomiting. States last bowel movement was this morning. CT of the abdomen ordered as well as consult to surgery to rule out abscess. Labs are slowly improving, WBC 2.7, Hgb 7.9, Hct 26.5, Neutrophils are 1.8. He remains on cefepime and Flagyl and acyclovir for prophylaxis, vancomycin was discontinued per infectious disease. He continues on GCSF, oncology noted reviewed, options to end treatment or treat for another 2 cycles to see if the treatment improves his counts to decrease infection risk and transfusion needs. Family and patient has not made a decision yet. Vitals are stable 138/77, 78, 14, 97%, he remains afbrile 97.8. 03/26: Patient evaluated sitting up at the bedside. He still has complaints of upper abdominal pain continues to be tender with palpitation, denies any constipation or vomiting. Surgery on consult for abnormality at the cecum. Patient continues on cefepime and Flagyl, sputum cultures were positive for Meagan, infectious disease recommends are to finish therapy with oral antibiotics and to continue supportive care. White count continues to trend up WBC 6.8, hemoglobin 8, hematocrit 26.4, neutrophils 1.8. Per oncology's notes will continue on Zarxio while inpatient and add GCSF to treatment regimen. He remains afebrile 97.7, heart rate is 75, respiratory rate of 18, blood pressure 140/80, 95% on room air. 03/27 patient examined sitting in the bed. Complains of mid abdominal pain and worsening shortness of breath. Patient did have a small bowel movement today but denies any diarrhea. Chest x-ray suggestive of worsening interstitial edema and bilateral pleural effusions worse on the right compared to left. Vitals are stable with a temperature 97.5 blood pressure 133/77 and saturating 97% on 2 L. Patient's labs from today is pending. Lasix 40 IV daily initiated. Continue Protonix. Continue antibiotics cefepime and Flagyl. Patient is growing Meagan on the sputum cultures but appears to be colonizer. We will discuss antibiotic of choice on discharge for the patient. Abdominal x-ray ordered continue DuoNeb as needed for shortness of breath. If no improvement in abdominal pain, gastroenterology will be consulted 03/28 patient examined sitting in the bed. He continues to complain of mid abdom inal pain and worsening shortness of breath. Shortness of breath is slightly improved since yesterday. Patient received additional dose of Lasix in the evening for worsening shortness of breath. Chest x-ray concerning for interstitial edema and bilateral pleural effusions. Abdominal ultrasound and HIDA negative for acute cholecystitis. Lasix increased from 40 once daily to 40 twice a day today. Continue prednisone 40 mg by mouth daily for COPD. Gastroenterology consulted for possible EGD to assess for patient's worsening abdominal pain. Hb 6.8 s/p 1 units PRBC ROS Constitutional: Denies chills, Denies fever, endorses lethargy, Eyes: denies decreased vision, denies diplopia, denies discharge, denies pain Ears: deny: decreased hearing Ears, nose, mouth and throat: Denies dental pain, Denies headache, Denies nasal discharge, Denies nose pain Cardiovascular: Denies chest pain, Denies decreased exercise tolerance, Denies edema, Denies high blood pressure, Denies irregular heart beat, Denies palpitations, Denies paroxysmal nocturnal dyspnea, Denies rapid heart beat, Denies shortness of breath Respiratory: Denies congestion, Denies cough, Denies cough with sputum, endorses dyspnea, Denies home oxygen, Denies wheezing Gastrointestinal: Endorses right upper and mid quadrant abdominal pain, Denies change in bowel habits, Denies coffee ground emesis, Denies early satiety, Denies excessive gas, Denies heartburn, Denies hematemesis, Denies hematochezia, Denies loss of appetite, Denies nausea, Denies vomiting and diarrhea resolved Genitourinary: Denies dysuria, Denies flank pain, Denies kidney stones, Denies menorrhagia, Denies urgency, Denies urinary frequency Musculoskeletal: Denies gait dysfunction, Denies limitation of motion, Denies morning stiffness, Denies muscle cramps Integumentary: Denies rash, Denies wounds, Denies brittle nails, Denies change in hair/nails, Denies darkening of skin Neurological: Denies balance difficulties, Denies change in speech, Denies double vision, Denies gait dysfunction, Denies loss of vision, Denies motor disturbance, Denies numbness, Denies paralysis, Denies paresthesias, Denies seizures Psychiatric: Denies anxiety, Denies depression Endocrine: Denies excessive sweating, Denies excessive thirst, Denies high blood sugars, Denies palpitations Hematologic/Lymphatic: Denies easy bruising, Denies lymphadenopathy Objective - Vital Signs Vital signs: Vital Signs Temp 98.0 F 03/28/20 07:59 Pulse 72 03/28/20 07:59 Resp 18 03/28/20 07:59 BP 141/76 03/28/20 07:59 Pulse Ox 98 03/28/20 07:59 Intake & Output 03/27/20 03/28/20 03/28/20 18:59 06:59 18:59 Intake Total 800 Output Total 1700 Balance -900 Intake: IV 600 Sodium Chloride 0.9% 1, 600 000 ml @ 75 mls/hr IV . [id number] DONNA Rx#:[id number] Intake, IV Titration 200 Amount Cefepime 2 gm In Sodium 100 Chloride 0.9% 100 ml @ 200 mls/hr IVPB Q8HR [facility] Rx#:[id number] metroNIDAZOLE-NS PMX 500 100 mg In Saline 1 100ml.bag @ 100 mls/hr IVPB Q8HR [facility] Rx#:[id number] Output: Urine 1700 Other: Voiding Method Toilet Urinal # Voids 3 2 - Exam - Exam - Constitutional General appearance: cooperative, no acute distress, thin. - EENT Eyes: anicteric sclerae, EOMI, PERRLA, dentition normal, normal appearance ENT: NA/AT, normal oropharynx - Neck Neck: normal ROM - Respiratory Respiratory: bilateral: wheezing, negative: CTA, diminished, dullness - Cardiovascular Rhythm: regular Heart sounds: normal: S1 Abnormal Heart Sounds: no systolic murmur, no diastolic murmur, no rub, no S3 Gallop, no S4 Gallop, no click, no other - Gastrointestinal General gastrointestinal: normal bowel sounds, soft, tender with palpitation right upper quadrant and epigastric - Integumentary Integumentary: decreased turgor, normal - Neurologic Neurologic: CNII-XII intact - Musculoskeletal Musculoskeletal: gait normal, strength equal bilaterally - Psychiatric Psychiatric: A&O x's 3, appropriate affect, intact judgment & insight - Labs CBC & Chem 7: 03/28/20 08:05 03/28/20 08:05 Labs: Abnormal Lab Results - Last 24 Hours (Table) 03/27/20 Range/Units 08:12 WBC 13.5 H (3.8-10.6) k/uL RBC 2.43 L (4.30-5.90) m/uL Hgb 7.6 L (13.0-17.5) gm/dL Hct 25.2 L (39.0-53.0) % MCV 103.6 H (80.0-100.0) fL MCHC 30.1 L (31.0-37.0) g/dL RDW 23.6 H (11.5-15.5) % Neutrophils # (Manual) 12.15 H (1.3-7.7) k/uL Lymphocytes # (Manual) 0.95 L (1.0-4.8) k/uL Macrocytosis Marked A Microbiology - Last 24 Hours (Table) 03/24/20 06:00 Stool Culture - Final Stool Assessment and Plan Plan: 1. Neutropenic fever with recurrent admission, sepsis with failure of Levaquin prior to admission IK abdominal source. Continue cefepime and Flagyl ID and oncology on consult. Blood culture blood culture negative C. diff negative, previous imaging studies 03/18 during last admission, shows 1.2 cm kidney cyst, not abscess, wedge-shaped hypodensity in spleen, related to either infectious and inflammatory against ischemic etiology, cecal mass versus Zhang Ks colonoscopy recommended as outpatient by surgery, trace left pelvic ascites moderate wall thickening gastroduodenal junction, H. pylori pending as patient has persistent epigastric pain, cxr right infiltrate vs nodule IV Flagyl admitted for diarrhea, O&P obtained, as well as stool cultures, stool cultures have been collected and are currently pending. 2. Poorly marginated right upper lobe infiltrate, 1.7 cm, CT of the chest, to evaluate for pulmonary nodule against pneumonia, IV antibiotics 3. Persistent epigastric pain check for H. pylori, possible abnormal thickening in the gastroduodenal junction, not an abscess, on PPI offered 4. COPD exacerbation currently smoker nebulized treatments, albuterol Pulmi lex, IV Solu-Medrol switched to prednisone, patient was advised to quit smoking still, continue, IV antibiotics sputum cultures show Meagan 5 Chronic anemia. See above. Status post transfusion of 1 unit of packed RBCs, stable. Continue Zarxio 6 MDS with ringed sideroblasts see above 7 Tobacco use and dependence 8 Alcohol abuse, stable 9 Diarrhea, with ongoing antibiotic for sepsis, Flagyl added to regimen of cefepime, C. diff toxin negative 10 GI prophylaxis. Pantoprazole 40 mg IV daily 11. Severe Malnutrition, with protein calorie malnutrition, insulin light, 3 times a day with meals 12. DVT prophylaxis. Ambulation 13. COVID-19 infection not present 14. abdominal pain: No concern for abdominal abscess. HIDA scan and abdominal ultrasound negative for acute cholecystitis. Gastroenterology consult Discharge plan: Home without home care
[2020-03-28 10:55] LABS: Band Neutrophils % 1 %; Lymphocytes # (M) 1.45 k/uL (1.0-4.8); Monocytes # (M) 0.54 k/uL (0-1.0); Neutrophils % (M) 88 %; Nucleated Red Blood Cells 0 /100 WBC (0-0); Target Cells Present; Total Cells Counted 100
[2020-03-28] MEDS: DICYCLOMINE 20 MG TAB PO SCH ×4 (11:23→22:20)
--- NOTE | 2020-03-28 14:13 | PN ---
PROGRESS NOTE DATE OF SERVICE: March 28, 2020. CHIEF COMPLAINT: Tired and abdominal pain. Blayne is seen today as a followup. He feels a little tired, but overall stated his abdominal pain is better. No nausea and had a bowel movement last night. He did undergo an ultrasound of the abdomen and HIDA scan and there was no evidence of cholecystitis. However, he was started on broad-spectrum antibiotics for presumed cholecystitis. CURRENT MEDICATION: Reviewed in his electronic medical record. On physical examination, he is alert and oriented x3. He does not appear to be in distress at this time. His vital signs are: Pulse is 80, regular. Temperature 98, pulse 72, regular, respiration 18, blood pressure 141/76, pulse ox 97 percent on 2 L nasal cannula. HEENT: Normocephalic, atraumatic. No icterus. NECK: Supple. CHEST equal expansion bilaterally. LUNGS: Clear to auscultation and percussion. Heart is regular rate and rhythm. ABDOMEN: Soft. He has tenderness in the epigastric area and the right upper quadrant. However, it appears to be ill-defined lesion. Extremities reveal no significant edema. IMPRESSION AND RECOMMENDATION: 1. Neutropenic fever. The patient appears to be clinically doing well. However, there his neutrophil has recovered and his leukocytosis now is secondary to recent granulocyte colony-stimulating factor which was discontinued yesterday. 2. Myelodysplastic syndrome, status post 1 cycle of hypomethylating agent. 3. Abdominal pain. Appears to be improving and there is no sonographic evidence of cholecystitis on recent ultrasound and HIDA scan. 4. Based on recent CAT scan finding, endoscopy evaluation should be highly considered once the patient's condition permits. 5. Continue current supportive care. 6. MMODL / IJN: [id number] /
--- NOTE | 2020-03-28 17:14 | P.PN ---
Subjective Progress Note Date: 03/28/20 Patient's abdominal pain is resolved today. He is tolerating his diet he denies any abdominal pain at this time Objective - Vital Signs Vital signs: Vital Signs Temp 97.9 F 03/28/20 16:11 Pulse 78 03/28/20 16:20 Resp 16 03/28/20 16:11 BP 145/77 03/28/20 16:11 Pulse Ox 100 03/28/20 16:11 Intake & Output 03/27/20 03/28/20 03/28/20 18:59 06:59 18:59 Intake Total 800 510 Output Total 1700 1600 Balance -900 -1090 Intake: IV 600 Sodium Chloride 0.9% 1, 600 000 ml @ 75 mls/hr IV . [id number] [facility] Rx#:[id number] Intake, IV Titration 200 200 Amount Cefepime 2 gm In Sodium 100 100 Chloride 0.9% 100 ml @ 200 mls/hr IVPB Q8HR [facility] Rx#:[id number] metroNIDAZOLE-NS PMX 500 100 100 mg In Saline 1 100ml.bag @ 100 mls/hr IVPB Q8HR [facility] Rx#:[id number] Blood Product 310 Rc Irr As1 Unit 310 [id number] Output: Urine 1700 1600 Other: Voiding Method Toilet Toilet Urinal Urinal # Voids 3 2 5 - Constitutional General appearance: Present: cooperative - Gastrointestinal Gastrointestinal Comment(s): Soft nontender nondistended - Labs CBC & Chem 7: 03/28/20 08:05 03/28/20 08:05 Labs: Abnormal Lab Results - Last 24 Hours (Table) 03/28/20 03/28/20 03/28/20 Range/Units 08:05 08:05 10:44 WBC 18.1 H (3.8-10.6) k/uL RBC 2.16 L (4.30-5.90) m/uL Hgb 6.8 L* (13.0-17.5) gm/dL Hct 21.4 L (39.0-53.0) % RDW 23.6 H (11.5-15.5) % Neutrophils # (Manual) 16.10 H (1.3-7.7) k/uL Potassium 3.0 L (3.5-5.1) mmol/L BUN 30 H (9-20) mg/dL Glucose 127 H (74-99) mg/dL Calcium 8.2 L (8.4-10.2) mg/dL ALT 62 H (4-49) U/L Albumin 2.7 L (3.5-5.0) g/dL Crossmatch See Detail Microbiology - Last 24 Hours (Table) 03/24/20 06:00 Stool Culture - Final Stool Assessment and Plan Assessment: Abdominal pain resolved Pleural effusion Leukopenia MDS Plan: Patient's pain is resolved at this time. His workup for cholecystitis is negative and patient is stable from a surgical standpoint. GI is following the patient and I will defer endoscopic evaluation and timing to GI recommendations. Recommend continuing PPI.
--- NOTE | 2020-03-28 18:21 | P.CONS ---
History of Present Illness - Reason for Consult Consult date: 03/28/20 Abdominal pain Requesting physician: Daryl Venegas - Chief Complaint Weakness, fevers - History of Present Illness 70-year-old male with multiple medical comorbidities including tobacco abuse, alcohol abuse, chronic anemia, gout who presented for evaluation of fevers and generalized weakness. Patient is being seen by the hematology/oncology service and was found to be bicytopenia on presentation with WBC 0.6 and hemoglobin 7. Patient is currently being treated for neutropenic fever, pneumonia and myelodysplastic syndrome. He has been given GCSF with improvement in his white count. He also remains on broad-spectrum antibiotic therapy. Patient developed abdominal pain described as severe, constant and waxing and waning in intensity in his right upper quadrant in the epigastric region of his abdomen. He reports that the pain is worse with movement. He denies any association of the pain with food. He denies any history of reflux disease. No nausea or vomiting. No prior EGDs reported. He has previously undergone colonoscopic evaluation with the surgical service in 06/19/2016 significant for diverticulosis. He has been having some loose stool and there are concerns of possible dark colored stool today with stools occult blood and pending. Current laboratory evaluation significant for a WBC 18.1, hemoglobin 6.8, platelet count 235,000 with total bilirubin 0.8, alkaline phosphatase 81, AST 32 and ALT 62. Computed tomography scan of the abdomen was performed in evaluation of the patient's pain with findings of a new right-sided pleural effusion, and abnormal findings of the cecum felt to be either adherent debris or mass and a small amount of ascites. This did not correlate with the patient's pain and the surgical service was consulted to see the patient with concern for possible cholecystitis. At this time ultrasound and HIDA were performed in evaluation and found to be essentially normal. GI was consulted to see the patient due to the persistence of this pain. However on questioning today the patient does report that it is f eeling better. He does report he is been able to tolerate diet. Continues to have some loose bowel movements. Review of Systems REVIEW OF SYSTEMS: CONSTITUTIONAL: Patient reports fatigue, and had complained of fevers and chills on presentation. CARDIOVASCULAR: Denies any chest pain, palpitations high or low blood pressures RESPIRATORY: Denies any shortness of breath, hemoptysis or cough. GENITOURINARY: No dysuria or hematuria. MUSCULOSKELETAL: No weakness reported. SKIN: Denies any new rashes or lesions, jaundice or pallor. PSYCHIATRIC: Denies any depression or anxiety. NEUROLOGY: Denies headache, denies any new focal deficits. EARS/NOSE/THROAT: No recent hearing change, congestion, nasal discharge or sore throat. EYES: No pain in eyes, discharge or change in vision. GASTROINTESTINAL: As per HPI. Past Medical History Past Medical History: Cancer, Skin Disorder Additional Past Medical History / Comment(s): Gout, cellulitis to left leg? (patient states he is itchy, some scabs and scarring noted), chronic anemia, bone marrow cancer History of Any Multi-Drug Resistant Organisms: None Reported Past Surgical History: No Surgical Hx Reported Additional Past Surgical History / Comment(s): surgery on rt leg and foot after injury age 3 Past Anesthesia/Blood Transfusion Reactions: No Reported Reaction Past Psychological History: No Psychological Hx Reported Smoking Status: Current every day smoker Past Alcohol Use History: Daily Additional Past Alcohol Use History / Comment(s): Patient states he smokes 1/2 ppd. Patient drinks 4-6 beers per day for many years and cut down to 1-2 beers per day for the past 2 months. Patient lives at home with his . Past Drug Use History: None Reported - Past Family History Mother Family Medical History: Cancer Brother(s) Family Medical History: Cancer Father Additional Family Medical History / Comment(s): Father at age 93 from old age. Medications and Allergies Home Medications Medication Instructions Recorded Confirmed Type Acyclovir 400 mg PO TID #90 tablet 03/17/20 03/20/20 Rx Fluconazole [Diflucan] 100 mg PO DAILY #30 tab 03/17/20 03/20/20 Rx Acetaminophen Tab [Tylenol] 650 mg PO Q6HR PRN tab 03/18/20 03/20/20 Rx Levofloxacin [Levaquin] 500 mg PO DAILY 3 Days #14 tab 03/18/20 03/20/20 Rx Multivitamins, Thera [Multivitamin 1 tab PO DAILY 03/20/20 03/20/20 History (formulary)] Allergies Allergy/AdvReac Type Severity Reaction Status Date / Time No Known Allergies Allergy Verified 03/20/20 19:12 Physical Exam Vitals: Vital Signs Temp Pulse Pulse Resp BP Pulse Ox 03/28/20 09:16 86 03/28/20 09:03 82 03/28/20 07:59 98.0 F 72 18 141/76 98 03/28/20 04:00 80 03/28/20 03:00 98.0 F 66 120/66 99 03/27/20 23:27 80 18 03/27/20 20:51 80 03/27/20 20:35 80 100 03/27/20 19:50 97.4 F L 80 20 129/72 100 03/27/20 15:00 97.9 F 100 18 147/75 98 Intake and Output 03/27/20 03/28/20 03/28/20 22:59 06:59 14:59 Intake Total 600 200 Output Total 400 1300 Balance 200 -1100 Intake: IV 600 Sodium Chloride 0.9% 1, 600 000 ml @ 75 mls/hr IV . [id number] DONNA Rx#:[id number] Intake, IV Titration 200 Amount Cefepime 2 gm In Sodium 100 Chloride 0.9% 100 ml @ 200 mls/hr IVPB Q8HR DONNA Rx#:[id number] metroNIDAZOLE-NS PMX 500 100 mg In Saline 1 100ml.bag @ 100 mls/hr IVPB Q8HR DONNA Rx#:[id number] Output: Urine 400 1300 Other: Voiding Method Toilet Toilet Urinal Urinal # Voids 1 2 On physical examination, patient appears comfortable in no apparent distress. HEAD: Normocephalic, atraumatic. EYES: No scleral icterus. No conjunctival injection. MOUTH: No lesions, tongue midline. NECK: Trachea midline, no gross abnormalities. CHEST: Decreased air entry in all lung peralta HEART: S1-S2 appreciated. ABDOMEN: Soft, mildly tender to palpation in the epigastric region of his abdomen. Bowel sounds are positive. No organomegaly. No guarding or rigidity. EXTREMITIES: No pedal edema. SKIN: No rashes, no jaundice. NEUROLOGIC: Alert and oriented x3. No focal deficits. Results CBC & Chem 7: 03/28/20 08:05 03/28/20 08:05 Labs: Abnormal Lab Results - Last 24 Hours (Table) 03/27/20 03/28/20 03/28/20 Range/Units 08:12 08:05 08:05 WBC 18.1 H (3.8-10.6) k/uL RBC 2.16 L (4.30-5.90) m/uL Hgb 6.8 L* (13.0-17.5) gm/dL Hct 21.4 L (39.0-53.0) % RDW 23.6 H (11.5-15.5) % Neutrophils # (Manual) 12.15 H (1.3-7.7) k/uL Lymphocytes # (Manual) 0.95 L (1.0-4.8) k/uL Potassium 3.0 L (3.5-5.1) mmol/L BUN 30 H (9-20) mg/dL Glucose 127 H (74-99) mg/dL Calcium 8.2 L (8.4-10.2) mg/dL ALT 62 H (4-49) U/L Albumin 2.7 L (3.5-5.0) g/dL Microbiology - Last 24 Hours (Table) 03/24/20 06:00 Stool Culture - Final Stool CT scan - abdomen: report reviewed (Computed tomography scan of the abdomen was performed in evaluation of the patient's pain with findings of a new right-sided pleural effusion, and abnormal findings of the cecum felt to be either adherent debris or mass and a small amount of ascites. ) Assessment and Plan (1) Abdominal pain Narrative/Plan: 70-year-old male with multiple complex medical problems currently receiving treatment for myelodysplastic syndrome, neutropenic fever and suspected pneumonia. He developed pain in the epigastric region and right upper quadrant of his abdomen during his hospitalization which reported as severe, constant waxing and waning in intensity. No association with food but reported to be worse with movement. No prior EGD or history of peptic ulcer disease he has had a colonoscopy in 05/2016 with findings of diverticulosis. Concern was for possible cholecystitis however both ultrasound and HIDA were normal. Computed tomography scan of the abdomen negative for any findings correlating with his symptoms however a cecal mass versus adherent debris was seen in the cecum of the colon. The patient has a chronic macrocytic anemia and was found to have a hemoglobin of 7 on presentation however it did subsequently improved slightly and felt to 6.8 today. There were concerns over possible dark stool with cold stool for blood ordered and pending. Unclear etiology symptoms, may be related to peptic ulcer disease, gastritis/esophagitis, associated with right sided pleural effusion, or other etiology. Patient did report some improvement in his pain today. Current Visit: Yes Status: Acute Code(s): R10.9 - UNSPECIFIED ABDOMINAL PAIN SNOMED Code(s): 15425662 (2) MDS (myelodysplastic syndrome), high grade Current Visit: Yes Status: Acute Priority: High Code(s): D46.Z - OTHER MYELODYSPLASTIC SYNDROMES SNOMED Code(s): 319202313 (3) Neutropenic fever Current Visit: Yes Status: Acute Priority: High Code(s): D70.9 - NEUTROPENIA, UNSPECIFIED; R50.81 - FEVER PRESENTING WITH CONDITIONS CLASSIFIED ELSEWHERE SNOMED Code(s): 646325232 (4) Bicytopenia Current Visit: Yes Status: Chronic Priority: High Code(s): D75.89 - OTHER SPECIFIED DISEASES OF BLOOD AND BLOOD-FORMING ORGANS SNOMED Code(s): 20658461 Plan: Supportive care Okay for diet Protonix increased to twice daily Dicyclomine added [id number] Await stool testing for occult blood Will order EIA for Clostridium difficile in the setting of antibiotic use and loose stool Continue process which remains about therapy Continue management by the hematology/oncology service Appreciate recommendations by surgical service In regards to possible endoscopic evaluation the patient is high risk with suspicion for underlying COPD and would need clearance by the pulmonology service is endoscopic evaluation was pursued, in order for optimization of breathing prior to the procedures We will continue to follow clinically with decision based on the patient's course Patient is to participate in care of the patient continue to follow
[2020-03-29 01:21] VITALS: TEMP 98.1
--- NOTE | 2020-03-29 06:52 | PN ---
PROGRESS NOTE DATE OF SERVICE: 03/28/2020 REASON FOR FOLLOWUP: Febrile neutropenia. INTERVAL HISTORY: Patient is currently afebrile. The patient is breathing more comfortably. Denies having any chest pain, shortness of breath. Occasional cough. Abdominal pain has improved. No further nausea, vomiting or diarrhea. PHYSICAL EXAMINATION: His blood pressure 127/50 with a pulse of 92, temperature 97.8. He is 96% on room air. General description is an elderly male up in the bed in no distress. RESPIRATORY SYSTEM: Unlabored breathing, decreased breath sounds at the bases. No wheeze. HEART: S1, S2. Regular rate and rhythm. ABDOMEN: Soft, no tenderness. LABS: Creatinine 0.78. White count 18.1, hemoglobin 6.8. DIAGNOSTIC IMPRESSION AND PLAN: Patient with febrile neutropenia. Concern for possible abdominal source versus pneumonia; however, culture has been negative. The patient on cefepime and Flagyl. Finish therapy with short course of oral Ceftin and Flagyl for about a week. Continue supportive care. MMODL / IJN: [id number] /
[2020-03-29] MEDS: CEFEPIME 2 GM in SODIUM CHLORIDE 0.9% 100 ML IVPB SCH (07:01)
[2020-03-29] MEDS: PANTOPRAZOLE 40 MG TABLET PO SCH (07:01)
[2020-03-29 07:29] VITALS: BP 143/56; PULSE 69; RESP 20
[2020-03-29] MEDS: FLUCONAZOLE 100 MG TAB PO SCH (08:50)
[2020-03-29] MEDS: DICYCLOMINE 20 MG TAB PO SCH ×2 (08:50→12:21)
[2020-03-29] MEDS: ACYCLOVIR 200 MG CAP PO SCH (08:50)
[2020-03-29] MEDS: FUROSEMIDE 10 MG/ML 4 ML VIAL IV SCH (08:50)
[2020-03-29] MEDS: predniSONE 20 MG TAB PO SCH (08:50)
[2020-03-29] MEDS: SYMBICORT 80-4.5 MCG INHALER INHALATION SCH (08:55)
[2020-03-29 09:43] LABS: Anisocytosis Moderate; HCT 26.8 % (39.0-53.0); Hypochromasia Moderate; MCH 29.9 pg (25.0-35.0); MCHC 31.6 g/dL (31.0-37.0); MCV 94.9 fL (80.0-100.0); Macrocytosis Slight; Mean Platelet Volume 10.9; Platelet Count 192 k/uL (150-450); Poikilocytosis Moderate; RBC 2.82 m/uL (4.30-5.90)
[2020-03-29 09:59] LABS: ALT 66 U/L (4-49); AST 42 U/L (17-59); African American GFR (CKD) >90 (>60 ml/min/1.73 sqM); Albumin 3.1 g/dL (3.5-5.0); Alkaline Phosphatase 87 U/L (38-126); Anion Gap 9 mmol/L; Blood Urea Nitrogen 34 mg/dL (9-20); Calcium 8.4 mg/dL (8.4-10.2); Carbon Dioxide 31 mmol/L (22-30); Chloride 101 mmol/L (98-107); Glucose 114 mg/dL (74-99); Non-African American GFR(CKD) >90 (>60 ml/min/1.73 sqM); Sodium 141 mmol/L (137-145); Total Bilirubin 1.1 mg/dL (0.2-1.3); Total Protein 7.4 g/dL (6.3-8.2)
[2020-03-29 10:01] LABS: HGB 8.4 gm/dL (13.0-17.5)
--- NOTE | 2020-03-29 10:28 | P.DS ---
Providers Date of admission: 03/20/20 18:21 Expected date of discharge: 03/29/20 Attending physician: Kendra Connors Consults: 03/20/20 18:22 Consult Physician Urgent Consulting Provider: Lee Flores Consult Reason/Comments: oncological care Do you want consulting provider notified?: Already Contacted 03/21/20 13:18 Consult Physician Routine Consulting Provider: Honey Garcia Consult Reason/Comments: neutropenin fever Do you want consulting provider notified?: Yes 03/25/20 08:17 Consult Physician Routine Consulting Provider: Kj James Consult Reason/Comments: abdominal pain Do you want consulting provider notified?: Yes 03/28/20 08:49 Consult Physician Routine Consulting Provider: Rodolfo Horner Consult Reason/Comments: worsening abd pain Do you want consulting provider notified?: Yes Primary care physician: [facility] Course: This is a 70-year-old patient of Dr. Bustillos with a past medical history of anemia, gout, tobacco use and dependence, daily alcohol use. And cancer. Patient is unsure of the type of cancer that he has. He has been receiving chemotherapy and blood transfusions. He is under care with Dr. Flores. Patient p resented yesterday for evaluation of fever and generalized weakness. Patient a transfusion yesterday morning at approximately 9 AM. He was noted to have a fever during the afternoon. Patient states that his most recent chemotherapy was approximately 2 weeks ago. He denies any pain or at this time. Denies any vomiting or diarrhea. Patient states that he has been short of breath recently with any activity. Denies any cough. Patient is a current smoker. Patient was discharged March 18, and comes in again to the emergency room with the same problem, fever, failure of a cycle of year, and Levaquin, for which the regimen was complied on by family. Patient was hesitant on going to hospice, and is not feeling ready to be in a hospice program yet. Patient was admitted from March 14 until March 18, seen by oncology ID, discharge med at that time a cycle of year Levaquin, along with other maintenance meds, he received to admission 1 unit of packed red blood cell, as well as colony simula ting factor, at that time he received Vanco supper, there was some suspicion of either a wedge like abnormality in the spleen, during his last CAT scan. Fever persists at home, and started 24 hours after discharge. Patient is coughing, has diarrhea, 4 times watery, no blood, patient denies any aspiration events, patient continues to smoke, patient started on cefepime, and vancomycin, Flagyl was added started secondary diarrhea. Cultures were obtained ID consult oncology consult, patient has COPD exacerbation as well, as well as an orthopedic fever, and a new right upper lobe infiltrate, malignancy cannot be ruled out, CT chest to be done, with IV contrast. Urinalysis negative. 03/22: Patient was evaluated on morning rounds. Denies any complaints. He is currently afebrile 97.7, blood pressure is 91/50, heart rate 67. WBC 0.9, Hgb 8.7, Hct 29.5, neutrophils 0.10, blood cultures show no growth to date. He continues on Acyclovir, Cefepine, Vancomycin, and Metronidazole. Infectious dise ase is on consult. He continues on o, discussion with patient if WBC does not improve by Sunday, may need transfer to [facility] in [place]. Oncology note reviewed, discussion with patient and regarding Hospice and different treatment options. Will follow up with their decision. 03/23: Patient was examined this morning, noted to be sitting up at the bedside. Denies any new complaints. Repeat white count this morning was 1.1, neutrophils 0.4, hemoglobin 7.4, hematocrit 23.8. Patient remains on the cefepime, Flagyl, and vancomycin. Awaiting further culture report, blood cultures show no growth to date, sputum cultures pending, infectious disease is on consult. Vital signs remain stable blood pressure 102/59, heart rate 65, temperature 97.7, 98% on room air. Patient remains neutropenic despite treatment. If labs do not improve by tomorrow may need transfer to [facility] in [place] for further treatment. 03/24: Patient noted to be sitting up at his bedside, resting comfortable. He d enies any new complaints. He remains afebrile 97.5, heart rate 66, pressure 139/78, 97% on room air. White count and neutrophils did improve, WBC 1.6 neutrophils 1.10, hemoglobin remained stable at 7.3 hematocrit 23.5. Blood cultures still show no growth today he continues on a Acyclovir, cefepime, vancomycin, and metronidazole. He continues on Zarxio. Oncology note reviewed no plans to transfer patient, plans on continuing current treatment. 03/25: Patient sitting up at the side of the bed, has complaints of upper abdominal pain that started this morning. On exam he is tender with palpitation, he denies any constipation or vomiting. States last bowel movement was this morning. CT of the abdomen ordered as well as consult to surgery to rule out abscess. Labs are slowly improving, WBC 2.7, Hgb 7.9, Hct 26.5, Neutrophils are 1.8. He remains on cefepime and Flagyl and acyclovir for prophylaxis, vancomycin was discontinued per infectious disease. He continues on GCSF, oncology noted r korin, options to end treatment or treat for another 2 cycles to see if the treatment improves his counts to decrease infection risk and transfusion needs. Family and patient has not made a decision yet. Vitals are stable 138/77, 78, 14, 97%, he remains afbrile 97.8. 03/26: Patient evaluated sitting up at the bedside. He still has complaints of upper abdominal pain continues to be tender with palpitation, denies any constipation or vomiting. Surgery on consult for abnormality at the cecum. Patient continues on cefepime and Flagyl, sputum cultures were positive for Meagan, infectious disease recommends are to finish therapy with oral antibiotics and to continue supportive care. White count continues to trend up WBC 6.8, hemoglobin 8, hematocrit 26.4, neutrophils 1.8. Per oncology's notes will continue on Zarxio while inpatient and add GCSF to treatment regimen. He remains afebrile 97.7, heart rate is 75, respiratory rate of 18, blood pressure 140/80, 95% on room air. 03/27 patient examined sitting in the bed. Complains of mid abdominal pain and worsening shortness of breath. Patient did have a small bowel movement today but denies any diarrhea. Chest x-ray suggestive of worsening interstitial edema and bilateral pleural effusions worse on the right compared to left. Vitals are stable with a temperature 97.5 blood pressure 133/77 and saturating 97% on 2 L. Patient's labs from today is pending. Lasix 40 IV daily initiated. Continue Protonix. Continue antibiotics cefepime and Flagyl. Patient is growing Meagan on the sputum cultures but appears to be colonizer. We will discuss antibiotic of choice on discharge for the patient. Abdominal x-ray ordered continue DuoNeb as needed for shortness of breath. If no improvement in abdominal pain, gastroenterology will be consulted 03/28 patient examined sitting in the bed. He continues to complain of mid abdominal pain and worsening shortness of breath. Shortness of breath is slightly improved since yesterday. Patient received additional dose of Lasix in the evening for worsening shortness of breath. Chest x-ray concerning for interstitial edema and bilateral pleural effusions. Abdominal ultrasound and HIDA negative for acute cholecystitis. Lasix increased from 40 once daily to 40 twice a day today. Continue prednisone 40 mg by mouth daily for COPD. Gastroenterology consulted for possible EGD to assess for patient's worsening abdominal pain. Hb 6.8 s/p 1 units PRBC 03/29: Patient is status post transfusion of one unit of packed RBCs with repeat hemoglobin today of 8.4. WBC 15, platelet count 192. Potassium is 3.0 and will be replaced. BUN 34 and creatinine 0.77. ALT 66. Stool for occult blood negative. He has been afebrile, heart rate 69, blood pressure 143/56, pulse ox 95%. Patient denies any new complaints. He states he is feeling well. He has had no fever or chills. Patient was seen by general surgery with no plan for any interventions as abdominal pain had resolved and he was tolerating diet. Patient was seen by GI over the weekend and would recommend clearance by pulmonology before any endoscopy procedure due to possible underlying COPD. Patient will have outpatient follow-up if necessary. Lab work reviewed with oncology and cleared for discharge. Patient will be discharged home today in stable condition. Discharge diagnoses: 1. Neutropenic fever with recurrent admission, sepsis with failure of Levaquin, possible abdominal source. 2. Poorly marginated right upper lobe infiltrate, 1.7 cm, CT of the chest, to evaluate for pulmonary nodule. 3. Persistent epigastric pain. H. pylori pending. 4. COPD exacerbation. 5. Tobacco use and dependence. 6. Anemia of chronic disease status post transfusion 1 unit of packed RBCs. 7. MDS with ringed sideroblasts. 8. Alcohol abuse, stable 9. Diarrhea, C. diff toxin negative 11. Severe Malnutrition with protein calorie malnutrition. 12. COVID-19 infection not present Discharge plan: Home without home care Impression and plan of care have been directed as dictated by the signing physician. Dannielle Villegas nurse practitioner acting as scribe for signing physician. Patient Condition at Discharge: Good Plan - Discharge Summary Discharge Rx Participant: Yes New Discharge Prescriptions: New Dicyclomine [Bentyl] 20 mg PO QID #120 tab Cefuroxime Axetil [Ceftin] 500 mg PO BID 7 Days #14 tab metroNIDAZOLE [Flagyl] 500 mg PO Q8HR #21 tab Potassium Chloride ER [K-Dur 20] 20 meq PO DAILY #30 tab Furosemide [Lasix] 40 mg PO DAILY #30 tablet predniSONE 0 mg PO DIRECTED #30 tab Budesonide/Formoterol Fumarate [Symbicort 80-4.5 Mcg Inhaler] 2 puff INHALATION BID #1 inhaler Benzonatate [Tessalon Perles] 200 mg PO TID PRN #30 cap PRN Reason: Cough Albuterol Inhaler [Ventolin Hfa Inhaler] 2 puff INHALATION RT-TID #1 inhaler Continue Acyclovir 400 mg PO TID #90 tablet Fluconazole [Diflucan] 100 mg PO DAILY #30 tab Acetaminophen Tab [Tylenol] 650 mg PO Q6HR PRN tab PRN Reason: Mild Pain Or Fever > 100.5 Multivitamins, Thera [Multivitamin (formulary)] 1 tab PO DAILY Discontinued Levofloxacin [Levaquin] 500 mg PO DAILY 3 Days #14 tab Discharge Medication List Acyclovir 400 mg PO TID #90 tablet 03/17/20 [Rx] Fluconazole [Diflucan] 100 mg PO DAILY #30 tab 03/17/20 [Rx] Acetaminophen Tab [Tylenol] 650 mg PO Q6HR PRN tab 03/18/20 [Rx] Multivitamins, Thera [Multivitamin (formulary)] 1 tab PO DAILY 03/20/20 [History] Albuterol Inhaler [Ventolin Hfa Inhaler] 2 puff INHALATION RT-TID #1 inhaler 03/29/20 [Rx] Benzonatate [Tessalon Perles] 200 mg PO TID PRN #30 cap 03/29/20 [Rx] Budesonide/Formoterol Fumarate [Symbicort 80-4.5 Mcg Inhaler] 2 puff INHALATION BID #1 inhaler 03/29/20 [Rx] Cefuroxime Axetil [Ceftin] 500 mg PO BID 7 Days #14 tab 03/29/20 [Rx] Dicyclomine [Bentyl] 20 mg PO QID #120 tab 03/29/20 [Rx] Furosemide [Lasix] 40 mg PO DAILY #30 tablet 03/29/20 [Rx] Potassium Chloride ER [K-Dur 20] 20 meq PO DAILY #30 tab 03/29/20 [Rx] metroNIDAZOLE [Flagyl] 500 mg PO Q8HR #21 tab 03/29/20 [Rx] predniSONE 0 mg PO DIRECTED #30 tab 03/29/20 [Rx] Follow up Appointment(s)/Referral(s): Lee Flores MD [STAFF PHYSICIAN] - 04/05/20 2:30 pm (This is a chemo appt. Appt is at the [facility]) [facility], [NON-STAFF] - As Needed (home care and palliative care) George Bustillos DO [Primary Care Provider] - 1 Week Rodolfo Horner MD [STAFF PHYSICIAN] - 2 Weeks Patient Instructions/Handouts: Neutropenia (DC) Discharge Disposition: HOME WITH HOME HEALTH SERVICES
[2020-03-29] MEDS ORDERED: POTASSIUM CHLORIDE ER 20 MEQ TAB.ER PO SCH (12:00)
[2020-03-29 13:22] LABS: % Iron Saturation 68.13 (15.00-50.00); Ferritin 5274.4 ng/mL (22.0-322.0)
--- NOTE | 2020-03-29 15:34 | PN ---
PROGRESS NOTE DATE OF SERVICE: 03/29/2020 REASON FOR FOLLOWUP: Febrile neutropenia. INTERVAL HISTORY: Patient is currently afebrile. The patient has been breathing comfortably. The patient denies having any chest pain or shortness of breath. Minimal cough. No nausea, no vomiting. Abdominal pain has improved, no diarrhea. PHYSICAL EXAMINATION: Blood pressure 143./56, pulse of 69, temperature 98.1, he is 95% on room air. General description is an elderly male up in the bed, in no distress. RESPIRATORY SYSTEM: Unlabored breathing, decreased breath sounds at the base. HEART: S1, S2. Regular rate and rhythm. ABDOMEN: Soft, no tenderness. LABS: Hemoglobin 8.4, white count of 15,000, BUN of 34, creatinine 0.77. DIAGNOSTIC IMPRESSION AND PLAN: Patient with febrile neutropenia with concern for possible abdominal source. Plus- minus pneumonia. Sputum has been negative for any resistant pathogen. Patient overall improvement on cefepime, Flagyl finishing therapy with oral Ceftin for about a week and close outpatient followup. MMODL / IJN: [id number] /
--- NOTE | 2020-03-29 16:55 | PN ---
PROGRESS NOTE DATE OF DICTATION: 03/29/2020 Patient is a 70-year-old pleasant white male with history of myelodysplastic syndrome who was admitted to the hospital with febrile neutropenia. He is on broad-spectrum antibiotics. Symptoms are gradually improving. During this hospitalization, he was having some abdominal pain, nausea, vomiting, and hence GI has been consulted. He was seen on consultation by Dr. Horner yesterday. He did have a CT of the abdomen and pelvis done that showed a questionable lesion in the cecum suspicious for stool debris versus neoplasm. The patient is going home today. He is overall feeling better. He denies any abdominal pain. No nausea, no vomiting. PHYSICAL EXAMINATION: Appears comfortable. No apparent distress. Vital signs are stable. Blood pressure is 133/56, pulse rate 69, temperature 98.1. HEENT examination unremarkable. Conjunctivae pink. Sclerae anicteric. Oral cavity no lesions. NECK: No JVD or lymph node enlargement. CHEST: Clear to auscultation. HEART: Regular rate and rhythm. ABDOMEN: Soft. Bowel sounds are positive. No organomegaly. EXTREMITIES: No pedal edema. SKIN: No rashes. NEUROLOGIC: Alert and oriented x3. No focal deficits. LABS: Labs from today show hemoglobin 8.1, WBC 18.6, platelets 188. BUN 30, creatinine 1.78. IMPRESSION: 1. Abdominal pain associated with nausea, vomiting, gradually improving. Patient had a CT of the abdomen and pelvis done that showed questionable cecal mass versus adherent debris. He did have a low hemoglobin, probably contributed to myelodysplastic syndrome. Stool occult blood was ordered which is still pending at the time of this dictation. Last colonoscopy in 2015 showed diverticulosis. 2. History of myelodysplastic syndrome, high grade, followed by Dr. Flores. 3. Neutropenic fever, resolved. RECOMMENDATIONS: 1. Okay to discharge home. 2. He was advised to follow up with Dr. Horner on an outpatient basis in regard to discussion about a colonoscopy to evaluate the right colon, as the recent CT of the abdomen and pelvis showed a questionable lesion in the cecum. 3. Continue Protonix 40 mg twice daily. 4. Bentyl as needed. Thank you for this consultation. MMODL / IJN: [id number] /
== END 2020-03-29 13:20 | disposition home health service (06) | DRG 871 ==
LOC: EC 16:13 → 4SSUR 18:21
PROVIDERS: ADMIT Family Medicine; ATTEND Family Medicine
PROC: 30233N1 Transfusion of Nonautologous Red Blood Cells into Peripheral Vein, Percutaneous Approach (ICD-10-PCS; principal; 2020-03-28)
DX: A41.9 Sepsis, unspecified organism (principal); J18.9 Pneumonia, unspecified organism; E43 Unspecified severe protein-calorie malnutrition; D61.810 Antineoplastic chemotherapy induced pancytopenia; J90 Pleural effusion, not elsewhere classified; R18.8 Other ascites; J44.0 Chronic obstructive pulmonary disease with (acute) lower respiratory infection; J44.1 Chronic obstructive pulmonary disease with (acute) exacerbation; Z68.1 Body mass index [BMI] 19.9 or less, adult; C34.11 Malignant neoplasm of upper lobe, right bronchus or lung; Z20.828 Contact with and (suspected) exposure to other viral communicable diseases; D70.9 Neutropenia, unspecified; D73.5 Infarction of spleen; K81.9 Cholecystitis, unspecified; D46.Z Other myelodysplastic syndromes; R50.81 Fever presenting with conditions classified elsewhere; M10.9 Gout, unspecified; F17.210 Nicotine dependence, cigarettes, uncomplicated; R19.7 Diarrhea, unspecified; D63.0 Anemia in neoplastic disease; F10.10 Alcohol abuse, uncomplicated; R10.13 Epigastric pain; R10.11 Right upper quadrant pain; K57.90 Diverticulosis of intestine, part unspecified, without perforation or abscess without bleeding; T45.1X5A Adverse effect of antineoplastic and immunosuppressive drugs, initial encounter; Z71.6 Tobacco abuse counseling; Z71.3 Dietary counseling and surveillance; Z79.899 Other long term (current) drug therapy; Z92.21 Personal history of antineoplastic chemotherapy; Z91.19 Patient's noncompliance with other medical treatment and regimen; Z80.9 Family history of malignant neoplasm, unspecified
CPT/HCPCS: 36415; 71046; 71048; 71260; 74018; 74160; 74177; 76705; 78226; 80048; 80053; 80202; 81001; 82272; 82565; 82728; 83540; 83550; 83605; 85025; 85027; 85610; 85730; 86850; 86900; 86901; 86920; 87040; 87045; 87046; 87070; 87205; 87324; 87338; 94640; 94760; 96365; 96372; 99285

== ENCOUNTER 2020-04-15 11:42 | Inpatient (IN) | payer MEDICARE, BC ==
--- NOTE | 2020-04-15 12:33 | ED ---
General Adult HPI - General Chief complaint: Recheck/Abnormal Lab/Rx Stated complaint: Low hemoglobin Time Seen by Provider: 04/15/20 11:55 Source: patient, RN notes reviewed, old records reviewed Mode of arrival: ambulatory Limitations: no limitations - History of Present Illness Initial comments: This is a 70-year-old male who presents to the emergency department with complaint of his hemoglobin is low. Patient states he's had chemo about a week ago and ever since then he's been extremely tired and appears to be getting more more tired. Patient states she's week and a little bit short of breath when he exerts himself. Patient states his primary medical care doctor called him today and told him his hemoglobin was 5.9. Patient denies any chest pain or palpitation. Patient denies any abdominal pain patient denies nausea vomiting diarrhea. Patient denies any black or bloody stools. Patient states she has a history of similar. Patient denies any chest pain. Patient denies any recent fever chills or cough. - Related Data Home Medications Medication Instructions Recorded Confirmed Multivitamins, Thera [Multivitamin 1 tab PO DAILY 03/20/20 03/20/20 (formulary)] Previous Rx's Medication Instructions Recorded Acyclovir 400 mg PO TID #90 tablet 03/17/20 Fluconazole [Diflucan] 100 mg PO DAILY #30 tab 03/17/20 Acetaminophen Tab [Tylenol] 650 mg PO Q6HR PRN tab 03/18/20 Albuterol Inhaler [Ventolin Hfa 2 puff INHALATION RT-TID #1 inhaler 03/29/20 Inhaler] Benzonatate [Tessalon Perles] 200 mg PO TID PRN #30 cap 03/29/20 Budesonide/Formoterol Fumarate 2 puff INHALATION BID #1 inhaler 03/29/20 [Symbicort 80-4.5 Mcg Inhaler] Cefuroxime Axetil [Ceftin] 500 mg PO BID 7 Days #14 tab 03/29/20 Dicyclomine [Bentyl] 20 mg PO QID #120 tab 03/29/20 Furosemide [Lasix] 40 mg PO DAILY #30 tablet 03/29/20 Potassium Chloride ER [K-Dur 20] 20 meq PO DAILY #30 tab 03/29/20 metroNIDAZOLE [Flagyl] 500 mg PO Q8HR #21 tab 03/29/20 predniSONE 0 mg PO DIRECTED #30 tab 03/29/20 Allergies Allergy/AdvReac Type Severity Reaction Status Date / Time No Known Allergies Allergy Verified 04/15/20 12:00 Review of Systems ROS Statement: Those systems with pertinent positive or pertinent negative responses have been documented in the HPI. ROS Other: All systems not noted in ROS Statement are negative. Past Medical History Past Medical History: Cancer, Skin Disorder Additional Past Medical History / Comment(s): Gout, chronic anemia, bone marrow cancer History of Any Multi-Drug Resistant Organisms: None Reported Past Surgical History: Orthopedic Surgery Additional Past Surgical History / Comment(s): surgery on rt leg and foot after injury age 3 Past Anesthesia/Blood Transfusion Reactions: No Reported Reaction Past Psychological History: No Psychological Hx Reported Smoking Status: Current every day smoker Past Alcohol Use History: Occasional Past Drug Use History: None Reported - Past Family History Mother Family Medical History: Cancer Brother(s) Family Medical History: Cancer Father Additional Family Medical History / Comment(s): Father at age 93 from old age. General Exam - General Exam Comments Initial Comments: GENERAL: Patient is well-developed and well-nourished. Patient is nontoxic and well- hydrated and is in mild distress. ENT: Neck is soft and supple. No significant lymphadenopathy is noted. Oropharynx is clear. Moist mucous membranes. Neck has full range of motion without eliciting any pain. EYES: Pale conjunctiva. Extraocular movements were intact and pupils were equal round and reactive to light. Eyelids were unremarkable. PULMONARY: Unlabored respirations. Good breath sounds bilaterally. No audible rales rhonchi or wheezing was noted. CARDIOVASCULAR: There is a regular rate and rhythm without any murmurs gallops or rubs. ABDOMEN: Soft and nontender with normal bowel sounds. SKIN: Skin is clear with no lesions or rashes and otherwise unremarkable. NEUROLOGIC: Patient is alert and oriented x3. Cranial nerves II through XII are grossly intact. Motor and sensory are also intact. Normal speech, volume and content. Symmetrical smile. MUSCULOSKELETAL: Normal extremities with adequate strength and full range of motion. No lower extremity swelling or edema. No calf tenderness. LYMPHATICS: No significant lymphadenopathy is noted PSYCHIATRIC: Normal psychiatric evaluation. Limitations: no limitations Course Vital Signs 04/15/20 11:55 Temperature 98.3 F Pulse Rate 75 Respiratory 18 Rate Blood Pressure 101/65 O2 Sat by Pulse 98 Oximetry Medical Decision Making - Medical Decision Making Patient received one unit of packed red blood cells. I spoke with Dr. Calloway he agreed to admit the patient admitted the patient wrote admitting orders. Critical Care Time Critical Care Time: Yes Total Critical Care Time: 35 Disposition Clinical Impression: Anemia Disposition: ADMITTED IP TO THIS HOSP Referrals: George Bustillos DO [Primary Care Provider] - 1-2 days Time of Disposition: 12:39
[2020-04-15 14:00] LABS: Anisocytosis Marked; Basophils % (A) 1 %; Eosinophils # (A) 0.1 k/uL (0-0.7); Eosinophils % (A) 8 %; Hypochromasia Marked; Lymphocytes # (A) 0.9 k/uL (1.0-4.8); Lymphocytes % (A) 68 %; MCH 33.4 pg (25.0-35.0); MCHC 31.4 g/dL (31.0-37.0); Macrocytosis Marked; Mean Platelet Volume 13.2; Monocytes % (A) 1 %; Neutrophils % (A) 17 %; RBC 1.52 m/uL (4.30-5.90)
[2020-04-15 14:07] LABS: Neutrophils # (A) 0.2 k/uL (1.3-7.7); RDW 28.1 % (11.5-15.5)
[2020-04-15 14:08] LABS: HCT 16.3 % (39.0-53.0); HGB 5.1 gm/dL (13.0-17.5); WBC 1.3 k/uL (3.8-10.6)
[2020-04-15 14:09] LABS: MCV 106.6 fL (80.0-100.0)
[2020-04-15 14:14] LABS: ALT 43 U/L (4-49); AST 47 U/L (17-59); African American GFR (CKD) >90 (>60 ml/min/1.73 sqM); Albumin 3.1 g/dL (3.5-5.0); Alkaline Phosphatase 61 U/L (38-126); Anion Gap 7 mmol/L; Blood Urea Nitrogen 41 mg/dL (9-20); Calcium 8.3 mg/dL (8.4-10.2); Carbon Dioxide 30 mmol/L (22-30); Chloride 99 mmol/L (98-107); Glucose 84 mg/dL (74-99); Non-African American GFR(CKD) 78 (>60 ml/min/1.73 sqM); Potassium 4.4 mmol/L (3.5-5.1); Sodium 136 mmol/L (137-145); Total Bilirubin 0.6 mg/dL (0.2-1.3); Total Protein 6.4 g/dL (6.3-8.2)
[2020-04-15 14:15] LABS: INR 0.9 (<1.2); Prothrombin Time 9.7 sec (9.0-12.0)
[2020-04-15 14:16] LABS: Partial Thromboplastin Time 21.9 sec (22.0-30.0)
[2020-04-15 14:17] LABS: Platelet Count 28 k/uL (150-450); Poikilocytosis (M) Present; Target Cells Present
[2020-04-15] MEDS: ALBUTEROL NEBULIZED 2.5 MG/3 ML INHALATION SCH (19:03)
[2020-04-15] MEDS: ACYCLOVIR 200 MG CAP PO SCH (20:32)
[2020-04-15] MEDS: DICYCLOMINE 20 MG TAB PO SCH (20:32)
--- NOTE | 2020-04-15 23:02 | P.HPIM ---
History of Present Illness H&P Date: 04/15/20 Chief Complaint: Severe anemia, pancytopenia, myelodysplasia, recurrent pneu monia, severe ti 70-year-old male one of Dr. Lee's patient with past medical history of anemia, gout, tobacco use, daily alcohol use and myelodysplasia who has been set pancytopenic for the last 2 month was started on chemotherapy with hematology recently was hospitalized for extended period of time for severe pancytopenia and severe neutropenia did not recover. Patient apparently went back on chemotherapy after he left the hospital last time. Today found to have severe anemia with hemoglobin of 5.1 with severe neutropenia white blood cell 1.3 and thrombocytopenia with platelets 28,000 only. Patient brought to [facility] department where was seen and evaluated has been very weak has not been able to ambulate and walk and has been having worsening shortness of breath with dyspnea with minimal exertion for the last few days. With a current hemoglobin his oncologist and instructed him to come to the hospital for admission for transfusion. Review of Systems CONSTITUTIONAL: Well-developed no acute respiratory distress. EYES: No icterus sclerae, no conjunctivitis. EARS, NOSE, MOUTH, THROAT, and FACE: No sore throat, lymphadenopathy, carotid bruits or deformity. RESPIRATORY: Positive shortness of breath cough wheezes. CARDIOVASCULAR: No CP, Palpitation, PND, Orthopnea, or angina. GASTROINTESTINAL: Mild change in bowel habit with mild diarrhea and slight dyspepsia GENITOURINARY: Negative for Hematuria or UTI, no kidney stones. INTEGUMENT/BREAST: Negative for any muscular injury with mild osteoarthritis.. HEMATOLOGIC/LYMPHATIC: History of myelodysplasia severe anemia thrombocytopenia and neutropenia. MUSCULOSKELTAL: Negative for Myalgia or arthralgia. NEURLOGICAL: No LOC, Sz or syncope, blurred vision dizziness or abnormality.. BEHAVIORAL/PSYCH: Negative. ENDOCRINE: Negative. Past Medical History Past Medical History: Blood Disorder, Cancer, Pneumonia, Skin Disorder Additional Past Medical History / Comment(s): Pt recently admitted to [facility] on 03/20/20 with neutropenic fever/sepsis with possible abdominal source/poorly marginated R upper lobe infiltrate/epigastric pain/severe malnutrition/exacerbation COPD. Other hx: MDS with ringed sideroblast-last chemo received M-F last week, pancytopenia, chronic anemia with transfusions, bilateral feet edema, History of Any Multi-Drug Resistant Organisms: None Reported Past Surgical History: Orthopedic Surgery Additional Past Surgical History / Comment(s): BMB, colonoscopy, surgery on rt leg and foot after injury age 3 Past Anesthesia/Blood Transfusion Reactions: No Reported Reaction Past Psychological History: No Psychological Hx Reported Additional Psychological History / Comment(s): Pt resides with his spouse. He uses no assistive device. He drives. Smoking Status: Current every day smoker Past Alcohol Use History: Occasional Additional Past Alcohol Use History / Comment(s): Patient started smoking in 1955 and is down to 1/2 ppd. Patient used to drink 4-6 beers per day for many years and cut down to 1-2 beers per day for the past 2 months. Past Drug Use History: None Reported - Past Family History Mother Family Medical History: Cancer Additional Family Medical History / Comment(s): Cervical cancer. Brother(s) Family Medical History: Cancer Additional Family Medical History / Comment(s): Pancreatic cancer with mets. Father Additional Family Medical History / Comment(s): Father at age 93 from old age. Medications and Allergies Home Medications Medication Instructions Recorded Confirmed Type Acyclovir 400 mg PO TID #90 tablet 03/17/20 04/15/20 Rx Fluconazole [Diflucan] 100 mg PO DAILY #30 tab 03/17/20 04/15/20 Rx Acetaminophen Tab [Tylenol] 650 mg PO Q6HR PRN tab 03/18/20 04/15/20 Rx Multivitamins, Thera [Multivitamin 1 tab PO DAILY 03/20/20 04/15/20 History (formulary)] Albuterol Inhaler [Ventolin Hfa 2 puff INHALATION RT-TID #1 inhaler 03/29/20 04/15/20 Rx Inhaler] Dicyclomine [Bentyl] 20 mg PO QID #120 tab 03/29/20 04/15/20 Rx Furosemide [Lasix] 40 mg PO DAILY #30 tablet 03/29/20 04/15/20 Rx Potassium Chloride ER [K-Dur 20] 20 meq PO DAILY #30 tab 03/29/20 04/15/20 Rx Allergies Allergy/AdvReac Type Severity Reaction Status Date / Time No Known Allergies Allergy Verified 04/15/20 13:26 Physical Exam Vitals: Vital Signs Temp Pulse Pulse Resp BP BP Pulse Ox 04/15/20 18:19 98.4 F 65 18 127/68 98 04/15/20 18:03 98.0 F 64 18 126/70 97 04/15/20 16:35 98.0 F 64 20 118/67 98 04/15/20 16:05 98.1 F 61 18 127/68 04/15/20 16:00 18 04/15/20 15:55 98.1 F 62 18 122/67 95 04/15/20 15:45 98.2 F 66 18 127/77 04/15/20 15:00 98.2 F 67 18 126/70 97 04/15/20 14:47 98.0 F 62 16 128/69 98 04/15/20 13:39 66 16 110/64 97 04/15/20 12:58 16 04/15/20 11:55 98.3 F 75 18 101/65 98 Intake and Output 04/15/20 04/15/20 04/15/20 06:59 14:59 22:59 Intake Total 160 310 Balance 160 310 Intake: Oral 160 Blood Product 310 Rc Irr As1 Unit 310 [id number] Other: # Voids 3 Weight 55.792 kg General Appearance: Alert, cooperative, no distress, appears stated age. Neck HEENT: Supple, no lymphadenopathy, no thyroid enlargement, no carotid bruits. Lungs: Decreased breaths on bilaterally with fine rhonchi positive mild expiratory wheezes. Chest Wall: Decrease expansion with deep inspiration no tenderness and no deformity was found on exam, no costochondral pain or discomfort. Heart: Regular rate and rhythm, S1, S2 mild tachycardia with systolic murmur. Back: Symmetric, no curvature, ROM normal, no CVA tenderness. Abdomen: Soft positive bowel sound slight discomfort in the mid abdominal area with mild organomegaly with multiple bruises no rebound or rigidity. Extremities: Extremities trace edema with multiple bruises positive mild ecchymosis as well. Pulses: 2+ and symmetric. Skin: Skin color, texture, tugor normal, no rashes or lesions. Neurologic: Alert oriented x3 cranial nerves II through XII intact, no motor deficit, no abnormal balance or gait. Results CBC & Chem 7: 04/15/20 13:39 04/15/20 13:39 Labs: Abnormal Lab Results - Last 24 Hours (Table) 04/15/20 04/15/20 04/15/20 Range/Units 13:39 13:39 13:39 WBC 1.3 L* (3.8-10.6) k/uL RBC 1.52 L (4.30-5.90) m/uL Hgb 5.1 L* D (13.0-17.5) gm/dL Hct 16.3 L* (39.0-53.0) % MCV 106.6 H D (80.0-100.0) fL RDW 28.1 H (11.5-15.5) % Plt Count 28 L D (150-450) k/uL Neutrophils # 0.2 L* (1.3-7.7) k/uL Lymphocytes # 0.9 L (1.0-4.8) k/uL Macrocytosis Marked A APTT (22.0-30.0) sec Sodium 136 L (137-145) mmol/L BUN 41 H (9-20) mg/dL Calcium 8.3 L (8.4-10.2) mg/dL Albumin 3.1 L (3.5-5.0) g/dL Crossmatch See Detail 04/15/20 Range/Units 13:39 WBC (3.8-10.6) k/uL RBC (4.30-5.90) m/uL Hgb (13.0-17.5) gm/dL Hct (39.0-53.0) % MCV (80.0-100.0) fL RDW (11.5-15.5) % Plt Count (150-450) k/uL Neutrophils # (1.3-7.7) k/uL Lymphocytes # (1.0-4.8) k/uL Macrocytosis APTT 21.9 L (22.0-30.0) sec Sodium (137-145) mmol/L BUN (9-20) mg/dL Calcium (8.4-10.2) mg/dL Albumin (3.5-5.0) g/dL Crossmatch Thrombosis Risk Factor Assmnt - DVT/VTE Prophylaxis DVT/VTE Prophylaxis: Mechanical Prophylaxis ordered - Choose All That Apply Any of the Below Risk Factors Present?: Yes Each Factor Represents 1 point: Abnormal pulmonary function (COPD), Sepsis (< 1month) Other Risk Factors: Yes Each Risk Factor Represents 2 Points: Age 61-74 years, Malignancy Other congenital or acquired thrombophilia - If yes, enter type in comment: No Thrombosis Risk Factor Assessment Total Risk Factor Score: 6 Thrombosis Risk Factor Assessment Level: High Risk Assessment and Plan Assessment: 1 acute symptomatic anemia: Patient will have 2 units of blood transfusion consult hematology iron infusion and possible Procrit might be recommended. 2 severe myelodysplasia: Has been on chemotherapy and seen hematology regular basis we'll consult hematology. 3 severe neutropenia: Patient to be started on Neulasta daily until the white blood cell is elevated. In the meanwhile patient will go back on antibiotics he was on site Critz, Diflucan and probably need to stay on cefepime. 4 COPD: Patient can be started on bedtime agonist inhaler or nebulizer. 5 chronic edema: More diastolic congestive heart failure and chronic continue furosemide at 40 mg daily. 6 recurrent pneumonia: Patient is asymptomatic at this point. Continue inhaler and antibiotics. 7 GI prophylaxis: Will add pantoprazole 40 mg daily. 8 DVT prophylaxis: Patient will stay on Venodyne boots and knee-high MOE hose. CODE STATUS: Full code. Admit patient to inpatient service for more than 2 night stay.
[2020-04-16] MEDS: CEFEPIME 2 GM in SODIUM CHLORIDE 0.9% 100 ML IVPB SCH ×3 (00:43→17:32)
[2020-04-16 07:56] LABS: ALT 40 U/L (4-49); AST 42 U/L (17-59); African American GFR (CKD) >90 (>60 ml/min/1.73 sqM); Albumin 2.7 g/dL (3.5-5.0); Alkaline Phosphatase 66 U/L (38-126); Anion Gap 6 mmol/L; Blood Urea Nitrogen 32 mg/dL (9-20); Calcium 7.9 mg/dL (8.4-10.2); Carbon Dioxide 29 mmol/L (22-30); Chloride 103 mmol/L (98-107); Glucose 97 mg/dL (74-99); Non-African American GFR(CKD) 86 (>60 ml/min/1.73 sqM); Potassium 4.2 mmol/L (3.5-5.1); Sodium 138 mmol/L (137-145); Total Bilirubin 1.5 mg/dL (0.2-1.3)
[2020-04-16 08:00] LABS: Anisocytosis Marked; HCT 22.2 % (39.0-53.0); MCH 33.2 pg (25.0-35.0); MCHC 33.2 g/dL (31.0-37.0); Macrocytosis Moderate; Poikilocytosis Slight; RBC 2.21 m/uL (4.30-5.90)
[2020-04-16 08:13] LABS: WBC 0.9 k/uL (3.8-10.6)
[2020-04-16 08:14] LABS: RDW 25.6 % (11.5-15.5)
[2020-04-16 08:15] LABS: HGB 7.3 gm/dL (13.0-17.5); MCV 100.2 fL (80.0-100.0)
[2020-04-16] MEDS: PANTOPRAZOLE 40 MG TABLET PO SCH (08:17)
[2020-04-16] MEDS: FUROSEMIDE 40 MG TAB PO SCH (08:17)
[2020-04-16] MEDS: DICYCLOMINE 20 MG TAB PO SCH ×4 (08:17→21:56)
[2020-04-16] MEDS: POTASSIUM CHLORIDE ER 20 MEQ TAB.ER PO SCH (08:17)
[2020-04-16] MEDS: ACYCLOVIR 200 MG CAP PO SCH ×3 (08:17→21:56)
[2020-04-16] MEDS: MULTIVITAMINS, THERA 1 EACH TAB PO SCH (08:17)
[2020-04-16 08:48] LABS: Platelet Count 18 k/uL (150-450)
[2020-04-16 08:49] LABS: Target Cells Present
[2020-04-16] MEDS: ALBUTEROL NEBULIZED 2.5 MG/3 ML INHALATION SCH ×3 (08:56→19:53)
[2020-04-16] MEDS ORDERED: FLUCONAZOLE 100 MG TAB PO SCH (09:00)
--- NOTE | 2020-04-16 12:07 | P.PN ---
Subjective Progress Note Date: 04/16/20 70-year-old male one of Dr. Bustillos's patient with past medical history of anemia, gout, tobacco use, daily alcohol use and myelodysplasia who has been set pancytopenic for the last 2 month was started on chemotherapy with hematology recently was hospitalized for extended period of time for severe pancytopenia and severe neutropenia did not recover. Patient apparently went back on chemotherapy after he left the hospital last time. Today found to have severe anemia with hemoglobin of 5.1 with severe neutropenia white blood cell 1.3 and thrombocytopenia with platelets 28,000 only. Patient brought to the [facility] emergency department where was seen and evaluated has been very weak has not been able to ambulate and walk and has been having worsening shortness of breath with dyspnea with minimal exertion for the last few days. With a current hemoglobin his oncologist and instructed him to come to the hospital for admission for transfusion. 04/16: Patient is seen today on the [facility] floor. He is status post 2 units of packed RBCs and repeat lab work reveals hemoglobin of 7.3, WBC 0.9, platelet count 18. Electrolytes normal, BUN 32 and creatinine 0.89. Calcium 7.9, total bilirubin 1.5, AST 42, ALT 40, alkaline phosphatase 66. Temperature max 100.0, heart rate 76, blood pressure 115/66, pulse ox 96% on room air. Consult in place for oncology. COVID-19 is pending. Review of Systems CONSTITUTIONAL: Well-developed no acute respiratory distress. Denies chills EYES: No icterus sclerae, no conjunctivitis. EARS, NOSE, MOUTH, THROAT, and FACE: No sore throat, lymphadenopathy, carotid bruits or deformity. RESPIRATORY: Positive shortness of breath cough wheezes. CARDIOVASCULAR: No CP, Palpitation, PND, Orthopnea, or angina. GASTROINTESTINAL: Mild change in bowel habit with mild diarrhea and slight dyspepsia GENITOURINARY: Negative for Hematuria or UTI, no kidney stones. INTEGUMENT/BREAST: Negative for any muscular injury with mild osteoarthritis.. HEMATOLOGIC/LYMPHATIC: History of myelodysplasia severe anemia thrombocytopenia and neutropenia. MUSCULOSKELTAL: Negative for Myalgia or arthralgia. NEURLOGICAL: No LOC, Sz or syncope, blurred vision dizziness or abnormality.. BEHAVIORAL/PSYCH: Negative. ENDOCRINE: Negative. Physical Examination General Appearance: Alert, cooperative, no distress, appears stated age. Patient sitting on the edge of the bed and appears to be in no acute distress. Neck HEENT: Supple, no lymphadenopathy, no thyroid enlargement, no carotid bruits. Lungs: Decreased breaths on bilaterally with fine rhonchi positive mild expiratory wheezes. Chest Wall: Decrease expansion with deep inspiration no tenderness and no deformity was found on exam, no costochondral pain or discomfort. Heart: Regular rate and rhythm, S1, S2 mild tachycardia with systolic murmur. Back: Symmetric, no curvature, ROM normal, no CVA tenderness. Abdomen: Soft positive bowel sound slight discomfort in the mid abdominal area with mild organomegaly with multiple bruises no rebound or rigidity. Extremities: Extremities trace edema with multiple bruises positive mild ecchymosis as well. Pulses: 2+ and symmetric. Skin: Skin color, texture, tugor normal, no rashes or lesions. Neurologic: Alert oriented x3 cranial nerves II through XII intact, no motor deficit, no abnormal balance or gait. Assessment and Plan 1 acute symptomatic anemia. Patient is status post transfusion of 2 units packed RBCs. Continue Protonix. 2 severe myelodysplasia: Has been on chemotherapy and seen hematology regular basis we'll consult hematology. Continue cefepime. 3 severe neutropenia. Oncology consult, expect oncology to start Neulasta daily until the white blood cell is elevated. In the meanwhile patient will go back on acyclovir, Diflucan and probably need to stay on cefepime. 4 COPD without exacerbation. Continue albuterol nebulizer 3 times daily. 5 chronic edema: More diastolic congestive heart failure and chronic continue furosemide at 40 mg daily. 6 recurrent pneumonia: Patient is asymptomatic at this point. Continue inhaler and antibiotics. 7 GI prophylaxis: pantoprazole 40 mg daily. 8 DVT prophylaxis: Patient will stay on Venodyne boots and knee-high MOE hose. CODE STATUS: Full code. Discharge plan: [facility] care and palliative care. Impression and plan of care have been directed as dictated by the signing physician. Dannielle Villegas nurse practitioner acting as scribe for signing physician. Objective - Vital Signs Vital signs: Vital Signs Temp 100.0 F H 04/16/20 05:00 Pulse 67 04/16/20 05:00 Resp 18 04/16/20 05:00 BP 132/67 07/24/20 05:00 Pulse Ox 96 04/16/20 05:00 Intake & Output 04/15/20 04/16/20 04/16/20 18:59 06:59 18:59 Intake Total 470 1210 Balance 470 1210 Weight 55.792 kg Intake: Intake, IV Titration 100 Amount Cefepime 2 gm In Sodium 100 Chloride 0.9% 100 ml @ 200 mls/hr IVPB Q8HR [facility] Rx#:[id number] Oral 160 800 Blood Product 310 310 Rc Irr As1 Unit 0 310 [id number] Rc Irr As1 Unit 310 [id number] Other: # Voids 3 1 - Labs CBC & Chem 7: 04/16/20 06:50 04/16/20 06:50 Labs: Abnormal Lab Results - Last 24 Hours (Table) 04/15/20 04/15/20 04/15/20 Range/Units 13:39 13:39 13:39 WBC 1.3 L* (3.8-10.6) k/uL RBC 1.52 L (4.30-5.90) m/uL Hgb 5.1 L* D (13.0-17.5) gm/dL Hct 16.3 L* (39.0-53.0) % MCV 106.6 H D (80.0-100.0) fL RDW 28.1 H (11.5-15.5) % Plt Count 28 L D (150-450) k/uL Neutrophils # 0.2 L* (1.3-7.7) k/uL Lymphocytes # 0.9 L (1.0-4.8) k/uL Macrocytosis Marked A APTT (22.0-30.0) sec Sodium 136 L (137-145) mmol/L BUN 41 H (9-20) mg/dL Calcium 8.3 L (8.4-10.2) mg/dL Total Bilirubin (0.2-1.3) mg/dL Total Protein (6.3-8.2) g/dL Albumin 3.1 L (3.5-5.0) g/dL Crossmatch See Detail 04/15/20 04/16/20 Range/Units 13:39 06:50 WBC (3.8-10.6) k/uL RBC (4.30-5.90) m/uL Hgb (13.0-17.5) gm/dL Hct (39.0-53.0) % MCV (80.0-100.0) fL RDW (11.5-15.5) % Plt Count (150-450) k/uL Neutrophils # (1.3-7.7) k/uL Lymphocytes # (1.0-4.8) k/uL Macrocytosis APTT 21.9 L (22.0-30.0) sec Sodium (137-145) mmol/L BUN 32 H (9-20) mg/dL Calcium 7.9 L (8.4-10.2) mg/dL Total Bilirubin 1.5 H (0.2-1.3) mg/dL Total Protein 6.0 L (6.3-8.2) g/dL Albumin 2.7 L (3.5-5.0) g/dL Crossmatch
[2020-04-16 14:29] VITALS: BMI 16.7
--- NOTE | 2020-04-16 15:26 | P.CONS ---
<Lori Scruggs - Last Filed: 04/16/20 20:16> History of Present Illness - Reason for Consult Consult date: 04/16/20 Pancytopenia Requesting physician: Dequan Bhatti - Chief Complaint Symptomatic Anemia - History of Present Illness Mr Walls is a pleasant WM, referred here for progressive anemia, and persistently high MCV. Labs from 03/06 revealed a Hgb of 13.3, with MCV 111.4. CRP was mildly elevated at 1.37.On 05/31/16, Hgb was 8.6, with MCV 116.5. Ferritin was 1053, but saturation was normal at 27%. TIBC was low at 246. CRP was higher at 3.02. Total globulin was elevated at 4.1. Other aspects of his CBC and CMP were normal. He denied any prior h/o blood problems, or transfusions, or any ongoing chronic inflammatory condition. Additional labs were ordered, which were negative, other than a mild elevation of light chains, with normal ratio. Repeat iron studies again showed no evidence of hemochromatosis. He had a bone marrow on 08/30/16/. Prelim report, per my discussion with Pathology indicated erythroid hyperplasia, with some megaloblastoid changes, and increased ring sideroblasts. Flow indicated an aberrant population of blasts ( 1%). This is most indicative of MDS. He denied any f/c/n/v/LAD/joint swelling/obvious inflammation. His ROS is otherwise as per HPI and negative out of 10. On 01/20/20: the patient was referred back here as a new consult. At the time of his initial evaluation, on discussion of the pathology, he had indicated that he did not want any treatment especially chemotherapy. As hemoglobin was still in a safe range, it was recommended that the patient be followed with observation at the time. However he canceled his scheduled appointment in 10/10 did not follow-up in the office subsequently. According to physician notes available the patient remained quite noncompliant and erratic in follow-up with his PCP. He had presented in 12/11 with complains of progressive fatigue, shortness of breath on exertion, and dizziness over the past several weeks. He was found to have a hemoglobin of 6.7 with MCV 99, platelets 193 and WBC 4.5 with ANC 1.2 and ALC 2.1.GFR was essentially normal, along with other liver enzymes. Uric acid was elevated at 8.2. C-reactive protein was 9.5. His iron saturation was 50% with ferritin 930. the patient was admitted to [facility] on 12/11/19 and received blood transfusion. Hemoglobin improvement to the 8 range any was subsequently discharged. He also had a flow cytometry done by his PCP around this time which was negative other than some neutropenia. the patient had a bone marrow aspiration biopsy repeated on 01/26/20. This revealed similar changes with erythroid hyperplasia, and ring sideroblasts indicative of MDS. There was no evidence of transformation to acute leukemia. The patient had repeat bone marrow aspiration biopsy with results as noted above. He did agree to starting on Dacogen and tolerated well He continues with SOB (continues to smoke). He presented to emergency with he moglobin of 5.3. He was transfused and hemoglobin has recovered to safe range. Review of Systems A 14 point review of systems assessed and completed and all negative except HPI Past Medical History Past Medical History: Blood Disorder, Cancer, Pneumonia, Skin Disorder Additional Past Medical History / Comment(s): Pt recently admitted to [facility] on 03/20/20 with neutropenic fever/sepsis with possible abdominal source/poorly marginated R upper lobe infiltrate/epigastric pain/severe malnutrition/exacerbation COPD. Other hx: MDS with ringed sideroblast-last chemo received M-F last week, pancytopenia, chronic anemia with transfusions, bilateral feet edema, History of Any Multi-Drug Resistant Organisms: None Reported Past Surgical History: Orthopedic Surgery Additional Past Surgical History / Comment(s): BMB, colonoscopy, surgery on rt leg and foot after injury age 3 Past Anesthesia/Blood Transfusion Reactions: No Reported Reaction Past Psychological History: No Psychological Hx Reported Additional Psychological History / Comment(s): Pt resides with his spouse. He uses no assistive device. He drives. Smoking Status: Current every day smoker Past Alcohol Use History: Occasional Additional Past Alcohol Use History / Comment(s): Patient started smoking in 1955 and is down to 1/2 ppd. Patient used to drink 4-6 beers per day for many years and cut down to 1-2 beers per day for the past 2 months. Past Drug Use History: None Reported - Past Family History Mother Family Medical History: Cancer Additional Family Medical History / Comment(s): Cervical cancer. Brother(s) Family Medical History: Cancer Additional Family Medical History / Comment(s): Pancreatic cancer with mets. Father Additional Family Medical History / Comment(s): Father at age 93 from old age. Medications and Allergies Home Medications Medication Instructions Recorded Confirmed Type Acyclovir 400 mg PO TID #90 tablet 03/17/20 04/15/20 Rx Fluconazole [Diflucan] 100 mg PO DAILY #30 tab 03/17/20 04/15/20 Rx Acetaminophen Tab [Tylenol] 650 mg PO Q6HR PRN tab 03/18/20 04/15/20 Rx Multivitamins, Thera [Multivitamin 1 tab PO DAILY 03/20/20 04/15/20 History (formulary)] Albuterol Inhaler [Ventolin Hfa 2 puff INHALATION RT-TID #1 inhaler 03/29/20 04/15/20 Rx Inhaler] Dicyclomine [Bentyl] 20 mg PO QID #120 tab 03/29/20 04/15/20 Rx Furosemide [Lasix] 40 mg PO DAILY #30 tablet 03/29/20 04/15/20 Rx Potassium Chloride ER [K-Dur 20] 20 meq PO DAILY #30 tab 03/29/20 04/15/20 Rx Allergies Allergy/AdvReac Type Severity Reaction Status Date / Time No Known Allergies Allergy Verified 04/15/20 13:26 Physical Exam Vitals: Vital Signs Temp Pulse Pulse Resp BP BP Pulse Ox 04/16/20 11:39 72 04/16/20 11:31 72 04/16/20 11:23 98.8 F 68 18 115/66 96 04/16/20 09:07 76 04/16/20 08:57 72 04/16/20 05:00 100.0 F H 67 18 132/67 96 04/15/20 22:00 99.5 F 66 16 134/71 04/15/20 20:00 98.5 F 64 18 126/65 100 04/15/20 19:11 72 04/15/20 19:06 98.6 F 64 16 127/68 04/15/20 19:05 70 04/15/20 19:00 98.4 F 64 16 127/68 100 04/15/20 18:45 98.3 F 67 18 120/67 04/15/20 18:36 98.1 F 65 18 120/67 98 04/15/20 18:26 98.1 F 62 122/68 98 04/15/20 18:19 98.4 F 65 18 127/68 98 04/15/20 18:03 98.0 F 64 18 126/70 97 04/15/20 16:35 98.0 F 64 20 118/67 98 04/15/20 16:05 98.1 F 61 18 127/68 04/15/20 16:00 18 04/15/20 15:55 98.1 F 62 18 122/67 95 04/15/20 15:45 98.2 F 66 18 127/77 Intake and Output 04/16/20 04/16/20 04/16/20 06:59 14:59 22:59 Intake Total 600 500 Balance 600 500 Intake: Intake, IV Titration 100 Amount Cefepime 2 gm In Sodium 100 Chloride 0.9% 100 ml @ 200 mls/hr IVPB Q8HR [facility] [place] Rx#:[id number] Oral 500 500 Other: # Voids 1 Weight 55.792 kg - Constitutional General appearance: cooperative, no acute distress - EENT Eyes: EOMI, PERRLA ENT: NA/AT, normal oropharynx - Respiratory Respiratory: bilateral: diminished (no increased effort) - Cardiovascular Rhythm: regular Heart sounds: normal: S1, S2 - Gastrointestinal General gastrointestinal: normal bowel sounds, soft - Integumentary Integumentary: pale - Neurologic non-focal - Musculoskeletal Musculoskeletal: generalized weakness, strength equal bilaterally - Psychiatric Psychiatric: A&O x's 3, appropriate affect, intact judgment & insight Results CBC & Chem 7: 04/16/20 06:50 04/16/20 06:50 Labs: Abnormal Lab Results - Last 24 Hours (Table) 04/15/20 04/16/20 04/16/20 Range/Units 13:39 06:50 06:50 WBC 0.9 L* (3.8-10.6) k/uL RBC 2.21 L (4.30-5.90) m/uL Hgb 7.3 L D (13.0-17.5) gm/dL Hct 22.2 L (39.0-53.0) % MCV 100.2 H D (80.0-100.0) fL RDW 25.6 H (11.5-15.5) % Plt Count 18 L* (150-450) k/uL BUN 32 H (9-20) mg/dL Calcium 7.9 L (8.4-10.2) mg/dL Total Bilirubin 1.5 H (0.2-1.3) mg/dL Total Protein 6.0 L (6.3-8.2) g/dL Albumin 2.7 L (3.5-5.0) g/dL Crossmatch See Detail Assessment and Plan (1) MDS (myelodysplastic syndrome), high grade Current Visit: No Status: Acute Priority: High Code(s): D46.Z - OTHER MYELODYSPLASTIC SYNDROMES SNOMED Code(s): 485513433 Plan: Assessment and Recs: MDS: Severe symptomatic Anemia: - Recovered nicely after transfusions and patient is feeling better. - He can follow-up with Dr. Ford regarding continuation of treatment as an outpatient - Recommend close CBC as outpatient - Transfusion with hemoglobin less than 7, platlets less than 10K Febrile Neutropenia: - Temp increased this am, possibly yfrom transfusion but with neutropenia jerez cultures and chest xray warranted - Levaquin prophylaxis Physician Attest: I have completed the full history and physical and agree with above dictation dictated as a scribe. <Lee Flores - Last Filed: 04/17/20 09:49> Physical Exam Vitals: Vital Signs Temp Pulse Pulse Resp BP Pulse Ox 04/17/20 09:14 72 04/17/20 09:04 72 04/17/20 05:00 99.8 F H 75 18 133/77 98 04/16/20 21:00 99.7 F H 73 18 105/63 97 04/16/20 20:02 72 04/16/20 19:53 68 04/16/20 11:39 72 04/16/20 11:31 72 04/16/20 11:23 98.8 F 68 18 115/66 96 Intake and Output 04/16/20 04/17/20 04/17/20 22:59 06:59 14:59 Intake Total 500 Balance 500 Intake: Oral 500 Other: Voiding Method Toilet Toilet Urinal Urinal Results CBC & Chem 7: 04/17/20 08:44 04/17/20 08:44 Labs: Abnormal Lab Results - Last 24 Hours (Table) 04/16/20 04/17/20 04/17/20 Range/Units 22:22 08:44 08:44 WBC 0.7 L* (3.8-10.6) k/uL RBC 2.04 L (4.30-5.90) m/uL Hgb 7.1 L (13.0-17.5) gm/dL Hct 20.7 L (39.0-53.0) % MCV 101.7 H (80.0-100.0) fL RDW 24.6 H (11.5-15.5) % Plt Count 16 L* (150-450) k/uL BUN 26 H (9-20) mg/dL Glucose 111 H (74-99) mg/dL Calcium 7.9 L (8.4-10.2) mg/dL Total Protein 6.1 L (6.3-8.2) g/dL Albumin 2.8 L (3.5-5.0) g/dL Urine Protein Trace H (Negative) Urine Ketones Trace H (Negative) Urine Blood Moderate H (Negative) Urine RBC 7 H (0-5) /hpf Hyaline Casts 4 H (0-2) /lpf Urine Mucus Rare H (None) /hpf Assessment and Plan Plan: Pt did have good recovery after C 1 with GCSFof his WBC. Plt had also improved. This is possibly indicative of response Now with pancytopenia after C 2, which is expected. Has received Neulasta. Treat with supportive transfusions to keep Hgb > 7 and plt > 10 Low grade temp < 100.4. If no fevers, and infection w/u negative, can be d/c'ed from our standpoint. Will continue monitoring and supportive transfusions in the office
--- NOTE | 2020-04-16 21:06 | XR ---
EXAMINATION TYPE: XR chest 2V DATE OF EXAM: 04/16/2020 COMPARISON: 03/27/2020 HISTORY: Fever TECHNIQUE: FINDINGS: Heart is normal. Lungs are clear of infiltrate. There is no heart failure. Costophrenic ang les are clear. There are no hilar masses. Bony thorax is intact. IMPRESSION: No active cardiopulmonary disease. There is clearing of the pulmonary edema and pleural f luid compared to old exam.
[2020-04-16] MEDS: LEVOFLOXACIN 500 MG TAB PO SCH (21:56)
[2020-04-16] MEDS: NYSTATIN 100,000 UNIT/ML SUSP 500,000 UNIT/5 ML CUP PO SCH (22:30)
[2020-04-17 00:05] LABS: Appearance,Urine Clear (Clear); Bilirubin,Urine Negative (Negative); Blood,Urine Moderate (Negative); Color,Urine Yellow; Glucose,Urine (UA) Negative (Negative); Hyaline Casts,Urine 4 /lpf (0-2); Ketones,Urine Trace (Negative); Leukocyte Esterase,Urine Negative (Negative); Mucus,Urine Rare /hpf; Nitrite,Urine Negative (Negative); PH, Urine 5.5 (5.0-8.0); Protein,Urine Trace (Negative); RBC,Urine 7 /hpf (0-5); Specific Gravity,Urine 1.017 (1.001-1.035); Squamous Epithelial Cell,Urine <1 /hpf (0-4); Urobilinogen,Urine <2.0 mg/dL (<2.0); WBC,Urine 2 /hpf (0-5)
[2020-04-17] MEDS: CEFEPIME 2 GM in SODIUM CHLORIDE 0.9% 100 ML IVPB SCH ×4 (01:36→23:31)
[2020-04-17] MEDS: POTASSIUM CHLORIDE ER 20 MEQ TAB.ER PO SCH (08:53)
[2020-04-17] MEDS: PANTOPRAZOLE 40 MG TABLET PO SCH (08:54)
[2020-04-17] MEDS: FUROSEMIDE 40 MG TAB PO SCH (08:54)
[2020-04-17] MEDS: ACYCLOVIR 200 MG CAP PO SCH ×3 (08:54→22:17)
[2020-04-17] MEDS: NYSTATIN 100,000 UNIT/ML SUSP 500,000 UNIT/5 ML CUP PO SCH ×4 (08:54→23:31)
[2020-04-17] MEDS: DICYCLOMINE 20 MG TAB PO SCH ×4 (08:54→22:17)
[2020-04-17] MEDS: ALBUTEROL NEBULIZED 2.5 MG/3 ML INHALATION SCH ×3 (09:04→19:02)
[2020-04-17 09:21] LABS: Anisocytosis Marked; HCT 20.7 % (39.0-53.0); HGB 7.1 gm/dL (13.0-17.5); Hypochromasia Slight; MCH 34.9 pg (25.0-35.0); MCHC 34.3 g/dL (31.0-37.0); MCV 101.7 fL (80.0-100.0); Macrocytosis Moderate; Mean Platelet Volume 18.8; RBC 2.04 m/uL (4.30-5.90); RDW 24.6 % (11.5-15.5)
[2020-04-17 09:23] LABS: ALT 42 U/L (4-49); AST 44 U/L (17-59); African American GFR (CKD) >90 (>60 ml/min/1.73 sqM); Albumin 2.8 g/dL (3.5-5.0); Alkaline Phosphatase 57 U/L (38-126); Anion Gap 6 mmol/L; Blood Urea Nitrogen 26 mg/dL (9-20); Calcium 7.9 mg/dL (8.4-10.2); Carbon Dioxide 28 mmol/L (22-30); Chloride 104 mmol/L (98-107); Glucose 111 mg/dL (74-99); Non-African American GFR(CKD) 79 (>60 ml/min/1.73 sqM); Sodium 138 mmol/L (137-145); Total Protein 6.1 g/dL (6.3-8.2)
[2020-04-17 09:25] LABS: Platelet Count 16 k/uL (150-450); WBC 0.7 k/uL (3.8-10.6)
[2020-04-17] MEDS ORDERED: RX INFO: IV CONTRAST WAS GIVEN 1 EACH MISC MISCELLANE PRN (15:32)
--- NOTE | 2020-04-17 15:37 | P.PN ---
Subjective Progress Note Date: 04/17/20 70-year-old male one of Dr. Bustillos's patient with past medical history of anemia, gout, tobacco use, daily alcohol use and myelodysplasia who has been set pancytopenic for the last 2 month was started on chemotherapy with hematology recently was hospitalized for extended period of time for severe pancytopenia and severe neutropenia did not recover. Patient apparently went back on chemotherapy after he left the hospital last time. Today found to have severe anemia with hemoglobin of 5.1 with severe neutropenia white blood cell 1.3 and thrombocytopenia with platelets 28,000 only. Patient brought to the [facility] emergency department where was seen and evaluated has been very weak has not been able to ambulate and walk and has been having worsening shortness of breath with dyspnea with minimal exertion for the last few days. With a current hemoglobin his oncologist and instructed him to come to the hospital for admission for transfusion. 04/16: Patient is seen today on the [facility] floor. He is status post 2 units of packed RBCs and repeat lab work reveals hemoglobin of 7.3, WBC 0.9, platelet count 18. Electrolytes normal, BUN 32 and creatinine 0.89. Calcium 7.9, total bilirubin 1.5, AST 42, ALT 40, alkaline phosphatase 66. Temperature max 100.0, heart rate 76, blood pressure 115/66, pulse ox 96% on room air. Consult in place for oncology. COVID-19 is pending. 04/17: Hemoglobin currently is at 7.1, platelet count of 16, double basic count of 0.7 oncology thinks that he has myelodysplasia,patient wants to stay another day just in case he needs another blood products, as it's difficult for him to be transported back and forth with the who has been on a wheelchair, patient has chronic cough from smoking, denies any feverhowever T-max is 100.0 within the past 24 hours, Covid testc negative,chest x-ray shows no acute pulmonary disease, has clearing of pulmonary edema and pleural fluid compared to old exam,urinalyses WBC of 2,blood cultures would be sent secondary to the fever, consult Dr. Garcia for neutropenic fever, unknown primary at this time,start patient on cefotaxime, Levaquin, we will obtain high resolution CT of the chest, CT of the abdomen fromMarch 25, 2020 was reviewed , CT March 21, 2 cm stellate mass right upper lobe, 4 x 2 cm hypodensity posterior spleen no hydronephrosis no pulmonary has seen the patient, consult with Dr. Ragland pulmonary Review of Systems CONSTITUTIONAL: Well-developed no acute respiratory distress. Denies chills EYES: No icterus sclerae, no conjunctivitis. EARS, NOSE, MOUTH, THROAT, and FACE: No sore throat, lymphadenopathy, carotid bruits or deformity. RESPIRATORY: Positive shortness of breath cough wheezes. CARDIOVASCULAR: No CP, Palpitation, PND, Orthopnea, or angina. GASTROINTESTINAL: Mild change in bowel habit with mild diarrhea and slight dyspepsia GENITOURINARY: Negative for Hematuria or UTI, no kidney stones. INTEGUMENT/BREAST: Negative for any muscular injury with mild osteoarthritis.. HEMATOLOGIC/LYMPHATIC: History of myelodysplasia severe anemia thrombocytopenia and neutropenia. MUSCULOSKELTAL: Negative for Myalgia or arthralgia. NEURLOGICAL: No LOC, Sz or syncope, blurred vision dizziness or abnormality.. BEHAVIORAL/PSYCH: Negative. ENDOCRINE: Negative. Objective - Vital Signs Vital signs: Vital Signs Temp 97.9 F 04/17/20 11:43 Pulse 72 04/17/20 12:24 Resp 17 04/17/20 11:43 BP 105/72 04/17/20 11:43 Pulse Ox 100 04/17/20 11:43 Intake & Output 04/16/20 04/17/20 04/17/20 18:59 06:59 18:59 Intake Total 500 500 Balance 500 500 Weight 55.792 kg Intake: Oral 500 500 Other: Voiding Method Toilet Toilet Urinal Urinal # Voids 1 - Constitutional General appearance: Present: cooperative, no acute distress, thin - EENT Eyes: Present: anicteric sclerae, EOMI, poor dentition ENT: Present: hard of hearing, NA/AT, normal oropharynx - Neck Neck: Present: normal ROM Carotids: bilateral: upstroke normal - Respiratory Respiratory: bilateral: CTA, diminished, negative: wheezing - Cardiovascular Rhythm: regular Heart sounds: normal: S1, S2 Abnormal Heart Sounds: Absent: systolic murmur, diastolic murmur, rub, S3 Gallop, S4 Gallop, click, other - Gastrointestinal General gastrointestinal: Present: normal bowel sounds, soft - Integumentary Integumentary: Present: decreased turgor, normal - Neurologic Neurologic: Present: CNII-XII intact - Musculoskeletal Musculoskeletal: Present: gait normal, strength equal bilaterally - Psychiatric Psychiatric: Present: A&O x's 3, appropriate affect, intact judgment & insight - Labs CBC & Chem 7: 04/18/20 06:34 04/18/20 06:34 Labs: Abnormal Lab Results - Last 24 Hours (Table) 04/16/20 04/17/20 04/17/20 Range/Units 22:22 08:44 08:44 WBC 0.7 L* (3.8-10.6) k/uL RBC 2.04 L (4.30-5.90) m/uL Hgb 7.1 L (13.0-17.5) gm/dL Hct 20.7 L (39.0-53.0) % MCV 101.7 H (80.0-100.0) fL RDW 24.6 H (11.5-15.5) % Plt Count 16 L* (150-450) k/uL BUN 26 H (9-20) mg/dL Glucose 111 H (74-99) mg/dL Calcium 7.9 L (8.4-10.2) mg/dL Total Protein 6.1 L (6.3-8.2) g/dL Albumin 2.8 L (3.5-5.0) g/dL Urine Protein Trace H (Negative) Urine Ketones Trace H (Negative) Urine Blood Moderate H (Negative) Urine RBC 7 H (0-5) /hpf Hyaline Casts 4 H (0-2) /lpf Urine Mucus Rare H (None) /hpf Assessment and Plan Plan: Assessment and Plan 1 acute symptomatic anemia. Patient is status post transfusion of 2 units packe d RBCs. 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 Continue cefepime.on oral Levaquin, IV vancomycin addedfor empiric treatment, 3. Neutropenic fever, consult Dr. Gutierrez, cefepime IVand oral LevaquinCyclovir, sputum cultures, blood cultures, urinalysis normal 3 severe neutropenia. Oncology consult, expect oncology to start Neulasta daily until the white blood cell is elevated. In the meanwhile patient will go back on acyclovir, Diflucan 4 COPD without exacerbation. Continue albuterol nebulizer 3 times daily. 6. Lung mass as previously seen March 21, repeat CT chest IV contrast, will need PET/CTas outpatient against biopsy however with severe thrombocytopenia, this would not be an option, consult Dr. Ragland, and patient aware 5 chronic edema: More diastolic congestive heart failure and chronic continue furosemide at 40 mg daily. 6 recurrent pneumonia: Patient is asymptomatic at this point. Continue inhaler and antibiotics. 7 chronic cough, with lung mass 2 cm right stellate, need full evaluation, repeat CT chest, consult Dr. Ragland, will need either bronchoscopyagainst P ET/CT, however platelets are too low 7 GI prophylaxis: pantoprazole 40 mg daily. 8 DVT prophylaxis: Patient will stay on Venodyne boots and knee-high MOE hose. CODE STATUS: Full code.
[2020-04-17] MEDS ORDERED: VANCOMYCIN IV PER PHARMACY 1 EACH MISC MISCELLANE PRN (15:43)
[2020-04-17] MEDS ORDERED: VANCOMYCIN 1,000 MG in SODIUM CHLORIDE 0.9% 250 ML IVPB STA (15:43)
--- NOTE | 2020-04-17 16:51 | CT ---
EXAMINATION TYPE: CT chest w con DATE OF EXAM: 04/17/2020 COMPARISON: 03/21/2020 HISTORY: Lung mass stelate, fever unknown origin. CT DLP: 127 mGycm Automated exposure control for dose reduction was used. CONTRAST: Performed with IV Contrast, patient injected with 100 mL of Isovue 300. There is a spiculated 16 x 10 x 30 mm infiltrate in the right upper lobe. This is a somewhat linear d istribution and appears not significantly different than previous exam. There is 1.5 cm noncalcified subpleural nodular density in the posterior aspect of the right midlung in the posterior segment righ t upper lobe. There is 7 mm noncalcified nodule subpleural in the right lower lobe superior segment. There is 2.3 cm cavitating spiculated infiltrate in the left lower lobe posterior basal segment. Ther e is extensive calcified pleural plaque at the lung bases. There is no pleural effusion. There are no hilar masses. There are a few mediastinal lymph nodes that measure up to 1 cm. 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 Thoracic vertebra have normal alignment. Disc spaces are fairly normal. There is no compression fract ure. Sternum is intact. The upper abdominal soft tissues are intact. There is 1.5 cm cyst upper pole right kidney. IMPRESSION: Multiple pulmonary abnormalities as above. Linear somewhat spiculated infiltrate right upper lobe unc hanged. Subpleural nodule posterior segment right upper lobe unchanged. There is a new cavitating inf iltrate left lower lobe compared to old exam and more likely inflammatory. There is mild mediastinal adenopathy improved compared to old exam. Extensive calcified pleural plaque involving diaphragmatic pleura. Findings overall more likely related to inflammatory disease. The follow-up interval is too s hort to conclude benign etiology.
[2020-04-17] MEDS ORDERED: VANCOMYCIN 1,000 MG in SODIUM CHLORIDE 0.9% 250 ML IVPB ONE (18:00)
[2020-04-17 18:21] LABS: Anisocytosis Marked; HCT 21.1 % (39.0-53.0); HGB 7.1 gm/dL (13.0-17.5); Hypochromasia Slight; MCH 34.3 pg (25.0-35.0); MCHC 33.5 g/dL (31.0-37.0); MCV 102.3 fL (80.0-100.0); Macrocytosis Moderate; Mean Platelet Volume 15.3; RBC 2.06 m/uL (4.30-5.90); RDW 24.3 % (11.5-15.5)
[2020-04-17 18:29] LABS: Platelet Count 12 k/uL (150-450); WBC 0.7 k/uL (3.8-10.6)
[2020-04-17] MEDS: LEVOFLOXACIN 500 MG TAB PO SCH (22:17)
[2020-04-18] MEDS: VANCOMYCIN 1,000 MG in SODIUM CHLORIDE 0.9% 250 ML IVPB SCH ×2 (03:50→18:08)
[2020-04-18 08:12] LABS: Anisocytosis Marked; Hypochromasia Slight; MCH 31.8 pg (25.0-35.0); MCHC 31.4 g/dL (31.0-37.0); MCV 101.5 fL (80.0-100.0); Macrocytosis Moderate; Mean Platelet Volume 12.6; RBC 1.87 m/uL (4.30-5.90); RDW 24.2 % (11.5-15.5)
[2020-04-18 08:18] LABS: Albumin 2.5 g/dL (3.5-5.0); Calcium 7.9 mg/dL (8.4-10.2); Potassium 4.7 mmol/L (3.5-5.1); Total Bilirubin 0.9 mg/dL (0.2-1.3); Total Protein 5.7 g/dL (6.3-8.2)
[2020-04-18] MEDS: ALBUTEROL NEBULIZED 2.5 MG/3 ML INHALATION SCH ×3 (08:34→19:35)
[2020-04-18 08:53] LABS: WBC 0.7 k/uL (3.8-10.6)
[2020-04-18 08:56] LABS: Platelet Count 9 k/uL (150-450)
[2020-04-18] MEDS: PANTOPRAZOLE 40 MG TABLET PO SCH (09:14)
[2020-04-18] MEDS: MULTIVITAMINS, THERA 1 EACH TAB PO SCH (09:14)
[2020-04-18] MEDS: ACYCLOVIR 200 MG CAP PO SCH ×3 (09:14→20:44)
[2020-04-18] MEDS: POTASSIUM CHLORIDE ER 20 MEQ TAB.ER PO SCH (09:14)
[2020-04-18] MEDS: DICYCLOMINE 20 MG TAB PO SCH ×4 (09:14→20:44)
[2020-04-18] MEDS: CEFEPIME 2 GM in SODIUM CHLORIDE 0.9% 100 ML IVPB SCH ×3 (09:15→23:16)
[2020-04-18] MEDS: FUROSEMIDE 40 MG TAB PO SCH (09:15)
[2020-04-18] MEDS: NYSTATIN 100,000 UNIT/ML SUSP 500,000 UNIT/5 ML CUP PO SCH ×4 (09:22→20:44)
--- NOTE | 2020-04-18 10:27 | P.PN ---
Subjective Progress Note Date: 04/18/20 Patient states that he feels mildly lightheaded on exertion, but denies any falls or significant dizziness. No obvious bleeding. No fever/chills/nausea/vomiting. Objective - Vital Signs Vital signs: Vital Signs Temp 99.3 F 04/18/20 05:00 Pulse 76 04/18/20 08:47 Resp 18 04/18/20 05:00 BP 93/54 04/18/20 05:00 Pulse Ox 94 L 04/18/20 05:00 Intake & Output 04/17/20 04/18/20 04/18/20 18:59 06:59 18:59 Intake Total 600 850 Balance 600 850 Intake: Intake, IV Titration 350 Amount Cefepime 2 gm In Sodium 100 Chloride 0.9% 100 ml @ 200 mls/hr IVPB Q8HR [facility] Rx#:[id number] Vancomycin 1,000 mg In 250 Sodium Chloride 0.9% 250 ml @ 125 mls/hr IVPB ONCE ONE Rx#:[id number] Oral 600 500 Other: Voiding Method Toilet Toilet Urinal Urinal # Voids 0 # Bowel Movements 0 - Constitutional General appearance: Present: no acute distress - EENT Eyes: Present: EOMI ENT: Present: hearing grossly normal, normal oropharynx - Respiratory Respiratory: bilateral: CTA - Cardiovascular Rhythm: regular Heart sounds: normal: S1, S2 - Gastrointestinal General gastrointestinal: Present: normal bowel sounds, soft - Integumentary Integumentary: Present: normal - Neurologic Neurologic: Present: CNII-XII intact - Musculoskeletal Musculoskeletal: Present: generalized weakness, strength equal bilaterally - Psychiatric Psychiatric: Present: A&O x's 3, appropriate affect - Labs CBC & Chem 7: 04/18/20 06:34 04/18/20 06:34 Labs: Abnormal Lab Results - Last 24 Hours (Table) 04/17/20 04/18/20 04/18/20 Range/Units 17:56 06:34 06:34 WBC 0.7 L* 0.7 L* (3.8-10.6) k/uL RBC 2.06 L 1.87 L (4.30-5.90) m/uL Hgb 7.1 L 6.0 L* (13.0-17.5) gm/dL Hct 21.1 L 19.0 L* (39.0-53.0) % MCV 102.3 H 101.5 H (80.0-100.0) fL RDW 24.3 H 24.2 H (11.5-15.5) % Plt Count 12 L* 9 L* (150-450) k/uL BUN 34 H (9-20) mg/dL Calcium 7.9 L (8.4-10.2) mg/dL Total Protein 5.7 L (6.3-8.2) g/dL Albumin 2.5 L (3.5-5.0) g/dL Microbiology - Last 24 Hours (Table) 04/16/20 20:34 Blood Culture - Preliminary Blood No Growth after 24 hours Assessment and Plan (1) Pancytopenia due to antineoplastic chemotherapy Narrative/Plan: The patient had underlying cytopenias due to his MDS. He currently has p ancytopenia due to additional effect of chemotherapy. This is expected. He has already received Neulasta. If there is no improvement in WBC by tomorrow, he can be started on additional daily G-CSF. - Continue to provide transfusion support to keep hemoglobin greater than 7 and platelets greater than 10. Based on his counts will receive a unit of blood and platelets today. - Only irradiated blood products Current Visit: Yes Status: Acute Code(s): D61.810 - ANTINEOPLASTIC CHEMOTHERAPY INDUCED PANCYTOPENIA; T45.1X5A - ADVERSE EFFECT OF ANTINEOPLASTIC AND IMMUNOSUP DRUGS, INIT SNOMED Code(s): 625295656482960 (2) MDS (myelodysplastic syndrome), high grade Narrative/Plan: Status post 2 cycles of HMA. At this time plan is to continue treatment assuming adequate count recovery occurs before cycle 3 scheduled Current Visit: No Status: Acute Priority: High Code(s): D46.Z - OTHER MYELODYSPLASTIC SYNDROMES SNOMED Code(s): 182888205
--- NOTE | 2020-04-18 10:46 | P.CONS ---
History of Present Illness - Reason for Consult Consult date: 04/17/20 Febrile neutropenia Requesting physician: Kendra Connors - Chief Complaint Fever 1 day - History of Present Illness Patient is 70 year male with a past medical history significant for myelodysplasia syndrome in this patient is currently on chemotherapy patient has been advised admission to the hospital after he was noticed to have low hemoglobin of 5.9 in the outpatient setting subsequently the patient has been admitted to the hospital and has been managed for his cytopenias, patient did have a low-grade fever of 100.8 today that prompted this infection disease consultation patient denies having any high-grade fever or chills patient denies having headache or URI symptoms no chest pain or shortness of breath minimal cough denies having any nausea no vomiting no abdominal pain and no diarrhea workup so far including a chest x-ray that was reported negative and he did have a UA that was negative as well patient has been empirically started on cefepime and vancomycin and facet disease was consulted for further management of antibiotic therapy Review of Systems Positive point has been mentioned in the HPI rest of the systems are negative Past Medical History Past Medical History: Blood Disorder, Cancer, Pneumonia, Skin Disorder Additional Past Medical History / Comment(s): Pt recently admitted to [facility] on 03/20/20 with neutropenic fever/sepsis with possible abdominal source/poorly marginated R upper lobe infiltrate/epigastric pain/severe malnutrition/ exacerbation COPD. Other hx: MDS with ringed sideroblast-last chemo received M-F last week, pancytopenia, chronic anemia with transfusions, bilateral feet edema, History of Any Multi-Drug Resistant Organisms: None Reported Past Surgical History: Orthopedic Surgery Additional Past Surgical History / Comment(s): BMB, colonoscopy, surgery on rt leg and foot after injury age 3 Past Anesthesia/Blood Transfusion Reactions: No Reported Reaction Past Psychological History: No Psychological Hx Reported Additional Psychological History / Comment(s): Pt resides with his spouse. He uses no assistive device. He drives. Smoking Status: Current every day smoker Past Alcohol Use History: Occasional Additional Past Alcohol Use History / Comment(s): Patient started smoking in 1955 and is down to 1/2 ppd. Patient used to drink 4-6 beers per day for many years and cut down to 1-2 beers per day for the past 2 months. Past Drug Use History: None Reported - Past Family History Mother Family Medical History: Cancer Additional Family Medical History / Comment(s): Cervical cancer. Brother(s) Family Medical History: Cancer Additional Family Medical History / Comment(s): Pancreatic cancer with mets. Father Additional Family Medical History / Comment(s): Father at age 93 from old age. Medications and Allergies Home Medications Medication Instructions Recorded Confirmed Type Acyclovir 400 mg PO TID #90 tablet 03/17/20 04/15/20 Rx Fluconazole [Diflucan] 100 mg PO DAILY #30 tab 03/17/20 04/15/20 Rx Acetaminophen Tab [Tylenol] 650 mg PO Q6HR PRN tab 03/18/20 04/15/20 Rx Multivitamins, Thera [Multivitamin 1 tab PO DAILY 03/20/20 04/15/20 History (formulary)] Albuterol Inhaler [Ventolin Hfa 2 puff INHALATION RT-TID #1 inhaler 03/29/20 04/15/20 Rx Inhaler] Dicyclomine [Bentyl] 20 mg PO QID #120 tab 03/29/20 04/15/20 Rx Furosemide [Lasix] 40 mg PO DAILY #30 tablet 03/29/20 04/15/20 Rx Potassium Chloride ER [K-Dur 20] 20 meq PO DAILY #30 tab 03/29/20 04/15/20 Rx Allergies Allergy/AdvReac Type Severity Reaction Status Date / Time No Known Allergies Allergy Verified 04/15/20 13:26 Physical Exam Vitals: Vital Signs Temp Pulse Pulse Resp BP Pulse Ox 04/17/20 12:24 72 04/17/20 12:14 80 04/17/20 11:43 97.9 F 75 17 105/72 100 04/17/20 09:14 72 04/17/20 09:04 72 04/17/20 05:00 99.8 F H 75 18 133/77 98 04/16/20 21:00 99.7 F H 73 18 105/63 97 04/16/20 20:02 72 04/16/20 19:53 68 Intake and Output 04/17/20 04/17/20 04/17/20 06:59 14:59 22:59 Intake Total 600 Balance 600 Intake: Oral 600 Other: Voiding Method Toilet Toilet Urinal Urinal GENERAL DESCRIPTION: Elderly male lying in bed, no distress. No tachypnea or accessory muscle of respiration use. HEENT: Shows Pallor , no scleral icterus. Oral mucous membrane is dry. No pharyngeal erythema or thrush NECK: Trachea central, no thyromegaly. LUNGS: Unlabored breathing. Decreased breath sound at the base No wheeze or crackle. HEART: S1, S2, regular rate and rhythm. No loud murmur ABDOMEN: Soft, no tenderness , guarding or rigidity, no organomegaly EXTREMITIES: No edema of feet. SKIN: No rash, no masses palpable. NEUROLOGICAL: The patient is awake, alert, oriented x3, mood and affect normal. Results CBC & Chem 7: 04/18/20 06:34 04/18/20 06:34 Labs: Abnormal Lab Results - Last 24 Hours (Table) 04/16/20 04/17/20 04/17/20 Range/Units 22:22 08:44 08:44 WBC 0.7 L* (3.8-10.6) k/uL RBC 2.04 L (4.30-5.90) m/uL Hgb 7.1 L (13.0-17.5) gm/dL Hct 20.7 L (39.0-53.0) % MCV 101.7 H (80.0-100.0) fL RDW 24.6 H (11.5-15.5) % Plt Count 16 L* (150-450) k/uL BUN 26 H (9-20) mg/dL Glucose 111 H (74-99) mg/dL Calcium 7.9 L (8.4-10.2) mg/dL Total Protein 6.1 L (6.3-8.2) g/dL Albumin 2.8 L (3.5-5.0) g/dL Urine Protein Trace H (Negative) Urine Ketones Trace H (Negative) Urine Blood Moderate H (Negative) Urine RBC 7 H (0-5) /hpf Hyaline Casts 4 H (0-2) /lpf Urine Mucus Rare H (None) /hpf Assessment and Plan Assessment: 1- patient with febrile neutropenia in this patient who do have underlying myelodysplastic syndrome and has been on chemotherapy now with a low-grade fever but no definite localizing signs and symptoms of infection patient was recently admitted with similar symptoms and did have abnormality of the CT of the chest that may be repeated to investigate further his fever has current workup so far chest x-ray and UA has been negative abdominal soft on clinical examination and no evidence of any cellulitis (1) Febrile neutropenia Current Visit: Yes Status: Acute Code(s): D70.9 - NEUTROPENIA, UNSPECIFIED; R50.81 - FEVER PRESENTING WITH CONDITIONS CLASSIFIED ELSEWHERE SNOMED Code(s): 442213534 Plan: 1- cefepime 2 g every 8 hours 2-Vancomycin pharmacy to dose target trough of 15 while watching his kidney function and Vanco trough closely 3-await CT of the chest We will follow on clinical condition and cultures to further adjust medication if needed Thank you for this consultation will follow this patient with you Time with Patient: Greater than 30
--- NOTE | 2020-04-18 12:19 | P.CNPUL ---
History of Present Illness Consult date: 04/18/20 Requesting physician: Juanjose Calloway Reason for consult: abnormal CXR/CT Chief complaint: Weakness, shortness of breath History of present illness: This is a very pleasant 70-year-old gentleman who follows with Dr. Bustillos is his primary care provider. He has a history of gout, chronic and ongoing tobacco dependence, and myelodysplastic syndrome, high-grade and has been seen by medical oncology. He has received a second round of chemotherapy with G-CSF approximately a week ago. He did receive Neulasta as well. He presented to the emergency room on 04/15/2020 after being told by his PCP his hemoglobin was quite low. The patient had been having weakness and shortness of breath. Initial labs revealed a WBC of 1.3. Hemoglobin 5.1. Platelets 28,000. He is status post 2 units of packed red blood cells. A third unit of packed red blood cells as ordered for today for hemoglobin is 6.0. He will be receiving platelets for a platelet count of 9000. Yesterday he had undergone a computed tomography scan of the chest that revealed multiple pulmonary abnormalities including a spiculated 16 x 10 x 30 mm infiltrate of the right upper lobe. There is a 1.5 cm noncalcified subpleural nodular density in the posterior aspect of the right midlung in the posterior segment right upper lobe. There is a 2.3 cm cavitating spiculated infiltrate of the left lower lobe posterior basal segment. Extensive calcified pleural plaque at the lung bases. No pleural effusion. No hilar masses. Few mediastinal lymph nodes measuring 1 cm. We are consulted for the same. The patient is seen today on the oncology unit. He is currently resting comfortably in bed. Awake and alert in no acute distress. Somewhat of a poor historian. His shortness of breath is about the same. No cough or congestion. No fever chills or night sweats. Temperature last evening was 100.8. Maintaining O2 saturations in the mid 90s on 3 L/m per nasal cannula. Systolic blood pressure in the 90s. Blood cultures revealing no growth to date. White count 0.7. Hemoglobin 6.0. Platelets 9000. Sodium 137. Potassium 4.7. Creatinine 1.22. Review of Systems REVIEW OF SYSTEMS: CONSTITUTIONAL: Positive for generalized weakness, fatigue. Admits to gradual weight loss. EYES: Denies change in vision. EARS, NOSE, MOUTH, THROAT: Denies headaches, denies sore throat. CARDIOVASCULAR: Denies chest pain, palpitations or syncopal episodes. RESPIRATORY: Positive for shortness of breath, no cough, congestion or hemoptysis. GASTROINTESTINAL: Denies change in appetite, denies abdominal pain GENITOURINARY: Denies hematuria, denies infections. MUSKULOSKELETAL: Denies pain, denies swelling. INTEGUMENTARY: Denies rash, denies eczema. NEUROLOGICAL: Denies recent memory loss, no recent seizure activity. PSYCHIATRIC: Denies anxiety, denies depression. HEMATOLOGIC/LYMPHATIC: Denies anemia, denies enlarged lymph nodes. Past Medical History Past Medical History: Blood Disorder, Cancer, Pneumonia, Skin Disorder Additional Past Medical History / Comment(s): Pt recently admitted to [facility] on 03/20/20 with neutropenic fever/sepsis with possible abdominal source/poorly marginated R upper lobe infiltrate/epigastric pain/severe malnutrition/exacerbation COPD. Other hx: MDS with ringed sideroblast-last chemo received M-F last week, pancytopenia, chronic anemia with transfusions, bilateral feet edema, History of Any Multi-Drug Resistant Organisms: None Reported Past Surgical History: Orthopedic Surgery Additional Past Surgical History / Comment(s): BMB, colonoscopy, surgery on rt leg and foot after injury age 3 Past Anesthesia/Blood Transfusion Reactions: No Reported Reaction Past Psychological History: No Psychological Hx Reported Additional Psychological History / Comment(s): Pt resides with his spouse. He uses no assistive device. He drives. Smoking Status: Current every day smoker Past Alcohol Use History: Occasional Additional Past Alcohol Use History / Comment(s): Patient started smoking in 1955 and is down to 1/2 ppd. Patient used to drink 4-6 beers per day for many years and cut down to 1-2 beers per day for the past 2 months. Past Drug Use History: None Reported - Past Family History Mother Family Medical History: Cancer Additional Family Medical History / Comment(s): Cervical cancer. Brother(s) Family Medical History: Cancer Additional Family Medical History / Comment(s): Pancreatic cancer with mets. Father Additional Family Medical History / Comment(s): Father at age 93 from old age. Medications and Allergies Home Medications Medication Instructions Recorded Confirmed Type Acyclovir 400 mg PO TID #90 tablet 03/17/20 04/15/20 Rx Fluconazole [Diflucan] 100 mg PO DAILY #30 tab 03/17/20 04/15/20 Rx Acetaminophen Tab [Tylenol] 650 mg PO Q6HR PRN tab 03/18/20 04/15/20 Rx Multivitamins, Thera [Multivitamin 1 tab PO DAILY 03/20/20 04/15/20 History (formulary)] Albuterol Inhaler [Ventolin Hfa 2 puff INHALATION RT-TID #1 inhaler 03/29/20 04/15/20 Rx Inhaler] Dicyclomine [Bentyl] 20 mg PO QID #120 tab 03/29/20 04/15/20 Rx Furosemide [Lasix] 40 mg PO DAILY #30 tablet 03/29/20 04/15/20 Rx Potassium Chloride ER [K-Dur 20] 20 meq PO DAILY #30 tab 03/29/20 04/15/20 Rx Allergies Allergy/AdvReac Type Severity Reaction Status Date / Time No Known Allergies Allergy Verified 04/15/20 13:26 Physical Exam Vitals: Vital Signs Temp Pulse Pulse Resp BP BP Pulse Ox 04/18/20 11:25 98.2 F 70 17 95/53 04/18/20 11:15 98.3 F 72 94/49 98 04/18/20 08:47 76 04/18/20 08:34 76 04/18/20 05:00 99.3 F 77 18 93/54 94 L 04/18/20 03:50 99.4 F 04/17/20 20:15 100.8 F H 96 18 130/64 95 04/17/20 19:11 73 04/17/20 19:03 73 04/17/20 12:24 72 04/17/20 12:14 80 Intake and Output 04/17/20 04/18/20 04/18/20 22:59 06:59 14:59 Intake Total 250 600 0 Balance 250 600 0 Intake: Intake, IV Titration 350 Amount Cefepime 2 gm In Sodium 100 Chloride 0.9% 100 ml @ 200 mls/hr IVPB Q8HR [facility] Rx#:[id number] Vancomycin 1,000 mg In 250 Sodium Chloride 0.9% 250 ml @ 125 mls/hr IVPB ONCE ONE Rx#:[id number] Oral 250 250 Blood Product 0 Platelet Irr Pheresis 0 Acda1 Unit [id number] Other: Voiding Method Toilet Toilet Toilet Urinal Urinal Urinal # Voids 1 0 # Bowel Movements 0 GENERAL EXAM: Alert, very pleasant 70-year-old male patient, on 4 L nasal cannul a, comfortable in no apparent distress. HEAD: Normocephalic. EYES: Normal reaction of pupils, equal size. NOSE: Clear with pink turbinates. THROAT: No erythema or exudates. NECK: No masses, no JVD. CHEST: No chest wall deformity. LUNGS: Equal air entry with no crackles, wheeze, rhonchi or dullness. CVS: S1 and S2 normal with no audible murmur, regular rhythm. ABDOMEN: No hepatosplenomegaly, normal bowel sounds, no guarding or rigidity. SPINE: No scoliosis or deformity SKIN: No rashes CENTRAL NERVOUS SYSTEM: No focal deficits, tone is normal in all 4 extremities. EXTREMITIES: There is no peripheral edema. No clubbing, no cyanosis. Peripheral pulses are intact. Results - Laboratory Findings CBC and BMP: 04/18/20 06:34 04/18/20 06:34 PT/INR, D-dimer PT 9.7 sec (9.0-12.0) 04/15/20 13:39 INR 0.9 (<1.2) 04/15/20 13:39 Abnormal lab findings: Abnormal Labs 04/15/20 04/15/20 04/15/20 13:39 13:39 13:39 WBC 1.3 L* RBC 1.52 L Hgb 5.1 L* D Hct 16.3 L* MCV 106.6 H D RDW 28.1 H Plt Count 28 L D Neutrophils # 0.2 L* Lymphocytes # 0.9 L Macrocytosis Marked A APTT Sodium 136 L BUN 41 H Glucose Calcium 8.3 L Total Bilirubin Total Protein Albumin 3.1 L Urine Protein Urine Ketones Urine Blood Urine RBC Hyaline Casts Urine Mucus Crossmatch See Detail 04/15/20 04/16/20 04/16/20 13:39 06:50 06:50 WBC 0.9 L* RBC 2.21 L Hgb 7.3 L D Hct 22.2 L MCV 100.2 H D RDW 25.6 H Plt Count 18 L* Neutrophils # Lymphocytes # Macrocytosis APTT 21.9 L Sodium BUN 32 H Glucose Calcium 7.9 L Total Bilirubin 1.5 H Total Protein 6.0 L Albumin 2.7 L Urine Protein Urine Ketones Urine Blood Urine RBC Hyaline Casts Urine Mucus Crossmatch 04/16/20 04/17/20 04/17/20 22:22 08:44 08:44 WBC 0.7 L* RBC 2.04 L Hgb 7.1 L Hct 20.7 L MCV 101.7 H RDW 24.6 H Plt Count 16 L* Neutrophils # Lymphocytes # Macrocytosis APTT Sodium BUN 26 H Glucose 111 H Calcium 7.9 L Total Bilirubin Total Protein 6.1 L Albumin 2.8 L Urine Protein Trace H Urine Ketones Trace H Urine Blood Moderate H Urine RBC 7 H Hyaline Casts 4 H Urine Mucus Rare H Crossmatch 04/17/20 04/18/20 04/18/20 17:56 06:34 06:34 WBC 0.7 L* 0.7 L* RBC 2.06 L 1.87 L Hgb 7.1 L 6.0 L* Hct 21.1 L 19.0 L* MCV 102.3 H 101.5 H RDW 24.3 H 24.2 H Plt Count 12 L* 9 L* Neutrophils # Lymphocytes # Macrocytosis APTT Sodium BUN 34 H Glucose Calcium 7.9 L Total Bilirubin Total Protein 5.7 L Albumin 2.5 L Urine Protein Urine Ketones Urine Blood Urine RBC Hyaline Casts Urine Mucus Crossmatch - Diagnostic Findings Chest x-ray: image reviewed CT scan - chest: image reviewed Assessment and Plan Assessment: 1 Pancytopenia secondary to antineoplastic chemotherapy for myelodysplastic syndrome. He had been treated with G CSF 2. Received Neulasta. 2 Anemia secondary to above presenting hemoglobin 5.1. Status post 2 units packed red blood cells with improvement of 7.3. Today's hemoglobin 6.0. Receiving a third unit of packed red blood cells. 3 Thrombocytopenia secondary to above current platelet count 19,000. Receiving platelet transfusion today. 4 Leukopenia secondary to above. 5 Multiple pulmonary infiltrates including a spiculated 16 x 10 x 30 mm infiltrate in the right upper lobe. A 1.5 cm noncalcified subpleural nodular density in the posterior segment of the right upper lobe. 7 mm noncalcified nodule of the right lower lobe superior segment. A 2.3 cm cavitating spiculated infiltrate of the left lower lobe posterior basal segment. There is extensive calcified pleural plaque of the lung bases. No hilar mass. Few mediastinal lymph nodes that measure 1 cm. 6 Chronic tobacco dependence of greater than 60 years 7 Daily alcohol use Plan: The patient was seen and evaluated by Dr. Blanca Chest x-ray, CAT scans and labs reviewed Suspect inflammatory changes including the new left lower lobe cavitating lesion Recommend 3 month follow-up with a repeat computed tomography scan Currently on vancomycin, Levaquin, cefepime per ID services Add Ventolin HFA as needed We will continue to follow and make further recommendations based on his clinical status. I, the cosigning physician, performed a history & physical examination of the patient. Lungs sounds are clear, diminished. Maintaining good O2 saturations in the 90s on 3 L/m per nasal cannula. I discussed the assessment and plan of care with my nurse practitioner, Lena Díaz. I attest to the above consultation as dictated by her. Time with Patient: Greater than 30
--- NOTE | 2020-04-18 13:48 | P.PN ---
Subjective Progress Note Date: 04/18/20 70-year-old male one of Dr. Bustillos's patient with past medical history of anemia, gout, tobacco use, daily alcohol use and myelodysplasia who has been set pancytopenic for the last 2 month was started on chemotherapy with hematology recently was hospitalized for extended period of time for severe pancytopenia and severe neutropenia did not recover. Patient apparently went back on chemotherapy after he left the hospital last time. Today found to have severe anemia with hemoglobin of 5.1 with severe neutropenia white blood cell 1.3 and thrombocytopenia with platelets 28,000 only. Patient brought to the [facility] emergency department where was seen and evaluated has been very weak has not been able to ambulate and walk and has been having worsening shortness of breath with dyspnea with minimal exertion for the last few days. With a current hemoglobin his oncologist and instructed him to come to the hospital for admission for transfusion. 04/16: Patient is seen today on the [facility] floor. He is status post 2 units of packed RBCs and repeat lab work reveals hemoglobin of 7.3, WBC 0.9, platelet count 18. Electrolytes normal, BUN 32 and creatinine 0.89. Calcium 7.9, total bilirubin 1.5, AST 42, ALT 40, alkaline phosphatase 66. Temperature max 100.0, heart rate 76, blood pressure 115/66, pulse ox 96% on room air. Consult in place for oncology. COVID-19 is pending. 04/17: Hemoglobin currently is at 7.1, platelet count of 16, double basic count of 0.7 oncology thinks that he has myelodysplasia,patient wants to stay another day just in case he needs another blood products, as it's difficult for him to be transported back and forth with the who has been on a wheelchair, patient has chronic cough from smoking, denies any feverhowever T-max is 100.0 within the past 24 hours, Covid testc negative,chest x-ray shows no acute pulmonary disease, has clearing of pulmonary edema and pleural fluid compared to old exam,urinalyses WBC of 2,blood cultures would be sent secondary to the fever, consult Dr. Garcia for neutropenic fever, unknown primary at this time,start patient on cefotaxime, Levaquin, we will obtain high resolution CT of the chest, CT of the abdomen fromMarch 25, 2020 was reviewed , CT March 21, 2 cm stellate mass right upper lobe, 4 x 2 cm hypodensity posterior spleen no hydronephrosis no pulmonary has seen the patient, consult with Dr. Obie castrejon 04/18: Patient is being transfused currently for hemoglobin of 6.0, along with pl atelet transfusion, both are irritated, platelet is down to 9, currently on IV cefepime with Annitao, is following, CAT scan of the chest shows multiple pulmonary infiltrates including a spiculated lesion 16 x 10 x 13 mm right upper lobe, 1.5 cm noncalcified subpleural nodular density posterior segment right upper lobe, 7 mm noncalcified nodule right lower lobe, 2.3, dictation spiculated left lower lobe, posterior basal segment, suspected inflammatory changes, Dr. Blanca pulmonary has been consulted, with recommendations for follow-up CT in 3 months, sputum culture sent today patient still has cough no hemoptysis, no conversational dyspnea, no active wheezing, T-max of 98.2, blood pressure is between 90-98 systolic pressures, nonlabored breathing pulse ox room air 98% Review of Systems CONSTITUTIONAL: Well-developed no acute respiratory distress. Denies chills EYES: No icterus sclerae, no conjunctivitis. EARS, NOSE, MOUTH, THROAT, and FACE: No sore throat, lymphadenopathy, carotid bruits or deformity. RESPIRATORY: Positive shortness of breath cough wheezes. CARDIOVASCULAR: No CP, Palpitation, PND, Orthopnea, or angina. GASTROINTESTINAL: Mild change in bowel habit with mild diarrhea and slight dyspepsia GENITOURINARY: Negative for Hematuria or UTI, no kidney stones. INTEGUMENT/BREAST: Negative for any muscular injury with mild osteoarthritis.. HEMATOLOGIC/LYMPHATIC: History of myelodysplasia severe anemia thrombocytopenia and neutropenia. MUSCULOSKELTAL: Negative for Myalgia or arthralgia. NEURLOGICAL: No LOC, Sz or syncope, blurred vision dizziness or abnormality.. BEHAVIORAL/PSYCH: Negative. ENDOCRINE: Negative. Objective - Vital Signs Vital signs: Vital Signs Temp 98.4 F 04/18/20 12:48 Pulse 72 04/18/20 13:19 Resp 17 04/18/20 11:25 BP 98/46 04/18/20 12:48 Pulse Ox 98 04/18/20 12:48 Intake & Output 04/17/20 04/18/20 04/18/20 18:59 06:59 18:59 Intake Total 600 850 212 Balance 600 850 212 Intake: Intake, IV Titration 350 Amount Cefepime 2 gm In Sodium 100 Chloride 0.9% 100 ml @ 200 mls/hr IVPB Q8HR [facility] Rx#:[id number] Vancomycin 1,000 mg In 250 Sodium Chloride 0.9% 250 ml @ 125 mls/hr IVPB ONCE ONE Rx#:[id number] Oral 600 500 Blood Product 212 Platelet Irr Pheresis 212 Acda1 Unit [id number] Other: Voiding Method Toilet Toilet Toilet Urinal Urinal Urinal # Voids 0 # Bowel Movements 0 - Constitutional General appearance: Present: cooperative, no acute distress - EENT Eyes: Present: EOMI, PERRLA, dentition normal, normal appearance ENT: Present: NA/AT - Respiratory Respiratory: bilateral: CTA, diminished, prolonged expiration, negative: rales, rhonchi, wheezing - Cardiovascular Rhythm: regular Heart sounds: normal: S1, S2 - Gastrointestinal General gastrointestinal: Present: normal bowel sounds, soft - Integumentary Integumentary: Present: decreased turgor, normal - Neurologic Neurologic: Present: CNII-XII intact - Musculoskeletal Musculoskeletal: Present: gait normal, strength equal bilaterally - Psychiatric Psychiatric: Present: A&O x's 3, appropriate affect - Labs CBC & Chem 7: 04/18/20 06:34 04/18/20 06:34 Labs: Abnormal Lab Results - Last 24 Hours (Table) 04/15/20 04/17/20 04/18/20 Range/Units 13:39 17:56 06:34 WBC 0.7 L* 0.7 L* (3.8-10.6) k/uL RBC 2.06 L 1.87 L (4.30-5.90) m/uL Hgb 7.1 L 6.0 L* (13.0-17.5) gm/dL Hct 21.1 L 19.0 L* (39.0-53.0) % MCV 102.3 H 101.5 H (80.0-100.0) fL RDW 24.3 H 24.2 H (11.5-15.5) % Plt Count 12 L* 9 L* (150-450) k/uL BUN (9-20) mg/dL Calcium (8.4-10.2) mg/dL Total Protein (6.3-8.2) g/dL Albumin (3.5-5.0) g/dL Crossmatch See Detail 04/18/20 Range/Units 06:34 WBC (3.8-10.6) k/uL RBC (4.30-5.90) m/uL Hgb (13.0-17.5) gm/dL Hct (39.0-53.0) % MCV (80.0-100.0) fL RDW (11.5-15.5) % Plt Count (150-450) k/uL BUN 34 H (9-20) mg/dL Calcium 7.9 L (8.4-10.2) mg/dL Total Protein 5.7 L (6.3-8.2) g/dL Albumin 2.5 L (3.5-5.0) g/dL Crossmatch Microbiology - Last 24 Hours (Table) 04/18/20 11:45 Sputum Culture - Preliminary Sputum 04/16/20 20:34 Blood Culture - Preliminary Blood No Growth after 24 hours Assessment and Plan Plan: Assessment and Plan 1 acute symptomatic anemia with significant thrombocytopenia. Patient is status post transfusion of 2 units packed RBCs. One unit packed red blood cells, on April 18 with 4 units of platelets both irrigated. 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 Continue cefepime.on oral Levaquin, IV vancomycin addedfor empiric treatment, 3. Neutropenic fever, consult Dr. Gutierrez, cefepime IVand oral LevaquinCyclovir, sputum cultures, blood cultures, urinalysis normal 3 severe neutropenia. Oncology consult, expect oncology to start Neulasta daily until the white blood cell is elevated. In the meanwhile patient will go back on acyclovir, Diflucan 4 COPD without exacerbation. Continue albuterol nebulizer 3 times daily. 6. Bilateral pneumonia recurrent, Multiple spiculated mass bilateral, Lung mass as previously seen March 21, repeat CT chest IV contrast, will need PET/CTas outpatient against biopsy however with severe thrombocytopenia, this would not be an option, consult Dr. Ragland, and patient aware follow-up CT in 3 months per recommendation from pulmonary, inflammatory changes were suspected by radiology, IV vancomycin and IV cefepime for neutropenic fever Dr. Kanged following. Check for Legionella 5 chronic edema: More diastolic congestive heart failure and chronic continue furosemide at 40 mg daily. 6 recurrent pneumonia: Patient is asymptomatic at this point. Continue inhaler and antibiotics. 7 chronic cough, with lung mass 2 cm right stellate, need full evaluation, repeat CT chest as above 04/17, consult Dr. Ragland, will need either bronchoscopyagainst PET/CT, however platelets are too low, sputum cultures sent 7 GI prophylaxis: pantoprazole 40 mg daily. 8 DVT prophylaxis: Patient will stay on Venodyne boots and knee-high MOE hose. CODE STATUS: Full code.
[2020-04-18 18:09] LABS: Anisocytosis Moderate; HCT 22.6 % (39.0-53.0); HGB 7.4 gm/dL (13.0-17.5); Hypochromasia Slight; MCH 33.7 pg (25.0-35.0); MCV 102.3 fL (80.0-100.0); Macrocytosis Moderate; Mean Platelet Volume 12.1; RBC 2.21 m/uL (4.30-5.90); RDW 22.6 % (11.5-15.5)
[2020-04-18 18:12] LABS: WBC 0.5 k/uL (3.8-10.6)
[2020-04-18 18:54] LABS: Platelet Count 17 k/uL (150-450)
[2020-04-18] MEDS: ACETAMINOPHEN TAB 325 MG TAB PO PRN (20:44)
[2020-04-18] MEDS: LEVOFLOXACIN 500 MG TAB PO SCH (20:45)
--- NOTE | 2020-04-19 00:51 | PN ---
PROGRESS NOTE DATE OF SERVICE: 04/18/2020 REASON FOR FOLLOWUP: Febrile neutropenia. INTERVAL HISTORY: The patient is currently afebrile. The patient is breathing comfortably. The patient did have a congested cough but not bringing up any sputum. No chest pain. No nausea, no vomiting. No abdominal pain or diarrhea. PHYSICAL EXAMINATION: Blood pressure is 101/43 with a pulse of 62, temperature 97.9. He is 94%. General description is an elderly male lying in bed in no distress. RESPIRATORY SYSTEM: Unlabored breathing, decreased intense breath sounds. No wheeze. HEART: S1, S2. Regular rate and rhythm. ABDOMEN: Soft, no tenderness. LABS: Hemoglobin 7.4, white count 0.5, creatinine 1.22. DIAGNOSTIC IMPRESSION AND PLAN: Patient with febrile neutropenia, now with evidence of cavitating pneumonia on the CT. CT will be reviewed with radiologist to see if the area can be either CT-guided biopsy or will need a bronchoscopy for microbiological diagnosis. We will keep the patient on cefepime and vancomycin and follow up on the sputum culture. MMODL / IJN: [id number] /
[2020-04-19] MEDS ORDERED: VANCOMYCIN TROUGH DUE 1 EACH MISC MISCELLANE ONE (03:00)
[2020-04-19] MEDS: VANCOMYCIN 1,000 MG in SODIUM CHLORIDE 0.9% 250 ML IVPB SCH (04:27)
[2020-04-19] MEDS: ALBUTEROL NEBULIZED 2.5 MG/3 ML INHALATION SCH ×3 (08:34→18:40)
[2020-04-19] MEDS: ACYCLOVIR 200 MG CAP PO SCH ×3 (08:45→21:55)
[2020-04-19] MEDS: FUROSEMIDE 40 MG TAB PO SCH (08:46)
[2020-04-19] MEDS: POTASSIUM CHLORIDE ER 20 MEQ TAB.ER PO SCH (08:48)
[2020-04-19] MEDS: NYSTATIN 100,000 UNIT/ML SUSP 500,000 UNIT/5 ML CUP PO SCH ×4 (08:49→21:56)
[2020-04-19] MEDS: DICYCLOMINE 20 MG TAB PO SCH ×4 (08:50→21:55)
[2020-04-19] MEDS: MULTIVITAMINS, THERA 1 EACH TAB PO SCH (08:51)
[2020-04-19] MEDS: CEFEPIME 2 GM in SODIUM CHLORIDE 0.9% 100 ML IVPB SCH ×2 (08:53→16:05)
[2020-04-19] MEDS: PANTOPRAZOLE 40 MG TABLET PO SCH (08:55)
--- NOTE | 2020-04-19 11:42 | P.PN ---
Subjective Progress Note Date: 04/19/20 70-year-old male one of Dr. Bustillos's patient with past medical history of anemia, gout, tobacco use, daily alcohol use and myelodysplasia who has been set pancytopenic for the last 2 month was started on chemotherapy with hematology recently was hospitalized for extended period of time for severe pancytopenia and severe neutropenia did not recover. Patient apparently went back on chemotherapy after he left the hospital last time. Today found to have severe anemia with hemoglobin of 5.1 with severe neutropenia white blood cell 1.3 and thrombocytopenia with platelets 28,000 only. Patient brought to the [facility] emergency department where was seen and evaluated has been very weak has not been able to ambulate and walk and has been having worsening shortness of breath with dyspnea with minimal exertion for the last few days. With a current hemoglobin his oncologist and instructed him to come to the hospital for admission for transfusion. 04/16: Patient is seen today on the [facility] floor. He is status post 2 units of packed RBCs and repeat lab work reveals hemoglobin of 7.3, WBC 0.9, platelet count 18. Electrolytes normal, BUN 32 and creatinine 0.89. Calcium 7.9, total bilirubin 1.5, AST 42, ALT 40, alkaline phosphatase 66. Temperature max 100.0, heart rate 76, blood pressure 115/66, pulse ox 96% on room air. Consult in place for oncology. COVID-19 is pending. 04/17: Hemoglobin currently is at 7.1, platelet count of 16, double basic count of 0.7 oncology thinks that he has myelodysplasia,patient wants to stay another day just in case he needs another blood products, as it's difficult for him to be transported back and forth with the who has been on a wheelchair, patient has chronic cough from smoking, denies any feverhowever T-max is 100.0 within the past 24 hours, Covid testc negative,chest x-ray shows no acute pulmonary disease, has clearing of pulmonary edema and pleural fluid compared to old exam,urinalyses WBC of 2,blood cultures would be sent secondary to the fever, consult Dr. Garcia for neutropenic fever, unknown primary at this time,start patient on cefotaxime, Levaquin, we will obtain high resolution CT of the chest, CT of the abdomen fromMarch 25, 2020 was reviewed , CT March 21, 2 cm stellate mass right upper lobe, 4 x 2 cm hypodensity posterior spleen no hydronephrosis no pulmonary has seen the patient, consult with Dr. Ragland pulmonary 04/18: Patient is being transfused currently for hemoglobin of 6.0, along with pl atelet transfusion, both are irritated, platelet is down to 9, currently on IV cefepime with James, is following, CAT scan of the chest shows multiple pulmonary infiltrates including a spiculated lesion 16 x 10 x 13 mm right upper lobe, 1.5 cm noncalcified subpleural nodular density posterior segment right upper lobe, 7 mm noncalcified nodule right lower lobe, 2.3, dictation spiculated left lower lobe, posterior basal segment, suspected inflammatory changes, Dr. Blanca pulmonary has been consulted, with recommendations for follow-up CT in 3 months, sputum culture sent today patient still has cough no hemoptysis, no conversational dyspnea, no active wheezing, T-max of 98.2, blood pressure is between 90-98 systolic pressures, nonlabored breathing pulse ox room air 98% 04/19: Patient has been seen by Dr. Blanca with recommendations for 3 month follow-up for repeat CAT scan. Patient has been continued on vancomycin, and cefepime by Dr. Steward 8. We will discontinue the Levaquin that was added by oncology for prophylaxis. Patient does have a temperature max of 102.6, heart rate 79, blood pressure 95/53, pulse ox 97% on room air. Repeat blood work will be ordered for today. Patient has remained pancytopenic over the weekend. Review of Systems CONSTITUTIONAL: Well-developed no acute respiratory distress. Denies chills. Documented fever. EYES: No icterus sclerae, no conjunctivitis. EARS, NOSE, MOUTH, THROAT, and FACE: No sore throat, lymphadenopathy, carotid bruits or deformity. RESPIRATORY: Positive shortness of breath cough wheezes. CARDIOVASCULAR: No CP, Palpitation, PND, Orthopnea, or angina. GASTROINTESTINAL: Mild change in bowel habit with mild diarrhea and slight dyspepsia GENITOURINARY: Negative for Hematuria or UTI, no kidney stones. INTEGUMENT/BREAST: Negative for any muscular injury with mild osteoarthritis.. HEMATOLOGIC/LYMPHATIC: History of myelodysplasia severe anemia thrombocytopenia and neutropenia. MUSCULOSKELTAL: Negative for Myalgia or arthralgia. NEURLOGICAL: No LOC, Sz or syncope, blurred vision dizziness or abnormality.. BEHAVIORAL/PSYCH: Negative. ENDOCRINE: Negative. Physical Examination General Appearance: Alert, cooperative, no distress, appears stated age. Patien t sitting on the edge of the bed and appears to be in no acute distress. Neck HEENT: Supple, no lymphadenopathy, no thyroid enlargement, no carotid bruits. Lungs: Decreased breaths on bilaterally with fine rhonchi positive mild expiratory wheezes. Chest Wall: Decrease expansion with deep inspiration no tenderness and no deformity was found on exam, no costochondral pain. Heart: Regular rate and rhythm, S1, S2 mild tachycardia with systolic murmur. Back: Symmetric, no curvature, ROM normal, no CVA tenderness. Abdomen: Soft positive bowel sound slight discomfort in the mid abdominal area with mild organomegaly with multiple bruises no rebound or rigidity. Extremities: Extremities trace edema with multiple bruises positive mild ecchymosis as well. Pulses: 2+ and symmetric. Skin: Skin color, texture, tugor normal, no rashes or lesions. Neurologic: Alert oriented x3 cranial nerves II through XII intact, no motor deficit, no abnormal balance or gait. Assessment and Plan 1 acute symptomatic anemia. Patient is status post transfusion of 3 units packed RBCs. Continue Protonix. 2 severe myelodysplasia: Has been on chemotherapy and seen hematology regular basis we'll consult hematology. Continue cefepime. 3 severe neutropenia. Oncology consult, expect oncology to start Neulasta daily until the white blood cell is elevated. In the meanwhile patient will go back on acyclovir, Diflucan and probably need to stay on cefepime. 4 . Pancytopenia. Patient is status post transfusion of 3 units packed RBCs and 1 unit of platelets. Patient is followed by oncology. 5 COPD without exacerbation. Continue albuterol nebulizer 3 times daily. 6 chronic edema: More diastolic congestive heart failure and chronic continue furosemide at 40 mg daily. 7 recurrent pneumonia: Patient is asymptomatic at this point. Continue inhaler and antibiotics. 8 GI prophylaxis: pantoprazole 40 mg daily. 9 DVT prophylaxis: Patient will stay on Venodyne boots and knee-high MOE hose. 10 COVID-19 infection not present. CODE STATUS: Full code. Discharge plan: [facility] care and palliative care. Impression and plan of care have been directed as dictated by the signing physician. Dannielle Villegas nurse practitioner acting as scribe for signing physician. Objective - Vital Signs Vital signs: Vital Signs Temp 99.6 F 04/19/20 05:00 Pulse 79 04/19/20 05:00 Resp 18 04/19/20 05:00 BP 95/53 04/19/20 05:00 Pulse Ox 97 04/19/20 05:00 Intake & Output 04/18/20 04/19/20 04/19/20 18:59 06:59 18:59 Intake Total 1322 350 Output Total 100 Balance 1322 250 Weight 55.792 kg Intake: Intake, IV Titration 200 350 Amount Cefepime 2 gm In Sodium 200 100 Chloride 0.9% 100 ml @ 200 mls/hr IVPB Q8HR [facility] Rx#:[id number] Vancomycin 1,000 mg In 250 Sodium Chloride 0.9% 250 ml @ 125 mls/hr IVPB Q12H [facility] Rx#:[id number] Oral 600 Blood Product 522 Platelet Irr Pheresis 212 Acda1 Unit [id number] Rc Irr As1 Unit 310 [id number] Output: Urine 100 Other: Voiding Method Toilet Urinal Urinal # Voids 2 1 - Labs CBC & Chem 7: 04/18/20 17:47 04/18/20 06:34 Labs: Abnormal Lab Results - Last 24 Hours (Table) 04/15/20 04/18/20 04/18/20 Range/Units 13:39 06:34 06:34 WBC 0.7 L* (3.8-10.6) k/uL RBC 1.87 L (4.30-5.90) m/uL Hgb 6.0 L* (13.0-17.5) gm/dL Hct 19.0 L* (39.0-53.0) % MCV 101.5 H (80.0-100.0) fL RDW 24.2 H (11.5-15.5) % Plt Count 9 L* (150-450) k/uL BUN 34 H (9-20) mg/dL Calcium 7.9 L (8.4-10.2) mg/dL Total Protein 5.7 L (6.3-8.2) g/dL Albumin 2.5 L (3.5-5.0) g/dL Crossmatch See Detail 04/18/20 Range/Units 17:47 WBC 0.5 L* (3.8-10.6) k/uL RBC 2.21 L (4.30-5.90) m/uL Hgb 7.4 L (13.0-17.5) gm/dL Hct 22.6 L (39.0-53.0) % MCV 102.3 H (80.0-100.0) fL RDW 22.6 H (11.5-15.5) % Plt Count 17 L* D (150-450) k/uL BUN (9-20) mg/dL Calcium (8.4-10.2) mg/dL Total Protein (6.3-8.2) g/dL Albumin (3.5-5.0) g/dL Crossmatch Microbiology - Last 24 Hours (Table) 04/18/20 11:45 Gram Stain - Final Sputum Sputum Culture - Final 04/16/20 20:34 Blood Culture - Preliminary Blood No Growth after 48 hours 04/17/20 17:56 Blood Culture - Preliminary Blood No Growth after 24 hours
[2020-04-19 12:51] LABS: Anisocytosis Moderate; HCT 21.3 % (39.0-53.0); Hypochromasia Slight; MCH 33.5 pg (25.0-35.0); MCHC 32.9 g/dL (31.0-37.0); MCV 101.7 fL (80.0-100.0); Macrocytosis Moderate; Mean Platelet Volume 10.1; RDW 22.2 % (11.5-15.5)
[2020-04-19 12:52] LABS: Albumin 2.4 g/dL (3.5-5.0); Calcium 7.8 mg/dL (8.4-10.2); Potassium 4.2 mmol/L (3.5-5.1); Total Bilirubin 0.5 mg/dL (0.2-1.3); Total Protein 5.6 g/dL (6.3-8.2)
[2020-04-19 12:53] LABS: Platelet Count 9 k/uL (150-450); WBC 0.5 k/uL (3.8-10.6)
--- NOTE | 2020-04-19 14:17 | P.PN ---
Subjective Progress Note Date: 04/19/20 Principal diagnosis: Weakness, shortness of breath This is a very pleasant 70-year-old gentleman who follows with Dr. Bustillos is his primary care provider. He has a history of gout, chronic and ongoing tobacco dependence, and myelodysplastic syndrome, high-grade and has been seen by medical oncology. He has received a second round of chemotherapy with G-CSF approximately a week ago. He did receive Neulasta as well. He presented to the emergency room on 04/15/2020 after being told by his PCP his hemoglobin was quite low. The patient had been having weakness and shortness of breath. Initial labs revealed a WBC of 1.3. Hemoglobin 5.1. Platelets 28,000. He is status post 2 units of packed red blood cells. A third unit of packed red blood cells as ordered for today for hemoglobin is 6.0. He will be receiving platelets for a platelet count of 9000. Yesterday he had undergone a computed tomography scan of the chest that revealed multiple pulmonary abnormalities including a spiculated 16 x 10 x 30 mm infiltrate of the right upper lobe. There is a 1.5 cm noncalcified subpleural nodular density in the posterior aspect of the right midlung in the posterior segment right upper lobe. There is a 2.3 cm cavitating spiculated infiltrate of the left lower lobe posterior basal segment. Extensive calcified pleural plaque at the lung bases. No pleural effusion. No hilar masses. Few mediastinal lymph nodes measuring 1 cm. We are consulted for the same. The patient is seen today on the oncology unit. He is currently resting comfortably in bed. Awake and alert in no acute distress. Somewhat of a poor historian. His shortness of breath is about the same. No cough or congestion. No fever chills or night sweats. Temperature last evening was 100.8. Maintaining O2 saturations in the mid 90s on 3 L/m per nasal cannula. Systolic blood pressure in the 90s. Blood cultures revealing no growth to date. White count 0.7. Hemoglobin 6.0. Platelets 9000. Sodium 137. Potassium 4.7. Creatinine 1.22. On 04/19/2020 patient seen in follow-up on a general medical oncology floor, he is awake and alert, in no acute distress, he is resting comfortably in bed, he is on 2 L of oxygen his pulse ox is 96%, afebrile, hemodynamically stable, although this morning his systolic was in the 90s and this afternoon his systolic is 87, and the patient is asymptomatic. Today's lab work has been reviewed, and patient is still pancytopenic, with a white blood cell, 0.5, hemoglobin is 7.0, and platelet count is 9. His renal profile is stable, would be on of 35, and creatinine is 1.21, sodium is 137, potassium is 4.2, chloride is 108. His blood and sputum cultures have shown no growth so far. Patient is on a combination of cefepime and vancomycin. He is on a daily dose of oral Lasix. His lung sounds are markedly diminished, no rhonchi or wheezing, no cough or congestion, his CT chest on 04/17/2020 was reviewed showing spiculated 16 x 10 x 30 mm infiltrate in the right upper lobe, 1.5 cm noncalcified subpleural nodular density in the posterior aspect of right midlung and 2.3 cm cavitating spiculated infiltrate in the left lower lobe posterior basal segment. Clinically patient appears to be stable, no nausea vomiting no diarrhea, no altered mentation. No worsening dyspnea. Objective - Vital Signs Vital signs: Vital Signs Temp 98.9 F 04/19/20 13:00 Pulse 77 04/19/20 13:00 Resp 16 04/19/20 13:00 BP 87/45 04/19/20 13:00 Pulse Ox 96 04/19/20 13:00 Intake & Output 04/18/20 04/19/20 04/19/20 18:59 06:59 18:59 Intake Total 1322 350 100 Output Total 100 Balance 1322 250 100 Weight 55.792 kg Intake: Intake, IV Titration 200 350 100 Amount Cefepime 2 gm In Sodium 200 100 100 Chloride 0.9% 100 ml @ 200 mls/hr IVPB Q8HR DONNA Rx#:[id number] Vancomycin 1,000 mg In 250 Sodium Chloride 0.9% 250 ml @ 125 mls/hr IVPB Q12H DONNA Rx#:[id number] Oral 600 Blood Product 522 Platelet Irr Pheresis 212 Acda1 Unit [id number] Rc Irr As1 Unit 310 [id number] Output: Urine 100 Other: Voiding Method Toilet Urinal Urinal # Voids 2 1 - Exam GENERAL EXAM: Alert, very pleasant, 70-year-old white male, on 2 L of oxygen and the pulse ox of 96% comfortable in no apparent distress. HEAD: Normocephalic/atraumatic. EYES: Normal reaction of pupils, equal size. Conjunctiva pink, sclera white. NOSE: Clear with pink turbinates. THROAT: No erythema or exudates. NECK: No masses, no JVD, no thyroid enlargement, no adenopathy. CHEST: No chest wall deformity. Symmetrical expansion. LUNGS: Equal air entry with markedly diminished breath sounds bilaterally CVS: Regular rate and rhythm, normal S1 and S2, no gallops, no murmurs, no rubs ABDOMEN: Soft, nontender. No hepatosplenomegaly, normal bowel sounds, no guarding or rigidity. EXTREMITIES: No clubbing, no edema, no cyanosis, 2+ pulses and upper and lower extremities. MUSCULOSKELETAL: Muscle strength and tone normal. SPINE: No scoliosis or deformity SKIN: No rashes CENTRAL NERVOUS SYSTEM: Alert and oriented -3. No focal deficits, tone is normal in all 4 extremities. PSYCHIATRIC: Alert and oriented -3. Appropriate affect. Intact judgment and insight. - Labs CBC & Chem 7: 04/19/20 12:06 04/19/20 12:06 Labs: Abnormal Lab Results - Last 24 Hours (Table) 04/15/20 04/18/20 04/19/20 Range/Units 13:39 17:47 12:06 WBC 0.5 L* 0.5 L* (3.8-10.6) k/uL RBC 2.21 L 2.10 L (4.30-5.90) m/uL Hgb 7.4 L 7.0 L (13.0-17.5) gm/dL Hct 22.6 L 21.3 L (39.0-53.0) % MCV 102.3 H 101.7 H (80.0-100.0) fL RDW 22.6 H 22.2 H (11.5-15.5) % Plt Count 17 L* D 9 L* (150-450) k/uL Chloride (98-107) mmol/L BUN (9-20) mg/dL Glucose (74-99) mg/dL Calcium (8.4-10.2) mg/dL Total Protein (6.3-8.2) g/dL Albumin (3.5-5.0) g/dL Crossmatch See Detail 04/19/20 Range/Units 12:06 WBC (3.8-10.6) k/uL RBC (4.30-5.90) m/uL Hgb (13.0-17.5) gm/dL Hct (39.0-53.0) % MCV (80.0-100.0) fL RDW (11.5-15.5) % Plt Count (150-450) k/uL Chloride 108 H (98-107) mmol/L BUN 35 H (9-20) mg/dL Glucose 114 H (74-99) mg/dL Calcium 7.8 L (8.4-10.2) mg/dL Total Protein 5.6 L (6.3-8.2) g/dL Albumin 2.4 L (3.5-5.0) g/dL Crossmatch Microbiology - Last 24 Hours (Table) 04/18/20 11:45 Gram Stain - Final Sputum Sputum Culture - Final 04/16/20 20:34 Blood Culture - Preliminary Blood No Growth after 48 hours 04/17/20 17:56 Blood Culture - Preliminary Blood No Growth after 24 hours Assessment and Plan Plan: Assessment: 1 Pancytopenia secondary to antineoplastic chemotherapy for myelodysplastic syndrome. He had been treated with G CSF 2. Received Neulasta. 2 Anemia secondary to above presenting hemoglobin 5.1. Status post 2 units packed red blood cells with improvement of 7.3. Today's hemoglobin 6.0. Status post transfusion with 3 units of packed red blood cells 3 Thrombocytopenia secondary to above current platelet count 19,000. Platelet transfusion 4 Leukopenia secondary to above. 5 Multiple pulmonary infiltrates including a spiculated 16 x 10 x 30 mm infiltrate in the right upper lobe. A 1.5 cm noncalcified subpleural nodular density in the posterior segment of the right upper lobe. 7 mm noncalcified nodule of the right lower lobe superior segment. A 2.3 cm cavitating spiculated infiltrate of the left lower lobe posterior basal segment. There is extensive calcified pleural plaque of the lung bases. No hilar mass. Few mediastinal lymph nodes that measure 1 cm. 6 Chronic tobacco dependence of greater than 60 years 7 Daily alcohol use Plan: Continue current antibiotics, so far the culture data remains negative, no worsening dyspnea, no complaints of cough or congestion, no hemoptysis, patient is on a combination of cefepime and vancomycin, no fever or chills, no complaints of chest pain. Breathing seems to be comfortable. Continue nebulized bronchodilators, continue same dose of oral Lasix, we'll continue to follow, prognosis is guarded. No plans for bronchoscopy, will obtain follow-up CT scan in 3 months time. Discharge planning is in progress for discharge home with palliative care I performed a history & physical examination of the patient and discussed their management with my nurse practitioner, Yanely Espinosa. I reviewed the nurse practitioner's note and agree with the documented findings and plan of care. Lung sounds are positive for diffuse wheezes throughout the lung peralta. The findings and the impression was discussed with the patient. I attest to the documentation by the nurse practitioner. Time with Patient: Less than 30
--- NOTE | 2020-04-19 15:02 | P.PN ---
Subjective Progress Note Date: 04/19/20 Principal diagnosis: Pancytopenia status post treatment of MDS In follow-up today patient denies any complaints, no recent fevers, he states he has no appetite, denies nausea, vomiting, he is starting to expectorate, no hemoptysis, abdominal pain, acute changes in bowel or bladder habits. Patient is able to ambulate independently. Objective - Vital Signs Vital signs: Vital Signs Temp 98.9 F 04/19/20 13:00 Pulse 77 04/19/20 13:00 Resp 16 04/19/20 13:00 BP 87/45 04/19/20 13:00 Pulse Ox 96 04/19/20 13:00 Intake & Output 04/18/20 04/19/20 04/19/20 18:59 06:59 18:59 Intake Total 1322 350 100 Output Total 100 Balance 1322 250 100 Weight 55.792 kg Intake: Intake, IV Titration 200 350 100 Amount Cefepime 2 gm In Sodium 200 100 100 Chloride 0.9% 100 ml @ 200 mls/hr IVPB Q8HR DONNA Rx#:[id number] Vancomycin 1,000 mg In 250 Sodium Chloride 0.9% 250 ml @ 125 mls/hr IVPB Q12H DONNA Rx#:[id number] Oral 600 Blood Product 522 Platelet Irr Pheresis 212 Acda1 Unit [id number] Rc Irr As1 Unit 310 [id number] Output: Urine 100 Other: Voiding Method Toilet Urinal Urinal # Voids 2 1 - Constitutional General appearance: Present: cooperative, no acute distress, thin - EENT Eyes: Present: anicteric sclerae, edentulous ENT: Present: hearing grossly normal, thrush - Respiratory Respiratory: bilateral: diminished - Cardiovascular Rhythm: regular Heart sounds: normal: S1, S2 Abnormal Heart Sounds: Absent: systolic murmur, diastolic murmur, rub, S3 Gallop, S4 Gallop, click, other - Peripheral edema leg Peripheral Edema: bilateral: None - Gastrointestinal General gastrointestinal: Present: normal bowel sounds, soft - Neurologic Neurologic: Present: CNII-XII intact - Musculoskeletal Musculoskeletal: Present: strength equal bilaterally - Psychiatric Psychiatric: Present: A&O x's 3, appropriate affect, intact judgment & insight - Labs CBC & Chem 7: 04/19/20 12:06 04/19/20 12:06 Labs: Abnormal Lab Results - Last 24 Hours (Table) 04/15/20 04/18/20 04/19/20 Range/Units 13:39 17:47 12:06 WBC 0.5 L* 0.5 L* (3.8-10.6) k/uL RBC 2.21 L 2.10 L (4.30-5.90) m/uL Hgb 7.4 L 7.0 L (13.0-17.5) gm/dL Hct 22.6 L 21.3 L (39.0-53.0) % MCV 102.3 H 101.7 H (80.0-100.0) fL RDW 22.6 H 22.2 H (11.5-15.5) % Plt Count 17 L* D 9 L* (150-450) k/uL Chloride (98-107) mmol/L BUN (9-20) mg/dL Glucose (74-99) mg/dL Calcium (8.4-10.2) mg/dL Total Protein (6.3-8.2) g/dL Albumin (3.5-5.0) g/dL Crossmatch See Detail 04/19/20 Range/Units 12:06 WBC (3.8-10.6) k/uL RBC (4.30-5.90) m/uL Hgb (13.0-17.5) gm/dL Hct (39.0-53.0) % MCV (80.0-100.0) fL RDW (11.5-15.5) % Plt Count (150-450) k/uL Chloride 108 H (98-107) mmol/L BUN 35 H (9-20) mg/dL Glucose 114 H (74-99) mg/dL Calcium 7.8 L (8.4-10.2) mg/dL Total Protein 5.6 L (6.3-8.2) g/dL Albumin 2.4 L (3.5-5.0) g/dL Crossmatch Microbiology - Last 24 Hours (Table) 04/18/20 11:45 Gram Stain - Final Sputum Sputum Culture - Final 04/16/20 20:34 Blood Culture - Preliminary Blood No Growth after 48 hours 04/17/20 17:56 Blood Culture - Preliminary Blood No Growth after 24 hours Assessment and Plan (1) Pancytopenia due to antineoplastic chemotherapy Narrative/Plan: Transfuse for hemoglobin less than 7 or symptomatic. No transfusion today, hemoglobin 7 Transfuse for platelets less than 10,000 unless symptomatic. Patient is to be transfused with 1 unit single donor platelets for platelet count of 9000 today. Patient did receive G-CSF after treatment. That was on the . Patient will receive short acting G-CSF starting tomorrow. Current Visit: Yes Status: Chronic Priority: Medium Code(s): D61.810 - ANTINEOPLASTIC CHEMOTHERAPY INDUCED PANCYTOPENIA; T45.1X5A - ADVERSE EFFECT OF ANTINEOPLASTIC AND IMMUNOSUP DRUGS, INIT SNOMED Code(s): 850293776195550 (2) MDS (myelodysplastic syndrome), high grade Narrative/Plan: Patient is now status post 2 of the recommended 3 treatments who suggested by he monitored to see if we can get some control of his disease. I saw patient week after treatment last week and his counts actually were pretty decent and he was feeling pretty good. Unfortunately, he is now in nidia. We will see how well he is able to recuperate. Further recommendations for treatment to follow. Current Visit: No Status: Chronic Priority: Medium Code(s): D46.Z - OTHER MYELODYSPLASTIC SYNDROMES SNOMED Code(s): 164330599 (3) Thrush, oral Narrative/Plan: Mild, coating the tongue. Could be contributing to some of the patient's poor taste. Patient is being treated with the oral suspension. We will add salt and baking soda for cleansing of the mouth. Would recommend brushing the teeth at least twice a day, obtain a new toothbrush especially at home, try brushing the tongue if able. Current Visit: Yes Status: Acute Priority: Medium Code(s): B37.0 - CANDIDAL STOMATITIS SNOMED Code(s): 39091733 Plan: Did discuss the case with Infectious Disease. ID was going to review the computed tomography scan, pending sputum cultures, may consider bronchoscopy versus percutaneous biopsy to see what is going on in the patient's lung. Pe nding their recommendations.
[2020-04-19] MEDS ORDERED: VANCOMYCIN 750 MG in SODIUM CHLORIDE 0.9% 250 ML IVPB SCH (16:00)
[2020-04-19] MEDS: SALT AND SODA MOUTHWASH 1,000 ML PO SCH ×3 (18:01→23:34)
[2020-04-19] MEDS: ACETAMINOPHEN TAB 325 MG TAB PO PRN (19:42)
--- NOTE | 2020-04-19 23:28 | PN ---
PROGRESS NOTE DATE OF SERVICE: 04/19/2020 REASON FOR FOLLOWUP: Febrile neutropenia and pneumonia. INTERVAL HISTORY: The patient did spike a fever of 102.8 degrees Fahrenheit this afternoon. The patient denies having any chest pain or shortness of breath. He did have a cough, not bringing up any sputum. No nausea, no vomiting. No abdominal pain. No diarrhea. PHYSICAL EXAMINATION: Blood pressure 102/56, pulse of 69, temperature 99.4. He is 99% on 2 L nasal cannula. General description is an elderly male lying in bed in no distress. RESPIRATORY SYSTEM: Unlabored breathing, decreased breath sounds at the bases. No wheeze. HEART: S1, S2. Regular rate and rhythm. ABDOMEN: Soft, no tenderness. LABS: Hemoglobin 7, white count 0.5, BUN of 35, creatinine 1.21. DIAGNOSTIC IMPRESSION AND PLAN: Patient with febrile neutropenia in this patient who did have evidence of cavitary pneumonia which is mostly on the left lower lobe in this patient. Previously lesion on the right lung has shown improvement though as the CT was reviewed with the radiologist. We will switch antibiotic therapy to Zosyn with concern for possible aspiration pneumonitis and workup will be done for possible aspergillosis as the patient has been neutropenic for a longtime and may benefit from pulmonary evaluation and consideration for possible bronchoscopy and biopsy. MMODL / IJN: [id number] /
[2020-04-19] MEDS: PIPERACILLIN-TAZOBACTAM 3.375 GM in SODIUM CHLORIDE 0.9% 100 ML IVPB SCH (23:32)
[2020-04-20] MEDS: SALT AND SODA MOUTHWASH 1,000 ML PO SCH ×5 (05:26→23:48)
[2020-04-20] MEDS: PANTOPRAZOLE 40 MG TABLET PO SCH (08:14)
[2020-04-20] MEDS: PIPERACILLIN-TAZOBACTAM 3.375 GM in SODIUM CHLORIDE 0.9% 100 ML IVPB SCH ×2 (08:14→16:05)
[2020-04-20] MEDS: ACYCLOVIR 200 MG CAP PO SCH ×3 (08:42→22:08)
[2020-04-20] MEDS: DICYCLOMINE 20 MG TAB PO SCH ×4 (08:42→22:08)
[2020-04-20] MEDS: ALBUTEROL NEBULIZED 2.5 MG/3 ML INHALATION SCH ×3 (08:43→18:47)
[2020-04-20] MEDS: NYSTATIN 100,000 UNIT/ML SUSP 500,000 UNIT/5 ML CUP PO SCH ×4 (08:43→22:08)
[2020-04-20] MEDS: MULTIVITAMINS, THERA 1 EACH TAB PO SCH (08:43)
[2020-04-20] MEDS: FUROSEMIDE 40 MG TAB PO SCH (08:44)
[2020-04-20] MEDS: POTASSIUM CHLORIDE ER 20 MEQ TAB.ER PO SCH (08:45)
[2020-04-20] MEDS ORDERED: FILGRASTIM-SNDZ 300 MCG/0.5 ML SYRINGE SQ SCH (09:00)
[2020-04-20 09:05] LABS: Anisocytosis Moderate; HCT 20.4 % (39.0-53.0); MCH 33.5 pg (25.0-35.0); MCHC 32.8 g/dL (31.0-37.0); MCV 102.2 fL (80.0-100.0); Macrocytosis Moderate; RDW 22.5 % (11.5-15.5)
[2020-04-20 09:27] LABS: Albumin 2.6 g/dL (3.5-5.0); Calcium 8.3 mg/dL (8.4-10.2); Potassium 4.1 mmol/L (3.5-5.1); Total Bilirubin 0.8 mg/dL (0.2-1.3); Total Protein 5.9 g/dL (6.3-8.2)
[2020-04-20 09:31] LABS: Platelet Count 23 k/uL (150-450); WBC 0.5 k/uL (3.8-10.6)
[2020-04-20 09:33] LABS: HGB 6.7 gm/dL (13.0-17.5)
[2020-04-20 09:41] LABS: C Reactive Protein 209.5 mg/L (<10.0)
--- NOTE | 2020-04-20 10:31 | P.PN ---
Subjective Progress Note Date: 04/20/20 Principal diagnosis: Weakness, shortness of breath This is a very pleasant 70-year-old gentleman who follows with Dr. Bustillos is his primary care provider. He has a history of gout, chronic and ongoing tobacco dependence, and myelodysplastic syndrome, high-grade and has been seen by medical oncology. He has received a second round of chemotherapy with G-CSF approximately a week ago. He did receive Neulasta as well. He presented to the emergency room on 04/15/2020 after being told by his PCP his hemoglobin was quite low. The patient had been having weakness and shortness of breath. Initial labs revealed a WBC of 1.3. Hemoglobin 5.1. Platelets 28,000. He is status post 2 units of packed red blood cells. A third unit of packed red blood cells as ordered for today for hemoglobin is 6.0. He will be receiving platelets for a platelet count of 9000. Yesterday he had undergone a computed tomography scan of the chest that revealed multiple pulmonary abnormalities including a spiculated 16 x 10 x 30 mm infiltrate of the right upper lobe. There is a 1.5 cm noncalcified subpleural nodular density in the posterior aspect of the right midlung in the posterior segment right upper lobe. There is a 2.3 cm cavitating spiculated infiltrate of the left lower lobe posterior basal segment. Extensive calcified pleural plaque at the lung bases. No pleural effusion. No hilar masses. Few mediastinal lymph nodes measuring 1 cm. We are consulted for the same. The patient is seen today on the oncology unit. He is currently resting comfortably in bed. Awake and alert in no acute distress. Somewhat of a poor historian. His shortness of breath is about the same. No cough or congestion. No fever chills or night sweats. Temperature last evening was 100.8. Maintaining O2 saturations in the mid 90s on 3 L/m per nasal cannula. Systolic blood pressure in the 90s. Blood cultures revealing no growth to date. White count 0.7. Hemoglobin 6.0. Platelets 9000. Sodium 137. Potassium 4.7. Creatinine 1.22. On 04/19/2020 patient seen in follow-up on a general medical oncology floor, he is awake and alert, in no acute distress, he is resting comfortably in bed, he is on 2 L of oxygen his pulse ox is 96%, afebrile, hemodynamically stable, although this morning his systolic was in the 90s and this afternoon his systolic is 87, and the patient is asymptomatic. Today's lab work has been reviewed, and patient is still pancytopenic, with a white blood cell, 0.5, hemoglobin is 7.0, and platelet count is 9. His renal profile is stable, would be on of 35, and creatinine is 1.21, sodium is 137, potassium is 4.2, chloride is 108. His blood and sputum cultures have shown no growth so far. Patient is on a combination of cefepime and vancomycin. He is on a daily dose of oral Lasix. His lung sounds are markedly diminished, no rhonchi or wheezing, no cough or congestion, his CT chest on 04/17/2020 was reviewed showing spiculated 16 x 10 x 30 mm infiltrate in the right upper lobe, 1.5 cm noncalcified subpleural nodular density in the posterior aspect of right midlung and 2.3 cm cavitating spiculated infiltrate in the left lower lobe posterior basal segment. Clinically patient appears to be stable, no nausea vomiting no diarrhea, no altered mentation. No worsening dyspnea. On 04/20/2020 patient seen in follow-up on a general medical oncology floor. he is resting comfortably in bed, his only complaint today is that she is feeling a bit dizzy, but she denies any shortness of breath, no cough or congestion. Lung sounds reveal markedly diminished breath sounds bilaterally, breathing appears to be comfortable, patient is on room air with pulse ox of 96%, did have a low- grade fever early this morning with a temp of 100.4F. Remains on antibiotic coverage including Zosyn, vancomycin has been discontinued. Blood and sputum cultures have shown no growth. Patient was started on filgrastim per oncology. Today's lab work has been reviewed, and patient remains pancytopenic with a white blood cell count of 0.5, hemoglobin is 6.7, electrolytes within normal limits, B1 is 30 creatinine is 1.25. Objective - Vital Signs Vital signs: Vital Signs Temp 98.5 F 04/20/20 07:35 Pulse 74 04/20/20 08:56 Resp 17 04/20/20 07:35 BP 88/37 04/20/20 07:35 Pulse Ox 96 04/20/20 04:45 Intake & Output 04/19/20 04/20/20 04/20/20 18:59 06:59 18:59 Intake Total 580 1048 Output Total 550 Balance 580 498 Intake: Intake, IV Titration 100 100 Amount Cefepime 2 gm In Sodium 100 Chloride 0.9% 100 ml @ 200 mls/hr IVPB Q8HR [facility] Rx#:[id number] Piperacillin-Tazobactam 3 100 .375 gm In Sodium Chloride 0.9% 100 ml @ 25 mls/hr IVPB Q8HR [facility] Rx# :[id number] Oral 480 240 Blood Product 708 Platelet Irr Pheresis 354 Acda Unit [id number] Output: Urine 550 Other: Voiding Method Urinal Urinal - Exam GENERAL EXAM: Alert, very pleasant, 70-year-old white male, on room air with t he pulse ox of 96% comfortable in no apparent distress. HEAD: Normocephalic/atraumatic. EYES: Normal reaction of pupils, equal size. Conjunctiva pink, sclera white. NOSE: Clear with pink turbinates. THROAT: No erythema or exudates. NECK: No masses, no JVD, no thyroid enlargement, no adenopathy. CHEST: No chest wall deformity. Symmetrical expansion. LUNGS: Equal air entry with markedly diminished breath sounds bilaterally CVS: Regular rate and rhythm, normal S1 and S2, no gallops, no murmurs, no rubs ABDOMEN: Soft, nontender. No hepatosplenomegaly, normal bowel sounds, no guarding or rigidity. EXTREMITIES: No clubbing, no edema, no cyanosis, 2+ pulses and upper and lower extremities. MUSCULOSKELETAL: Muscle strength and tone normal. SPINE: No scoliosis or deformity SKIN: No rashes CENTRAL NERVOUS SYSTEM: Alert and oriented -3. No focal deficits, tone is normal in all 4 extremities. PSYCHIATRIC: Alert and oriented -3. Appropriate affect. Intact judgment and insight. - Labs CBC & Chem 7: 04/20/20 08:29 04/20/20 08:29 Labs: Abnormal Lab Results - Last 24 Hours (Table) 04/19/20 04/19/20 04/20/20 Range/Units 12:06 12:06 08:29 WBC 0.5 L* 0.5 L* (3.8-10.6) k/uL RBC 2.10 L 2.00 L (4.30-5.90) m/uL Hgb 7.0 L 6.7 L* (13.0-17.5) gm/dL Hct 21.3 L 20.4 L (39.0-53.0) % MCV 101.7 H 102.2 H (80.0-100.0) fL RDW 22.2 H 22.5 H (11.5-15.5) % Plt Count 9 L* 23 L D (150-450) k/uL Chloride 108 H (98-107) mmol/L BUN 35 H (9-20) mg/dL Glucose 114 H (74-99) mg/dL Calcium 7.8 L (8.4-10.2) mg/dL C-Reactive Protein (<10.0) mg/L Total Protein 5.6 L (6.3-8.2) g/dL Albumin 2.4 L (3.5-5.0) g/dL 04/20/20 Range/Units 08:29 WBC (3.8-10.6) k/uL RBC (4.30-5.90) m/uL Hgb (13.0-17.5) gm/dL Hct (39.0-53.0) % MCV (80.0-100.0) fL RDW (11.5-15.5) % Plt Count (150-450) k/uL Chloride (98-107) mmol/L BUN 30 H (9-20) mg/dL Glucose 105 H (74-99) mg/dL Calcium 8.3 L (8.4-10.2) mg/dL C-Reactive Protein 209.5 H (<10.0) mg/L Total Protein 5.9 L (6.3-8.2) g/dL Albumin 2.6 L (3.5-5.0) g/dL Microbiology - Last 24 Hours (Table) 04/16/20 20:34 Blood Culture - Preliminary Blood No Growth after 72 hours 04/17/20 17:56 Blood Culture - Preliminary Blood No Growth after 48 hours 04/18/20 11:45 Gram Stain - Final Sputum Sputum Culture - Final Assessment and Plan Plan: Assessment: 1 Pancytopenia secondary to antineoplastic chemotherapy for myelodysplastic syndrome. He had been treated with G CSF 2. Received Neulasta. 2 Anemia secondary to above presenting hemoglobin 5.1. Status post 3 units packed red blood cells with improvement of 7.3. Today's hemoglobin 6.7. 3 Thrombocytopenia secondary to above current platelet count 19,000. Status post transfusion with 2 units platelet 4 Leukopenia secondary to above. 5 Multiple pulmonary infiltrates including a spiculated 16 x 10 x 30 mm infiltrate in the right upper lobe. A 1.5 cm noncalcified subpleural nodular density in the posterior segment of the right upper lobe. 7 mm noncalcified nodule of the right lower lobe superior segment. A 2.3 cm cavitating spiculated infiltrate of the left lower lobe posterior basal segment. There is extensive calcified pleural plaque of the lung bases. No hilar mass. Few mediastinal lymph nodes that measure 1 cm. 6 Chronic tobacco dependence of greater than 60 years 7 Daily alcohol use Plan: Continue current medical treatment, today's labs have been noted, patient remains pancytopenic, has been started on filgrastim. No difficulty breathing reported, patient is on room air. Antibiotics per ID service recommendations, sputum and blood cultures remain negative. No plans for bronchoscopy with biopsies right now, patient is very thrombocytopenic, and anemic, and would present a risk for a biopsy at this time. We'll continue optimizing his current condition I performed a history & physical examination of the patient and discussed their management with my nurse practitioner, Yanely Espinosa. I reviewed the nurse practitioner's note and agree with the documented findings and plan of care. Lung sounds are positive for diffuse wheezes throughout the lung peralta. The findings and the impression was discussed with the patient. I attest to the documentation by the nurse practitioner. Time with Patient: Less than 30
--- NOTE | 2020-04-20 11:10 | P.PN ---
Subjective Progress Note Date: 04/20/20 70-year-old male one of Dr. Bustillos's patient with past medical history of anemia, gout, tobacco use, daily alcohol use and myelodysplasia who has been set pancytopenic for the last 2 month was started on chemotherapy with hematology recently was hospitalized for extended period of time for severe pancytopenia and severe neutropenia did not recover. Patient apparently went back on chemotherapy after he left the hospital last time. Today found to have severe anemia with hemoglobin of 5.1 with severe neutropenia white blood cell 1.3 and thrombocytopenia with platelets 28,000 only. Patient brought to the [facility] emergency department where was seen and evaluated has been very weak has not been able to ambulate and walk and has been having worsening shortness of breath with dyspnea with minimal exertion for the last few days. With a current hemoglobin his oncologist and instructed him to come to the hospital for admission for transfusion. 04/16: Patient is seen today on the [facility] floor. He is status post 2 units of packed RBCs and repeat lab work reveals hemoglobin of 7.3, WBC 0.9, platelet count 18. Electrolytes normal, BUN 32 and creatinine 0.89. Calcium 7.9, total bilirubin 1.5, AST 42, ALT 40, alkaline phosphatase 66. Temperature max 100.0, heart rate 76, blood pressure 115/66, pulse ox 96% on room air. Consult in place for oncology. COVID-19 is pending. 04/17: Hemoglobin currently is at 7.1, platelet count of 16, double basic count of 0.7 oncology thinks that he has myelodysplasia,patient wants to stay another day just in case he needs another blood products, as it's difficult for him to be transported back and forth with the who has been on a wheelchair, patient has chronic cough from smoking, denies any feverhowever T-max is 100.0 within the past 24 hours, Covid testc negative,chest x-ray shows no acute pulmonary disease, has clearing of pulmonary edema and pleural fluid compared to old exam,urinalyses WBC of 2,blood cultures would be sent secondary to the fever, consult Dr. Garcia for neutropenic fever, unknown primary at this time,start patient on cefotaxime, Levaquin, we will obtain high resolution CT of the chest, CT of the abdomen fromMarch 25, 2020 was reviewed , CT March 21, 2 cm stellate mass right upper lobe, 4 x 2 cm hypodensity posterior spleen no hydronephrosis no pulmonary has seen the patient, consult with Dr. Obie castrejon 04/18: Patient is being transfused currently for hemoglobin of 6.0, along with pl atelet transfusion, both are irritated, platelet is down to 9, currently on IV cefepime with James, is following, CAT scan of the chest shows multiple pulmonary infiltrates including a spiculated lesion 16 x 10 x 13 mm right upper lobe, 1.5 cm noncalcified subpleural nodular density posterior segment right upper lobe, 7 mm noncalcified nodule right lower lobe, 2.3, dictation spiculated left lower lobe, posterior basal segment, suspected inflammatory changes, Dr. Blanca pulmonary has been consulted, with recommendations for follow-up CT in 3 months, sputum culture sent today patient still has cough no hemoptysis, no conversational dyspnea, no active wheezing, T-max of 98.2, blood pressure is between 90-98 systolic pressures, nonlabored breathing pulse ox room air 98% 04/19: Patient has been seen by Dr. Blanca with recommendations for 3 month follow-up for repeat CAT scan. Patient has been continued on vancomycin, and cefepime by Dr. Garcia. We will discontinue the Levaquin that was added by oncology for prophylaxis. Patient does have a temperature max of 102.6, heart rate 79, blood pressure 95/53, pulse ox 97% on room air. Repeat blood work will be ordered for today. Patient has remained pancytopenic over the weekend. 04/20: Yesterday's blood work revealed a hemoglobin of 7, WBC 0.5, platelet count 9 and patient received 1 unit of platelets and oncology started Zarxio. Repeat blood work for today reveals WBC of 0.5, hemoglobin 6.7, platelet count 23. BUN 30 creatinine 1.25. Blood sugar 105. C-reactive protein is 209.5. Patient denies any new complaints. No chest pain or shortness of breath. No cough. Temperature max is 102.8 at 7 PM, heart rate 72, blood pressure 88/37, pulse ox 96% on room air. Pulmonary medicine does not plan for bronchoscopies at this time. Dr. Jose has changed and biotics to Zosyn. Review of Systems CONSTITUTIONAL: Well-developed no acute respiratory distress. Denies chills. Documented fever. EYES: No icterus sclerae, no conjunctivitis. EARS, NOSE, MOUTH, THROAT, and FACE: No sore throat, lymphadenopathy, carotid bruits or deformity. RESPIRATORY: Positive shortness of breath cough wheezes. CARDIOVASCULAR: No CP, Palpitation, PND, Orthopnea, or angina. GASTROINTESTINAL: Mild change in bowel habit with mild diarrhea and slight dyspepsia GENITOURINARY: Negative for Hematuria or UTI, no kidney stones. INTEGUMENT/BREAST: Negative for any muscular injury with mild osteoarthritis.. HEMATOLOGIC/LYMPHATIC: History of myelodysplasia severe anemia thrombocytopenia and neutropenia. MUSCULOSKELTAL: Negative for Myalgia or arthralgia. NEURLOGICAL: No LOC, Sz or syncope, blurred vision dizziness or abnormality.. BEHAVIORAL/PSYCH: Negative. ENDOCRINE: Negative. Physical Examination General Appearance: Alert, cooperative, no distress, appears stated age. P atient sitting on the edge of the bed and appears to be in no acute distress. Neck HEENT: Supple, no lymphadenopathy, no thyroid enlargement, no carotid bruits. Lungs: Decreased breaths bilaterally. Chest Wall: Decrease expansion with deep inspiration no tenderness and no deformity was found on exam, no costochondral pain. Heart: Regular rate and rhythm, S1, S2 mild tachycardia with systolic murmur. Back: Symmetric, no curvature, ROM normal, no CVA tenderness. Abdomen: Soft positive bowel sound slight discomfort in the mid abdominal area with mild organomegaly with multiple bruises no rebound or rigidity. Extremities: Extremities trace edema with multiple bruises positive mild ecchymosis as well. Pulses: 2+ and symmetric. Skin: Skin color, texture, tugor normal, no rashes or lesions. Neurologic: Alert oriented x3 cranial nerves II through XII intact, no motor deficit, no abnormal balance or gait. Assessment and Plan 1 acute symptomatic anemia. Patient is status post transfusion of 3 units packed RBCs. Continue Protonix. 2 severe myelodysplasia. Oncology consult appreciated. Continue cefepime. 3 severe neutropenia. Oncology consult, Zarxio started. In the meanwhile patient will go back on acyclovir, Diflucan. Antibiotics changed to Zosyn. 4. Pancytopenia. Patient is status post transfusion of 3 units packed RBCs and 2 unit of platelets. Patient is followed by oncology. 5 COPD without exacerbation. Continue albuterol nebulizer 3 times daily. 6 chronic edema: More diastolic congestive heart failure and chronic continue furosemide at 40 mg daily. 7 recurrent pneumonia: Patient is asymptomatic at this point. Continue inhaler and antibiotics. 8 GI prophylaxis: pantoprazole 40 mg daily. 9 DVT prophylaxis: Patient will stay on Venodyne boots and knee-high MOE hose. 10 COVID-19 infection not present. CODE STATUS: Full code. Discharge plan: [facility] care and palliative care. Impression and plan of care have been directed as dictated by the signing physician. Dannielle Villegas nurse practitioner acting as scribe for signing physician. Objective - Vital Signs Vital signs: Vital Signs Temp 98.5 F 04/20/20 07:35 Pulse 72 04/20/20 07:35 Resp 17 04/20/20 07:35 BP 88/37 04/20/20 07:35 Pulse Ox 96 04/20/20 04:45 Intake & Output 04/19/20 04/20/20 04/20/20 18:59 06:59 18:59 Intake Total 580 1048 Output Total 550 Balance 580 498 Intake: Intake, IV Titration 100 100 Amount Cefepime 2 gm In Sodium 100 Chloride 0.9% 100 ml @ 200 mls/hr IVPB Q8HR [facility] Rx#:[id number] Piperacillin-Tazobactam 3 100 .375 gm In Sodium Chloride 0.9% 100 ml @ 25 mls/hr IVPB Q8HR [facility] Rx# :[id number] Oral 480 240 Blood Product 708 Platelet Irr Pheresis 354 Acda Unit [id number] Output: Urine 550 Other: Voiding Method Urinal - Labs CBC & Chem 7: 04/20/20 08:29 04/20/20 08:29 Labs: Abnormal Lab Results - Last 24 Hours (Table) 04/19/20 04/19/20 Range/Units 12:06 12:06 WBC 0.5 L* (3.8-10.6) k/uL RBC 2.10 L (4.30-5.90) m/uL Hgb 7.0 L (13.0-17.5) gm/dL Hct 21.3 L (39.0-53.0) % MCV 101.7 H (80.0-100.0) fL RDW 22.2 H (11.5-15.5) % Plt Count 9 L* (150-450) k/uL Chloride 108 H (98-107) mmol/L BUN 35 H (9-20) mg/dL Glucose 114 H (74-99) mg/dL Calcium 7.8 L (8.4-10.2) mg/dL Total Protein 5.6 L (6.3-8.2) g/dL Albumin 2.4 L (3.5-5.0) g/dL Microbiology - Last 24 Hours (Table) 04/16/20 20:34 Blood Culture - Preliminary Blood No Growth after 72 hours 04/17/20 17:56 Blood Culture - Preliminary Blood No Growth after 48 hours 04/18/20 11:45 Gram Stain - Final Sputum Sputum Culture - Final
[2020-04-20 13:12] LABS: Erythrocyte Sedimentation Rate 116 mm/hr (0-15)
--- NOTE | 2020-04-20 17:58 | P.PN ---
Subjective Progress Note Date: 04/20/20 Principal diagnosis: Pancytopenia status post treatment of MDS In follow-up today patient states being bored, he had a fever last night-nursing does not feel it was a true fever as pt was cover up with multiple blankets and the room temp was hot. He has diarrhea, sore under his denture, no other c/o today. Objective - Vital Signs Vital signs: Vital Signs Temp 98.4 F 04/20/20 13:29 Pulse 85 04/20/20 13:29 Resp 18 04/20/20 13:29 BP 99/56 04/20/20 13:29 Pulse Ox 92 L 04/20/20 13:29 Intake & Output 04/19/20 04/20/20 04/20/20 18:59 06:59 18:59 Intake Total 580 1048 300 Output Total 550 300 Balance 580 498 0 Intake: Intake, IV Titration 100 100 100 Amount Cefepime 2 gm In Sodium 100 Chloride 0.9% 100 ml @ 200 mls/hr IVPB Q8HR [facility] Rx#:[id number] Piperacillin-Tazobactam 3 100 100 .375 gm In Sodium Chloride 0.9% 100 ml @ 25 mls/hr IVPB Q8HR [facility] Rx# :[id number] Oral 480 240 200 Blood Product 708 Platelet Irr Pheresis 354 Acda Unit [id number] Output: Urine 550 300 Other: Voiding Method Urinal Toilet # Voids 2 - Constitutional General appearance: Present: cooperative, no acute distress, thin - EENT Eyes: Present: anicteric sclerae, edentulous, poor dentition ENT: Present: hearing grossly normal, pharyngeal erythema, thrush - Respiratory Respiratory: bilateral: CTA - Cardiovascular Heart sounds: normal: S1, S2 Abnormal Heart Sounds: Absent: systolic murmur, diastolic murmur, rub, S3 Gallop, S4 Gallop, click, other - Peripheral edema leg Peripheral Edema: bilateral: None - Gastrointestinal General gastrointestinal: Present: normal bowel sounds, soft - Neurologic Neurologic: Present: CNII-XII intact - Musculoskeletal Musculoskeletal: Present: generalized weakness, strength equal bilaterally - Psychiatric Psychiatric: Present: A&O x's 3, appropriate affect, intact judgment & insight - Labs CBC & Chem 7: 04/20/20 08:29 04/20/20 08:29 Labs: Abnormal Lab Results - Last 24 Hours (Table) 04/20/20 04/20/20 Range/Units 08:29 08:29 WBC 0.5 L* (3.8-10.6) k/uL RBC 2.00 L (4.30-5.90) m/uL Hgb 6.7 L* (13.0-17.5) gm/dL Hct 20.4 L (39.0-53.0) % MCV 102.2 H (80.0-100.0) fL RDW 22.5 H (11.5-15.5) % Plt Count 23 L D (150-450) k/uL ESR 116 H (0-15) mm/hr BUN 30 H (9-20) mg/dL Glucose 105 H (74-99) mg/dL Calcium 8.3 L (8.4-10.2) mg/dL C-Reactive Protein 209.5 H (<10.0) mg/L Total Protein 5.9 L (6.3-8.2) g/dL Albumin 2.6 L (3.5-5.0) g/dL Microbiology - Last 24 Hours (Table) 04/16/20 20:34 Blood Culture - Preliminary Blood No Growth after 72 hours 04/17/20 17:56 Blood Culture - Preliminary Blood No Growth after 48 hours Assessment and Plan (1) Pancytopenia due to antineoplastic chemotherapy Narrative/Plan: Transfuse for hemoglobin less than 7 or symptomatic. Transfusion today, hemoglobin 6.7 Transfuse for platelets less than 10,000 unless symptomatic. Patient did receive G-CSF after treatment. That was on the . Patient will receive short acting G-CSF starting today Current Visit: Yes Status: Chronic Priority: Medium Code(s): D61.810 - ANTINEOPLASTIC CHEMOTHERAPY INDUCED PANCYTOPENIA; T45.1X5A - ADVERSE EFFECT OF ANTINEOPLASTIC AND IMMUNOSUP DRUGS, INIT SNOMED Code(s): 237438965772936 (2) MDS (myelodysplastic syndrome), high grade Narrative/Plan: Patient is now status post 2 of the recommended 3 treatments suggested by Hematology to see if able to get some control of his disease. I saw patient week after treatment last week and his counts actually were pretty decent and he was feeling pretty good. Unfortunately, he is now in nidia. We will see how well he is able to recuperate. Further recommendations for treatment to follow. Current Visit: No Status: Chronic Priority: Medium Code(s): D46.Z - OTHER MYELODYSPLASTIC SYNDROMES SNOMED Code(s): 417070935 (3) Thrush, oral Narrative/Plan: Mild, coating the tongue, sore under denture. Cont salt and baking soda for cleansing of the mouth. Still recommend brushing the teeth at least twice a day , obtain a new toothbrush, especially at home, try brushing the tongue if able. Place nystatin in tongue and hold on sore area on the roof of mouth Current Visit: Yes Status: Acute Priority: Medium Code(s): B37.0 - CANDIDAL STOMATITIS SNOMED Code(s): 07060376 Plan: ID was going to review the computed tomography scan, pending sputum cultures, may consider bronchoscopy versus percutaneous biopsy to see what is going on in the patient's lung once WBC/ANC and platelets stable. Pending recommendations.
--- NOTE | 2020-04-20 23:14 | PN ---
PROGRESS NOTE DATE OF SERVICE: 04/20/2020 REASON FOR FOLLOWUP: Febrile neutropenia and pneumonia. INTERVAL HISTORY: The patient overall feels better and has improved. The last temperature has been around 4 in the morning of 100.4. The patient denies having any chest pain or shortness of breath. He did have some cough, not bringing up any sputum. No nausea, no vomiting. No abdominal pain, no diarrhea. PHYSICAL EXAMINATION: Blood pressure 99/38 with a pulse of 60, temperature 98.5. He is 92% on room air. General description is an elderly male lying in bed in no distress. RESPIRATORY SYSTEM: Unlabored breathing, decreased intensity of breath sounds. No wheeze. HEART: S1, S2. Regular rate and rhythm. ABDOMEN: Soft, no tenderness. LABS: Creatinine 1.25. CRP is 209. Sed rate is 116. White count 0.5. DIAGNOSTIC IMPRESSION AND PLAN: Patient with febrile neutropenia with concern for the multiple pulmonary on his pneumonia with some cavitary. Cultures are currently pending. Patient is on Zosyn to continue and monitor clinical course closely. MMODL / IJN: [id number] /
[2020-04-21] MEDS: PIPERACILLIN-TAZOBACTAM 3.375 GM in SODIUM CHLORIDE 0.9% 100 ML IVPB SCH ×3 (02:09→16:52)
[2020-04-21] MEDS: ACETAMINOPHEN TAB 325 MG TAB PO PRN ×2 (05:25→21:25)
[2020-04-21] MEDS: SALT AND SODA MOUTHWASH 1,000 ML PO SCH ×4 (05:26→20:15)
[2020-04-21] MEDS: ALBUTEROL NEBULIZED 2.5 MG/3 ML INHALATION SCH ×3 (06:54→19:06)
[2020-04-21 07:39] LABS: Anisocytosis Moderate; HCT 20.9 % (39.0-53.0); Hypochromasia Slight; MCH 32.2 pg (25.0-35.0); MCHC 31.3 g/dL (31.0-37.0); MCV 102.8 fL (80.0-100.0); Macrocytosis Moderate; Mean Platelet Volume 9.6; RBC 2.04 m/uL (4.30-5.90); RDW 22.3 % (11.5-15.5)
[2020-04-21 07:43] LABS: HGB 6.6 gm/dL (13.0-17.5); Platelet Count 17 k/uL (150-450); WBC 0.6 k/uL (3.8-10.6)
[2020-04-21 08:07] LABS: Albumin 2.5 g/dL (3.5-5.0); Total Bilirubin 0.8 mg/dL (0.2-1.3); Total Protein 5.8 g/dL (6.3-8.2)
[2020-04-21 08:08] LABS: Potassium 3.9 mmol/L (3.5-5.1)
[2020-04-21] MEDS: FUROSEMIDE 40 MG TAB PO SCH (08:31)
[2020-04-21] MEDS: POTASSIUM CHLORIDE ER 20 MEQ TAB.ER PO SCH (08:31)
[2020-04-21] MEDS: MULTIVITAMINS, THERA 1 EACH TAB PO SCH (08:31)
[2020-04-21] MEDS: DICYCLOMINE 20 MG TAB PO SCH ×4 (08:31→21:25)
[2020-04-21] MEDS: ACYCLOVIR 200 MG CAP PO SCH ×3 (08:31→21:24)
[2020-04-21] MEDS: NYSTATIN 100,000 UNIT/ML SUSP 500,000 UNIT/5 ML CUP PO SCH ×4 (08:32→21:25)
[2020-04-21] MEDS: FILGRASTIM-SNDZ 480 MCG/0.8 ML SYRINGE SQ SCH (08:32)
--- NOTE | 2020-04-21 10:04 | P.PN ---
Subjective Progress Note Date: 04/21/20 70-year-old male one of Dr. Bustillos's patient with past medical history of anemia, gout, tobacco use, daily alcohol use and myelodysplasia who has been set pancytopenic for the last 2 month was started on chemotherapy with hematology recently was hospitalized for extended period of time for severe pancytopenia and severe neutropenia did not recover. Patient apparently went back on chemotherapy after he left the hospital last time. Today found to have severe anemia with hemoglobin of 5.1 with severe neutropenia white blood cell 1.3 and thrombocytopenia with platelets 28,000 only. Patient brought to the [facility] emergency department where was seen and evaluated has been very weak has not been able to ambulate and walk and has been having worsening shortness of breath with dyspnea with minimal exertion for the last few days. With a current hemoglobin his oncologist and instructed him to come to the hospital for admission for transfusion. 04/16: Patient is seen today on the [facility] floor. He is status post 2 units of packed RBCs and repeat lab work reveals hemoglobin of 7.3, WBC 0.9, platelet count 18. Electrolytes normal, BUN 32 and creatinine 0.89. Calcium 7.9, total bilirubin 1.5, AST 42, ALT 40, alkaline phosphatase 66. Temperature max 100.0, heart rate 76, blood pressure 115/66, pulse ox 96% on room air. Consult in place for oncology. COVID-19 is pending. 04/17: Hemoglobin currently is at 7.1, platelet count of 16, double basic count of 0.7 oncology thinks that he has myelodysplasia,patient wants to stay another day just in case he needs another blood products, as it's difficult for him to be transported back and forth with the who has been on a wheelchair, patient has chronic cough from smoking, denies any feverhowever T-max is 100.0 within the past 24 hours, Covid testc negative,chest x-ray shows no acute pulmonary disease, has clearing of pulmonary edema and pleural fluid compared to old exam,urinalyses WBC of 2,blood cultures would be sent secondary to the fever, consult Dr. Garcia for neutropenic fever, unknown primary at this time,start patient on cefotaxime, Levaquin, we will obtain high resolution CT of the chest, CT of the abdomen fromMarch 25, 2020 was reviewed , CT March 21, 2 cm stellate mass right upper lobe, 4 x 2 cm hypodensity posterior spleen no hydronephrosis no pulmonary has seen the patient, consult with Dr. Obie castrejon 04/18: Patient is being transfused currently for hemoglobin of 6.0, along with pl atelet transfusion, both are irritated, platelet is down to 9, currently on IV cefepime with James, is following, CAT scan of the chest shows multiple pulmonary infiltrates including a spiculated lesion 16 x 10 x 13 mm right upper lobe, 1.5 cm noncalcified subpleural nodular density posterior segment right upper lobe, 7 mm noncalcified nodule right lower lobe, 2.3, dictation spiculated left lower lobe, posterior basal segment, suspected inflammatory changes, Dr. Blanca pulmonary has been consulted, with recommendations for follow-up CT in 3 months, sputum culture sent today patient still has cough no hemoptysis, no conversational dyspnea, no active wheezing, T-max of 98.2, blood pressure is between 90-98 systolic pressures, nonlabored breathing pulse ox room air 98% 04/19: Patient has been seen by Dr. Blanca with recommendations for 3 month follow-up for repeat CAT scan. Patient has been continued on vancomycin, and cefepime by Dr. Garcia. We will discontinue the Levaquin that was added by oncology for prophylaxis. Patient does have a temperature max of 102.6, heart rate 79, blood pressure 95/53, pulse ox 97% on room air. Repeat blood work will be ordered for today. Patient has remained pancytopenic over the weekend. 04/20: Yesterday's blood work revealed a hemoglobin of 7, WBC 0.5, platelet count 9 and patient received 1 unit of platelets and oncology started Zarxio. Repeat blood work for today reveals WBC of 0.5, hemoglobin 6.7, platelet count 23. BUN 30 creatinine 1.25. Blood sugar 105. C-reactive protein is 209.5. Patient denies any new complaints. No chest pain or shortness of breath. No cough. Temperature max is 102.8 at 7 PM, heart rate 72, blood pressure 88/37, pulse ox 96% on room air. Pulmonary medicine does not plan for bronchoscopies at this time. Dr. Jose has changed and biotics to Zosyn. 04/21: Patient is sleeping at the time of evaluation. He wakes easily to verbal stimuli. Temperature maximum 100.6, heart rate 80, blood pressure 102/52, pulse ox 98% on room air. Patient has had diarrhea and C. difficile toxin is negative. Legionella is negative. Lab work yesterday revealed hemoglobin of 6.7, W BC 0.5 and platelets of 23. He received a unit of packed RBCs last evening. Repeat lab work this morning reveals WBC of 0.6, hemoglobin 6.6, platelet count 17. Patient is continued on Zosyn. He is on salt and soda mouthwash for oral lesions. He has also been started on Zarxio. Review of Systems CONSTITUTIONAL: Well-developed no acute respiratory distress. Denies chills. Documented fever. EYES: No icterus sclerae, no conjunctivitis. EARS, NOSE, MOUTH, THROAT, and FACE: No sore throat, lymphadenopathy, carotid bruits or deformity. RESPIRATORY: Positive shortness of breath cough wheezes. CARDIOVASCULAR: No CP, Palpitation, PND, Orthopnea, or angina. GASTROINTESTINAL: Mild change in bowel habit with diarrhea and slight dyspepsia GENITOURINARY: Negative for Hematuria or UTI, no kidney stones. INTEGUMENT/BREAST: Negative for any muscular injury with mild osteoarthritis.. HEMATOLOGIC/LYMPHATIC: History of myelodysplasia severe anemia thrombocytopenia and neutropenia. MUSCULOSKELTAL: Negative for Myalgia or arthralgia. NEURLOGICAL: No LOC, Sz or syncope, blurred vision dizziness or abnormality.. BEHAVIORAL/PSYCH: Negative. ENDOCRINE: Negative. Physical Examination General Appearance: Alert, cooperative, no distress, appears stated age. Patient in bed and appears to be in no acute distress. Neck HEENT: Supple, no lymphadenopathy, no thyroid enlargement, no carotid bruits. Lungs: Decreased breaths bilaterally. Chest Wall: Decrease expansion with deep inspiration no tenderness and no deformity was found on exam, no costochondral pain. Heart: Regular rate and rhythm, S1, S2 mild tachycardia with systolic murmur. Back: Symmetric, no curvature, ROM normal, no CVA tenderness. Abdomen: Soft positive bowel sound slight discomfort in the mid abdominal area with mild organomegaly with multiple bruises no rebound or rigidity. Extremities: Extremities trace edema with multiple bruises positive mild ecchymosis as well. Pulses: 2+ and symmetric. Skin: Skin color, texture, tugor normal, no rashes or lesions. Neurologic: Alert oriented x3 cranial nerves II through XII intact, no motor deficit, no abnormal balance or gait. Assessment and Plan 1 acute symptomatic anemia. Patient is status post transfusion of 4 units packed RBCs. Continue Protonix. Zarxio. 2 severe myelodysplasia. Oncology consult appreciated. Continue Zosyn. 3 severe neutropenia. Oncology consult, Zarxio started. In the meanwhile patient will go back on acyclovir, Diflucan. Antibiotics changed to Zosyn. 4. Pancytopenia. Patient is status post transfusion of 4 units packed RBCs and 2 unit of platelets. Patient is followed by oncology. 5 COPD without exacerbation. Continue albuterol nebulizer 3 times daily. 6 chronic edema: More diastolic congestive heart failure and chronic continue furosemide at 40 mg daily. 7 recurrent pneumonia: Patient is asymptomatic at this point. Continue inhaler and antibiotics. 8 GI prophylaxis: pantoprazole 40 mg daily. 9 DVT prophylaxis: Patient will stay on Venodyne boots and knee-high MOE hose. 10 COVID-19 infection not present. CODE STATUS: Full code. Discharge plan: [facility] care and palliative care. Impression and plan of care have been directed as dictated by the signing physician. Dannielle Villegas nurse practitioner acting as scribe for signing physician. Objective - Vital Signs Vital signs: Vital Signs Temp 100.6 F H 04/21/20 04:43 Pulse 80 04/21/20 07:06 Resp 20 04/21/20 04:43 BP 102/52 04/21/20 04:43 Pulse Ox 93 L 04/21/20 04:43 Intake & Output 04/20/20 04/21/20 04/21/20 18:59 06:59 18:59 Intake Total 300 750 Output Total 300 300 Balance 0 450 Intake: Intake, IV Titration 100 Amount Piperacillin-Tazobactam 3 100 .375 gm In Sodium Chloride 0.9% 100 ml @ 25 mls/hr IVPB Q8HR [facility] Rx# :[id number] Oral 200 440 Blood Product 310 Rc Irr As1 Unit 310 [id number] Output: Urine 300 300 Other: Voiding Method Toilet Toilet # Voids 2 1 # Bowel Movements 1 - Labs CBC & Chem 7: 04/21/20 06:57 04/21/20 06:57 Labs: Abnormal Lab Results - Last 24 Hours (Table) 04/20/20 04/20/20 04/20/20 Range/Units 08:29 08:29 10:56 WBC 0.5 L* (3.8-10.6) k/uL RBC 2.00 L (4.30-5.90) m/uL Hgb 6.7 L* (13.0-17.5) gm/dL Hct 20.4 L (39.0-53.0) % MCV 102.2 H (80.0-100.0) fL RDW 22.5 H (11.5-15.5) % Plt Count 23 L D (150-450) k/uL ESR 116 H (0-15) mm/hr BUN 30 H (9-20) mg/dL Glucose 105 H (74-99) mg/dL Calcium 8.3 L (8.4-10.2) mg/dL C-Reactive Protein 209.5 H (<10.0) mg/L Total Protein 5.9 L (6.3-8.2) g/dL Albumin 2.6 L (3.5-5.0) g/dL Crossmatch See Detail Microbiology - Last 24 Hours (Table) 04/16/20 20:34 Blood Culture - Preliminary Blood No Growth after 96 hours 04/17/20 17:56 Blood Culture - Preliminary Blood No Growth after 72 hours
--- NOTE | 2020-04-21 11:23 | P.PN ---
Subjective Progress Note Date: 04/21/20 Principal diagnosis: Pancytopenia status post treatment of MDS In follow-up today patient has no acute physical complaints. He had an episode of diarrhea this morning, C. diff was negative, he denies abdominal cramping, rectal pain or bleeding. After discussion of treating the sore under his denture yesterday he states he did not do it so, the sore persists. He continues to get weaker as he lays in bed. Objective - Vital Signs Vital signs: Vital Signs Temp 100.5 F H 04/21/20 07:14 Pulse 76 04/21/20 10:50 Resp 22 04/21/20 07:14 BP 90/56 04/21/20 07:14 Pulse Ox 97 04/21/20 07:14 Intake & Output 04/20/20 04/21/20 04/21/20 18:59 06:59 18:59 Intake Total 300 750 Output Total 300 300 Balance 0 450 Intake: Intake, IV Titration 100 Amount Piperacillin-Tazobactam 3 100 .375 gm In Sodium Chloride 0.9% 100 ml @ 25 mls/hr IVPB Q8HR [facility] Rx# :[id number] Oral 200 440 Blood Product 310 Rc Irr As1 Unit 310 [id number] Output: Urine 300 300 Other: Voiding Method Toilet Toilet Toilet Urinal # Voids 2 1 # Bowel Movements 1 - Constitutional General appearance: Present: cooperative, no acute distress, thin - EENT Eyes: Present: anicteric sclerae, EOMI ENT: Present: hearing grossly normal, thrush - Respiratory Respiratory: bilateral: CTA - Cardiovascular Rhythm: regular Heart sounds: normal: S1, S2 Abnormal Heart Sounds: Absent: systolic murmur, diastolic murmur, rub, S3 Gallop, S4 Gallop, click, other - Peripheral edema leg Peripheral Edema: bilateral: None - Gastrointestinal General gastrointestinal: Present: normal bowel sounds, soft - Neurologic Neurologic: Present: CNII-XII intact - Musculoskeletal Musculoskeletal: Present: generalized weakness - Psychiatric Psychiatric: Present: A&O x's 3, appropriate affect, intact judgment & insight - Labs CBC & Chem 7: 04/21/20 06:57 04/21/20 06:57 Labs: Abnormal Lab Results - Last 24 Hours (Table) 04/20/20 04/20/20 04/21/20 Range/Units 08:29 10:56 06:57 WBC 0.6 L* (3.8-10.6) k/uL RBC 2.04 L (4.30-5.90) m/uL Hgb 6.6 L* (13.0-17.5) gm/dL Hct 20.9 L (39.0-53.0) % MCV 102.8 H (80.0-100.0) fL RDW 22.3 H (11.5-15.5) % Plt Count 17 L* (150-450) k/uL ESR 116 H (0-15) mm/hr Chloride (98-107) mmol/L BUN (9-20) mg/dL Calcium (8.4-10.2) mg/dL Total Protein (6.3-8.2) g/dL Albumin (3.5-5.0) g/dL Crossmatch See Detail 04/21/20 Range/Units 06:57 WBC (3.8-10.6) k/uL RBC (4.30-5.90) m/uL Hgb (13.0-17.5) gm/dL Hct (39.0-53.0) % MCV (80.0-100.0) fL RDW (11.5-15.5) % Plt Count (150-450) k/uL ESR (0-15) mm/hr Chloride 108 H (98-107) mmol/L BUN 30 H (9-20) mg/dL Calcium 8.0 L (8.4-10.2) mg/dL Total Protein 5.8 L (6.3-8.2) g/dL Albumin 2.5 L (3.5-5.0) g/dL Crossmatch Microbiology - Last 24 Hours (Table) 04/16/20 20:34 Blood Culture - Preliminary Blood No Growth after 96 hours 04/17/20 17:56 Blood Culture - Preliminary Blood No Growth after 72 hours Assessment and Plan (1) Pancytopenia due to antineoplastic chemotherapy Narrative/Plan: Transfuse for hemoglobin less than 7 or symptomatic. Transfusion today, hemoglobin 6.6 Transfuse for platelets less than 10,000 unless symptomatic. No transfusion today, platelets 17,000 Patient did receive G-CSF after treatment. That was on the . Patient started short acting G-CSF 04/20 Current Visit: Yes Status: Chronic Priority: Medium Code(s): D61.810 - ANTINEOPLASTIC CHEMOTHERAPY INDUCED PANCYTOPENIA; T45.1X5A - ADVERSE EFFECT OF ANTINEOPLASTIC AND IMMUNOSUP DRUGS, INIT SNOMED Code(s): 682357575401826 (2) MDS (myelodysplastic syndrome), high grade Narrative/Plan: Patient is now status post 2 of the recommended 3 treatments suggested by Hematology to see if able to get some control of his disease. I saw patient week after treatment last week and his counts actually were pretty decent and he was feeling pretty good. Unfortunately, he is now in nidia. We will see how well he is able to recuperate. Further recommendations for treatment to follow. Current Visit: No Status: Chronic Priority: Medium Code(s): D46.Z - OTHER MYELODYSPLASTIC SYNDROMES SNOMED Code(s): 493451643 (3) Thrush, oral Narrative/Plan: Mild, coating the tongue, sore under denture. Cont salt and baking soda for cleansing of the mouth. Still recommend brushing the teeth at least twice a day, obtain a new toothbrush, especially at home, try brushing the tongue if able. Place nystatin in tongue and hold on sore area on the roof of mouth- patient did not comply with the recommendations. His complaint of the Hanks denture. Patient doubly is malfitting dentures due to weight loss. Reinforced recommendations Current Visit: Yes Status: Acute Priority: Medium Code(s): B37.0 - CANDIDAL STOMATITIS SNOMED Code(s): 23180958 Plan: ID was going to review the computed tomography scan, pending sputum cultures, may consider bronchoscopy versus percutaneous biopsy to see what is going on in the patient's lung once WBC/ANC and platelets stable. Pending recommendations.
[2020-04-21] MEDS: PANTOPRAZOLE 40 MG TABLET PO SCH (11:59)
--- NOTE | 2020-04-21 14:12 | P.PN ---
Subjective Progress Note Date: 04/21/20 Principal diagnosis: Weakness, shortness of breath This is a very pleasant 70-year-old gentleman who follows with Dr. Bustillos is his primary care provider. He has a history of gout, chronic and ongoing tobacco dependence, and myelodysplastic syndrome, high-grade and has been seen by medical oncology. He has received a second round of chemotherapy with G-CSF approximately a week ago. He did receive Neulasta as well. He presented to the emergency room on 04/15/2020 after being told by his PCP his hemoglobin was quite low. The patient had been having weakness and shortness of breath. Initial labs revealed a WBC of 1.3. Hemoglobin 5.1. Platelets 28,000. He is status post 2 units of packed red blood cells. A third unit of packed red blood cells as ordered for today for hemoglobin is 6.0. He will be receiving platelets for a platelet count of 9000. Yesterday he had undergone a computed tomography scan of the chest that revealed multiple pulmonary abnormalities including a spiculated 16 x 10 x 30 mm infiltrate of the right upper lobe. There is a 1.5 cm noncalcified subpleural nodular density in the posterior aspect of the right midlung in the posterior segment right upper lobe. There is a 2.3 cm cavitating spiculated infiltrate of the left lower lobe posterior basal segment. Extensive calcified pleural plaque at the lung bases. No pleural effusion. No hilar masses. Few mediastinal lymph nodes measuring 1 cm. We are consulted for the same. The patient is seen today on the oncology unit. He is currently resting comfortably in bed. Awake and alert in no acute distress. Somewhat of a poor historian. His shortness of breath is about the same. No cough or congestion. No fever chills or night sweats. Temperature last evening was 100.8. Maintaining O2 saturations in the mid 90s on 3 L/m per nasal cannula. Systolic blood pressure in the 90s. Blood cultures revealing no growth to date. White count 0.7. Hemoglobin 6.0. Platelets 9000. Sodium 137. Potassium 4.7. Creatinine 1.22. On 04/19/2020 patient seen in follow-up on a general medical oncology floor, he is awake and alert, in no acute distress, he is resting comfortably in bed, he is on 2 L of oxygen his pulse ox is 96%, afebrile, hemodynamically stable, although this morning his systolic was in the 90s and this afternoon his systolic is 87, and the patient is asymptomatic. Today's lab work has been reviewed, and patient is still pancytopenic, with a white blood cell, 0.5, hemoglobin is 7.0, and platelet count is 9. His renal profile is stable, would be on of 35, and creatinine is 1.21, sodium is 137, potassium is 4.2, chloride is 108. His blood and sputum cultures have shown no growth so far. Patient is on a combination of cefepime and vancomycin. He is on a daily dose of oral Lasix. His lung sounds are markedly diminished, no rhonchi or wheezing, no cough or congestion, his CT chest on 04/17/2020 was reviewed showing spiculated 16 x 10 x 30 mm infiltrate in the right upper lobe, 1.5 cm noncalcified subpleural nodular density in the posterior aspect of right midlung and 2.3 cm cavitating spiculated infiltrate in the left lower lobe posterior basal segment. Clinically patient appears to be stable, no nausea vomiting no diarrhea, no altered mentation. No worsening dyspnea. On 04/20/2020 patient seen in follow-up on a general medical oncology floor. he is resting comfortably in bed, his only complaint today is that she is feeling a bit dizzy, but she denies any shortness of breath, no cough or congestion. Lung sounds reveal markedly diminished breath sounds bilaterally, breathing appears to be comfortable, patient is on room air with pulse ox of 96%, did have a low- grade fever early this morning with a temp of 100.4F. Remains on antibiotic coverage including Zosyn, vancomycin has been discontinued. Blood and sputum cultures have shown no growth. Patient was started on filgrastim per oncology. Today's lab work has been reviewed, and patient remains pancytopenic with a white blood cell count of 0.5, hemoglobin is 6.7, electrolytes within normal limits, B1 is 30 creatinine is 1.25. On 04/21/2020 patient seen in follow-up on a general medical oncology floor, he is calm and comfortable, he is resting in bed, appears to be in no acute distress, denies any difficulty breathing, room air pulse ox is 95-100%, he continues to have low-grade fevers, with the T-max in last 24 hours of 100.6F, he continues to be pancytopenic, today's labs have been reviewed in his white blood cell count is 0.6, hemoglobin is 6.6, platelet count is 17, and patient will receive another unit of packed red blood cells today, so far he is been transfused with a total of 5 units of blood, and 2 units of platelets. No obvious evidence of bleeding. Lung sounds are clear, diminished, no rhonchi or wheezing, no complaints of chest pain. Abdomen is soft, nontender. Patient is however it very weak. He is on Zosyn for antibiotic coverage, vancomycin and cefepime have been discontinued, ID service is following, so far blood and sputu m are negative. Stool cultures pending, C. diff was negative. Objective - Vital Signs Vital signs: Vital Signs Temp 98.7 F 04/21/20 13:45 Pulse 74 04/21/20 13:45 Resp 18 04/21/20 13:45 BP 90/61 04/21/20 13:45 Pulse Ox 100 04/21/20 13:41 Intake & Output 04/20/20 04/21/20 04/21/20 18:59 06:59 18:59 Intake Total 300 750 400 Output Total 300 300 200 Balance 0 450 200 Intake: Intake, IV Titration 100 100 Amount Piperacillin-Tazobactam 3 100 100 .375 gm In Sodium Chloride 0.9% 100 ml @ 25 mls/hr IVPB Q8HR [facility] Rx# :[id number] Oral 200 440 300 Blood Product 310 0 Rc Irr As1 Unit 310 [id number] Rc Irr As1 Unit 0 [id number] Output: Urine 300 300 200 Other: Voiding Method Toilet Toilet Toilet Urinal # Voids 2 1 # Bowel Movements 1 1 - Exam GENERAL EXAM: Alert, very pleasant, 70-year-old white male, very thin, almost cachectic, tanned, resting in bed on room air with the pulse ox of 96% comfortable in no apparent distress. HEAD: Normocephalic/atraumatic. EYES: Normal reaction of pupils, equal size. Conjunctiva pink, sclera white. NOSE: Clear with pink turbinates. THROAT: No erythema or exudates. NECK: No masses, no JVD, no thyroid enlargement, no adenopathy. CHEST: No chest wall deformity. Symmetrical expansion. LUNGS: Equal air entry with markedly diminished breath sounds bilaterally CVS: Regular rate and rhythm, normal S1 and S2, no gallops, no murmurs, no rubs ABDOMEN: Soft, nontender. No hepatosplenomegaly, normal bowel sounds, no guarding or rigidity. EXTREMITIES: No clubbing, no edema, no cyanosis, 2+ pulses and upper and lower extremities. MUSCULOSKELETAL: Muscle strength and tone normal. SPINE: No scoliosis or deformity SKIN: No rashes CENTRAL NERVOUS SYSTEM: Alert and oriented -3. No focal deficits, tone is normal in all 4 extremities. PSYCHIATRIC: Alert and oriented -3. Appropriate affect. Intact judgment and insight. - Labs CBC & Chem 7: 04/21/20 06:57 04/21/20 06:57 Labs: Abnormal Lab Results - Last 24 Hours (Table) 04/20/20 04/21/20 04/21/20 Range/Units 10:56 06:57 06:57 WBC 0.6 L* (3.8-10.6) k/uL RBC 2.04 L (4.30-5.90) m/uL Hgb 6.6 L* (13.0-17.5) gm/dL Hct 20.9 L (39.0-53.0) % MCV 102.8 H (80.0-100.0) fL RDW 22.3 H (11.5-15.5) % Plt Count 17 L* (150-450) k/uL Chloride 108 H (98-107) mmol/L BUN 30 H (9-20) mg/dL Calcium 8.0 L (8.4-10.2) mg/dL Total Protein 5.8 L (6.3-8.2) g/dL Albumin 2.5 L (3.5-5.0) g/dL Crossmatch See Detail Microbiology - Last 24 Hours (Table) 04/21/20 00:40 Stool Culture - Preliminary Stool 04/16/20 20:34 Blood Culture - Preliminary Blood No Growth after 96 hours 04/17/20 17:56 Blood Culture - Preliminary Blood No Growth after 72 hours Assessment and Plan Plan: Assessment: 1 Pancytopenia secondary to antineoplastic chemotherapy for myelodysplastic syndrome. He had been treated with G CSF 2. Received Neulasta. 2 Anemia secondary to above presenting hemoglobin 5.1. Status post 4 units packed red blood cells. Today's hemoglobin 6.6 and patient is receiving his fifth unit of PRBCs 3 Thrombocytopenia secondary to above current platelet count 19,000. Status post transfusion with 2 units platelet 4 Leukopenia secondary to above. 5 Multiple pulmonary infiltrates including a spiculated 16 x 10 x 30 mm infiltrate in the right upper lobe. A 1.5 cm noncalcified subpleural nodular density in the posterior segment of the right upper lobe. 7 mm noncalcified nodule of the right lower lobe superior segment. A 2.3 cm cavitating spiculated infiltrate of the left lower lobe posterior basal segment. There is extensive calcified pleural plaque of the lung bases. No hilar mass. Few mediastinal lymph nodes that measure 1 cm. 6 Chronic tobacco dependence of greater than 60 years 7 Daily alcohol use Plan: Continue current medical treatment, patient remains quite pancytopenic, and requiring frequent packed red blood cell transfusions, continues to have interm ittent low-grade fevers, denies any shortness of breath denies any chest pain. Antibiotics per ID service recommendations. Far his culture data remains negative. Overall his generally weak. No plans for bronchoscopy with biopsies right now, once the patient, once the antibiotics and get stronger we'll do a repeat CT of the chest on the outpatient basis. I performed a history & physical examination of the patient and discussed their management with my nurse practitioner, Yanely Espinosa. I reviewed the nurse practitioner's note and agree with the documented findings and plan of care. Lung sounds are positive for diffuse wheezes throughout the lung peralta. The findings and the impression was discussed with the patient. I attest to the documentation by the nurse practitioner. Time with Patient: Less than 30
[2020-04-21] MEDS: SODIUM CHLORIDE 0.9% IVPB SCH (22:31)
[2020-04-21] MEDS: VORICONAZOLE IVPB SCH (22:31)
--- NOTE | 2020-04-21 22:58 | PN ---
PROGRESS NOTE DATE OF SERVICE: 04/21/2020 REASON FOR FOLLOWUP: Febrile neutropenia and pneumonia. INTERVAL HISTORY: The patient has been spiking a fever a little bit; it is mostly in the evening. In the morning the patient denies having any chest pain. He had some cough, not bringing up any sputum. No nausea, vomiting, abdominal pain or diarrhea. PHYSICAL EXAMINATION: Blood pressure 109/67 with a pulse of 80, temperature 101.8. He is 94% on room air. General description is an elderly male lying in bed in no distress respiratory. RESPIRATORY SYSTEM: Unlabored breathing. Clear to auscultation anteriorly. HEART: S1, S2. Regular rate and rhythm. ABDOMEN: Soft. No tenderness. LABS: Hemoglobin is 6.6, white count 0.6, BUN of 30, creatinine 1.25. DIAGNOSTIC IMPRESSION AND PLAN: Patient with febrile neutropenia with concern for pneumonia, cavitary; question of fungal, as the patient required Gram-negative coverage. We will add voriconazole while waiting for the serology and monitor his clinical course closely. MMODL / IJN: [id number] /
[2020-04-22] MEDS: SALT AND SODA MOUTHWASH 1,000 ML PO SCH ×4 (00:42→16:18)
[2020-04-22] MEDS: PIPERACILLIN-TAZOBACTAM 3.375 GM in SODIUM CHLORIDE 0.9% 100 ML IVPB SCH ×3 (00:42→16:18)
[2020-04-22] MEDS: ACETAMINOPHEN TAB 325 MG TAB PO PRN ×3 (05:17→21:29)
[2020-04-22 06:49] LABS: Anisocytosis Moderate; HCT 23.2 % (39.0-53.0); HGB 7.7 gm/dL (13.0-17.5); MCHC 33.1 g/dL (31.0-37.0); MCV 99.7 fL (80.0-100.0); Macrocytosis Moderate; Mean Platelet Volume 9.2; RBC 2.33 m/uL (4.30-5.90); RDW 21.5 % (11.5-15.5)
[2020-04-22 06:57] LABS: Platelet Count 12 k/uL (150-450); WBC 0.7 k/uL (3.8-10.6)
[2020-04-22] MEDS: ALBUTEROL NEBULIZED 2.5 MG/3 ML INHALATION SCH ×3 (07:21→19:16)
[2020-04-22] MEDS: FILGRASTIM-SNDZ 480 MCG/0.8 ML SYRINGE SQ SCH (09:19)
[2020-04-22] MEDS: NYSTATIN 100,000 UNIT/ML SUSP 500,000 UNIT/5 ML CUP PO SCH ×4 (09:20→21:29)
[2020-04-22] MEDS: ACYCLOVIR 200 MG CAP PO SCH ×3 (09:21→21:23)
[2020-04-22] MEDS: FUROSEMIDE 40 MG TAB PO SCH (09:21)
[2020-04-22] MEDS: MULTIVITAMINS, THERA 1 EACH TAB PO SCH (09:21)
[2020-04-22] MEDS: POTASSIUM CHLORIDE ER 20 MEQ TAB.ER PO SCH (09:22)
[2020-04-22] MEDS: DICYCLOMINE 20 MG TAB PO SCH ×4 (09:22→21:29)
[2020-04-22] MEDS: PANTOPRAZOLE 40 MG TABLET PO SCH (09:28)
--- NOTE | 2020-04-22 09:53 | P.PN ---
Subjective Progress Note Date: 04/22/20 Principal diagnosis: Pancytopenia status post treatment of MDS In follow-up today patient states a fever last night but denies riders, oral irritation is stable, he was brought over to a cleared liquid diet and tolerating well, only 1 bowel movement this a.m., still loose, he denies a significant cough, no purulent sputum, mild to moderate weakness. Objective - Vital Signs Vital signs: Vital Signs Temp 97.9 F 04/22/20 06:18 Pulse 76 04/22/20 07:30 Resp 16 04/22/20 05:00 BP 100/59 04/22/20 05:00 Pulse Ox 95 04/22/20 05:00 Intake & Output 04/21/20 04/22/20 04/22/20 18:59 06:59 18:59 Intake Total 710 Output Total 200 350 Balance 510 -350 Weight 55.792 kg Intake: Intake, IV Titration 100 Amount Piperacillin-Tazobactam 3 100 .375 gm In Sodium Chloride 0.9% 100 ml @ 25 mls/hr IVPB Q8HR [facility] Rx# :[id number] Oral 300 Blood Product 310 Rc Irr As1 Unit 310 [id number] Output: Urine 200 350 Other: Voiding Method Toilet Toilet Toilet Urinal Urinal Urinal # Bowel Movements 1 - Constitutional General appearance: Present: cooperative, no acute distress, thin - EENT Eyes: Present: anicteric sclerae, EOMI ENT: Present: hearing grossly normal - Respiratory Details: Diminished left lower lobe, right upper lobe anteriorly otherwise clear to auscultation, respiratory effort is unlabored, chest expansion is symmetrical - Cardiovascular Rhythm: regular Heart sounds: normal: S1, S2 Abnormal Heart Sounds: Absent: systolic murmur, diastolic murmur, rub, S3 Gallop, S4 Gallop, click, other - Peripheral edema leg Peripheral Edema: bilateral: None - Gastrointestinal General gastrointestinal: Present: normal bowel sounds, scaphoid, soft - Neurologic Neurologic: Present: CNII-XII intact - Musculoskeletal Musculoskeletal: Present: generalized weakness, strength equal bilaterally - Psychiatric Psychiatric: Present: A&O x's 3, appropriate affect, intact judgment & insight - Labs CBC & Chem 7: 04/22/20 06:23 04/21/20 06:57 Labs: Abnormal Lab Results - Last 24 Hours (Table) 04/20/20 04/22/20 Range/Units 10:56 06:23 WBC 0.7 L* (3.8-10.6) k/uL RBC 2.33 L (4.30-5.90) m/uL Hgb 7.7 L (13.0-17.5) gm/dL Hct 23.2 L (39.0-53.0) % RDW 21.5 H (11.5-15.5) % Plt Count 12 L* (150-450) k/uL Crossmatch See Detail Microbiology - Last 24 Hours (Table) 04/16/20 20:34 Blood Culture - Preliminary Blood No Growth after 120 hours 04/17/20 17:56 Blood Culture - Preliminary Blood No Growth after 96 hours 04/21/20 00:40 Stool Culture - Preliminary Stool Assessment and Plan (1) Febrile neutropenia Narrative/Plan: Patient has had intermittent fevers. ID and Pulmonary following. Medications have been adjusted per their recommendations. Current Visit: Yes Status: Acute Priority: High Code(s): D70.9 - NEUTROPENIA, UNSPECIFIED; R50.81 - FEVER PRESENTING WITH CONDITIONS CLASSIFIED ELSEWHERE SNOMED Code(s): 991613731 (2) Pancytopenia due to antineoplastic chemotherapy Narrative/Plan: Transfuse for hemoglobin less than 7 or symptomatic. Hemoglobin 7.7 Transfuse for platelets less than 10,000 unless symptomatic. No transfusion today, platelets 12,000 Patient did receive G-CSF after treatment. That was on the . Patient started short acting G-CSF 04/20.. ANC 0.7 Current Visit: Yes Status: Chronic Priority: Medium Code(s): D61.810 - ANTINEOPLASTIC CHEMOTHERAPY INDUCED PANCYTOPENIA; T45.1X5A - ADVERSE EFFECT OF ANTINEOPLASTIC AND IMMUNOSUP DRUGS, INIT SNOMED Code(s): 509071140067654 (3) MDS (myelodysplastic syndrome), high grade Narrative/Plan: Patient is now status post 2 of the recommended 3 treatments suggested by H ematology to see if able to get some control of his disease. Pt is entering recovery from nidia. We will see how he is able to recuperate. Further recommendations for treatment to follow. Current Visit: No Status: Chronic Priority: Medium Code(s): D46.Z - OTHER MYELODYSPLASTIC SYNDROMES SNOMED Code(s): 688317439 (4) Thrush, oral Narrative/Plan: Coating of the tongue is a little bit less. Continue oral suspension for treatment Current Visit: Yes Status: Acute Priority: Medium Code(s): B37.0 - CANDIDAL STOMATITIS SNOMED Code(s): 01005792 Plan: ID was going to review the computed tomography scan, pending sputum cultures, may consider bronchoscopy versus percutaneous biopsy to see what is going on in the patient's lung once WBC/ANC and platelets stable. Pending recommendations. Dr. Flores reviewed with the patient that he is nearing his end of nidia and we would anticipate over the next several days that his counts will stabilize and recover. With recuperation of his white blood cell count hopefully infection in the lungs can be treated. Once recovered options to reevaluate include bronchoscopy and biopsy or follow-up with a CT of the chest to reevaluate the suspicious areas. Continue treatments and supportive care. Discussed case with Internal Medicine. Updated on plan. Doctor attests: I performed a history and physical examination of this patient, developed impression and plan of care. Discussed with dictator. I agree with dictators note, documented as a scribe.
[2020-04-22] MEDS: VORICONAZOLE IVPB SCH (09:55)
[2020-04-22] MEDS: SODIUM CHLORIDE 0.9% IVPB SCH (09:55)
--- NOTE | 2020-04-22 10:17 | P.PN ---
Subjective Progress Note Date: 04/22/20 70-year-old male one of Dr. Bustillos's patient with past medical history of anemia, gout, tobacco use, daily alcohol use and myelodysplasia who has been set pancytopenic for the last 2 month was started on chemotherapy with hematology recently was hospitalized for extended period of time for severe pancytopenia and severe neutropenia did not recover. Patient apparently went back on chemotherapy after he left the hospital last time. Today found to have severe anemia with hemoglobin of 5.1 with severe neutropenia white blood cell 1.3 and thrombocytopenia with platelets 28,000 only. Patient brought to the [facility] emergency department where was seen and evaluated has been very weak has not been able to ambulate and walk and has been having worsening shortness of breath with dyspnea with minimal exertion for the last few days. With a current hemoglobin his oncologist and instructed him to come to the hospital for admission for transfusion. 04/16: Patient is seen today on the [facility] floor. He is status post 2 units of packed RBCs and repeat lab work reveals hemoglobin of 7.3, WBC 0.9, platelet count 18. Electrolytes normal, BUN 32 and creatinine 0.89. Calcium 7.9, total bilirubin 1.5, AST 42, ALT 40, alkaline phosphatase 66. Temperature max 100.0, heart rate 76, blood pressure 115/66, pulse ox 96% on room air. Consult in place for oncology. COVID-19 is pending. 04/17: Hemoglobin currently is at 7.1, platelet count of 16, double basic count of 0.7 oncology thinks that he has myelodysplasia,patient wants to stay another day just in case he needs another blood products, as it's difficult for him to be transported back and forth with the who has been on a wheelchair, patient has chronic cough from smoking, denies any feverhowever T-max is 100.0 within the past 24 hours, Covid testc negative,chest x-ray shows no acute pulmonary disease, has clearing of pulmonary edema and pleural fluid compared to old exam,urinalyses WBC of 2,blood cultures would be sent secondary to the fever, consult Dr. Garcia for neutropenic fever, unknown primary at this time,start patient on cefotaxime, Levaquin, we will obtain high resolution CT of the chest, CT of the abdomen fromMarch 25, 2020 was reviewed , CT March 21, 2 cm stellate mass right upper lobe, 4 x 2 cm hypodensity posterior spleen no hydronephrosis no pulmonary has seen the patient, consult with Dr. Obie castrejon 04/18: Patient is being transfused currently for hemoglobin of 6.0, along with pl atelet transfusion, both are irritated, platelet is down to 9, currently on IV cefepime with James, is following, CAT scan of the chest shows multiple pulmonary infiltrates including a spiculated lesion 16 x 10 x 13 mm right upper lobe, 1.5 cm noncalcified subpleural nodular density posterior segment right upper lobe, 7 mm noncalcified nodule right lower lobe, 2.3, dictation spiculated left lower lobe, posterior basal segment, suspected inflammatory changes, Dr. Blanca pulmonary has been consulted, with recommendations for follow-up CT in 3 months, sputum culture sent today patient still has cough no hemoptysis, no conversational dyspnea, no active wheezing, T-max of 98.2, blood pressure is between 90-98 systolic pressures, nonlabored breathing pulse ox room air 98% 04/19: Patient has been seen by Dr. Blanca with recommendations for 3 month follow-up for repeat CAT scan. Patient has been continued on vancomycin, and cefepime by Dr. Garcia. We will discontinue the Levaquin that was added by oncology for prophylaxis. Patient does have a temperature max of 102.6, heart rate 79, blood pressure 95/53, pulse ox 97% on room air. Repeat blood work will be ordered for today. Patient has remained pancytopenic over the weekend. 04/20: Yesterday's blood work revealed a hemoglobin of 7, WBC 0.5, platelet count 9 and patient received 1 unit of platelets and oncology started Zarxio. Repeat blood work for today reveals WBC of 0.5, hemoglobin 6.7, platelet count 23. BUN 30 creatinine 1.25. Blood sugar 105. C-reactive protein is 209.5. Patient denies any new complaints. No chest pain or shortness of breath. No cough. Temperature max is 102.8 at 7 PM, heart rate 72, blood pressure 88/37, pulse ox 96% on room air. Pulmonary medicine does not plan for bronchoscopies at this time. Dr. Garcia has changed and biotics to Zosyn. 04/21: Patient is sleeping at the time of evaluation. He wakes easily to verbal stimuli. Temperature maximum 100.6, heart rate 80, blood pressure 102/52, pulse ox 98% on room air. Patient has had diarrhea and C. difficile toxin is negative. Legionella is negative. Lab work yesterday revealed hemoglobin of 6.7, W BC 0.5 and platelets of 23. He received a unit of packed RBCs last evening. Repeat lab work this morning reveals WBC of 0.6, hemoglobin 6.6, platelet count 17. Patient is continued on Zosyn. He is on salt and soda mouthwash for oral lesions. He has also been started on Zarxio. 04/22: Repeat blood work reveals WBC 0.7, hemoglobin 7.7, platelet count 12. He is now status post 5 units of packed RBCs and [address] Garcia started voriconazole IV yesterday. Patient is complaining of clear sputum production. He has a history of smoking for greater than 65 years. Oncology is anticipating that his counts will stabilize and recover in the next several days. Once recovered, would like bronchoscopy or biopsy of spiculated lesion found on CT of the chest. Temperature max 102.6. Heart rate 72, blood pressure 100/59, pulse ox 95% on room air. Review of Systems CONSTITUTIONAL: Well-developed no acute respiratory distress. Denies chills. Documented fever. EYES: No icterus sclerae, no conjunctivitis. EARS, NOSE, MOUTH, THROAT, and FACE: No sore throat, lymphadenopathy, carotid bruits or deformity. RESPIRATORY: Positive shortness of breath cough with sputum production wheezes. CARDIOVASCULAR: No CP, Palpitation, PND, Orthopnea, or angina. GASTROINTESTINAL: Mild change in bowel habit with diarrhea and slight dyspepsia GENITOURINARY: Negative for Hematuria or UTI, no kidney stones. INTEGUMENT/BREAST: Negative for any muscular injury with mild osteoarthritis.. HEMATOLOGIC/LYMPHATIC: History of myelodysplasia severe anemia thrombocytopenia and neutropenia. MUSCULOSKELTAL: Negative for Myalgia or arthralgia. NEURLOGICAL: No LOC, Sz or syncope, blurred vision dizziness or abnormality.. BEHAVIORAL/PSYCH: Negative. ENDOCRINE: Negative. Physical Examination General Appearance: Alert, cooperative, no distress, appears stated age. Patient in bed and appears to be in no acute distress. Neck HEENT: Supple, no lymphadenopathy, no thyroid enlargement, no carotid bruits. Lungs: Decreased breaths bilaterally. Chest Wall: Decrease expansion with deep inspiration no tenderness and no deformity was found on exam, no costochondral pain. Heart: Regular rate and rhythm, S1, S2 mild tachycardia with systolic murmur. Back: Symmetric, no curvature, ROM normal, no CVA tenderness. Abdomen: Soft positive bowel sound slight discomfort in the mid abdominal area with mild organomegaly with multiple bruises no rebound or rigidity. Extremities: Extremities trace edema with multiple bruises positive mild ecchymosis as well. Pulses: 2+ and symmetric. Skin: Skin color, texture, tugor normal, no rashes or lesions. Neurologic: Alert oriented x3 cranial nerves II through XII intact, no motor deficit, no abnormal balance or gait. Assessment and Plan 1 acute symptomatic anemia. Patient is status post transfusion of 5 units packed RBCs. Continue Protonix. Zarxio. 2 severe myelodysplasia. Oncology consult appreciated. Continue Zosyn. 3 severe neutropenia. Oncology consult, Zarxio started. In the meanwhile patient will go back on acyclovir, Diflucan. Antimicrobials changed to Zosyn and added voriconazole IV. 4. Pancytopenia. Patient is status post transfusion of 4 units packed RBCs and 2 unit of platelets. Patient is followed by oncology. 5 COPD without exacerbation. Continue albuterol nebulizer 3 times daily. 6 chronic edema: More diastolic congestive heart failure and chronic continue furosemide at 40 mg daily. 7 recurrent pneumonia: Patient is asymptomatic at this point. Continue inhaler and antibiotics. 8 multiple pulmonary infiltrates including a spiculated 16 x 10 x 30 mm infiltrate in the right upper lobe. Need for biopsy at later time. 9 GI prophylaxis: pantoprazole 40 mg daily. 9 DVT prophylaxis: Patient will stay on Venodyne boots and knee-high MOE hose. 10 COVID-19 infection not present. CODE STATUS: Full code. Discharge plan: [facility] care and palliative care. Impression and plan of care have been directed as dictated by the signing physician. Dannielle Villegas nurse practitioner acting as scribe for signing physician. Objective - Vital Signs Vital signs: Vital Signs Temp 97.9 F 04/22/20 06:18 Pulse 76 04/22/20 07:30 Resp 16 04/22/20 05:00 BP 100/59 04/22/20 05:00 Pulse Ox 95 04/22/20 05:00 Intake & Output 04/21/20 04/22/20 04/22/20 18:59 06:59 18:59 Intake Total 710 Output Total 200 350 Balance 510 -350 Weight 55.792 kg Intake: Intake, IV Titration 100 Amount Piperacillin-Tazobactam 3 100 .375 gm In Sodium Chloride 0.9% 100 ml @ 25 mls/hr IVPB Q8HR [facility] Rx# :[id number] Oral 300 Blood Product 310 Rc Irr As1 Unit 310 [id number] Output: Urine 200 350 Other: Voiding Method Toilet Toilet Urinal Urinal # Bowel Movements 1 - Labs CBC & Chem 7: 04/22/20 06:23 04/21/20 06:57 Labs: Abnormal Lab Results - Last 24 Hours (Table) 04/20/20 04/22/20 Range/Units 10:56 06:23 WBC 0.7 L* (3.8-10.6) k/uL RBC 2.33 L (4.30-5.90) m/uL Hgb 7.7 L (13.0-17.5) gm/dL Hct 23.2 L (39.0-53.0) % RDW 21.5 H (11.5-15.5) % Plt Count 12 L* (150-450) k/uL Crossmatch See Detail Microbiology - Last 24 Hours (Table) 04/16/20 20:34 Blood Culture - Preliminary Blood No Growth after 120 hours 04/17/20 17:56 Blood Culture - Preliminary Blood No Growth after 96 hours 04/21/20 00:40 Stool Culture - Preliminary Stool
--- NOTE | 2020-04-22 11:13 | P.PN ---
Subjective Progress Note Date: 04/22/20 Principal diagnosis: Weakness, shortness of breath This is a very pleasant 70-year-old gentleman who follows with Dr. Bustillos is his primary care provider. He has a history of gout, chronic and ongoing tobacco dependence, and myelodysplastic syndrome, high-grade and has been seen by medical oncology. He has received a second round of chemotherapy with G-CSF approximately a week ago. He did receive Neulasta as well. He presented to the emergency room on 04/15/2020 after being told by his PCP his hemoglobin was quite low. The patient had been having weakness and shortness of breath. Initial labs revealed a WBC of 1.3. Hemoglobin 5.1. Platelets 28,000. He is status post 2 units of packed red blood cells. A third unit of packed red blood cells as ordered for today for hemoglobin is 6.0. He will be receiving platelets for a platelet count of 9000. Yesterday he had undergone a computed tomography scan of the chest that revealed multiple pulmonary abnormalities including a spiculated 16 x 10 x 30 mm infiltrate of the right upper lobe. There is a 1.5 cm noncalcified subpleural nodular density in the posterior aspect of the right midlung in the posterior segment right upper lobe. There is a 2.3 cm cavitating spiculated infiltrate of the left lower lobe posterior basal segment. Extensive calcified pleural plaque at the lung bases. No pleural effusion. No hilar masses. Few mediastinal lymph nodes measuring 1 cm. We are consulted for the same. The patient is seen today on the oncology unit. He is currently resting comfortably in bed. Awake and alert in no acute distress. Somewhat of a poor historian. His shortness of breath is about the same. No cough or congestion. No fever chills or night sweats. Temperature last evening was 100.8. Maintaining O2 saturations in the mid 90s on 3 L/m per nasal cannula. Systolic blood pressure in the 90s. Blood cultures revealing no growth to date. White count 0.7. Hemoglobin 6.0. Platelets 9000. Sodium 137. Potassium 4.7. Creatinine 1.22. On 04/19/2020 patient seen in follow-up on a general medical oncology floor, he is awake and alert, in no acute distress, he is resting comfortably in bed, he is on 2 L of oxygen his pulse ox is 96%, afebrile, hemodynamically stable, although this morning his systolic was in the 90s and this afternoon his systolic is 87, and the patient is asymptomatic. Today's lab work has been reviewed, and patient is still pancytopenic, with a white blood cell, 0.5, hemoglobin is 7.0, and platelet count is 9. His renal profile is stable, would be on of 35, and creatinine is 1.21, sodium is 137, potassium is 4.2, chloride is 108. His blood and sputum cultures have shown no growth so far. Patient is on a combination of cefepime and vancomycin. He is on a daily dose of oral Lasix. His lung sounds are markedly diminished, no rhonchi or wheezing, no cough or congestion, his CT chest on 04/17/2020 was reviewed showing spiculated 16 x 10 x 30 mm infiltrate in the right upper lobe, 1.5 cm noncalcified subpleural nodular density in the posterior aspect of right midlung and 2.3 cm cavitating spiculated infiltrate in the left lower lobe posterior basal segment. Clinically patient appears to be stable, no nausea vomiting no diarrhea, no altered mentation. No worsening dyspnea. On 04/20/2020 patient seen in follow-up on a general medical oncology floor. he is resting comfortably in bed, his only complaint today is that she is feeling a bit dizzy, but she denies any shortness of breath, no cough or congestion. Lung sounds reveal markedly diminished breath sounds bilaterally, breathing appears to be comfortable, patient is on room air with pulse ox of 96%, did have a low- grade fever early this morning with a temp of 100.4F. Remains on antibiotic coverage including Zosyn, vancomycin has been discontinued. Blood and sputum cultures have shown no growth. Patient was started on filgrastim per oncology. Today's lab work has been reviewed, and patient remains pancytopenic with a white blood cell count of 0.5, hemoglobin is 6.7, electrolytes within normal limits, B1 is 30 creatinine is 1.25. On 04/21/2020 patient seen in follow-up on a general medical oncology floor, he is calm and comfortable, he is resting in bed, appears to be in no acute distress, denies any difficulty breathing, room air pulse ox is 95-100%, he continues to have low-grade fevers, with the T-max in last 24 hours of 100.6F, he continues to be pancytopenic, today's labs have been reviewed in his white blood cell count is 0.6, hemoglobin is 6.6, platelet count is 17, and patient will receive another unit of packed red blood cells today, so far he is been transfused with a total of 5 units of blood, and 2 units of platelets. No obvious evidence of bleeding. Lung sounds are clear, diminished, no rhonchi or wheezing, no complaints of chest pain. Abdomen is soft, nontender. Patient is however it very weak. He is on Zosyn for antibiotic coverage, vancomycin and cefepime have been discontinued, ID service is following, so far blood and sputu m are negative. Stool cultures pending, C. diff was negative. On 04/22/2020 patient seen in follow-up on the general medical oncology floor, he is awake and alert, appears to be in no acute distress, he is resting in bed, denies any specific complaints other than weakness and poor appetite, no dif ficulty breathing, no cough or congestion, no compulsive chest pain, patient is on room air pulse ox of 95%, continues to have intermittent fevers, with a T-max of 102.6F. He has been requiring frequent transfusions and yesterday he received another unit of packed red blood cells for hemoglobin of 6.6, there is no obvious signs of bleeding, today's hemoglobin is 7.7, today's blood count is 12,000, white count is 0.7, patient remains on Zarxio. Antibiotic coverage is with Zosyn. So far blood sputum cultures are negative, stool culture is pending. Objective - Vital Signs Vital signs: Vital Signs Temp 97.9 F 04/22/20 06:18 Pulse 76 04/22/20 07:30 Resp 16 04/22/20 05:00 BP 100/59 04/22/20 05:00 Pulse Ox 95 04/22/20 05:00 Intake & Output 04/21/20 04/22/20 04/22/20 18:59 06:59 18:59 Intake Total 710 Output Total 200 350 Balance 510 -350 Weight 55.792 kg Intake: Intake, IV Titration 100 Amount Piperacillin-Tazobactam 3 100 .375 gm In Sodium Chloride 0.9% 100 ml @ 25 mls/hr IVPB Q8HR [facility] Rx# :[id number] Oral 300 Blood Product 310 Rc Irr As1 Unit 310 [id number] Output: Urine 200 350 Other: Voiding Method Toilet Toilet Toilet Urinal Urinal Urinal # Bowel Movements 1 - Exam GENERAL EXAM: Alert, very pleasant, 70-year-old white male, very thin, almost cachectic, tanned, resting in bed on room air with the pulse ox of 96% c omfortable in no apparent distress. HEAD: Normocephalic/atraumatic. EYES: Normal reaction of pupils, equal size. Conjunctiva pink, sclera white. NOSE: Clear with pink turbinates. THROAT: No erythema or exudates. NECK: No masses, no JVD, no thyroid enlargement, no adenopathy. CHEST: No chest wall deformity. Symmetrical expansion. LUNGS: Equal air entry with markedly diminished breath sounds bilaterally CVS: Regular rate and rhythm, normal S1 and S2, no gallops, no murmurs, no rubs ABDOMEN: Soft, nontender. No hepatosplenomegaly, normal bowel sounds, no guarding or rigidity. EXTREMITIES: No clubbing, no edema, no cyanosis, 2+ pulses and upper and lower extremities. MUSCULOSKELETAL: Muscle strength and tone normal. SPINE: No scoliosis or deformity SKIN: No rashes CENTRAL NERVOUS SYSTEM: Alert and oriented -3. No focal deficits, tone is normal in all 4 extremities. PSYCHIATRIC: Alert and oriented -3. Appropriate affect. Intact judgment and insight. - Labs CBC & Chem 7: 04/22/20 06:23 04/21/20 06:57 Labs: Abnormal Lab Results - Last 24 Hours (Table) 04/20/20 04/22/20 Range/Units 10:56 06:23 WBC 0.7 L* (3.8-10.6) k/uL RBC 2.33 L (4.30-5.90) m/uL Hgb 7.7 L (13.0-17.5) gm/dL Hct 23.2 L (39.0-53.0) % RDW 21.5 H (11.5-15.5) % Plt Count 12 L* (150-450) k/uL Crossmatch See Detail Microbiology - Last 24 Hours (Table) 04/16/20 20:34 Blood Culture - Preliminary Blood No Growth after 120 hours 04/17/20 17:56 Blood Culture - Preliminary Blood No Growth after 96 hours 04/21/20 00:40 Stool Culture - Preliminary Stool Assessment and Plan Plan: Assessment: 1 Pancytopenia secondary to antineoplastic chemotherapy for myelodysplastic syndrome. He had been treated with G CSF 2. Received Neulasta. Currently on Zarxio 2 Anemia secondary to above presenting hemoglobin 5.1. Status post 5 units of PRBCs, today's hemoglobin is 7.7 on 04/22/2020 3 Thrombocytopenia secondary to above current platelet count 19,000. Status post transfusion with 2 units platelet 4 Leukopenia secondary to above. 5 Multiple pulmonary infiltrates including a spiculated 16 x 10 x 30 mm infiltrate in the right upper lobe. A 1.5 cm noncalcified subpleural nodular density in the posterior segment of the right upper lobe. 7 mm noncalcified nodule of the right lower lobe superior segment. A 2.3 cm cavitating spiculated infiltrate of the left lower lobe posterior basal segment. There is extensive calcified pleural plaque of the lung bases. No hilar mass. Few mediastinal lym ph nodes that measure 1 cm. 6 Chronic tobacco dependence of greater than 60 years 7 Daily alcohol use Plan: Patient denies any pulmonary complaints at this time, he is on room air, no shortness of breath, cough or congestion, he remains pancytopenic requiring frequent packed red blood cells infusion. Oncology is following. Pulmonary service will sign off and follow on is needed basis. I performed a history & physical examination of the patient and discussed their management with my nurse practitioner, Yanely Espinosa. I reviewed the nurse practitioner's note and agree with the documented findings and plan of care. Lung sounds are positive for diffuse wheezes throughout the lung peralta. The findings and the impression was discussed with the patient. I attest to the documentation by the nurse practitioner. Time with Patient: Less than 30
[2020-04-22 12:25] LABS: Glucose,Whole Blood 102 mg/dL (75-99)
[2020-04-22] MEDS ORDERED: ACETAMINOPHEN IV (For NPO) 1,000 MG in EMPTY BAG 1 BAG IVPB STA (17:40)
--- NOTE | 2020-04-22 17:53 | PN ---
PROGRESS NOTE DATE OF SERVICE: 04/22/2020 REASON FOR FOLLOWUP: Febrile neutropenia. INTERVAL HISTORY: The patient did spike another fever this morning of 102 degrees Fahrenheit. The patient is afebrile since then. The patient is breathing comfortably. The patient does have a cough. Denies any worsening. No chest pain. No nausea, no vomiting. No abdominal pain or diarrhea. PHYSICAL EXAMINATION: Blood pressure is 97/54 with a pulse of 58, temperature 98.3. He is 97% on room air. General description is an elderly male lying in bed in no distress. RESPIRATORY SYSTEM: Unlabored breathing with decreased intensity of breath sounds. No wheeze. HEART: S1, S2. Regular rate and rhythm. ABDOMEN: Soft. No tenderness. LABS: White count of 0.7. DIAGNOSTIC IMPRESSION AND PLAN: Patient with febrile neutropenia with evidence of cavitary pneumonia in this patient who did have prolonged neutropenia with concern for possible aspergillus. Voriconazole has been added. Waiting for the workup to be completed. Continue Zosyn and monitor his clinical course closely. MMODL / IJN: [id number] /
[2020-04-23] MEDS: PIPERACILLIN-TAZOBACTAM 3.375 GM in SODIUM CHLORIDE 0.9% 100 ML IVPB SCH ×3 (00:34→16:16)
[2020-04-23] MEDS: SALT AND SODA MOUTHWASH 1,000 ML PO SCH ×6 (00:34→20:17)
[2020-04-23] MEDS: VORICONAZOLE 200 MG TAB PO SCH ×3 (00:35→21:23)
[2020-04-23] MEDS: ACETAMINOPHEN TAB 325 MG TAB PO PRN ×3 (05:51→17:41)
[2020-04-23] MEDS: ALBUTEROL NEBULIZED 2.5 MG/3 ML INHALATION SCH ×3 (07:51→18:58)
[2020-04-23] MEDS: ACYCLOVIR 200 MG CAP PO SCH ×3 (07:57→21:23)
[2020-04-23] MEDS: MULTIVITAMINS, THERA 1 EACH TAB PO SCH (07:58)
[2020-04-23] MEDS: DICYCLOMINE 20 MG TAB PO SCH ×4 (07:58→21:24)
[2020-04-23] MEDS: POTASSIUM CHLORIDE ER 20 MEQ TAB.ER PO SCH (07:58)
[2020-04-23] MEDS: FUROSEMIDE 40 MG TAB PO SCH ×2 (07:58→09:30)
[2020-04-23] MEDS: FILGRASTIM-SNDZ 480 MCG/0.8 ML SYRINGE SQ SCH (07:58)
[2020-04-23] MEDS: PANTOPRAZOLE 40 MG TABLET PO SCH (07:58)
[2020-04-23] MEDS: NYSTATIN 100,000 UNIT/ML SUSP 500,000 UNIT/5 ML CUP PO SCH ×4 (07:59→21:24)
[2020-04-23 08:26] LABS: Anisocytosis Moderate; Basophils % (A) 2 %; Eosinophils % (A) 1 %; HCT 23.7 % (39.0-53.0); HGB 7.7 gm/dL (13.0-17.5); Lymphocytes # (A) 0.4 k/uL (1.0-4.8); Lymphocytes % (A) 83 %; MCH 32.7 pg (25.0-35.0); MCHC 32.4 g/dL (31.0-37.0); MCV 100.9 fL (80.0-100.0); Macrocytosis Moderate; Mean Platelet Volume 11.9; Monocytes % (A) 1 %; Neutrophils % (A) 6 %; RBC 2.34 m/uL (4.30-5.90)
[2020-04-23 08:35] LABS: Platelet Count 11 k/uL (150-450); WBC 0.5 k/uL (3.8-10.6)
[2020-04-23 08:56] LABS: Albumin 2.5 g/dL (3.5-5.0); Calcium 7.5 mg/dL (8.4-10.2); Potassium 3.2 mmol/L (3.5-5.1); Total Bilirubin 0.7 mg/dL (0.2-1.3); Total Protein 5.9 g/dL (6.3-8.2)
[2020-04-23 09:43] LABS: Poikilocytosis (M) Present
[2020-04-23] MEDS: LINEZOLID 600 MG in DEXTROSE/WATER 1 300ML.BAG IVPB SCH ×2 (10:13→23:24)
--- NOTE | 2020-04-23 12:45 | P.PN ---
Subjective Progress Note Date: 04/23/20 70-year-old male one of Dr. Bustillos's patient with past medical history of anemia, gout, tobacco use, daily alcohol use and myelodysplasia who has been set pancytopenic for the last 2 month was started on chemotherapy with hematology recently was hospitalized for extended period of time for severe pancytopenia and severe neutropenia did not recover. Patient apparently went back on chemotherapy after he left the hospital last time. Today found to have severe anemia with hemoglobin of 5.1 with severe neutropenia white blood cell 1.3 and thrombocytopenia with platelets 28,000 only. Patient brought to the [facility] emergency department where was seen and evaluated has been very weak has not been able to ambulate and walk and has been having worsening shortness of breath with dyspnea with minimal exertion for the last few days. With a current hemoglobin his oncologist and instructed him to come to the hospital for admission for transfusion. 04/16: Patient is seen today on the [facility] floor. He is status post 2 units of packed RBCs and repeat lab work reveals hemoglobin of 7.3, WBC 0.9, platelet count 18. Electrolytes normal, BUN 32 and creatinine 0.89. Calcium 7.9, total bilirubin 1.5, AST 42, ALT 40, alkaline phosphatase 66. Temperature max 100.0, heart rate 76, blood pressure 115/66, pulse ox 96% on room air. Consult in place for oncology. COVID-19 is pending. 04/17: Hemoglobin currently is at 7.1, platelet count of 16, double basic count of 0.7 oncology thinks that he has myelodysplasia,patient wants to stay another day just in case he needs another blood products, as it's difficult for him to be transported back and forth with the who has been on a wheelchair, patient has chronic cough from smoking, denies any feverhowever T-max is 100.0 within the past 24 hours, Covid testc negative,chest x-ray shows no acute pulmonary disease, has clearing of pulmonary edema and pleural fluid compared to old exam,urinalyses WBC of 2,blood cultures would be sent secondary to the fever, consult Dr. Garcia for neutropenic fever, unknown primary at this time,start patient on cefotaxime, Levaquin, we will obtain high resolution CT of the chest, CT of the abdomen fromMarch 25, 2020 was reviewed , CT March 21, 2 cm stellate mass right upper lobe, 4 x 2 cm hypodensity posterior spleen no hydronephrosis no pulmonary has seen the patient, consult with Dr. Obie castrejon 04/18: Patient is being transfused currently for hemoglobin of 6.0, along with pl atelet transfusion, both are irritated, platelet is down to 9, currently on IV cefepime with James, is following, CAT scan of the chest shows multiple pulmonary infiltrates including a spiculated lesion 16 x 10 x 13 mm right upper lobe, 1.5 cm noncalcified subpleural nodular density posterior segment right upper lobe, 7 mm noncalcified nodule right lower lobe, 2.3, dictation spiculated left lower lobe, posterior basal segment, suspected inflammatory changes, Dr. Blanca pulmonary has been consulted, with recommendations for follow-up CT in 3 months, sputum culture sent today patient still has cough no hemoptysis, no conversational dyspnea, no active wheezing, T-max of 98.2, blood pressure is between 90-98 systolic pressures, nonlabored breathing pulse ox room air 98% 04/19: Patient has been seen by Dr. Blanca with recommendations for 3 month follow-up for repeat CAT scan. Patient has been continued on vancomycin, and cefepime by Dr. Garcia. We will discontinue the Levaquin that was added by oncology for prophylaxis. Patient does have a temperature max of 102.6, heart rate 79, blood pressure 95/53, pulse ox 97% on room air. Repeat blood work will be ordered for today. Patient has remained pancytopenic over the weekend. 04/20: Yesterday's blood work revealed a hemoglobin of 7, WBC 0.5, platelet count 9 and patient received 1 unit of platelets and oncology started Zarxio. Repeat blood work for today reveals WBC of 0.5, hemoglobin 6.7, platelet count 23. BUN 30 creatinine 1.25. Blood sugar 105. C-reactive protein is 209.5. Patient denies any new complaints. No chest pain or shortness of breath. No cough. Temperature max is 102.8 at 7 PM, heart rate 72, blood pressure 88/37, pulse ox 96% on room air. Pulmonary medicine does not plan for bronchoscopies at this time. Dr. Garcia has changed and biotics to Zosyn. 04/21: Patient is sleeping at the time of evaluation. He wakes easily to verbal stimuli. Temperature maximum 100.6, heart rate 80, blood pressure 102/52, pulse ox 98% on room air. Patient has had diarrhea and C. difficile toxin is negative. Legionella is negative. Lab work yesterday revealed hemoglobin of 6.7, W BC 0.5 and platelets of 23. He received a unit of packed RBCs last evening. Repeat lab work this morning reveals WBC of 0.6, hemoglobin 6.6, platelet count 17. Patient is continued on Zosyn. He is on salt and soda mouthwash for oral lesions. He has also been started on Zarxio. 04/22: Repeat blood work reveals WBC 0.7, hemoglobin 7.7, platelet count 12. He is now status post 5 units of packed RBCs and [address] Garcia started voriconazole IV yesterday. Patient is complaining of clear sputum production. He has a history of smoking for greater than 65 years. Oncology is anticipating that his counts will stabilize and recover in the next several days. Once recovered, would like bronchoscopy or biopsy of spiculated lesion found on CT of the chest. Temperature max 102.6. Heart rate 72, blood pressure 100/59, pulse ox 95% on room air. 04/23: Patient is seen today in follow-up. He denies having any chest pain or s hortness of breath. He is having loose stool daily. He is eating well. He denies any nausea or vomiting. His temperature maximum 103.1, heart rate 97, blood pressure 118/65, pulse ox 94% on 3 L nasal cannula. Blood culture was obtained last night and patient received IV Tylenol last night. He is currently on Zyvox added to Zosyn and Voriconazole. Beta-1,3-D-glucan and serum galactomannan are pendind. Repeat blood work reveals WBC 0.5, hemoglobin 7.7, platelet count 11. Potassium 3.2, BUN 26 and creatinine 1.42. Calcium 7.5. Blood cultures from April 16 and April 17 are showing no growth. Sputum culture finalized with contaminated oral hakeem. Stool culture is in process. Review of Systems CONSTITUTIONAL: Thin, no acute respiratory distress. Denies chills. Documented fever. EYES: No icterus sclerae, no conjunctivitis. EARS, NOSE, MOUTH, THROAT, and FACE: No sore throat, lymphadenopathy, carotid bruits or deformity. RESPIRATORY: Positive shortness of breath cough with sputum production wheezes. CARDIOVASCULAR: No CP, Palpitation, PND, Orthopnea, or angina. GASTROINTESTINAL: Mild change in bowel habit with diarrhea and slight dyspepsia GENITOURINARY: Negative for Hematuria or UTI, no kidney stones. INTEGUMENT/BREAST: Negative for any muscular injury with mild osteoarthritis.. HEMATOLOGIC/LYMPHATIC: History of myelodysplasia severe anemia thrombocytopenia and neutropenia. MUSCULOSKELTAL: Negative for Myalgia or arthralgia. NEURLOGICAL: No LOC, Sz or syncope, blurred vision dizziness or abnormality.. BEHAVIORAL/PSYCH: Negative. ENDOCRINE: Negative. Physical Examination General Appearance: Alert, cooperative, no distress, appears stated age. Cachectic appearing 70-year-old male. Patient in bed and appears to be in no acute distress. Neck HEENT: Supple, no lymphadenopathy, no thyroid enlargement, no carotid bruits. Lungs: Decreased breaths bilaterally. Chest Wall: Decrease expansion with deep inspiration no tenderness and no deformity was found on exam, no costochondral pain. Heart: Regular rate and rhythm, S1, S2 mild tachycardia with systolic murmur. Back: Symmetric, no curvature, ROM normal, no CVA tenderness. Abdomen: Soft positive bowel sound slight discomfort in the mid abdominal area with mild organomegaly with multiple bruises no rebound or rigidity. Extremities: Extremities trace edema with multiple bruises positive mild ecchymosis as well. Pulses: 2+ and symmetric. Skin: Skin color, texture, tugor normal, no rashes or lesions. Neurologic: Alert oriented x3 cranial nerves II through XII intact, no motor deficit, no abnormal balance or gait. Assessment and Plan 1 acute symptomatic anemia. Patient is status post transfusion of 5 units packed RBCs. Continue Protonix. Zarxio. 2 severe myelodysplasia. Oncology consult appreciated. Continue Zosyn. 3 severe febrile neutropenia, possible sepsis secondary to cavitary pneumonia. Oncology consult, continue Zarxio. Continue acyclovir. Antimicrobials in the form of Zyvox, Zosyn and voriconazole IV. Consult with Dr. Garcia appreciated. 4. Pancytopenia. Patient is status post transfusion of 5 units packed RBCs and 2 unit of platelets. Patient is followed by oncology. 5 COPD without exacerbation. Continue albuterol nebulizer 3 times daily. 6 chronic diastolic heart failure. Continue furosemide at 40 mg daily. 7 recurrent pneumonia: Patient is asymptomatic at this point. Continue inhaler and antibiotics. 8 multiple pulmonary infiltrates including a spiculated 16 x 10 x 30 mm infiltrate in the right upper lobe. Need for biopsy at later time. 9 severe protein calorie malnutrition with BMI of 16 GI prophylaxis: pantoprazole 40 mg daily. 9 DVT prophylaxis: Patient will stay on Venodyne boots and knee-high MOE hose. 10 COVID-19 infection not present. CODE STATUS: Full code. Discharge plan: [facility] care and palliative care. Impression and plan of care have been directed as dictated by the signing physician. Dannielle Villegas nurse practitioner acting as scribe for signing physician. Objective - Vital Signs Vital signs: Vital Signs Temp 101.8 F H 04/23/20 06:01 Pulse 97 04/23/20 05:00 Resp 18 04/23/20 05:00 BP 118/65 04/23/20 06:01 Pulse Ox 94 L 04/23/20 05:00 Intake & Output 04/22/20 04/23/20 04/23/20 18:59 06:59 18:59 Intake Total 225 750 Output Total 200 Balance 25 750 Intake: Intake, IV Titration 225 150 Amount Piperacillin-Tazobactam 3 100 150 .375 gm In Sodium Chloride 0.9% 100 ml @ 25 mls/hr IVPB Q8HR [facility] Rx# :[id number] Voriconazole 300 mg In 125 Sodium Chloride 0.9% 250 ml @ 125 mls/hr IVPB Q12HR [facility] Rx#:[id number] Oral 600 Output: Urine 200 Other: Voiding Method Toilet Toilet Urinal Urinal # Voids 1 1 - Labs CBC & Chem 7: 04/23/20 07:41 04/23/20 07:41 Labs: Abnormal Lab Results - Last 24 Hours (Table) 04/22/20 Range/Units 12:22 POC Glucose (mg/dL) 102 H (75-99) mg/dL Microbiology - Last 24 Hours (Table) 04/16/20 20:34 Blood Culture - Final Blood No Growth after 144 hours 04/17/20 17:56 Blood Culture - Preliminary Blood No Growth after 120 hours
--- NOTE | 2020-04-23 15:33 | P.PN ---
Subjective Progress Note Date: 04/23/20 Principal diagnosis: Pancytopenia Objective - Vital Signs Vital signs: Vital Signs Temp 98.6 F 04/23/20 13:10 Pulse 86 04/23/20 14:51 Resp 17 04/23/20 13:10 BP 107/55 04/23/20 13:10 Pulse Ox 97 04/23/20 13:10 Intake & Output 04/22/20 04/23/20 04/23/20 18:59 06:59 18:59 Intake Total 225 750 500 Output Total 200 Balance 25 750 500 Intake: Intake, IV Titration 225 150 Amount Piperacillin-Tazobactam 3 100 150 .375 gm In Sodium Chloride 0.9% 100 ml @ 25 mls/hr IVPB Q8HR [facility] Rx# :[id number] Voriconazole 300 mg In 125 Sodium Chloride 0.9% 250 ml @ 125 mls/hr IVPB Q12HR [facility] Rx#:[id number] Oral 600 500 Output: Urine 200 Other: Voiding Method Toilet Toilet Urinal Urinal Urinal # Voids 1 1 1 - Exam - Constitutional General appearance: Present: cooperative, no acute distress, thin - EENT Eyes: Present: anicteric sclerae, EOMI ENT: Present: hearing grossly normal - Respiratory Details: Diminished left lower lobe, right upper lobe anteriorly otherwise clear to auscultation, respiratory effort is unlabored, chest expansion is symmetrical - Cardiovascular Rhythm: regular Heart sounds: normal: S1, S2 Abnormal Heart Sounds: Absent: systolic murmur, diastolic murmur, rub, S3 Gallop, S4 Gallop, click, other - Peripheral edema leg Peripheral Edema: bilateral: None - Gastrointestinal General gastrointestinal: Present: normal bowel sounds, scaphoid, soft - Neurologic Neurologic: Present: CNII-XII intact - Musculoskeletal Musculoskeletal: Present: generalized weakness, strength equal bilaterally - Psychiatric Psychiatric: Present: A&O x's 3, appropriate affect, intact judgment & insight - Labs CBC & Chem 7: 04/23/20 07:41 04/23/20 07:41 Labs: Abnormal Lab Results - Last 24 Hours (Table) 04/23/20 04/23/20 Range/Units 07:41 07:41 WBC 0.5 L* (3.8-10.6) k/uL RBC 2.34 L (4.30-5.90) m/uL Hgb 7.7 L (13.0-17.5) gm/dL Hct 23.7 L (39.0-53.0) % MCV 100.9 H (80.0-100.0) fL RDW 22.0 H (11.5-15.5) % Plt Count 11 L* (150-450) k/uL Neutrophils # 0.0 L* (1.3-7.7) k/uL Lymphocytes # 0.4 L (1.0-4.8) k/uL Potassium 3.2 L (3.5-5.1) mmol/L BUN 26 H (9-20) mg/dL Creatinine 1.42 H (0.66-1.25) mg/dL Calcium 7.5 L (8.4-10.2) mg/dL Total Protein 5.9 L (6.3-8.2) g/dL Albumin 2.5 L (3.5-5.0) g/dL Microbiology - Last 24 Hours (Table) 04/21/20 00:40 Stool Culture - Preliminary Stool Yeast species 04/16/20 20:34 Blood Culture - Final Blood No Growth after 144 hours 04/17/20 17:56 Blood Culture - Preliminary Blood No Growth after 120 hours Assessment and Plan (1) MDS (myelodysplastic syndrome), high grade Current Visit: No Status: Chronic Priority: Medium Code(s): D46.Z - OTHER MYELODYSPLASTIC SYNDROMES SNOMED Code(s): 396017162 Plan: Assessment and Recs: MDS: Severe symptomatic Anemia: - Stable today, no transfusion required - He can follow-up with Dr. Ford regarding continuation of treatment as an outpatient - Recommend close CBC as outpatient - Transfusion with hemoglobin less than 7, platlets less than 10K Febrile Neutropenia:Spiked T-max 103F today - ID is following - Repeat [place] Cultures and viral cultures - Yeast i stoool - Chest imaging concerning for infectious etiology, would like pulm to consider bronch please. - Broad Spectrum Antibiotics - Zarxio to continue Thrombocytopenia: - 11K today - Transfuse less than 10K or if s/s bleeding
[2020-04-23] MEDS ORDERED: ACETAMINOPHEN TAB 325 MG TAB PO STA (20:03)
[2020-04-24] MEDS: SALT AND SODA MOUTHWASH 1,000 ML PO SCH ×6 (00:59→23:57)
[2020-04-24] MEDS: ACETAMINOPHEN TAB 325 MG TAB PO PRN ×3 (02:00→20:19)
[2020-04-24] MEDS: PIPERACILLIN-TAZOBACTAM 3.375 GM in SODIUM CHLORIDE 0.9% 100 ML IVPB SCH ×4 (02:01→23:57)
--- NOTE | 2020-04-24 03:02 | PN ---
PROGRESS NOTE DATE OF SERVICE: 04/23/2020 REASON FOR FOLLOWUP: Febrile neutropenia and pneumonia. INTERVAL HISTORY: Patient is still spiking a fever on a daily basis of 103-101 degrees Fahrenheit. The patient denies having any chest pain, no shortness of breath. He did have minimal cough. No sputum. No nausea, vomiting. No abdominal pain or any worsening diarrhea. PHYSICAL EXAMINATION: Blood pressure 102/47 with a pulse of 90, temperature 101.2. He is 92% on 3 L nasal cannula. General description is an elderly male lying in bed in no distress. Respiratory system: Unlabored breathing, coarse breath sounds bilaterally, no wheeze. Heart S1, S2. Regular rate and rhythm. Abdomen soft, no tenderness. LABS: Hemoglobin 7.7, white count 0.5, BUN of 26, creatinine 1.42. DIAGNOSTIC IMPRESSION AND PLAN: Patient with febrile neutropenia, concern for pneumonia and he did have evidence of ( ) last night. The patient is currently covered with Zosyn ( ). We will add Zyvox for gram-positive coccus coverage and monitor clinical course closely. MMODL / IJN: [id number] /
[2020-04-24] MEDS: SODIUM CHLORIDE 0.9% 1,000 ML IV SCH ×2 (05:25→16:44)
[2020-04-24 07:33] LABS: Anisocytosis Moderate; HCT 22.8 % (39.0-53.0); HGB 7.3 gm/dL (13.0-17.5); Hypochromasia Slight; MCH 32.6 pg (25.0-35.0); Macrocytosis Moderate; Mean Platelet Volume 11.5; RBC 2.24 m/uL (4.30-5.90); RDW 21.8 % (11.5-15.5)
[2020-04-24 07:37] LABS: Platelet Count 13 k/uL (150-450); WBC 0.6 k/uL (3.8-10.6)
[2020-04-24 08:01] LABS: Albumin 2.4 g/dL (3.5-5.0); Calcium 7.1 mg/dL (8.4-10.2); Magnesium 1.3 mg/dL (1.6-2.3); Potassium 3.8 mmol/L (3.5-5.1); Total Bilirubin 0.9 mg/dL (0.2-1.3); Total Protein 5.8 g/dL (6.3-8.2)
[2020-04-24] MEDS: VORICONAZOLE 200 MG TAB PO SCH ×2 (08:10→21:20)
[2020-04-24] MEDS: DICYCLOMINE 20 MG TAB PO SCH ×4 (08:10→21:20)
[2020-04-24] MEDS: MULTIVITAMINS, THERA 1 EACH TAB PO SCH (08:10)
[2020-04-24] MEDS: NYSTATIN 100,000 UNIT/ML SUSP 500,000 UNIT/5 ML CUP PO SCH ×4 (08:10→21:20)
[2020-04-24] MEDS: PANTOPRAZOLE 40 MG TABLET PO SCH (08:10)
[2020-04-24] MEDS: ACYCLOVIR 200 MG CAP PO SCH ×3 (08:10→21:20)
[2020-04-24] MEDS: POTASSIUM CHLORIDE ER 20 MEQ TAB.ER PO SCH (08:10)
[2020-04-24] MEDS: FUROSEMIDE 40 MG TAB PO SCH (08:10)
[2020-04-24] MEDS: ALBUTEROL NEBULIZED 2.5 MG/3 ML INHALATION SCH ×3 (09:21→19:06)
--- NOTE | 2020-04-24 09:56 | P.PN ---
Subjective Progress Note Date: 04/24/20 70-year-old male one of Dr. Bustillos's patient with past medical history of anemia, gout, tobacco use, daily alcohol use and myelodysplasia who has been set pancytopenic for the last 2 month was started on chemotherapy with hematology recently was hospitalized for extended period of time for severe pancytopenia and severe neutropenia did not recover. Patient apparently went back on chemotherapy after he left the hospital last time. Today found to have severe anemia with hemoglobin of 5.1 with severe neutropenia white blood cell 1.3 and thrombocytopenia with platelets 28,000 only. Patient brought to the [facility] emergency department where was seen and evaluated has been very weak has not been able to ambulate and walk and has been having worsening shortness of breath with dyspnea with minimal exertion for the last few days. With a current hemoglobin his oncologist and instructed him to come to the hospital for admission for transfusion. 04/16: Patient is seen today on the [facility] floor. He is status post 2 units of packed RBCs and repeat lab work reveals hemoglobin of 7.3, WBC 0.9, platelet count 18. Electrolytes normal, BUN 32 and creatinine 0.89. Calcium 7.9, total bilirubin 1.5, AST 42, ALT 40, alkaline phosphatase 66. Temperature max 100.0, heart rate 76, blood pressure 115/66, pulse ox 96% on room air. Consult in place for oncology. COVID-19 is pending. 04/17: Hemoglobin currently is at 7.1, platelet count of 16, double basic count of 0.7 oncology thinks that he has myelodysplasia,patient wants to stay another day just in case he needs another blood products, as it's difficult for him to be transported back and forth with the who has been on a wheelchair, patient has chronic cough from smoking, denies any feverhowever T-max is 100.0 within the past 24 hours, Covid testc negative,chest x-ray shows no acute pulmonary disease, has clearing of pulmonary edema and pleural fluid compared to old exam,urinalyses WBC of 2,blood cultures would be sent secondary to the fever, consult Dr. Garcia for neutropenic fever, unknown primary at this ti me,start patient on cefotaxime, Levaquin, we will obtain high resolution CT of the chest, CT of the abdomen fromMarch 25, 2020 was reviewed , CT March 21, 2 cm stellate mass right upper lobe, 4 x 2 cm hypodensity posterior spleen no hydronephrosis no pulmonary has seen the patient, consult with Dr. Obie castrejon 04/18: Patient is being transfused currently for hemoglobin of 6.0, along with platelet transfusion, both are irritated, platelet is down to 9, currently on IV cefepime with James, is following, CAT scan of the chest shows multiple pulmonary infiltrates including a spiculated lesion 16 x 10 x 13 mm right upper lobe, 1.5 cm noncalcified subpleural nodular density posterior segment right upper lobe, 7 mm noncalcified nodule right lower lobe, 2.3, dictation spiculated left lower lobe, posterior basal segment, suspected inflammatory changes, Dr. Blanca pulmonary has been consulted, with recommendations for follow-up CT in 3 months, sputum culture sent today patient still has cough no hemoptysis, no conversational dyspnea, no active wheezing, T-max of 98.2, blood pressure is between 90-98 systolic pressures, nonlabored breathing pulse ox room air 98% 04/19: Patient has been seen by Dr. Blanca with recommendations for 3 month follow-up for repeat CAT scan. Patient has been continued on vancomycin, and cefepime by Dr. Garcia. We will discontinue the Levaquin that was added by oncology for prophylaxis. Patient does have a temperature max of 102.6, heart rate 79, blood pressure 95/53, pulse ox 97% on room air. Repeat blood work will be ordered for today. Patient has remained pancytopenic over the weekend. 04/20: Yesterday's blood work revealed a hemoglobin of 7, WBC 0.5, platelet count 9 and patient received 1 unit of platelets and oncology started Zarxio. Repeat blood work for today reveals WBC of 0.5, hemoglobin 6.7, platelet count 23. BUN 30 creatinine 1.25. Blood sugar 105. C-reactive protein is 209.5. Patient denies any new complaints. No chest pain or shortness of breath. No cough. Temperature max is 102.8 at 7 PM, heart rate 72, blood pressure 88/37, pulse ox 96% on room air. Pulmonary medicine does not plan for bronchoscopies at this time. Dr. Jose has changed and biotics to Zosyn. 04/21: Patient is sleeping at the time of evaluation. He wakes easily to verbal stimuli. Temperature maximum 100.6, heart rate 80, blood pressure 102/52, pulse ox 98% on room air. Patient has had diarrhea and C. difficile toxin is negative. Legionella is negative. Lab work yesterday revealed hemoglobin of 6.7, W BC 0.5 and platelets of 23. He received a unit of packed RBCs last evening. Repeat lab work this morning reveals WBC of 0.6, hemoglobin 6.6, platelet count 17. Patient is continued on Zosyn. He is on salt and soda mouthwash for oral lesions. He has also been started on Zarxio. 04/22: Repeat blood work reveals WBC 0.7, hemoglobin 7.7, platelet count 12. He is now status post 5 units of packed RBCs and [address] Garcia started voriconazole IV yesterday. Patient is complaining of clear sputum production. He has a history of smoking for greater than 65 years. Oncology is anticipating that his counts will stabilize and recover in the next several d ays. Once recovered, would like bronchoscopy or biopsy of spiculated lesion found on CT of the chest. Temperature max 102.6. Heart rate 72, blood pressure 100/59, pulse ox 95% on room air. 04/23: Patient is seen today in follow-up. He denies having any chest pain or shortness of breath. He is having loose stool daily. He is eating well. He denies any nausea or vomiting. His temperature maximum 103.1, heart rate 97, blood pressure 118/65, pulse ox 94% on 3 L nasal cannula. Blood culture was obtained last night and patient received IV Tylenol last night. He is currently on Zyvox added to Zosyn and Voriconazole. Beta-1,3-D-glucan and serum galactomannan are pendind. Repeat blood work reveals WBC 0.5, hemoglobin 7.7, platelet count 11. Potassium 3.2, BUN 26 and creatinine 1.42. Calcium 7.5. Blood cultures from April 16 and April 17 are showing no growth. Sputum culture finalized with contaminated oral hakeem. Stool culture is in process. 04/24: Patient continues to have fever. Tylenol was given last night. Additional blood cultures were ordered yesterday. He is complaining of diarrhea previous C. diff culture was negative. Patient is complaining of a tightness to his abdominal area. Blood pressure 92/42, pulse 84, respirations 20, pulse ox 92% on 3 L of nasal cannula. WBC 0.6, hemoglobin 7.3, platelets 13, BUN 34, creatinine 2.23 Review of Systems CONSTITUTIONAL: Thin, no acute respiratory distress. Denies chills. Documented fever. EYES: No icterus sclerae, no conjunctivitis. EARS, NOSE, MOUTH, THROAT, and FACE: No sore throat, lymphadenopathy, carotid bruits or deformity. RESPIRATORY: Positive shortness of breath cough with sputum production wheezes. CARDIOVASCULAR: No CP, Palpitation, PND, Orthopnea, or angina. GASTROINTESTINAL: Mild change in bowel habit with diarrhea and slight dyspepsia GENITOURINARY: Negative for Hematuria or UTI, no kidney stones. INTEGUMENT/BREAST: Negative for any muscular injury with mild osteoarthritis.. HEMATOLOGIC/LYMPHATIC: History of myelodysplasia severe anemia thrombocytopenia and neutropenia. MUSCULOSKELTAL: Negative for Myalgia or arthralgia. NEURLOGICAL: No LOC, Sz or syncope, blurred vision dizziness or abnormality.. BEHAVIORAL/PSYCH: Negative. ENDOCRINE: Negative. Objective - Vital Signs Vital signs: Vital Signs Temp 98.9 F 04/24/20 05:00 Pulse 80 04/24/20 09:38 Resp 20 04/24/20 05:00 BP 92/42 04/24/20 05:00 Pulse Ox 92 L 04/24/20 05:00 Intake & Output 04/23/20 04/24/20 04/24/20 18:59 06:59 18:59 Intake Total 500 0 Balance 500 0 Intake: Oral 500 0 Other: Voiding Method Urinal Urinal # Voids 1 1 # Bowel Movements 1 - Exam General Appearance: Alert, cooperative, no distress, appears stated age. Cachectic appearing 70-year-old male. Patient in bed and appears to be in no acute distress. Neck HEENT: Supple, no lymphadenopathy, no thyroid enlargement, no carotid bruits. Lungs: Decreased breaths bilaterally. Chest Wall: Decrease expansion with deep inspiration no tenderness and no deformity was found on exam, no costochondral pain. Heart: Regular rate and rhythm, S1, S2 mild tachycardia with systolic murmur. Back: Symmetric, no curvature, ROM normal, no CVA tenderness. Abdomen: Tenderness to the superpubic area Soft positive bowel sound slight d iscomfort in the mid abdominal area with mild organomegaly with multiple bruises no rebound or rigidity. Extremities: Extremities trace edema with multiple bruises positive mild ecchymosis as well. Pulses: 2+ and symmetric. Skin: Skin color, texture, tugor normal, no rashes or lesions. Neurologic: Alert oriented x3 cranial nerves II through XII intact, no motor deficit, no abnormal balance or gait. - Labs CBC & Chem 7: 04/24/20 06:54 04/24/20 06:54 Labs: Abnormal Lab Results - Last 24 Hours (Table) 04/24/20 04/24/20 Range/Units 06:54 06:54 WBC 0.6 L* (3.8-10.6) k/uL RBC 2.24 L (4.30-5.90) m/uL Hgb 7.3 L (13.0-17.5) gm/dL Hct 22.8 L (39.0-53.0) % MCV 102.0 H (80.0-100.0) fL RDW 21.8 H (11.5-15.5) % Plt Count 13 L* (150-450) k/uL BUN 34 H (9-20) mg/dL Creatinine 2.23 H (0.66-1.25) mg/dL Calcium 7.1 L (8.4-10.2) mg/dL Magnesium 1.3 L (1.6-2.3) mg/dL Total Protein 5.8 L (6.3-8.2) g/dL Albumin 2.4 L (3.5-5.0) g/dL Microbiology - Last 24 Hours (Table) 04/17/20 17:56 Blood Culture - Final Blood No Growth after 144 hours 04/21/20 00:40 Stool Culture - Preliminary Stool Yeast species Assessment and Plan Plan: 1 acute symptomatic anemia. Patient is status post transfusion of 5 units packed RBCs. Continue Protonix. Zarxio. 2 severe myelodysplasia. Oncology consult appreciated. Continue Zosyn. 3 severe febrile neutropenia, possible sepsis secondary to cavitary pneumonia. Oncology consult, continue Zarxio. Continue acyclovir. Antimicrobials in the form of Zyvox, Zosyn and voriconazole IV. Consult with Dr. Jose strauss. 4. Pancytopenia. Patient is status post transfusion of 5 units packed RBCs and 2 unit of platelets. Patient is followed by oncology. 5 COPD without exacerbation. Continue albuterol nebulizer 3 times daily. 6 chronic diastolic heart failure. Continue furosemide at 40 mg daily. 7 recurrent pneumonia: Patient is asymptomatic at this point. Continue inhaler and antibiotics. 8 multiple pulmonary infiltrates including a spiculated 16 x 10 x 30 mm infiltrate in the right upper lobe. Need for biopsy at later time. 9 severe protein calorie malnutrition with BMI of 16 10. Acute kidney injury. Hold Lasix. Continue with hydration. 11. Abdominal discomfort with diarrhea. C. diff culture was negative. Abdominal CT with oral contrast only ordered 12. GI prophylaxis: pantoprazole 40 mg daily. 13. DVT prophylaxis: Patient will stay on Venodyne boots and knee-high MOE hose. 14. COVID-19 infection not present. CODE STATUS: Full code. Discharge plan: [facility] care and palliative care. Impression and plan of care have been directed as dictated by the signing physician. Kaylah Calhoun nurse practitioner acting as scribe for signing physician.
[2020-04-24] MEDS: FILGRASTIM-SNDZ 480 MCG/0.8 ML SYRINGE SQ SCH (10:10)
[2020-04-24] MEDS: IOPAMIDOL CONTRAST (ORAL USE) VIAL PO PRN ×2 (10:10→11:20)
--- NOTE | 2020-04-24 13:15 | CT ---
EXAMINATION TYPE: CT abdomen pelvis wo con DATE OF EXAM: 04/24/2020 COMPARISON: Previous study dated 03/25/2020. HISTORY: Abdominal pain, rule out colitis. CT DLP: 258.2 mGycm Automated exposure control for dose reduction was used. FINDINGS: There is atelectasis or consolidation at the right lung base. There continues be a small ri ght effusion. There is developed a spiculated 2.2 cm mass in the posterior basal segment of the left lower lobe. The heart is not enlarged. There is 4.4 mm of pericardial thickening or fluid. Within the abdomen, the liver is upper limits of normal size. The spleen and gallbladder are unremark able. Both adrenal glands are normal. There is no evidence of nephrolithiasis or hydronephrosis. Limited views of the pancreas are unremarkable. There is mild to moderate atheromatous calcification of the abdominal aorta. The proximal common evan c arteries are aneurysmal measuring 1.5 cm bilaterally. There is no significant retroperitoneal, ingu inal or iliac adenopathy. The bladder is unremarkable. Small bowel loops are mildly prominent. The colon is largely collapsed. The sigmoid is fluid-filled. I do not see convincing evidence of colonic wall thickening. I do not see evidence of the appendix.. No free fluid and no free air is seen. There is degenerative disc these and hypertrophic spondylosis within the spine. IMPRESSION: 1. RIGHT BASILAR AIRSPACE DISEASE WITH A SMALL CONCOMITANT EFFUSION. 2. NEW 2.2 CM MASS IN THE POSTERIOR BASAL SEGMENT OF THE LEFT LOWER LOBE. 3. MILD ANEURYSMAL DILATATION OF THE COMMON ILIAC ARTERIES BILATERALLY. 4. MILD PROMINENCE OF THE PROXIMAL SMALL BOWEL LOOPS. 5. COLLAPSE OF MUCH OF THE COLON WITHOUT EVIDENCE OF COLONIC WALL THICKENING. THE DISTAL SIGMOID COLO N AND RECTUM ARE FULL OF FLUID. 8. MILD DEGENERATIVE CHANGES WITHIN THE SPINE.
[2020-04-24] MEDS: LINEZOLID 600 MG TAB PO SCH ×2 (13:17→21:20)
--- NOTE | 2020-04-24 17:32 | PN ---
PROGRESS NOTE DATE OF SERVICE: 04/24/2020 REASON FOR FOLLOWUP: Fever, febrile neutropenia and concern for pneumonia. INTERVAL HISTORY: The patient has been spiking a fever. This morning had temperature 103.1. The patient denies having any chest pain or shortness or breath. He did have some cough but not bringing up any sputum. No nausea, no vomiting. No abdominal pain. No diarrhea. EXAMINATION: Blood pressure 95/43 with a pulse of 91, temperature 98.4, T-max 103, he is 92% on room air. General description is an elderly male lying in bed in no distress. Respiratory system: Unlabored breathing. Clear to auscultation anteriorly. Heart S1, S2. Regular rate and rhythm. Abdomen soft, no tenderness. LABS: Hemoglobin 7.1, white count 0.6, creatinine up to 2.23. Aspergillus antibodies came back negative. However come back positive. DIAGNOSTIC IMPRESSION AND PLAN: Patient with febrile neutropenia with concern for pneumonia, question of aspergillus as the patient has been neutropenic for a long time. Has been on Effient in addition to the Zosyn and Zyvox, we will have to watch his clinical course closely. Aspergillus IgE will be requested. Some of the fever could be contributing from his underlying malignancy. This will be discussed further with Oncology. Family was at the bedside. They had multiple questions. Those were answered. MMODL / IJN: [id number] /
[2020-04-25] MEDS: SALT AND SODA MOUTHWASH 1,000 ML PO SCH ×4 (06:09→20:12)
[2020-04-25] MEDS: PIPERACILLIN-TAZOBACTAM 3.375 GM in SODIUM CHLORIDE 0.9% 100 ML IVPB SCH ×2 (07:06→21:50)
[2020-04-25] MEDS: SODIUM CHLORIDE 0.9% 1,000 ML IV SCH ×2 (07:08→21:56)
[2020-04-25] MEDS: ACYCLOVIR 200 MG CAP PO SCH ×3 (07:09→21:50)
[2020-04-25] MEDS: DICYCLOMINE 20 MG TAB PO SCH ×4 (07:09→21:50)
[2020-04-25] MEDS: FILGRASTIM-SNDZ 480 MCG/0.8 ML SYRINGE SQ SCH (07:09)
[2020-04-25] MEDS: LINEZOLID 600 MG TAB PO SCH ×2 (07:09→21:49)
[2020-04-25] MEDS: POTASSIUM CHLORIDE ER 20 MEQ TAB.ER PO SCH (07:10)
[2020-04-25] MEDS: VORICONAZOLE 200 MG TAB PO SCH ×2 (07:10→21:50)
[2020-04-25] MEDS: MULTIVITAMINS, THERA 1 EACH TAB PO SCH (07:10)
[2020-04-25] MEDS: NYSTATIN 100,000 UNIT/ML SUSP 500,000 UNIT/5 ML CUP PO SCH ×4 (07:10→21:50)
[2020-04-25] MEDS: PANTOPRAZOLE 40 MG TABLET PO SCH (07:13)
[2020-04-25] MEDS: ALBUTEROL NEBULIZED 2.5 MG/3 ML INHALATION SCH ×3 (07:30→19:21)
[2020-04-25] MEDS: ACETAMINOPHEN TAB 325 MG TAB PO PRN ×2 (07:37→18:02)
[2020-04-25 07:47] LABS: Albumin 2.3 g/dL (3.5-5.0); Calcium 6.5 mg/dL (8.4-10.2); Magnesium 1.3 mg/dL (1.6-2.3); Potassium 4.3 mmol/L (3.5-5.1); Total Bilirubin 0.9 mg/dL (0.2-1.3); Total Protein 5.8 g/dL (6.3-8.2)
[2020-04-25 07:48] LABS: Anisocytosis Moderate; HCT 21.2 % (39.0-53.0); Hypochromasia Slight; MCH 32.3 pg (25.0-35.0); MCHC 31.6 g/dL (31.0-37.0); MCV 102.1 fL (80.0-100.0); Macrocytosis Moderate; Mean Platelet Volume 12.2; RBC 2.07 m/uL (4.30-5.90); RDW 22.3 % (11.5-15.5)
[2020-04-25 07:52] LABS: WBC 0.6 k/uL (3.8-10.6)
[2020-04-25 07:55] LABS: Platelet Count 29 k/uL (150-450)
[2020-04-25 08:02] LABS: HGB 6.7 gm/dL (13.0-17.5)
[2020-04-25 09:21] LABS: C Reactive Protein 559.2 mg/L (<10.0)
--- NOTE | 2020-04-25 10:30 | P.PN ---
Subjective Progress Note Date: 04/25/20 70-year-old male one of Dr. Bustillos's patient with past medical history of anemia, gout, tobacco use, daily alcohol use and myelodysplasia who has been set pancytopenic for the last 2 month was started on chemotherapy with hematology recently was hospitalized for extended period of time for severe pancytopenia and severe neutropenia did not recover. Patient apparently went back on chemotherapy after he left the hospital last time. Today found to have severe anemia with hemoglobin of 5.1 with severe neutropenia white blood cell 1.3 and thrombocytopenia with platelets 28,000 only. Patient brought to the [facility] emergency department where was seen and evaluated has been very weak has not been able to ambulate and walk and has been having worsening shortness of breath with dyspnea with minimal exertion for the last few days. With a current hemoglobin his oncologist and instructed him to come to the hospital for admission for transfusion. 04/16: Patient is seen today on the [facility] floor. He is status post 2 units of packed RBCs and repeat lab work reveals hemoglobin of 7.3, WBC 0.9, platelet count 18. Electrolytes normal, BUN 32 and creatinine 0.89. Calcium 7.9, total bilirubin 1.5, AST 42, ALT 40, alkaline phosphatase 66. Temperature max 100.0, heart rate 76, blood pressure 115/66, pulse ox 96% on room air. Consult in place for oncology. COVID-19 is pending. 04/17: Hemoglobin currently is at 7.1, platelet count of 16, double basic count of 0.7 oncology thinks that he has myelodysplasia,patient wants to stay another day just in case he needs another blood products, as it's difficult for him to be transported back and forth with the who has been on a wheelchair, patient has chronic cough from smoking, denies any feverhowever T-max is 100.0 within the past 24 hours, Covid testc negative,chest x-ray shows no acute pulmonary disease, has clearing of pulmonary edema and pleural fluid compared to old exam,urinalyses WBC of 2,blood cultures would be sent secondary to the fever, consult Dr. Garcia for neutropenic fever, unknown primary at this ti me,start patient on cefotaxime, Levaquin, we will obtain high resolution CT of the chest, CT of the abdomen fromMarch 25, 2020 was reviewed , CT March 21, 2 cm stellate mass right upper lobe, 4 x 2 cm hypodensity posterior spleen no hydronephrosis no pulmonary has seen the patient, consult with Dr. Obie castrejon 04/18: Patient is being transfused currently for hemoglobin of 6.0, along with platelet transfusion, both are irritated, platelet is down to 9, currently on IV cefepime with James, is following, CAT scan of the chest shows multiple pulmonary infiltrates including a spiculated lesion 16 x 10 x 13 mm right upper lobe, 1.5 cm noncalcified subpleural nodular density posterior segment right upper lobe, 7 mm noncalcified nodule right lower lobe, 2.3, dictation spiculated left lower lobe, posterior basal segment, suspected inflammatory changes, Dr. Blanca pulmonary has been consulted, with recommendations for follow-up CT in 3 months, sputum culture sent today patient still has cough no hemoptysis, no conversational dyspnea, no active wheezing, T-max of 98.2, blood pressure is between 90-98 systolic pressures, nonlabored breathing pulse ox room air 98% 04/19: Patient has been seen by Dr. Blanca with recommendations for 3 month follow-up for repeat CAT scan. Patient has been continued on vancomycin, and cefepime by Dr. Garcia. We will discontinue the Levaquin that was added by oncology for prophylaxis. Patient does have a temperature max of 102.6, heart rate 79, blood pressure 95/53, pulse ox 97% on room air. Repeat blood work will be ordered for today. Patient has remained pancytopenic over the weekend. 04/20: Yesterday's blood work revealed a hemoglobin of 7, WBC 0.5, platelet count 9 and patient received 1 unit of platelets and oncology started Zarxio. Repeat blood work for today reveals WBC of 0.5, hemoglobin 6.7, platelet count 23. BUN 30 creatinine 1.25. Blood sugar 105. C-reactive protein is 209.5. Patient denies any new complaints. No chest pain or shortness of breath. No cough. Temperature max is 102.8 at 7 PM, heart rate 72, blood pressure 88/37, pulse ox 96% on room air. Pulmonary medicine does not plan for bronchoscopies at this time. Dr. Jose has changed and biotics to Zosyn. 04/21: Patient is sleeping at the time of evaluation. He wakes easily to verbal stimuli. Temperature maximum 100.6, heart rate 80, blood pressure 102/52, pulse ox 98% on room air. Patient has had diarrhea and C. difficile toxin is negative. Legionella is negative. Lab work yesterday revealed hemoglobin of 6.7, W BC 0.5 and platelets of 23. He received a unit of packed RBCs last evening. Repeat lab work this morning reveals WBC of 0.6, hemoglobin 6.6, platelet count 17. Patient is continued on Zosyn. He is on salt and soda mouthwash for oral lesions. He has also been started on Zarxio. 04/22: Repeat blood work reveals WBC 0.7, hemoglobin 7.7, platelet count 12. He is now status post 5 units of packed RBCs and [address] Garcia started voriconazole IV yesterday. Patient is complaining of clear sputum production. He has a history of smoking for greater than 65 years. Oncology is anticipating that his counts will stabilize and recover in the next several d ays. Once recovered, would like bronchoscopy or biopsy of spiculated lesion found on CT of the chest. Temperature max 102.6. Heart rate 72, blood pressure 100/59, pulse ox 95% on room air. 04/23: Patient is seen today in follow-up. He denies having any chest pain or shortness of breath. He is having loose stool daily. He is eating well. He denies any nausea or vomiting. His temperature maximum 103.1, heart rate 97, blood pressure 118/65, pulse ox 94% on 3 L nasal cannula. Blood culture was obtained last night and patient received IV Tylenol last night. He is currently on Zyvox added to Zosyn and Voriconazole. Beta-1,3-D-glucan and serum galactomannan are pendind. Repeat blood work reveals WBC 0.5, hemoglobin 7.7, platelet count 11. Potassium 3.2, BUN 26 and creatinine 1.42. Calcium 7.5. Blood cultures from April 16 and April 17 are showing no growth. Sputum culture finalized with contaminated oral hakeem. Stool culture is in process. 04/24: Patient continues to have fever. Tylenol was given last night. Additional blood cultures were ordered yesterday. He is complaining of diarrhea previous C. diff culture was negative. Patient is complaining of a tightness to his abdominal area. Blood pressure 92/42, pulse 84, respirations 20, pulse ox 92% on 3 L of nasal cannula. WBC 0.6, hemoglobin 7.3, platelets 13, BUN 34, creatinine 2.23 04/25: Patient has multiple bouts of watery yellow diarrhea. Patient has been up most the day and night due to the diarrhea. Previous C. diff was negative. Patient continues to complain of tenderness to his abdominal area. WCC 0.6, Hemoglobin 6.7, platelets 29, BUN 43, creatinine 2.88 Review of Systems CONSTITUTIONAL: Thin, no acute respiratory distress. Denies chills. Documented fever. EYES: No icterus sclerae, no conjunctivitis. EARS, NOSE, MOUTH, THROAT, and FACE: No sore throat, lymphadenopathy, carotid bruits or deformity. RESPIRATORY: Positive shortness of breath cough with sputum production wheezes. CARDIOVASCULAR: No CP, Palpitation, PND, Orthopnea, or angina. GASTROINTESTINAL: Abdominal discomfort with diarrhea and slight dyspepsia GENITOURINARY: Negative for Hematuria or UTI, no kidney stones. INTEGUMENT/BREAST: Negative for any muscular injury with mild osteoarthritis.. HEMATOLOGIC/LYMPHATIC: History of myelodysplasia severe anemia thrombocytopenia and neutropenia. MUSCULOSKELTAL: Negative for Myalgia or arthralgia. NEURLOGICAL: No LOC, Sz or syncope, blurred vision dizziness or abnormality.. BEHAVIORAL/PSYCH: Negative. ENDOCRINE: Negative. Objective - Vital Signs Vital signs: Vital Signs Temp 99.3 F 04/25/20 05:00 Pulse 94 04/25/20 05:00 Resp 18 04/25/20 05:00 BP 99/61 04/25/20 05:00 Pulse Ox 97 04/25/20 05:00 Intake & Output 04/24/20 04/25/20 04/25/20 18:59 06:59 18:59 Intake Total 4860 900 Output Total 400 200 Balance 4460 900 -200 Intake: Intake, IV Titration 1300 900 Amount Linezolid 600 mg In 300 Dextrose/Water 1 300ml. bag @ 150 mls/hr IVPB Q12HR [facility] Rx#:[id number] Piperacillin-Tazobactam 3 100 .375 gm In Sodium Chloride 0.9% 100 ml @ 25 mls/hr IVPB Q8HR [facility] Rx# :[id number] Sodium Chloride 0.9% 1, 900 900 000 ml @ 75 mls/hr IV . [id number] [facility] Rx#:[id number] Oral 3560 Output: Urine 400 200 Other: Voiding Method Urinal Bedside Commode Urinal # Voids 4 1 1 # Bowel Movements 3 3 - Exam General Appearance: Alert, cooperative, no distress, appears stated age. Cachectic appearing 70-year-old male. Patient in bed and appears to be in no acute distress. Neck HEENT: Supple, no lymphadenopathy, no thyroid enlargement, no carotid bruits. Lungs: Decreased breaths bilaterally. Chest Wall: Decrease expansion with deep inspiration no tenderness and no deformity was found on exam, no costochondral pain. Heart: Regular rate and rhythm, S1, S2 mild tachycardia with systolic murmur. Back: Symmetric, no curvature, ROM normal, no CVA tenderness. Abdomen: Tenderness to the superpubic area Soft positive bowel sound slight di scomfort in the mid abdominal area with mild organomegaly with multiple bruises no rebound or rigidity. Extremities: Extremities trace edema with multiple bruises positive mild ecchymosis as well. Pulses: 2+ and symmetric. Skin: Skin color, texture, tugor normal, no rashes or lesions. Neurologic: Alert oriented x3 cranial nerves II through XII intact, no motor deficit, no abnormal balance or gait. - Labs CBC & Chem 7: 04/25/20 07:12 04/25/20 07:12 Labs: Abnormal Lab Results - Last 24 Hours (Table) 04/25/20 04/25/20 Range/Units 07:12 07:12 WBC 0.6 L* (3.8-10.6) k/uL RBC 2.07 L (4.30-5.90) m/uL Hgb 6.7 L* (13.0-17.5) gm/dL Hct 21.2 L (39.0-53.0) % MCV 102.1 H (80.0-100.0) fL RDW 22.3 H (11.5-15.5) % Plt Count 29 L D (150-450) k/uL Chloride 108 H (98-107) mmol/L Carbon Dioxide 21 L (22-30) mmol/L BUN 43 H (9-20) mg/dL Creatinine 2.88 H (0.66-1.25) mg/dL Glucose 55 L (74-99) mg/dL Calcium 6.5 L (8.4-10.2) mg/dL Magnesium 1.3 L (1.6-2.3) mg/dL C-Reactive Protein 559.2 H (<10.0) mg/L Total Protein 5.8 L (6.3-8.2) g/dL Albumin 2.3 L (3.5-5.0) g/dL Microbiology - Last 24 Hours (Table) 04/21/20 00:40 Stool Culture - Final Stool Yeast species 04/23/20 07:41 Blood Culture - Preliminary Blood No Growth after 24 hours 04/23/20 07:41 Blood Culture - Preliminary Blood No Growth after 24 hours Assessment and Plan Plan: 1 acute symptomatic anemia. Patient is status post transfusion of 5 units packed RBCs. Continue Protonix. Zarxio. 2 severe myelodysplasia. Oncology consult appreciated. Continue Zosyn. 3 severe febrile neutropenia, possible sepsis secondary to cavitary pneumonia. Oncology consult, continue Zarxio. Continue acyclovir. Antimicrobials in the form of Zyvox, Zosyn and voriconazole IV. Consult with Dr. Garcia appreciated. 4. Pancytopenia. Hemoglobin 6.7 transfused 1 unit of packed red blood cells today Patient is status post transfusion of 5 units packed RBCs and 2 unit of platelets. Patient is followed by oncology. 5 COPD without exacerbation. Continue albuterol nebulizer 3 times daily. 6 chronic diastolic heart failure. Continue furosemide at 40 mg daily. 7 recurrent pneumonia: Patient is asymptomatic at this point. Continue inhaler and antibiotics. 8 multiple pulmonary infiltrates including a spiculated 16 x 10 x 30 mm infiltrate in the right upper lobe. Need for biopsy at later time. 9 severe protein calorie malnutrition with BMI of 16 10. Acute kidney injury. Hold Lasix. Continue with hydration. 11. Abdominal discomfort with diarrhea. C. diff culture was negative. Abdominal CT with oral contrast only ordered 12. GI prophylaxis: pantoprazole 40 mg daily. 13. DVT prophylaxis: Patient will stay on Venodyne boots and knee-high MOE hose. 14. COVID-19 infection not present. 15. Diarrhea. Repeat C. diff, Imodium and Questran ordered. CODE STATUS: Full code. Discharge plan: [facility] home care and palliative care. Impression and plan of care have been directed as dictated by the signing physician. Kaylah Calhoun nurse practitioner acting as scribe for signing physician.
--- NOTE | 2020-04-25 10:45 | P.PN ---
Subjective Progress Note Date: 04/25/20 Principal diagnosis: Pancytopenia status post treatment of MDS In follow-up today patient was confused this morning, he had a fever of 101.5 Fahrenheit, he still a little bit confused when speaking to him but, he states that his oral irritation is the same, he denies nausea or vomiting, abdominal pain or cramping, progressive diarrhea, bleeding, he has a cough but, is not able to expectorate, he is getting progressively weaker. Objective - Vital Signs Vital signs: Vital Signs Temp 99.3 F 04/25/20 05:00 Pulse 94 04/25/20 05:00 Resp 18 04/25/20 05:00 BP 99/61 04/25/20 05:00 Pulse Ox 97 04/25/20 05:00 Intake & Output 04/24/20 04/25/20 04/25/20 18:59 06:59 18:59 Intake Total 4860 900 Output Total 400 200 Balance 4460 900 -200 Intake: Intake, IV Titration 1300 900 Amount Linezolid 600 mg In 300 Dextrose/Water 1 300ml. bag @ 150 mls/hr IVPB Q12HR [facility] Rx#:[id number] Piperacillin-Tazobactam 3 100 .375 gm In Sodium Chloride 0.9% 100 ml @ 25 mls/hr IVPB Q8HR [facility] Rx# :[id number] Sodium Chloride 0.9% 1, 900 900 000 ml @ 75 mls/hr IV . [id number] [facility] Rx#:[id number] Oral 3560 Output: Urine 400 200 Other: Voiding Method Urinal Bedside Commode Urinal # Voids 4 1 1 # Bowel Movements 3 3 - Constitutional General appearance: Present: cooperative, no acute distress, thin - EENT Eyes: Present: anicteric sclerae, EOMI ENT: Present: hearing grossly normal, normal oropharynx - Respiratory Respiratory: bilateral: diminished - Cardiovascular Rhythm: regular Heart sounds: normal: S1, S2 Abnormal Heart Sounds: Absent: systolic murmur, diastolic murmur, rub, S3 Gallop, S4 Gallop, click, other - Peripheral edema leg Peripheral Edema: bilateral: None - Gastrointestinal General gastrointestinal: Present: normal bowel sounds, soft. Absent: absent bowel sounds, decreased bowel sounds, distended, hepatomegaly, hyperactive bowel sounds, organomegaly, rigid, scaphoid, splenomegaly, tenderness, umbilical hernia, ventral hernia - Musculoskeletal Musculoskeletal: Present: generalized weakness - Psychiatric Psychiatric: Present: A&O x's 3, appropriate affect - Labs CBC & Chem 7: 04/25/20 07:12 04/25/20 07:12 Labs: Abnormal Lab Results - Last 24 Hours (Table) 04/25/20 04/25/20 Range/Units 07:12 07:12 WBC 0.6 L* (3.8-10.6) k/uL RBC 2.07 L (4.30-5.90) m/uL Hgb 6.7 L* (13.0-17.5) gm/dL Hct 21.2 L (39.0-53.0) % MCV 102.1 H (80.0-100.0) fL RDW 22.3 H (11.5-15.5) % Plt Count 29 L D (150-450) k/uL Chloride 108 H (98-107) mmol/L Carbon Dioxide 21 L (22-30) mmol/L BUN 43 H (9-20) mg/dL Creatinine 2.88 H (0.66-1.25) mg/dL Glucose 55 L (74-99) mg/dL Calcium 6.5 L (8.4-10.2) mg/dL Magnesium 1.3 L (1.6-2.3) mg/dL C-Reactive Protein 559.2 H (<10.0) mg/L Total Protein 5.8 L (6.3-8.2) g/dL Albumin 2.3 L (3.5-5.0) g/dL Microbiology - Last 24 Hours (Table) 04/23/20 07:41 Blood Culture - Preliminary Blood No Growth after 48 hours 04/23/20 07:41 Blood Culture - Preliminary Blood No Growth after 48 hours 04/21/20 00:40 Stool Culture - Final Stool Yeast species Assessment and Plan (1) Febrile neutropenia Narrative/Plan: Patient continues to have fevers, he is also becoming delirious during his febrile episodes. He continues on G-CSF right now, his WBC is stable today. It is been labile in the past on G-CSF. This time Dr. Flores would like him to continue on growth factor. All cultures negative, several of been repeated with no underlying cause other than a suspicion for a yeast infection. We'll continue to work closely with ID and Pulmonary regarding the abnormal findings on the CT of the chest as counts are not adequate to facilitate a biopsy Current Visit: Yes Status: Acute Priority: High Code(s): D70.9 - NEUT ROPENIA, UNSPECIFIED; R50.81 - FEVER PRESENTING WITH CONDITIONS CLASSIFIED ELSEWHERE SNOMED Code(s): 335875612 (2) Pancytopenia due to antineoplastic chemotherapy Narrative/Plan: Transfuse for hemoglobin less than 7 or symptomatic. Hemoglobin 6.7. 1 unit PRBCs today. Transfuse for platelets less than 10,000 unless symptomatic. No transfusion today, platelets 29,000 Patient did receive G-CSF after treatment. That was on the . Patient started short acting G-CSF 04/20. WBC 0.6 Current Visit: Yes Status: Chronic Priority: Medium Code(s): D61.810 - ANTINEOPLASTIC CHEMOTHERAPY INDUCED PANCYTOPENIA; T45.1X5A - ADVERSE EFFECT OF ANTINEOPLASTIC AND IMMUNOSUP DRUGS, INIT SNOMED Code(s): 515123908860085 (3) MDS (myelodysplastic syndrome), high grade Narrative/Plan: Patient is now status post 2 of the recommended 3 treatments suggested by He matology to see if able to get some control of his disease. Pt is now past nidia. He should be recovering. We will reevaluate the patient in the a.m. further recommendations to follow Current Visit: No Status: Chronic Priority: Medium Code(s): D46.Z - OTHER MYELODYSPLASTIC SYNDROMES SNOMED Code(s): 626804526 (4) Thrush, oral Current Visit: Yes Status: Resolved Priority: Medium Code(s): B37.0 - CANDIDAL STOMATITIS SNOMED Code(s): 38119823 Plan: ID reviewed computed tomography scan. May consider bronchoscopy versus percutaneous biopsy to see what is going on in the patient's lung once WBC/ANC and platelets stable. Pending recommendations.
[2020-04-25] MEDS: CHOLESTYRAMINE (WITH SUGAR) 4 GM PACKET PO SCH ×2 (12:10→18:03)
[2020-04-25] MEDS: LOPERAMIDE 2 MG CAP PO SCH ×4 (12:10→21:50)
[2020-04-25] MEDS: DEXTROSE 5%-0.45% NACL 1,000 ML IV SCH (14:53)
--- NOTE | 2020-04-25 23:08 | PN ---
PROGRESS NOTE DATE OF SERVICE: 04/25/2020 REASON FOR FOLLOWUP: Febrile neutropenia and pneumonia. INTERVAL HISTORY: The patient is currently afebrile. Last temperature was around 10 o'clock last night. The patient is complaining of some shortness of breath today. He did have a cough but not bringing up any sputum. No chest pain. No nausea. No vomiting. No abdominal pain or any worsening diarrhea. PHYSICAL EXAMINATION: Blood pressure is 95/58 with a pulse of 83, temperature 98.9. He is 99% on 2 L nasal cannula. General description is an elderly male lying in bed in no distress. RESPIRATORY SYSTEM: Unlabored breathing, decreased breath sounds at bases. No wheeze. HEART: S1, S2. Regular rate and rhythm. ABDOMEN: Soft, no tenderness. LABS: Hemoglobin is 6.7, white count 0.6. Platelet count is 29 with a BUN of 43, creatinine is 2.88. CRP is elevated. DIAGNOSTIC IMPRESSION AND PLAN: Patient with febrile neutropenia with concern for pneumonia cavitary on the left lower lobe with concern for possible Aspergillus versus resistant gram-positive, gram- negative. Patient is covered with Vfend, Zyvox and Zosyn to continue and will monitor clinical course closely. MMODL / IJN: [id number] /
[2020-04-26] MEDS: SALT AND SODA MOUTHWASH 1,000 ML PO SCH ×4 (01:21→12:53)
[2020-04-26] MEDS: DEXTROSE 5%-0.45% NACL 1,000 ML IV SCH ×2 (01:21→07:43)
[2020-04-26 04:16] LABS: Glucose,Whole Blood 83 mg/dL (75-99)
[2020-04-26] MEDS ORDERED: FUROSEMIDE 10 MG/ML 2 ML VIAL IV STA (06:22)
[2020-04-26] MEDS: PIPERACILLIN-TAZOBACTAM 3.375 GM in SODIUM CHLORIDE 0.9% 100 ML IVPB SCH (07:09)
[2020-04-26] MEDS: FILGRASTIM-SNDZ 480 MCG/0.8 ML SYRINGE SQ SCH (07:09)
[2020-04-26] MEDS: LOPERAMIDE 2 MG CAP PO SCH ×2 (07:13→12:52)
[2020-04-26] MEDS: DICYCLOMINE 20 MG TAB PO SCH ×2 (07:13→12:52)
[2020-04-26] MEDS: LINEZOLID 600 MG TAB PO SCH (07:13)
[2020-04-26] MEDS: ACYCLOVIR 200 MG CAP PO SCH (07:13)
[2020-04-26] MEDS: PANTOPRAZOLE 40 MG TABLET PO SCH (07:13)
[2020-04-26] MEDS: MULTIVITAMINS, THERA 1 EACH TAB PO SCH (07:13)
[2020-04-26] MEDS: NYSTATIN 100,000 UNIT/ML SUSP 500,000 UNIT/5 ML CUP PO SCH ×2 (07:13→12:52)
[2020-04-26] MEDS: POTASSIUM CHLORIDE ER 20 MEQ TAB.ER PO SCH (07:13)
[2020-04-26] MEDS: CHOLESTYRAMINE (WITH SUGAR) 4 GM PACKET PO SCH ×2 (07:14→12:52)
[2020-04-26] MEDS: VORICONAZOLE 200 MG TAB PO SCH (07:14)
[2020-04-26 07:18] LABS: Anisocytosis Moderate; HCT 25.2 % (39.0-53.0); HGB 7.8 gm/dL (13.0-17.5); Hypochromasia Marked; MCH 32.4 pg (25.0-35.0); MCHC 31.1 g/dL (31.0-37.0); MCV 104.1 fL (80.0-100.0); Macrocytosis Moderate; Mean Platelet Volume 10.6; RBC 2.42 m/uL (4.30-5.90); RDW 22.1 % (11.5-15.5)
[2020-04-26 07:23] LABS: WBC 0.6 k/uL (3.8-10.6)
[2020-04-26 07:28] LABS: Platelet Count 102 k/uL (150-450)
[2020-04-26 07:43] LABS: Poikilocytosis (M) Present
[2020-04-26] MEDS: SODIUM CHLORIDE 0.9% 1,000 ML IV SCH (07:43)
[2020-04-26] MEDS: ALBUTEROL NEBULIZED 2.5 MG/3 ML INHALATION SCH ×2 (07:48→12:33)
[2020-04-26 07:51] LABS: Albumin 2.3 g/dL (3.5-5.0); Magnesium 1.3 mg/dL (1.6-2.3); Potassium 4.3 mmol/L (3.5-5.1); Total Bilirubin 0.9 mg/dL (0.2-1.3)
[2020-04-26 08:04] LABS: Calcium 6.3 mg/dL (8.4-10.2)
[2020-04-26] MEDS ORDERED: FUROSEMIDE 10 MG/ML 4 ML VIAL IV STA (08:18)
[2020-04-26] MEDS ORDERED: MORPHINE ORAL SOLN 10 MG/5 ML CUP PO PRN (10:42)
[2020-04-26] MEDS ORDERED: LORazepam ORAL CONC 60 MG/30 ML BOTTLE SL PRN (10:42)
--- NOTE | 2020-04-26 11:29 | PN ---
PROGRESS NOTE DATE OF SERVICE: 04/26/2020 REASON FOR FOLLOWUP: Febrile neutropenia pneumonia. INTERVAL HISTORY: Patient did have a low fever of 100.8 this morning. The patient afebrile since then. The patient did have worsening of his respiratory status, is currently lethargic, tachypneic. No vomiting or diarrhea or any other changes reported by the nursing staff. PHYSICAL EXAMINATION: Blood pressure 124/60 with a pulse of 112, temperature 98.8. He is 93% on 3 L nasal cannula. General description is an elderly male, lying in bed in no distress. RESPIRATORY SYSTEM: Unlabored breathing, coarse breath sounds bilaterally, no wheeze. HEART: S1, S2. Regular rate and rhythm. ABDOMEN: Soft, no tenderness. LABS: Hemoglobin 7.1, white count 0.6, BUN of 53, creatinine up to 3.55. DIAGNOSTIC IMPRESSION AND PLAN: Patient with febrile neutropenia with a component of pneumonia, can be treated with concern for possible Aspergillus. Patient is covered with and also covered with Zosyn and Zyvox. The patient now does have worsening of his kidney function as well as respiratory status. Admitting team has talked to the family and they are leaning more towards hospice or comfort care, which is the case, recommend to discontinue antibiotic and discussed with the nurse. MMODL / IJN: [id number] /
[2020-04-26] MEDS ORDERED: IPRATROPIUM-ALBUTEROL 3 ML NEB INHALATION SCH (13:00)
[2020-04-26] MEDS: ATROPINE OPHTH SOLN 1% 5ML BTL SUBLINGUAL PRN ×2 (13:00→15:57)
[2020-04-26 13:51] VITALS: BP 81/51; PULSE 127; RESP 33
--- NOTE | 2020-04-26 14:38 | P.PN ---
Subjective Progress Note Date: 04/26/20 Principal diagnosis: Pancytopenia status post treatment of MDS Pt is responsive to voice and touch, he is delirious though. and grandson are at bedside. Objective - Vital Signs Vital signs: Vital Signs Temp 100.9 F H 04/26/20 13:00 Pulse 127 H 04/26/20 13:00 Resp 33 H 04/26/20 13:00 BP 81/51 04/26/20 13:00 Pulse Ox 93 L 04/26/20 05:25 Intake & Output 04/25/20 04/26/20 04/26/20 18:59 06:59 18:59 Intake Total 3000 900 1000 Output Total 400 Balance 2600 900 1000 Weight 55.792 kg Intake: Intake, IV Titration 0714 705 6504 Amount Dextrose 5%-0.45% NaCl 1, 900 900 000 ml @ 75 mls/hr IV . [id number] DONNA Rx#:[id number] Piperacillin-Tazobactam 3 100 100 .375 gm In Sodium Chloride 0.9% 100 ml @ 25 mls/hr IVPB Q12HR DONNA Rx #:[id number] Sodium Chloride 0.9% 1, 1200 000 ml @ 75 mls/hr IV . [id number] DONNA Rx#:[id number] Oral 1080 Blood Product 620 Rc Irr As1 Unit 310 [id number] Output: Urine 400 Other: Voiding Method Bedside Commode Bedside Commode Urinal Urinal Urinal Incontinent # Voids 4 1 1 # Bowel Movements 1 1 - Exam Pt falls asleep, jolts himself awake, is restless then falls back to sleep - Constitutional General appearance: Present: thin - Labs CBC & Chem 7: 04/26/20 06:47 04/26/20 06:47 Labs: Abnormal Lab Results - Last 24 Hours (Table) 04/25/20 04/25/20 04/26/20 Range/Units 07:12 09:37 06:47 WBC 0.6 L* (3.8-10.6) k/uL RBC 2.42 L (4.30-5.90) m/uL Hgb 7.8 L (13.0-17.5) gm/dL Hct 25.2 L (39.0-53.0) % MCV 104.1 H (80.0-100.0) fL RDW 22.1 H (11.5-15.5) % Plt Count 102 L D (150-450) k/uL Chloride (98-107) mmol/L Carbon Dioxide (22-30) mmol/L BUN (9-20) mg/dL Creatinine (0.66-1.25) mg/dL Glucose (74-99) mg/dL Calcium (8.4-10.2) mg/dL Magnesium (1.6-2.3) mg/dL Total Protein (6.3-8.2) g/dL Albumin (3.5-5.0) g/dL Procalcitonin 24.01 H (0.02-0.09) ng/mL Crossmatch See Detail 04/26/20 Range/Units 06:47 WBC (3.8-10.6) k/uL RBC (4.30-5.90) m/uL Hgb (13.0-17.5) gm/dL Hct (39.0-53.0) % MCV (80.0-100.0) fL RDW (11.5-15.5) % Plt Count (150-450) k/uL Chloride 113 H (98-107) mmol/L Carbon Dioxide 17 L (22-30) mmol/L BUN 53 H (9-20) mg/dL Creatinine 3.55 H (0.66-1.25) mg/dL Glucose 72 L (74-99) mg/dL Calcium 6.3 L* (8.4-10.2) mg/dL Magnesium 1.3 L (1.6-2.3) mg/dL Total Protein 6.0 L (6.3-8.2) g/dL Albumin 2.3 L (3.5-5.0) g/dL Procalcitonin (0.02-0.09) ng/mL Crossmatch Microbiology - Last 24 Hours (Table) 04/23/20 07:41 Blood Culture - Preliminary Blood No Growth after 72 hours 04/23/20 07:41 Blood Culture - Preliminary Blood No Growth after 72 hours 04/21/20 00:40 Stool Culture - Final Stool Yeast species Assessment and Plan (1) Febrile neutropenia Current Visit: Yes Status: Acute Priority: High Code(s): D70.9 - NEUTR OPENIA, UNSPECIFIED; R50.81 - FEVER PRESENTING WITH CONDITIONS CLASSIFIED ELSEWHERE SNOMED Code(s): 080545291 (2) Pancytopenia due to antineoplastic chemotherapy Current Visit: Yes Status: Chronic Priority: Medium Code(s): D61.810 - ANTINEOPLASTIC CHEMOTHERAPY INDUCED PANCYTOPENIA; T45.1X5A - ADVERSE EFFECT OF ANTINEOPLASTIC AND IMMUNOSUP DRUGS, INIT SNOMED Code(s): 540937007210605 (3) MDS (myelodysplastic syndrome), high grade Current Visit: No Status: Chronic Priority: Medium Code(s): D46.Z - OTHER MYELODYSPLASTIC SYNDROMES SNOMED Code(s): 896843496 (4) Thrush, oral Current Visit: Yes Status: Resolved Priority: Medium Code(s): B37.0 - CA NDIDAL STOMATITIS SNOMED Code(s): 98027535 Plan: IM spoke with and recommendation is for hospice, pending consult for the same. We discussed Blayne's case, what has happened and I answered some questions about what they could expect from hospice-I did recommend to his that pt be placed and taken home as I feel it would be too much for her to handle. She verbalized understanding. All her questions were answered to her satisfaction. Spoke with unit RN, pt will be allowed to return to unit as pt is hospice care. Time with Patient: Greater than 30 (counseling and coordinating care)
--- NOTE | 2020-04-26 15:03 | P.PN ---
Subjective Progress Note Date: 04/26/20 70-year-old male one of Dr. Bustillos's patient with past medical history of anemia, gout, tobacco use, daily alcohol use and myelodysplasia who has been set pancytopenic for the last 2 month was started on chemotherapy with hematology recently was hospitalized for extended period of time for severe pancytopenia and severe neutropenia did not recover. Patient apparently went back on chemotherapy after he left the hospital last time. Today found to have severe anemia with hemoglobin of 5.1 with severe neutropenia white blood cell 1.3 and thrombocytopenia with platelets 28,000 only. Patient brought to the [facility] emergency department where was seen and evaluated has been very weak has not been able to ambulate and walk and has been having worsening shortness of breath with dyspnea with minimal exertion for the last few days. With a current hemoglobin his oncologist and instructed him to come to the hospital for admission for transfusion. 04/16: Patient is seen today on the [facility] floor. He is status post 2 units of packed RBCs and repeat lab work reveals hemoglobin of 7.3, WBC 0.9, platelet count 18. Electrolytes normal, BUN 32 and creatinine 0.89. Calcium 7.9, total bilirubin 1.5, AST 42, ALT 40, alkaline phosphatase 66. Temperature max 100.0, heart rate 76, blood pressure 115/66, pulse ox 96% on room air. Consult in place for oncology. COVID-19 is pending. 04/17: Hemoglobin currently is at 7.1, platelet count of 16, double basic count of 0.7 oncology thinks that he has myelodysplasia,patient wants to stay another day just in case he needs another blood products, as it's difficult for him to be transported back and forth with the who has been on a wheelchair, patient has chronic cough from smoking, denies any feverhowever T-max is 100.0 within the past 24 hours, Covid testc negative,chest x-ray shows no acute pulmonary disease, has clearing of pulmonary edema and pleural fluid compared to old exam,urinalyses WBC of 2,blood cultures would be sent secondary to the fever, consult Dr. Garcia for neutropenic fever, unknown primary at this time,start patient on cefotaxime, Levaquin, we will obtain high resolution CT of the chest, CT of the abdomen fromMarch 25, 2020 was reviewed , CT March 21, 2 cm stellate mass right upper lobe, 4 x 2 cm hypodensity posterior spleen no hydronephrosis no pulmonary has seen the patient, consult with Dr. Obie castrejon 04/18: Patient is being transfused currently for hemoglobin of 6.0, along with pl atelet transfusion, both are irritated, platelet is down to 9, currently on IV cefepime with James, is following, CAT scan of the chest shows multiple pulmonary infiltrates including a spiculated lesion 16 x 10 x 13 mm right upper lobe, 1.5 cm noncalcified subpleural nodular density posterior segment right upper lobe, 7 mm noncalcified nodule right lower lobe, 2.3, dictation spiculated left lower lobe, posterior basal segment, suspected inflammatory changes, Dr. Blanca pulmonary has been consulted, with recommendations for follow-up CT in 3 months, sputum culture sent today patient still has cough no hemoptysis, no conversational dyspnea, no active wheezing, T-max of 98.2, blood pressure is between 90-98 systolic pressures, nonlabored breathing pulse ox room air 98% 04/19: Patient has been seen by Dr. Blanca with recommendations for 3 month follow-up for repeat CAT scan. Patient has been continued on vancomycin, and cefepime by Dr. Garcia. We will discontinue the Levaquin that was added by oncology for prophylaxis. Patient does have a temperature max of 102.6, heart rate 79, blood pressure 95/53, pulse ox 97% on room air. Repeat blood work will be ordered for today. Patient has remained pancytopenic over the weekend. 04/20: Yesterday's blood work revealed a hemoglobin of 7, WBC 0.5, platelet count 9 and patient received 1 unit of platelets and oncology started Zarxio. Repeat blood work for today reveals WBC of 0.5, hemoglobin 6.7, platelet count 23. BUN 30 creatinine 1.25. Blood sugar 105. C-reactive protein is 209.5. Patient denies any new complaints. No chest pain or shortness of breath. No cough. Temperature max is 102.8 at 7 PM, heart rate 72, blood pressure 88/37, pulse ox 96% on room air. Pulmonary medicine does not plan for bronchoscopies at this time. Dr. Garcia has changed and biotics to Zosyn. 04/21: Patient is sleeping at the time of evaluation. He wakes easily to verbal stimuli. Temperature maximum 100.6, heart rate 80, blood pressure 102/52, pulse ox 98% on room air. Patient has had diarrhea and C. difficile toxin is negative. Legionella is negative. Lab work yesterday revealed hemoglobin of 6.7, W BC 0.5 and platelets of 23. He received a unit of packed RBCs last evening. Repeat lab work this morning reveals WBC of 0.6, hemoglobin 6.6, platelet count 17. Patient is continued on Zosyn. He is on salt and soda mouthwash for oral lesions. He has also been started on Zarxio. 04/22: Repeat blood work reveals WBC 0.7, hemoglobin 7.7, platelet count 12. He is now status post 5 units of packed RBCs and [address] Garcia started voriconazole IV yesterday. Patient is complaining of clear sputum production. He has a history of smoking for greater than 65 years. Oncology is anticipating that his counts will stabilize and recover in the next several days. Once recovered, would like bronchoscopy or biopsy of spiculated lesion found on CT of the chest. Temperature max 102.6. Heart rate 72, blood pressure 100/59, pulse ox 95% on room air. 04/23: Patient is seen today in follow-up. He denies having any chest pain or s hortness of breath. He is having loose stool daily. He is eating well. He denies any nausea or vomiting. His temperature maximum 103.1, heart rate 97, blood pressure 118/65, pulse ox 94% on 3 L nasal cannula. Blood culture was obtained last night and patient received IV Tylenol last night. He is currently on Zyvox added to Zosyn and Voriconazole. Beta-1,3-D-glucan and serum galactomannan are pendind. Repeat blood work reveals WBC 0.5, hemoglobin 7.7, platelet count 11. Potassium 3.2, BUN 26 and creatinine 1.42. Calcium 7.5. Blood cultures from April 16 and April 17 are showing no growth. Sputum culture finalized with contaminated oral hakeem. Stool culture is in process. 04/24: Patient continues to have fever. Tylenol was given last night. Additional blood cultures were ordered yesterday. He is complaining of diarrhea previous C. diff culture was negative. Patient is complaining of a tightness to his abdominal area. Blood pressure 92/42, pulse 84, respirations 20, pulse ox 92% on 3 L of nasal cannula. WBC 0.6, hemoglobin 7.3, platelets 13, BUN 34, creatinine 2.23 8: Patient has multiple bouts of watery yellow diarrhea. Patient has been up most the day and night due to the diarrhea. Previous C. diff was negative. Patient continues to complain of tenderness to his abdominal area. WCC 0.6, Hemoglobin 6.7, platelets 29, BUN 43, creatinine 2.88 8: The patient developed mental status changes over the weekend and is somewhat confused this morning. He is unable to swallow any oral medications. He is complaining of dizziness. He is audibly wheezing with moist wet sounds. He has received 1 dose of IV Lasix 20 mg this morning we will repeat a 40 mg IV push now. Contacted patient's on the phone and gave her an update regarding patient's condition and recommend that she come into the hospital. The patient is most appropriate for comfort care at this point. He has worsening renal function with a BUN of 53 and creatinine 3.55. WBC is 0.6, hemoglobin 7.8, platelet count 102. Calcium 6.3. Lactic acid 1.5. Magnesium 1.3. Stool culture is yeast species. Most recent blood culture is no growth at 72 hours. Temperature 100.9, heart rate 127, blood pressure 81/51, pulse ox 93% on 2 L nasal cannula, respiratory rate 36. Patient started on sublingual morphine and sublingual lorazepam. Review of Systems CONSTITUTIONAL: Thin, no acute respiratory distress. Denies chills. Documented fever. EYES: No icterus sclerae, no conjunctivitis. EARS, NOSE, MOUTH, THROAT, and FACE: No sore throat, lymphadenopathy, carotid bruits or deformity. RESPIRATORY: Positive shortness of breath cough with sputum production positive wheezes. CARDIOVASCULAR: No CP, Palpitation, PND, Orthopnea, or angina. GASTROINTESTINAL: Reports diarrhea and slight dyspepsia GENITOURINARY: Negative for Hematuria or UTI, no kidney stones. INTEGUMENT/BREAST: Negative for any muscular injury with mild osteoarthritis.. HEMATOLOGIC/LYMPHATIC: History of myelodysplasia severe anemia thrombocytopenia and neutropenia. MUSCULOSKELTAL: Negative for Myalgia or arthralgia. NEURLOGICAL: Reports mental status change, Sz or syncope, blurred vision dizzin ess or abnormality.. BEHAVIORAL/PSYCH: Negative. ENDOCRINE: Negative. Physical Examination General Appearance: Alert, cooperative, no distress, appears stated age. Cachectic appearing 70-year-old male. Patient in bed and appears to be in respiratory distress. Neck HEENT: Supple, no lymphadenopathy, no thyroid enlargement, no carotid bruits. Lungs: Bilateral rhonchi, bilateral wheezing. Accessory muscle usage. Tachypneic. Chest Wall: Decrease expansion with deep inspiration no tenderness and no deformity was found on exam, no costochondral pain. Heart: Regular rate and rhythm, S1, S2, tachycardia with systolic murmur. Back: Symmetric, no curvature, ROM normal, no CVA tenderness. Abdomen: Soft positive bowel sound slight discomfort in the mid abdominal area with mild organomegaly with multiple bruises no rebound or rigidity. Extremities: Extremities trace edema with multiple bruises positive mild ecchymosis as well. Pulses: 2+ and symmetric. Skin: Skin color, texture, tugor normal, no rashes or lesions. Neurologic: Alert oriented to person and place. Assessment and Plan 1 acute symptomatic anemia. Patient is status post transfusion of 6 units packed RBCs. 2 severe myelodysplasia. Oncology consult appreciated. 3 severe febrile neutropenia, possible sepsis secondary to cavitary pneumonia. 4. Pancytopenia. Patient is status post transfusion of 6 units packed RBCs and 2 unit of platelets. 5 COPD without exacerbation. Continue albuterol nebulizer 3 times daily. 6 acute on chronic diastolic heart failure. 7 recurrent pneumonia: Patient is asymptomatic at this point. Continue inhaler and antibiotics. 8 multiple pulmonary infiltrates including a spiculated 16 x 10 x 30 mm infiltrate in the right upper lobe. 9 severe protein calorie malnutrition with BMI of 16 10 GI prophylaxis: pantoprazole 40 mg daily. 11 DVT prophylaxis: Patient will stay on Venodyne boots and knee-high MOE hose. 12 COVID-19 infection not present. Metabolic encephalopathy as well as worsening renal failure with acute kidney injury on top of chronic kidney disease stage III, continue neutropenia. Discussed with patient's need for comfort care. She is agreeable to have meeting with hospice. She wants patient to be comfortable. Patient may qualify for GIP status. Patient started on sublingual morphine and lorazepam. All oral medications are on hold and patient made nothing by mouth status. Tylenol suppository for fever. Plan to transition patient to [facility] status once arrangements are completed. CODE STATUS: NO code. Discharge plan: [facility]. Impression and plan of care have been directed as dictated by the signing physician. Dannielle Villegas nurse practitioner acting as scribe for signing physician. Objective - Vital Signs Vital signs: Vital Signs Temp 98.8 F 04/26/20 07:18 Pulse 108 H 04/26/20 08:00 Resp 36 H 04/26/20 07:18 BP 124/60 04/26/20 07:18 Pulse Ox 93 L 04/26/20 05:25 Intake & Output 04/25/20 04/26/20 04/26/20 18:59 06:59 18:59 Intake Total 3000 900 Output Total 400 Balance 2600 900 Weight 55.792 kg Intake: Intake, IV Titration 1300 900 Amount Dextrose 5%-0.45% NaCl 1, 900 000 ml @ 75 mls/hr IV . [id number] DONNA Rx#:[id number] Piperacillin-Tazobactam 3 100 .375 gm In Sodium Chloride 0.9% 100 ml @ 25 mls/hr IVPB Q12HR DONNA Rx #:[id number] Sodium Chloride 0.9% 1, 1200 000 ml @ 75 mls/hr IV . [id number] DONNA Rx#:[id number] Oral 1080 Blood Product 620 Rc Irr As1 Unit 310 [id number] Output: Urine 400 Other: Voiding Method Bedside Commode Bedside Commode Urinal Urinal Urinal Incontinent # Voids 4 1 # Bowel Movements 1 1 - Labs CBC & Chem 7: 04/26/20 06:47 04/26/20 06:47 Labs: Abnormal Lab Results - Last 24 Hours (Table) 04/25/20 04/25/20 04/26/20 Range/Units 07:12 09:37 06:47 WBC 0.6 L* (3.8-10.6) k/uL RBC 2.42 L (4.30-5.90) m/uL Hgb 7.8 L (13.0-17.5) gm/dL Hct 25.2 L (39.0-53.0) % MCV 104.1 H (80.0-100.0) fL RDW 22.1 H (11.5-15.5) % Plt Count 102 L D (150-450) k/uL Chloride 108 H (98-107) mmol/L Carbon Dioxide 21 L (22-30) mmol/L BUN 43 H (9-20) mg/dL Creatinine 2.88 H (0.66-1.25) mg/dL Glucose 55 L (74-99) mg/dL Calcium 6.5 L (8.4-10.2) mg/dL Magnesium 1.3 L (1.6-2.3) mg/dL C-Reactive Protein 559.2 H (<10.0) mg/L Total Protein 5.8 L (6.3-8.2) g/dL Albumin 2.3 L (3.5-5.0) g/dL Crossmatch See Detail 04/26/20 Range/Units 06:47 WBC (3.8-10.6) k/uL RBC (4.30-5.90) m/uL Hgb (13.0-17.5) gm/dL Hct (39.0-53.0) % MCV (80.0-100.0) fL RDW (11.5-15.5) % Plt Count (150-450) k/uL Chloride 113 H (98-107) mmol/L Carbon Dioxide 17 L (22-30) mmol/L BUN 53 H (9-20) mg/dL Creatinine 3.55 H (0.66-1.25) mg/dL Glucose 72 L (74-99) mg/dL Calcium 6.3 L* (8.4-10.2) mg/dL Magnesium 1.3 L (1.6-2.3) mg/dL C-Reactive Protein (<10.0) mg/L Total Protein 6.0 L (6.3-8.2) g/dL Albumin 2.3 L (3.5-5.0) g/dL Crossmatch Microbiology - Last 24 Hours (Table) 04/21/20 00:40 Stool Culture - Final Stool Yeast species 04/23/20 07:41 Blood Culture - Preliminary Blood No Growth after 48 hours 04/23/20 07:41 Blood Culture - Preliminary Blood No Growth after 48 hours
[2020-04-26] MEDS ORDERED: ACETAMINOPHEN SUPPOSITORY 650 MG SUPP RECTAL PRN (15:04)
[2020-04-26 15:57] VITALS: TEMP 101.1
--- NOTE | 2020-04-27 06:47 | CDI ---
Documentation Clarification Form Date: 04/27/2020 06:30:23 AM From: Ronda Reyes Phone: If you have a question about this query, please contact Elen Hobbs Housekeeping Assistant at [phone] between 8am and 5pm. Admit Date: 04/16/2020 10:48:00 AM Patient Name: Blayne Walls Visit Number: [id number] Discharge Date: 04/26/2020 05:14:00 PM ATTENTION: The Clinical Documentation Specialists (CDI) and [facility] Coding Staff appreciate your assistance in clarifying documentation. Please respond to the clarification below the line at the bottom and electronically sign. The CDI & [facility] Coding staff will review the response and follow-up if needed. Please note: Queries are made part of the Legal Health Record. If you have any questions, please contact the author of this message via ITS. Dr. Juanjose Calloway The patient presented with pancytopenia secondary to chemotherary for MDS. Dr. Venegas documents possible sepsis secondary to cavitary pneumonia in 04/25 PN. Please clarify if patient had sepsis per documentation History/Risk Factors: MDS, pancytopenia, recurrent pneumonia WBC 1.3 Vitals signs on admission: 98.3F, 75 bpm, 18, 101/65, 98% RA Other Clinical Indicators: fever Treatment: antibiotics ID Consult: concern for Aspirgillus Antibiotics:Zosyn and Zyvox In your professional opinion, please clarify if these findings signify one of the following conditions, whether the condition is POA, and cause, if known: Condition Sepsis ruled out SIRS, without underlying infectious process Sepsis XX Severe Sepsis Septic Shock Other, please specify Unable to determine Present on Admission Yes No SIRS Criteria (2 or more of the following may indicate SIRS): -Temperature < 96.8F (36C) or > 101.0F (38.3C) -Heart Rate > 90 bpm -Respiratory Rate > 20 breaths/min or PaCO2 < 32 mmHg -White Blood Cell Count > 12,000 or < 4,000 cells/mm3 or > 10% bands -Lactate >2.0 mmol/L (>4.0 is equivalent to septic shock) MTDD
--- NOTE | 2020-04-29 11:30 | P.DS ---
Providers Date of admission: 04/16/20 10:48 Expected date of discharge: 04/26/20 Attending physician: Juanjose Calloway Consults: 04/15/20 13:13 Consult Physician Urgent Consulting Provider: Genesis Ford Consult Reason/Comments: Anemia Do you want consulting provider notified?: Yes 04/17/20 15:20 Consult Physician Routine Consulting Provider: Honey Garcia Consult Reason/Comments: neutrop[enic fever Do you want consulting provider notified?: Yes 04/17/20 15:33 Consult Physician Routine Consulting Provider: Rony Ragland Consult Reason/Comments: LUNG MASS, fuo, NEUTROPENIC FEVER Do you want consulting provider notified?: Yes Primary care physician: [facility] Course: 70-year-old male one of Dr. Bustillos's patient with past medical history of anemia, gout, tobacco use, daily alcohol use and myelodysplasia who has been set pancytopenic for the last 2 month was started on chemotherapy with hematology recently was hospitalized for extended period of time for severe pancytopenia and severe neutropenia did not recover. Patient apparently went back on chemotherapy after he left the hospital last time. Today found to have severe anemia with hemoglobin of 5.1 with severe neutropenia white blood cell 1.3 and thrombocytopenia with platelets 28,000 only. Patient brought to the [facility] emergency department where was seen and evaluated has been very weak has not been able to ambulate and walk and has been having worsening shortness of breath with dyspnea with minimal exertion for the last few days. With a current hemoglobin his oncologist and instructed him to come to the hospital for admission for transfusion. 04/16: Patient is seen today on the MedSurg floor. He is status post 2 units of packed RBCs and repeat lab work reveals hemoglobin of 7.3, WBC 0.9, platelet count 18. Electrolytes normal, BUN 32 and creatinine 0.89. Calcium 7.9, total bilirubin 1.5, AST 42, ALT 40, alkaline phosphatase 66. Temperature max 100.0, heart rate 76, blood pressure 115/66, pulse ox 96% on room air. Consult in place for oncology. COVID-19 is pending. 04/17: Hemoglobin currently is at 7.1, platelet count of 16, double basic count of 0.7 oncology thinks that he has myelodysplasia,patient wants to stay another day just in case he needs another blood products, as it's difficult for him to be transported back and forth with the who has been on a wheelchair, patient has chronic cough from smoking, denies any feverhowever T-max is 100.0 within the past 24 hours, Covid testc negative,chest x-ray shows no acute pulm onary disease, has clearing of pulmonary edema and pleural fluid compared to old exam,urinalyses WBC of 2,blood cultures would be sent secondary to the fever, consult Dr. Garcia for neutropenic fever, unknown primary at this time,start patient on cefotaxime, Levaquin, we will obtain high resolution CT of the chest, CT of the abdomen fromMarch 25, 2020 was reviewed , CT March 21, 2 cm stellate mass right upper lobe, 4 x 2 cm hypodensity posterior spleen no hydronephrosis no pulmonary has seen the patient, consult with Dr. Ragland pulmonary 04/18: Patient is being transfused currently for hemoglobin of 6.0, along with platelet transfusion, both are irritated, platelet is down to 9, currently on IV cefepime with James, is following, CAT scan of the chest shows multiple pulmonary infiltrates including a spiculated lesion 16 x 10 x 13 mm right upper lobe, 1.5 cm noncalcified subpleural nodular density posterior segment right upper lobe, 7 mm noncalcified nodule right lower lobe, 2.3, dictation spiculated left lower lobe, posterior basal segment, suspected inflammatory changes, Dr. Blanca pulmonary has been consulted, with recommendations for follow-up CT in 3 months, sputum culture sent today patient still has cough no hemoptysis, no conversational dyspnea, no active wheezing, T-max of 98.2, blood pressure is between 90-98 systolic pressures, nonlabored breathing pulse ox room air 98% 04/19: Patient has been seen by Dr. Blanca with recommendations for 3 month follow-up for repeat CAT scan. Patient has been continued on vancomycin, and cefepime by Dr. Garcia. We will discontinue the Levaquin that was added by oncology for prophylaxis. Patient does have a temperature max of 102.6, heart rate 79, blood pressure 95/53, pulse ox 97% on room air. Repeat blood work will be ordered for today. Patient has remained pancytopenic over the weekend. 04/20: Yesterday's blood work revealed a hemoglobin of 7, WBC 0.5, platelet count 9 and patient received 1 unit of platelets and oncology started Zarxio. Repeat blood work for today reveals WBC of 0.5, hemoglobin 6.7, platelet count 23. BUN 30 creatinine 1.25. Blood sugar 105. C-reactive protein is 209.5. Patient denies any new complaints. No chest pain or shortness of breath. No cough. Temperature max is 102.8 at 7 PM, heart rate 72, blood pressure 88/37, pulse ox 96% on room air. Pulmonary medicine does not plan for bronchoscopies at this time. Dr. Garcia has changed and biotics to Zosyn. 04/21: Patient is sleeping at the time of evaluation. He wakes easily to verbal stimuli. Temperature maximum 100.6, heart rate 80, blood pressure 102/52, pulse ox 98% on room air. Patient has had diarrhea and C. difficile toxin is negative. Legionella is negative. Lab work yesterday revealed hemoglobin of 6.7, W BC 0.5 and platelets of 23. He received a unit of packed RBCs last evening. Repeat lab work this morning reveals WBC of 0.6, hemoglobin 6.6, platelet count 17. Patient is continued on Zosyn. He is on salt and soda mouthwash for oral lesions. He has also been started on Zarxio. 04/22: Repeat blood work reveals WBC 0.7, hemoglobin 7.7, platelet count 12. He is now status post 5 units of packed RBCs and [address] Garcia started voriconazole IV yesterday. Patient is complaining of clear sputum production. He has a history of smoking for greater than 65 years. Oncology is anticipating that his counts will stabilize and recover in the next several days. Once recovered, would like bronchoscopy or biopsy of spiculated lesion found on CT of the chest. Temperature max 102.6. Heart rate 72, blood pressure 100/59, pulse ox 95% on room air. 04/23: Patient is seen today in follow-up. He denies having any chest pain or shortness of breath. He is having loose stool daily. He is eating well. He denies any nausea or vomiting. His temperature maximum 103.1, heart rate 97, blood pressure 118/65, pulse ox 94% on 3 L nasal cannula. Blood culture was obtained last night and patient received IV Tylenol last night. He is currently on Zyvox added to Zosyn and Voriconazole. Beta-1,3-D-glucan and serum galactomannan are pendind. Repeat blood work reveals WBC 0.5, hemoglobin 7.7, platelet count 11. Potassium 3.2, BUN 26 and creatinine 1.42. Calcium 7.5. Blood cultures from April 16 and April 17 are showing no growth. Sputum culture finalized with contaminated oral hakeem. Stool culture is in process. 04/24: Patient continues to have fever. Tylenol was given last night. Additional blood cultures were ordered yesterday. He is complaining of diarrhea previous C. diff culture was negative. Patient is complaining of a tightness to his abdominal area. Blood pressure 92/42, pulse 84, respirations 20, pulse ox 92% on 3 L of nasal cannula. WBC 0.6, hemoglobin 7.3, platelets 13, BUN 34, creatinine 2.23 04/25: Patient has multiple bouts of watery yellow diarrhea. Patient has been up most the day and night due to the diarrhea. Previous C. diff was negative. Patient continues to complain of tenderness to his abdominal area. WCC 0.6, Hemoglobin 6.7, platelets 29, BUN 43, creatinine 2.88 04/26: The patient developed mental status changes over the weekend and is somewhat confused this morning. He is unable to swallow any oral medications. He is complaining of dizziness. He is audibly wheezing with moist wet sounds. He has received 1 dose of IV Lasix 20 mg this morning we will repeat a 40 mg IV push now. Contacted patient's on the phone and gave her an update regardi ng patient's condition and recommend that she come into the hospital. The patient is most appropriate for comfort care at this point. He has worsening renal function with a BUN of 53 and creatinine 3.55. WBC is 0.6, hemoglobin 7.8, platelet count 102. Calcium 6.3. Lactic acid 1.5. Magnesium 1.3. Stool culture is yeast species. Most recent blood culture is no growth at 72 hours. Temperature 100.9, heart rate 127, blood pressure 81/51, pulse ox 93% on 2 L nasal cannula, respiratory rate 36. Patient started on sublingual morphine and sublingual lorazepam. Patient on the evening of April 26. Please see nursing documentation for details. Assessment and Plan 1 acute symptomatic anemia. 2 severe myelodysplasia. Pulmonary cause of . 3 severe febrile neutropenia, possible sepsis secondary to cavitary pneumonia. 4. Pancytopenia. 5 COPD without exacerbation. 6 acute on chronic diastolic heart failure. 7 recurrent pneumonia: Patient is asymptomatic at this point. 8 multiple pulmonary infiltrates including a spiculated 16 x 10 x 30 mm infiltrate in the right upper lobe. 9 severe protein calorie malnutrition with BMI of 16 10 COVID-19 infection not present. Metabolic encephalopathy as well as worsening renal failure with acute kidney injury on top of chronic kidney disease stage III, continued neutropenia. Impression and plan of care have been directed as dictated by the signing physician. Dannielle Villegas nurse practitioner acting as scribe for signing physician. Plan - Discharge Summary Discharge Rx Participant: No New Discharge Prescriptions: No Action Acyclovir 400 mg PO TID #90 tablet Fluconazole [Diflucan] 100 mg PO DAILY #30 tab Acetaminophen Tab [Tylenol] 650 mg PO Q6HR PRN tab PRN Reason: Mild Pain Or Fever > 100.5 Multivitamins, Thera [Multivitamin (formulary)] 1 tab PO DAILY Dicyclomine [Bentyl] 20 mg PO QID #120 tab Potassium Chloride ER [K-Dur 20] 20 meq PO DAILY #30 tab Furosemide [Lasix] 40 mg PO DAILY #30 tablet Albuterol Inhaler [Ventolin Hfa Inhaler] 2 puff INHALATION RT-TID #1 inhaler Discharge Medication List Acyclovir 400 mg PO TID #90 tablet 03/17/20 [Rx] Fluconazole [Diflucan] 100 mg PO DAILY #30 tab 03/17/20 [Rx] Acetaminophen Tab [Tylenol] 650 mg PO Q6HR PRN tab 03/18/20 [Rx] Multivitamins, Thera [Multivitamin (formulary)] 1 tab PO DAILY 03/20/20 [History] Albuterol Inhaler [Ventolin Hfa Inhaler] 2 puff INHALATION RT-TID #1 inhaler 03/29/20 [Rx] Dicyclomine [Bentyl] 20 mg PO QID #120 tab 03/29/20 [Rx] Furosemide [Lasix] 40 mg PO DAILY #30 tablet 03/29/20 [Rx] Potassium Chloride ER [K-Dur 20] 20 meq PO DAILY #30 tab 03/29/20 [Rx] Follow up Appointment(s)/Referral(s): [facility], [NON-STAFF] - 1 Week George Bustillos DO [Primary Care Provider] - 1-2 days Discharge Disposition: DISCH TO HOSPICE MED FACILTY - Preliminary Cause of Preliminary Cause of : severe myelodysplasia
--- NOTE | 2020-05-06 12:04 | CDI ---
Documentation Clarification Form Date: 04/27/2020 05:51:00 AM From: Ronda Reyes Phone: : If you have a question about this query, please contact Elen Hobbs, Instrument Operator at [phone] between 8am and 5pm. Admit Date: 04/16/2020 10:48:00 AM Patient Name: Blayne Walls Visit Number: [id number] Discharge Date: 04/26/2020 05:14:00 PM ATTENTION: The Clinical Documentation Specialists (CDI) and [facility] Coding Staff appreciate your assistance in clarifying documentation. Please respond to the clarification below the line at the bottom and electronically sign. The CDI & [facility] Coding staff will review the response and follow-up if needed. Please note: Queries are made part of the Legal Health Record. If you have any questions, please contact the author of this message via ITS. Dr. Juanjose Calloway Conflicting documentation has been found in the medical record: Documentation of chronic diastolic CHF throughout chart. 04/26 PN documents acute and chronic diastolic CHF. Please clarify if patient had acute and chronic diastolic CFH History/Risk Factors: chronic diastolic CHF Right pleural effusion Treatment: Furosemide In your opinion, what is the most clinically appropriate diagnosis for this patient? xxAcute and chronic diasolic CHF Chronic diastolic CHF Other explanation of clinical findings Unable to determine (no explanation for clinical findings) MTDD
--- NOTE | 2020-05-06 13:24 | CDI ---
Documentation Clarification Form Date: 05/06/2020 01:06:35 PM From: Ronda Reyes Phone: If you have a question about this query, please contact Elen Hobbs, Mechanical Applications Engineer at [phone] between 8am and 5pm. Admit Date: 05/02/2020 11:28:00 AM Patient Name: Dulce Carlisle Visit Number: [id number] Discharge Date: 05/05/2020 05:53:00 PM ATTENTION: The Clinical Documentation Specialists (CDI) and [facility] Coding Staff appreciate your assistance in clarifying documentation. Please respond to the clarification below the line at the bottom and electronically sign. The CDI & [facility] Coding staff will review the response and follow-up if needed. Please note: Queries are made part of the Legal Health Record. If you have any questions, please contact the author of this message via ITS. Dr. Juanjose Calloway Per consult and PN 05/03 and 05/05 "BMI of 20, monitor nutritional losses. Patient also has dysphagia. Please clarify the clinical significance of patient's BMI of 20 and need to monitor nutritional losses. History/Risk Factors: Patient with fx. femur. dysphagia Clinical Indicators: BMI 20 Treatment: Monitoring nutritional losses Please clarify the clinical significance of patient's BMI of 20 and nutritional monitoring. Other (please specify diagnosis) __Dysphagia from Medical Condition Could be CA refused by the Family to do any investigation Unable to determine MTDD
== END 2020-04-26 17:14 | disposition hospice, inpatient (51) | DRG 871 ==
LOC: EC 11:42 → 5NMEDONC 13:13 → OBSVTOIN 04-16 10:48
PROVIDERS: ADMIT Internal Medicine Geriatric Medicine; ATTEND Internal Medicine Geriatric Medicine
PROC: 30233R1 Transfusion of Nonautologous Platelets into Peripheral Vein, Percutaneous Approach (ICD-10-PCS; principal; 2020-04-18)
PROC: 30233N1 Transfusion of Nonautologous Red Blood Cells into Peripheral Vein, Percutaneous Approach (ICD-10-PCS; principal; 2020-04-18)
DX: A41.9 Sepsis, unspecified organism (principal); D61.810 Antineoplastic chemotherapy induced pancytopenia; E43 Unspecified severe protein-calorie malnutrition; G93.41 Metabolic encephalopathy; J18.8 Other pneumonia, unspecified organism; I50.33 Acute on chronic diastolic (congestive) heart failure; B37.0 Candidal stomatitis; Z68.1 Body mass index [BMI] 19.9 or less, adult; J44.0 Chronic obstructive pulmonary disease with (acute) lower respiratory infection; N17.9 Acute kidney failure, unspecified; B44.9 Aspergillosis, unspecified; D46.Z Other myelodysplastic syndromes; F17.210 Nicotine dependence, cigarettes, uncomplicated; M1A.9XX0 Chronic gout, unspecified, without tophus (tophi); N18.3 Chronic kidney disease, stage 3 (moderate); T45.1X5A Adverse effect of antineoplastic and immunosuppressive drugs, initial encounter; Z51.5 Encounter for palliative care; Z66 Do not resuscitate; Z20.828 Contact with and (suspected) exposure to other viral communicable diseases; R91.8 Other nonspecific abnormal finding of lung field; R19.7 Diarrhea, unspecified; L98.9 Disorder of the skin and subcutaneous tissue, unspecified; Z91.19 Patient's noncompliance with other medical treatment and regimen; Z87.01 Personal history of pneumonia (recurrent); Z79.51 Long term (current) use of inhaled steroids; Z79.899 Other long term (current) drug therapy; Z80.0 Family history of malignant neoplasm of digestive organs; M19.90 Unspecified osteoarthritis, unspecified site
CPT/HCPCS: 71046; 71260; 74176; 80053; 80202; 81001; 83605; 83735; 84145; 85025; 85027; 85610; 85652; 85730; 86140; 86606; 86850; 86900; 86901; 86920; 87040; 87045; 87046; 87070; 87205; 87305; 87324; 87449; 94640; 94760; 99285

== ENCOUNTER 2020-04-26 15:26 | Inpatient (IN) | payer MEDICAID ==
[2020-04-26] MEDS ORDERED: LORazepam 2 MG/ML INJ IV PRN (15:36)
[2020-04-26] MEDS ORDERED: ACETAMINOPHEN SUPPOSITORY 650 MG SUPP RECTAL PRN (15:36)
[2020-04-26] MEDS ORDERED: ATROPINE OPHTH SOLN 1% 5ML BTL SUBLINGUAL PRN (15:36)
[2020-04-26] MEDS ORDERED: MORPHINE SULFATE 4 MG/ML SYRINGE IV PRN (15:36)
[2020-04-26] MEDS ORDERED: SCOPOLAMINE 1.5MG/72HR PATCH TRANSDERM SCH (16:00)
== END 2020-04-26 21:58 | disposition expired | DRG 951 ==
LOC: 5NMEDONC 17:34
PROVIDERS: ADMIT Internal Medicine Geriatric Medicine; ATTEND Internal Medicine Geriatric Medicine
DX: Z51.5 Encounter for palliative care (principal); D61.810 Antineoplastic chemotherapy induced pancytopenia; Z68.1 Body mass index [BMI] 19.9 or less, adult; D46.1 Refractory anemia with ring sideroblasts; J44.9 Chronic obstructive pulmonary disease, unspecified; Z66 Do not resuscitate; T45.1X5A Adverse effect of antineoplastic and immunosuppressive drugs, initial encounter; F17.210 Nicotine dependence, cigarettes, uncomplicated; Z79.899 Other long term (current) drug therapy; Z87.01 Personal history of pneumonia (recurrent); Z87.2 Personal history of diseases of the skin and subcutaneous tissue; Z72.89 Other problems related to lifestyle; Z80.49 Family history of malignant neoplasm of other genital organs; Z80.0 Family history of malignant neoplasm of digestive organs; Z80.9 Family history of malignant neoplasm, unspecified